=== PATIENT | female | born 1960 | race American Indian/Alaskan Native ===

== ENCOUNTER 2016-11-26 14:14 | Inpatient (IN) | payer OTHER ==
[2016-11-26] MEDS ORDERED: NITRO-BID 2% TP ONE ×2 (17:25→20:00)
[2016-11-26] MEDS ORDERED: SUBLIMAZE IV ONE (17:25)
[2016-11-26] MEDS ORDERED: ZOFRAN IV ONE (17:25)
--- NOTE | 2016-11-26 17:30 | Emergency Department Report ---
HPI - General Chief Complaint: Chest Pain Time Seen by Provider: 11/26/16 17:11 - HPI HPI: Room 18 The patient is a 56-year-old female presented with a chief complaint of right groin and chest pain. The patient states her symptoms began last night with pain in the right groin radiating to her back and left upper extremity.. Patient states when she stands up her heart rate goes into the 140s to 150s. Patient describes pain as pulsating and constant in nature. The patient also admits to exertional chest pain since last night described as a pressure in the left chest. This pressures associated with shortness of breath nausea/vomiting and sometimes diaphoresis. Patient states she's had a stress test "a long time ago"but has never had a cardiac catheterization. The patient flew from [place] to [place] took a bus from [place] to [place] today Location: [see above] Duration: [see above] Quality: Throbbing Severity: 7-8/10 Modifying factors: [see above] Context: [see above] Mode of transportation: Unknown ED Past Medical Hx - Past Medical History Hx CVA: Yes Hx Deep Vein Thrombosis: Yes (bilateral upper extremities) Hx Pulmonary Embolism: Yes (April 2016) Hx Arthritis: Yes (RHEUMATOID) Additional medical history: SLE. MYOSITIS. PERIPHERAL EOSINOPHILIA. GI BLEED. "CLOTTING DISORDER" - Surgical History Additional Surgical History: IVC FILTER RIGHT GROIN. ULCER CLIPPED AND CLAMPED. RIGHT AND LEFT KNEE SURGERIES. Esophageal surgery to remove growth - Family History Family history: no significant - Social History Smoking Status: Never Smoker - Medications Home Medications: Home Medications Medication Instructions Recorded Confirmed Last Taken Type AtorvaSTATin [Lipitor] 10 mg PO QPM 04/11/15 11/26/16 04/08/15 History 10 MG Pantoprazole [Protonix TAB] 40 mg PO BID 04/11/15 11/26/16 04/08/15 History 40 MG predniSONE [Deltasone] 10 mg PO QDAY 04/11/15 11/26/16 04/08/15 History 10 MG Enoxaparin [Lovenox] 90 mg SQ Q12HR #10 syringe 04/12/15 11/26/16 Unknown Rx Warfarin [Coumadin] 5 mg PO QDAY #10 tablet 04/12/15 11/26/16 Unknown Rx Ascorbic Acid [Vitamin C] 500 mg PO QDAY 11/26/16 11/26/16 Unknown History Cholecalciferol Vit D3 [Vitamin D3] 1,000 unit PO QDAY 11/26/16 11/26/16 Unknown History Metoprolol Xl [Metoprolol 50 mg PO BID 11/26/16 11/26/16 Unknown History SUCCINATE ER TAB] ED Review of Systems ROS: Stated complaint: RAPID HEART RATE/PAIN IN GROIN/HX OF DVT/ Other details as noted in HPI Comment: All other systems reviewed and negative Constitutional: diaphoresis Eyes: denies: eye pain, eye discharge, vision change ENT: denies: ear pain, throat pain Respiratory: shortness of breath Cardiovascular: chest pain, palpitations Endocrine: no symptoms reported Gastrointestinal: nausea, vomiting Genitourinary: denies: urgency, dysuria, discharge Musculoskeletal: back pain Skin: denies: rash, lesions Neurological: denies: headache, weakness, paresthesias Psychiatric: denies: anxiety, depression Hematological/Lymphatic: denies: easy bleeding, easy bruising Physical Exam - Physical Exam Vital Signs: Vital Signs 11/26/16 11/26/16 11/26/16 14:49 16:52 17:00 Temperature 98.2 F 98.1 F Pulse Rate 95 H 75 Respiratory 18 18 18 Rate Blood Pressure 117/62 Blood Pressure 110/46 [Right] O2 Sat by Pulse 100 99 99 Oximetry Physical Exam: GENERAL: The patient is well-developed well-nourished female lying on stretcher not appearing to be in acute distress. [] HEENT: Normocephalic. Atraumatic. Extraocular motions are intact. Patient has moist mucous membranes. NECK: Supple. Trachea midline CHEST/LUNGS: Clear to auscultation. There is no respiratory distress noted. HEART/CARDIOVASCULAR: Regular. There is no tachycardia. There is no gallop rub or murmur. ABDOMEN: Abdomen is soft, nontender. Patient has normal bowel sounds. There is no abdominal distention. SKIN: There is no rash. There is no diaphoresis. NEURO: The patient is awake, alert, and oriented. The patient is cooperative. The patient has normal speech MUSCULOSKELETAL: There is no evidence of acute injury. ED Course Vital Signs 11/26/16 11/26/16 11/26/16 14:49 16:52 17:00 Temperature 98.2 F 98.1 F Pulse Rate 95 H 75 Respiratory 18 18 18 Rate Blood Pressure 117/62 Blood Pressure 110/46 [Right] O2 Sat by Pulse 100 99 99 Oximetry ED Medical Decision Making - Lab Data Result diagrams: 11/26/16 18:36 11/26/16 18:36 Laboratory Tests 11/26/16 11/26/16 18:36 18:36 WBC 5.7 RBC 3.06 L Hgb 8.3 L Hct 27.3 L MCV 89 MCH 27 L MCHC 31 RDW 18.2 H Plt Count 196 Lymph % (Auto) 15.4 [place] % (Auto) 4.2 Eos % (Auto) 1.2 Baso % (Auto) 0.2 Lymph # 0.9 L [place]minn # 0.2 Eos # 0.1 Baso # 0.0 Seg Neutrophils % 79.0 H Seg Neutrophils # 4.5 Sodium 137 Potassium 4.6 Chloride 102.7 Carbon Dioxide 18 L Anion Gap 21 BUN 11 Creatinine 0.5 L Estimated GFR > 60 BUN/Creatinine Ratio 22.00 Glucose 145 H Calcium 8.9 Troponin T 0.035 H Triglycerides 96 Cholesterol 131 LDL Cholesterol Direct 57 HDL Cholesterol 55 Cholesterol/HDL Ratio 2.38 - EKG Data -: EKG Interpreted by Me EKG shows normal: sinus rhythm Rate: normal - EKG Data When compared to previous EKG there are: previous EKG unavailable Interpretation: other (no ischemic changes seen) - Radiology Data Radiology results: image reviewed (chest x-ray) interpreted by me: Chest x-ray-no focal infiltrates, no pneumothorax - Differential Diagnosis PE, ACS, DVT, pericarditis, GERD Critical care attestation.: If time is entered above; I have spent that time in minutes in the direct care of this critically ill patient, excluding procedure time. ED Disposition Clinical Impression: Chest pain, Right groin pain Disposition: OP ADMIT IP TO THIS HOSP Is pt being admited?: Yes Condition: Fair Instructions: Chest Pain (ED) Referrals: PRIMARY CARE, [Primary Care Provider] - 3-5 Days
--- NOTE | 2016-11-26 17:58 | Admit Criteria Form ---
Admission Criteria Documentation: CARDIOLOGY GRG Clinical Indications for Admission to Inpatient Care ([place]/check or initial the applicable condition/criteria) Hospital admission is needed for appropriate care of the patient because of ANY ONE of the following: [ ] I. Hemodynamic instability as indicated by ALL of the following (1)(2)(3) (4)(5)(6)(7)(8)(9)(10) [ ]a) Vital sign abnormality not readily corrected by appropriate treatment with 12-24 hours for ANY ONE: [ ]i) Hypotension that persists despite appropriate treatment (eg, volume repletion) [ ]ii) Tachycardiathat persists despite appropriate tx ( e.g., analgesia, fluids, sedation as indicated [ ]iii) Orthostatic vital sign changes that persists despite appropriate treatment (eg, volume repletion) [ ]b) Vital sign abnormailty that is severe indicated by ANY ONE of the following: [ ]i) Inadequate perfusion indicated by ANY ONE of the following: [ ] 1) Lactic acidosis (> 2 mmol/L) [ ] 2) New abnormal capillary refill (> 3 seconds) [ ] 3) Reduced urine output [ ] 4) New altered mental status [ ] 5) Myocardial Ischemia [ ] 6) Other metabolic acidosis (arterial pH <7.35 ) not otherwise explained. [ ]ii) Mean arterial pressure[A] less than 60 mm Hg [ ]iii) Mean arterial pressure[A] less than 70 mm Hg after 30 minutes of appropriate treatment (eg, fluid resuscitation) [ ]iv) Sustained heart rate greater than 120 beats per minute in adult or child 6 years or older[B] [ ]v) IV inotropic or vasopressor medication required to maintain adequate blood pressure or perfusion [ ] II. Severe heart failure as indicated by ANY ONE of the following(17)(18) [ ]a) Respiratory distress [ ]b) Hypotension [ ]c) Debilitating anasarca refractory to therapy (eg, tissue breakdown with infection)[C](19) [ ]d) Cardiac arrhythmias of immediate concern [ ]e) Myocardial ischemia [ ] III. Cardiac arrhythmias or findings of immediate concern indicated by ANY ONE of the following (21)(22): [ ] a) Heart rhythms that are inherently dangerous or unstable indicated by ANY ONE of the following (23)(24)(25): [ ] i) Resuscitated ventricular fibrillation or cardiac arrest [ ] ii) Ventricular escape rhythm [ ] iii) Sustained ventricular tachycardia (30 seconds or more of ventricular rhythm at greater than 100 beats per minute) [ ] iv) Nonsustained ventricular tachycardia and ANY ONE of the following: [ ] 1) Suspected cardiac ischemia as cause or consequence of ventricular tachycardia [ ] 2) Acute myocarditis [ ] b) Unstable cardiac conduction defects indicated by ANY ONE of the following(25)(26)(27) [ ] i) Type II second-degree atrioventricular block [ ]ii) Third-degree atrioventricular block [ ]iii) New-onset left bundle branch block with suspected myocardial ischemia [ ]c) Any heart rhythm and ANY ONE of the following (23)(24)(28)(29) (30) [ ] i) Continuous long-term ECG monitoring needed (e.g., initiation of drug requiring monitoring for more than 24 hours) [ ] ii) Patient has automatic implanted cardioverter defibrillator that is repeatedly firing, malfunctioning, or in need of immediate adjustment of settings beyond the scope of ambulatory or observation care [ ]d) Heart rhythms of concern due to ANY ONE of the following: [ ] i) Hypotension [ ] ii) Respiratory distress [ ] iii) Association with other significant symptoms (e.g., bradycardia with syncope or ongoing dizziness, supraventricular tachycardia with chest pain (28)(29)(31) [ ] IV. Monitoring for cardiac contusion beyond the scope of observation care needed [A](32)(33)(34) [ ] V. Surgical or device complication (e.g., valve replacement complication , ICD disfunction or pacemaker dysfunction) (49)(50)(51)(52)(53)(54) [ ] . Inpatient palliative care needed. [F](51)(52) Also use Inpatient Palliative Care Criteria [ ] VII. Nonbacterial thrombotic (marantic) endocarditis(43)(44)(55)(56)(57) [X] VIII. Cardiology condition, symptom, or finding for which emergency and observation care has failed or are not considered appropriate. [ ] IX. Acute valvular disease requiring inpatient as indicated by ANY ONE of the following (40)(41) [ ]a) Acute valvular regurgitation (42) [ ]b) Noninfectious valvulitis (43)(44) [ ]c) Obstructive valve thrombosis (45)(46) [ ]d) Paravalvular leak(47)(48) [ ]e) Other significant valvular disorder remaining after emergency or observation level of care (as appropriate) [ ]X. Pericardial disease requiring inpatient treatment as indicated by ANY ONE of the following (35)(36)(37)(38) [ ]a) Suspected tamponade [ ]b) Hemopericardium [ ]c) Other significant pericardial disorder remaining after emergency or observation level of care (as appropriate)(39) [ ] XI. Cardiac ischemia beyond scope of emergency and observation care. [ ] XII. Cyanotic heart disease requiring inpatient care as indicated by 1 or more of the following(58)(59)(60): [ ]a) Acute onset of hypoxemia [ ]b) Exacerbation [ ] XIII. Hypertension requiring inpatient treatment as indicated by ANYONE of the following(11)(12)(13)(14): [ ]a) Severe hypertension (SBP greater than 180 mm Hg or DBP greater than 110 mm Hg, or greater than the 95th percentile for age, gender, and height in pediatric patients) that cannot be controlled (eg, to SBP less than 160 mm Hg and DBP less than 100 mm Hg) by emergency department or observation care treatment(15) [ ]b) Acute end organ damage secondary to hypertension (SBP greater than 140 mm Hg or DBP greater than 90 mm Hg) as indicated by ANYONE of the following: [ ] i) Hypertensive encephalopathy (eg, Altered mental status)(16) [ ] ii) Cerebral infarction [ ] iii) Intracranial hemorrhage [ ] iv) Myocardial ischemia or infarction [ ] v) Heart failure (eg, pulmonary edema) [ ] vi) Aortic dissection [ ] vii) Increased creatinine (new) with reduction of more than 50% in estimated glomerular filtration rate from baseline [ ] viii) Papilledema [ ] ix) Retinal hemorrhage [ ] x) Microangiopathic hemolytic anemia [ ] xi) Seizure [ ] xii) Other significant finding secondary to hypertension [ ] XIV. Complications of transplanted heart indicated by ANY ONE of the following(61): [ ]a) Acute graft rejection requiring inpatient management (eg, intravenous imunosuppression)(62)(63) [ ]b) Acute graft heart failure indicated by ANY ONE of the following(64): [ ] i) Hemodynamic instability [ ] ii) Cardiac arrhythmias of immediate concern [ ] iii) Pulmonary edema that is very severe (eg, mechanical ventilation needed, imminent or likely, need for 100% oxygen to keep oxygen saturation above 90%) [ ] iv) Pulmonary edema that is persistent as indicated by ALL of the following: [ ] 1) New need for oxygen therapy to keep oxygen saturation above 90 % (or increased FiO2 need from baseline) [ ] 2) Has not improved sufficiently with emergency department or observation care IV diuretics or other heart failure treatments[E]. [ ] iv) Altered mental status that is severe or persistent [ ] iv) Increased creatinine (new on laboratory test) with reduction of more than 50% in estimated glomerular filtration rate from baseline [ ] iv) Progressively (ongoing) rising creatinine (known from past laboratory test) with reduction of more than 25% in estimated glomerular filtration rate from baseline [ ] iv) Acute renal failure [ ] iv) Acute peripheral ischemia (eg, examination shows pulseless, cool, mottled, or cyanotic extremity) [ ] iv) Pulmonary artery catheter monitoring needed [ ] iv) Other sign or symptom of heart failure requiring inpatient treatment (ie, too severe or not responsive to outpatient and observation care treatment) [ ]c) Infection requiring inpatient management (eg, Hemodynamic instability, need for intravenous antimicrobial treatment)(66)(67)(68)(69)(70) [ ]d) Cardiac allograft vasculopathy requiring inpatient management (eg evidence of cardiacischemia)(71) [ ]e) Other complication of transplanted heart (eg, stroke, severe pulmonary hypertension, severe valvular dysfunction) requiring inpatient management(72) The original [employer] content created by [employer] has been revised. The portions of the content which have been revised are identified through the use of italic text or in bold, and [facility] has neither reviewed nor approved the modified material. All other unmodified content is copyright [facility]. Please see references footnoted in the original [facility] [facility] edition 2017 Admission Criteria Met: Yes
[2016-11-26 19:08] LABS: Basophils % (Auto) 0.2 % (0.0-1.8); Eosinophils % (Auto) 1.2 % (0.0-4.3); Hematocrit 27.3 % (30.3-42.9); Hemoglobin 8.3 gm/dl (10.1-14.3); Mean Corpuscular HGB Conc 31 % (30-34); Mean Corpuscular Hemoglobin 27 pg (28-32); Mean Corpuscular Volume 89 fl (79-97); Platelet Count 196 K/mm3 (140-440); Red Blood Count 3.06 M/mm3 (3.65-5.03); Red Cell Distribution Width 18.2 % (13.2-15.2); White Blood Count 5.7 K/mm3 (4.5-11.0)
[2016-11-26 19:19] LABS: Anion Gap 21 mmol/L; Blood Urea Nitrogen 11 mg/dL (7-17); Calcium 8.9 mg/dL (8.4-10.2); Carbon Dioxide 18 mmol/L (22-30); Chloride 102.7 mmol/L (98-107); Glucose 145 mg/dL (65-100); Potassium 4.6 mmol/L (3.6-5.0); Sodium 137 mmol/L (137-145)
[2016-11-26 19:44] LABS: Cholesterol 131 mg/dL (50-199); HDL Cholesterol 55 mg/dL (40-59); LDL Cholesterol,Direct 57 mg/dL (50-130); Triglycerides 96 mg/dL (2-149)
[2016-11-26] MEDS ORDERED: DILAUDID IM PRN (21:21)
--- NOTE | 2016-11-26 22:49 | History and Physical Report ---
History of Present Illness Date of examination: 11/26/16 Date of admission: 11/26/16 19:13 Chief complaint: CC: L sided CP 1 day History of present illness: HPI The patient is a 56-year-old female presented with a chief complaint of right groin and chest pain. The patient states her symptoms began last night with pain in the right groin radiating to her back and left upper extremity.. Patient states when she stands up her heart rate goes into the 140s to 150s. Patient describes pain as pulsating and constant in nature. The patient also admits to exertional chest pain since last night described as a pressure in the left chest. This pressures associated with shortness of breath nausea/vomiting and sometimes diaphoresis. Patient states she's had a stress test "a long time ago"but has never had a cardiac catheterization. The patient flew from [place] to [place] took a bus from [place] to [place] today Location: [see above] Duration: [see above] Quality: Throbbing Severity: 7-10/29 Modifying factors: [see above] Context: [see above] Mode of transportation: Unknown - Past Medical History Hx CVA: Yes Hx Deep Vein Thrombosis: Yes (bilateral upper extremities) Hx Pulmonary Embolism: Yes (April 2016) Hx Arthritis: Yes (RHEUMATOID) Additional medical history: SLE. MYOSITIS. PERIPHERAL EOSINOPHILIA. GI BLEED. "CLOTTING DISORDER" Hypercoagulable state - Surgical History Additional Surgical History: IVC FILTER RIGHT GROIN. ULCER CLIPPED AND CLAMPED. RIGHT AND LEFT KNEE SURGERIES. Esophageal surgery to remove growth - Family History Family history: no significant - Social History Smoking Status: Never Smoker - Medications Home Medications: Home Medications Medication Instructions Recorded Confirmed Last Taken Type AtorvaSTATin [Lipitor] 10 mg PO QPM 04/11/15 11/26/16 04/08/15 History 10 MG Pantoprazole [Protonix TAB] 40 mg PO BID 04/11/15 11/26/16 04/08/15 History 40 MG predniSONE [Deltasone] 10 mg PO QDAY 04/11/15 11/26/16 04/08/15 History 10 MG Enoxaparin [Lovenox] 90 mg SQ Q12HR #10 syringe 04/12/15 11/26/16 Unknown Rx Warfarin [Coumadin] 5 mg PO QDAY #10 tablet 04/12/15 11/26/16 Unknown Rx Ascorbic Acid [Vitamin C] 500 mg PO QDAY 11/26/16 11/26/16 Unknown History Cholecalciferol Vit D3 [Vitamin D3] 1,000 unit PO QDAY 11/26/16 11/26/16 Unknown History Metoprolol Xl [Metoprolol 50 mg PO BID 11/26/16 11/26/16 Unknown History SUCCINATE ER TAB] Review of Systems Stated complaint: RAPID HEART RATE/PAIN IN GROIN/HX OF DVT/ Other details as noted in HPI Comment: All other systems reviewed and negative Constitutional: diaphoresis Eyes: denies: eye pain, eye discharge, vision change ENT: denies: ear pain, throat pain Respiratory: shortness of breath Cardiovascular: chest pain, palpitations Endocrine: no symptoms reported Gastrointestinal: nausea, vomiting Genitourinary: denies: urgency, dysuria, discharge Musculoskeletal: back pain Skin: denies: rash, lesions Neurological: denies: headache, weakness, paresthesias Psychiatric: denies: anxiety, depression Hematological/Lymphatic: denies: easy bleeding, easy bruising Medications and Allergies Allergies Allergy/AdvReac Type Severity Reaction Status Date / Time acetaminophen [From Tylenol] Allergy Hives Verified 04/10/15 09:40 ciprofloxacin [From Cipro] Allergy Hives Verified 04/10/15 09:40 ciprofloxacin HCl Allergy Hives Verified 04/10/15 09:40 [From Cipro] dicyclomine HCl [From Bentyl] Allergy Hives Verified 04/10/15 09:40 hydrocodone Allergy Hives Verified 04/10/15 09:40 Iodinated Contrast Media - Allergy Hives Verified 04/10/15 09:40 IV Dye meperidine HCl [From Demerol] Allergy Hives Verified 04/10/15 09:40 morphine Allergy Hives Verified 04/10/15 09:40 NSAIDS (Non-Steroidal Allergy Hives Verified 04/10/15 09:40 Anti-Inflamma oxycodone HCl Allergy Hives Verified 04/10/15 09:40 [From OxyContin] tramadol Allergy Hives Verified 04/10/15 09:40 Home Medications Medication Instructions Recorded Confirmed Last Taken Type AtorvaSTATin [Lipitor] 10 mg PO QPM 04/11/15 11/26/16 04/08/15 History 10 MG Pantoprazole [Protonix TAB] 40 mg PO BID 01/11/26/16 04/08/15 History 40 MG predniSONE [Deltasone] 10 mg PO QDAY 04/11/15 11/26/16 04/08/15 History 10 MG Enoxaparin [Lovenox] 90 mg SQ Q12HR #10 syringe 04/12/15 11/26/16 Unknown Rx Warfarin [Coumadin] 5 mg PO QDAY #10 tablet 04/12/15 11/26/16 Unknown Rx Ascorbic Acid [Vitamin C] 500 mg PO QDAY 11/26/16 11/26/16 Unknown History Cholecalciferol Vit D3 [Vitamin D3] 1,000 unit PO QDAY 11/26/16 11/26/16 Unknown History Metoprolol Xl [Metoprolol 50 mg PO BID 11/26/16 11/26/16 Unknown History SUCCINATE ER TAB] Active Meds: Active Medications Hydromorphone HCl (Dilaudid) 1 mg IM Q4H PRN PRN Reason: Pain, Moderate (4-6) Last Admin: 11/26/16 21:33 Dose: 1 mg Exam - Constitutional Vitals: Temp Pulse Resp BP Pulse Ox 98.0 F 80 20 113/60 98 11/26/16 22:16 11/26/16 22:16 11/26/16 22:16 11/26/16 22:16 11/26/16 22:16 General appearance: Present: no acute distress, well-nourished - EENT Eyes: Present: PERRL ENT: hearing intact, clear oral mucosa - Neck Neck: Present: supple, normal ROM - Respiratory Respiratory effort: normal Respiratory: bilateral: CTA - Cardiovascular Heart rate: 86 Rhythm: regular Heart Sounds: Present: S1 & S2. Absent: rub, click - Extremities Extremities: no ischemia, pulses intact, pulses symmetrical, No edema Peripheral Pulses: within normal limits - Abdominal General gastrointestinal: Present: soft, non-tender, non-distended, normal bowel sounds Female genitourinary: Present: normal - Rectal Rectal Exam: deferred - Integumentary Integumentary: Present: clear, warm, dry - Musculoskeletal Musculoskeletal: gait normal, strength equal bilaterally - Psychiatric Psychiatric: appropriate mood/affect, intact judgment & insight - Neurologic Neurologic: CNII-XII intact, moves all extremities - Allied Health Allied health notes reviewed: nursing, case management Results - Labs CBC & Chem 7: 11/26/16 18:36 11/26/16 18:36 Labs: Laboratory Last Values WBC 5.7 K/mm3 (4.5-11.0) 11/26/16 18:36 RBC 3.06 M/mm3 (3.65-5.03) L 11/26/16 18:36 Hgb 8.3 gm/dl (10.1-14.3) L 11/26/16 18:36 Hct 27.3 % (30.3-42.9) L 11/26/16 18:36 MCV 89 fl (79-97) 11/26/16 18:36 MCH 27 pg (28-32) L 11/26/16 18:36 MCHC 31 % (30-34) 11/26/16 18:36 RDW 18.2 % (13.2-15.2) H 11/26/16 18:36 Plt Count 196 K/mm3 (140-440) 11/26/16 18:36 Lymph % (Auto) 15.4 % (13.4-35.0) 11/26/16 18:36 [place] % (Auto) 4.2 % (0.0-7.3) 11/26/16 18:36 Eos % (Auto) 1.2 % (0.0-4.3) 11/26/16 18:36 Baso % (Auto) 0.2 % (0.0-1.8) 11/26/16 18:36 Lymph # 0.9 K/mm3 (1.2-5.4) L 11/26/16 18:36 [place] # 0.2 K/mm3 (0.0-0.8) 11/26/16 18:36 Eos # 0.1 K/mm3 (0.0-0.4) 11/26/16 18:36 Baso # 0.0 K/mm3 (0.0-0.1) 11/26/16 18:36 Seg Neutrophils % 79.0 % (40.0-70.0) H 11/26/16 18:36 Seg Neutrophils # 4.5 K/mm3 (1.8-7.7) 11/26/16 18:36 Sodium 137 mmol/L (137-145) 11/26/16 18:36 Potassium 4.6 mmol/L (3.6-5.0) 11/26/16 18:36 Chloride 102.7 mmol/L (98-107) 11/26/16 18:36 Carbon Dioxide 18 mmol/L (22-30) L 11/26/16 18:36 Anion Gap 21 mmol/L 11/26/16 18:36 BUN 11 mg/dL (7-17) 11/26/16 18:36 Creatinine 0.5 mg/dL (0.7-1.2) L 11/26/16 18:36 Estimated GFR > 60 ml/min 11/26/16 18:36 BUN/Creatinine Ratio 22.00 % 11/26/16 18:36 Glucose 145 mg/dL (65-100) H 11/26/16 18:36 Calcium 8.9 mg/dL (8.4-10.2) 11/26/16 18:36 Troponin T 0.035 ng/mL (0.00-0.029) H 11/26/16 18:36 Triglycerides 96 mg/dL (2-149) 11/26/16 18:36 Cholesterol 131 mg/dL (50-199) 11/26/16 18:36 LDL Cholesterol Direct 57 mg/dL (50-130) 11/26/16 18:36 HDL Cholesterol 55 mg/dL (40-59) 11/26/16 18:36 Cholesterol/HDL Ratio 2.38 % 11/26/16 18:36 - Imaging and Cardiology EKG: report reviewed (NSR 86/min) Chest x-ray: report reviewed (NAF) Imaging and Cardiology: Refused V/q scan-says it will miss PE Assessment and Plan Advance Directives: Yes (FC) VTE prophylaxis?: Chemical Plan of care discussed with patient/family: Yes - Patient Problems (1) Chest pain Current Visit: Yes Status: Acute Qualifiers: Chest pain type: precordial pain Ischemic chest pain type: I Qualified Code(s): R07.2 - Precordial pain Plan to address problem: Serial Cardiac Enzymes and Lexiscan (2) Dyspnea Current Visit: Yes Status: Acute Qualifiers: Dyspnea type: unspecified Qualified Code(s): R06.00 - Dyspnea, unspecified Plan to address problem: R/o PE .Patient refused V/q scan.CTA chest ordered. Lovenox 90 mg q 12 initiated.May D/c Lovenox if CTA negative. (3) Hypercoagulable state Current Visit: Yes Status: Chronic Plan to address problem: Patient has IVC filter and on Coumadin.Adjust coumadin to Therapeutic dose (4) Hypertension Current Visit: No Status: Chronic Qualifiers: Hypertension type: essential hypertension Qualified Code(s): I10 - Essential (primary) hypertension Plan to address problem: Cont Metoprolol (5) Rheumatoid arthritis Current Visit: No Status: Chronic Qualifiers: Rheumatoid arthritis location: R Rheumatoid factor presence: unspecified presence Laterality: unspecified laterality Plan to address problem: Cont Prednisone (6) SLE (systemic lupus erythematosus) Current Visit: No Status: Chronic Qualifiers: Systemic lupus erythematosus type: unspecified Systemic lupus erythematosus organ involvement: S Plan to address problem: Cont Prednisone (7) HLD (hyperlipidemia) Current Visit: Yes Status: Acute Qualifiers: Hyperlipidemia type: mixed hyperlipidemia Qualified Code(s): E78.2 - Mixed hyperlipidemia Plan to address problem: Cont statins (8) DVT prophylaxis Current Visit: Yes Status: Acute Plan to address problem: On Lovenox for ppossible PE
[2016-11-26] MEDS ORDERED: ZOFRAN IV PRN (22:57)
[2016-11-26] MEDS ORDERED: AMBIEN PO PRN (22:57)
[2016-11-26] MEDS ORDERED: DULCOLAX PR PRN (22:57)
[2016-11-26] MEDS ORDERED: MILK OF MAGNESIA PO PRN (22:57)
[2016-11-26] MEDS ORDERED: TYLENOL PO PRN (22:57)
[2016-11-26] MEDS ORDERED: PERCOCET 5/325 PO PRN (22:57)
[2016-11-26] MEDS ORDERED: NACL 0.45% 1000 ML 1,000 ML IV SCH (23:00)
[2016-11-26] MEDS ORDERED: LOVENOX SUB-Q SCH (23:00)
[2016-11-26] MEDS: LOVENOX SUB-Q SCH (23:48)
[2016-11-27] MEDS: DILAUDID IV PRN ×6 (02:06→21:10)
--- NOTE | 2016-11-27 07:46 | XRay Report ---
CHEST ONE VIEW INDICATION: Chest pain. COMPARISON: 04/10/2015. FINDINGS: Portable, single, frontal chest radiograph demonstrates normal cardiomediastinal silhouette. Clear lungs. Mild thoracic levocurvature. CONCLUSION: No acute disease in the chest. Thank you for the opportunity to participate in this patient's care.
[2016-11-27] MEDS: VITAMIN D3 PO SCH (09:46)
[2016-11-27] MEDS: VITAMIN C PO SCH (09:46)
[2016-11-27] MEDS: DELTASONE PO SCH (09:46)
[2016-11-27] MEDS: PROTONIX PO SCH ×2 (09:46→21:12)
[2016-11-27] MEDS: TOPROL XL PO SCH ×2 (09:47→21:12)
--- NOTE | 2016-11-27 10:17 | Progress Note ---
Assessment and Plan Assessment and plan: Chest pain. Continue to follow serial troponins. Initial troponin is slightly elevated at 0.035. Continue to monitor serial troponins. Stress thallium and echocardiogram today. Consider cardiology consultation. Patient refused VQ scan in the emergency room but is now amenable. Patient reports contrast allergy and therefore we'll hold on CT of chest. Hypercoagulable state. Patient states that the etiology is unknown at this time. She reports that she is currently undergoing workup with her doctors in [place]. INR was subtherapeutic on admission. Continue Lovenox 80 mg every 12 hours and Coumadin. Hypertension. Continue metoprolol. Rheumatoid arthritis. Continue prednisone. SLE. Prednisone. Hyperlipidemia. Continue statins. DVT prophylaxis. On Lovenox. History Interval history: Patient currently denies any chest pain or shortness of breath. Hospitalist Physical - Constitutional Vitals: Temp Pulse Resp BP Pulse Ox 98.0 F 80 20 113/60 98 11/26/16 22:16 11/27/16 02:41 11/26/16 22:16 11/26/16 22:16 11/26/16 22:16 General appearance: Present: no acute distress, well-nourished - EENT Eyes: Present: PERRL, EOM intact ENT: hearing intact, clear oral mucosa, dentition normal - Neck Neck: Present: supple, normal ROM - Respiratory Respiratory effort: normal Respiratory: bilateral: CTA - Cardiovascular Rhythm: regular Heart Sounds: Present: S1 & S2. Absent: gallop, rub - Extremities Extremities: no ischemia, No edema, Full ROM - Abdominal General gastrointestinal: soft, non-tender, non-distended, normal bowel sounds - Integumentary Integumentary: Present: clear, warm, dry - Neurologic Neurologic: CNII-XII intact, moves all extremities Results - Labs CBC & Chem 7: 11/26/16 18:36 11/26/16 18:36 Labs: Laboratory Last Values WBC 5.7 K/mm3 (4.5-11.0) 11/26/16 18:36 RBC 3.06 M/mm3 (3.65-5.03) L 11/26/16 18:36 Hgb 8.3 gm/dl (10.1-14.3) L 11/26/16 18:36 Hct 27.3 % (30.3-42.9) L 11/26/16 18:36 MCV 89 fl (79-97) 11/26/16 18:36 MCH 27 pg (28-32) L 11/26/16 18:36 MCHC 31 % (30-34) 11/26/16 18:36 RDW 18.2 % (13.2-15.2) H 11/26/16 18:36 Plt Count 196 K/mm3 (140-440) 11/26/16 18:36 Lymph % (Auto) 15.4 % (13.4-35.0) 11/26/16 18:36 [place] % (Auto) 4.2 % (0.0-7.3) 11/26/16 18:36 Eos % (Auto) 1.2 % (0.0-4.3) 11/26/16 18:36 Baso % (Auto) 0.2 % (0.0-1.8) 11/26/16 18:36 Lymph # 0.9 K/mm3 (1.2-5.4) L 11/26/16 18:36 [place] # 0.2 K/mm3 (0.0-0.8) 11/26/16 18:36 Eos # 0.1 K/mm3 (0.0-0.4) 11/26/16 18:36 Baso # 0.0 K/mm3 (0.0-0.1) 11/26/16 18:36 Seg Neutrophils % 79.0 % (40.0-70.0) H 11/26/16 18:36 Seg Neutrophils # 4.5 K/mm3 (1.8-7.7) 11/26/16 18:36 Sodium 137 mmol/L (137-145) 11/26/16 18:36 Potassium 4.6 mmol/L (3.6-5.0) 11/26/16 18:36 Chloride 102.7 mmol/L (98-107) 11/26/16 18:36 Carbon Dioxide 18 mmol/L (22-30) L 11/26/16 18:36 Anion Gap 21 mmol/L 11/26/16 18:36 BUN 11 mg/dL (7-17) 11/26/16 18:36 Creatinine 0.5 mg/dL (0.7-1.2) L 11/26/16 18:36 Estimated GFR > 60 ml/min 11/26/16 18:36 BUN/Creatinine Ratio 22.00 % 11/26/16 18:36 Glucose 145 mg/dL (65-100) H 11/26/16 18:36 Calcium 8.9 mg/dL (8.4-10.2) 11/26/16 18:36 Troponin T 0.035 ng/mL (0.00-0.029) H 11/26/16 18:36 Triglycerides 96 mg/dL (2-149) 11/26/16 18:36 Cholesterol 131 mg/dL (50-199) 11/26/16 18:36 LDL Cholesterol Direct 57 mg/dL (50-130) 11/26/16 18:36 HDL Cholesterol 55 mg/dL (40-59) 11/26/16 18:36 Cholesterol/HDL Ratio 2.38 % 11/26/16 18:36
[2016-11-27] MEDS: LOVENOX SUB-Q SCH ×3 (11:25→23:11)
[2016-11-27 14:49] LABS: INR 1.16 (0.87-1.13)
[2016-11-27] MEDS ORDERED: COUMADIN PO SCH (17:00)
[2016-11-27] MEDS: COUMADIN PO SCH (17:36)
[2016-11-27 23:43] LABS: Creatine Kinase MB 4.1 ng/mL (0.0-4.0)
[2016-11-27 23:44] LABS: Alanine Aminotransferase 13 units/L (7-56); Albumin 3.3 g/dL (3.9-5); Albumin/Globulin Ratio 1.4 %; Alkaline Phosphatase 68 units/L (35-129); Anion Gap 19 mmol/L; Blood Urea Nitrogen 10 mg/dL (7-17); Calcium 8.5 mg/dL (8.4-10.2); Carbon Dioxide 21 mmol/L (22-30); Chloride 104.5 mmol/L (98-107); Glucose 124 mg/dL (65-100); Potassium 4.8 mmol/L (3.6-5.0); Sodium 140 mmol/L (137-145); Total Protein 5.7 g/dL (6.3-8.2)
[2016-11-28] MEDS: DILAUDID IV PRN ×6 (01:00→22:22)
[2016-11-28] MEDS ORDERED: LEXISCAN IV ONE (08:10)
[2016-11-28] MEDS: PROTONIX PO SCH ×2 (10:05→22:22)
[2016-11-28] MEDS: DELTASONE PO SCH (10:05)
[2016-11-28] MEDS: TOPROL XL PO SCH ×2 (10:05→22:22)
[2016-11-28] MEDS: VITAMIN D3 PO SCH (10:05)
[2016-11-28] MEDS: VITAMIN C PO SCH (10:05)
[2016-11-28] MEDS: LOVENOX SUB-Q SCH ×2 (10:08→23:59)
--- NOTE | 2016-11-28 13:12 | Progress Note ---
Assessment and Plan - Patient Problems (1) Chest pain Current Visit: Yes Status: Acute Qualifiers: Chest pain type: precordial pain Ischemic chest pain type: I Qualified Code(s): R07.2 - Precordial pain Plan to address problem: Chest pain patient still has some degree of chest pressure today. Could be secondary to lupus and rheumatoid. Patient has had a history of pulmonary embolisms in the past. Patient did not want to do stress test because of tachycardia. 1 a cardiology consult prior to this. We'll obtain cardiology consult today. (2) Dyspnea Current Visit: Yes Status: Acute Qualifiers: Dyspnea type: unspecified Qualified Code(s): R06.00 - Dyspnea, unspecified Plan to address problem: Most likely chronic secondary to recurrent PE in the past DVT patient on chronic Coumadin therapy and was subtherapeutic. He refused VQ scan. (3) Hypercoagulable state Current Visit: Yes Status: Chronic Plan to address problem: Likely secondary to lupus however not confirmed. Same plan will be to treat with Coumadin. (4) Subtherapeutic international normalized ratio (INR) Current Visit: No Status: Acute Plan to address problem: Being followed by pharmacy. (5) History of pulmonary embolism Current Visit: No Status: Chronic Plan to address problem: Patient has history of pulmonary embolism has IV C filter in place. We will optimize patient management will Coumadin. (6) Hypertension Current Visit: No Status: Chronic Qualifiers: Hypertension type: essential hypertension Qualified Code(s): I10 - Essential (primary) hypertension Plan to address problem: At present very well controlled with current antihypertensives. (7) Rheumatoid arthritis Current Visit: No Status: Chronic Qualifiers: Rheumatoid arthritis location: R Rheumatoid factor presence: unspecified presence Laterality: unspecified laterality Plan to address problem: Pain control is advanced muscle skeletal changes of rheumatoid arthritis. (8) SLE (systemic lupus erythematosus) Current Visit: No Status: Chronic Qualifiers: Systemic lupus erythematosus type: unspecified Systemic lupus erythematosus organ involvement: S History Interval history: Pt had epsode of chest discomfort yesterday.Pt did not complete stress test because she said he became tachycardic upon standing and did not know if it was safe to have a stress test. Therefore she wanted cardiology consult which we will provide today. Hospitalist Physical - Constitutional Vitals: Temp Pulse Resp BP Pulse Ox 98.6 F 100 H 20 110/58 98 09/09/17 08:58 11/28/16 10:00 11/28/16 10:00 11/28/16 08:58 11/28/16 10:00 General appearance: Present: no acute distress, well-nourished - EENT Eyes: Present: PERRL, EOM intact ENT: hearing intact, clear oral mucosa, dentition normal - Neck Neck: Present: supple, normal ROM - Respiratory Respiratory effort: normal Respiratory: bilateral: CTA - Cardiovascular Rhythm: regular - Extremities Extremities: no ischemia, pulses intact, pulses symmetrical, No edema Peripheral Pulses: within normal limits - Abdominal General gastrointestinal: soft, non-tender, non-distended - Integumentary Integumentary: Present: clear, warm - Psychiatric Psychiatric: appropriate mood/affect, intact judgment & insight - Neurologic Neurologic: gait normal (musculoskeletal no maladies consistent with rheumatoid and lupus.) Results - Labs CBC & Chem 7: 11/26/16 18:36 11/27/16 22:50 Labs: Laboratory Last Values WBC 5.7 K/mm3 (4.5-11.0) 11/26/16 18:36 RBC 3.06 M/mm3 (3.65-5.03) L 11/26/16 18:36 Hgb 8.3 gm/dl (10.1-14.3) L 11/26/16 18:36 Hct 27.3 % (30.3-42.9) L 11/26/16 18:36 MCV 89 fl (79-97) 11/26/16 18:36 MCH 27 pg (28-32) L 11/26/16 18:36 MCHC 31 % (30-34) 11/26/16 18:36 RDW 18.2 % (13.2-15.2) H 11/26/16 18:36 Plt Count 196 K/mm3 (140-440) 11/26/16 18:36 Lymph % (Auto) 15.4 % (13.4-35.0) 11/26/16 18:36 [place] % (Auto) 4.2 % (0.0-7.3) 11/26/16 18:36 Eos % (Auto) 1.2 % (0.0-4.3) 11/26/16 18:36 Baso % (Auto) 0.2 % (0.0-1.8) 11/26/16 18:36 Lymph # 0.9 K/mm3 (1.2-5.4) L 11/26/16 18:36 [place] # 0.2 K/mm3 (0.0-0.8) 11/26/16 18:36 Eos # 0.1 K/mm3 (0.0-0.4) 11/26/16 18:36 Baso # 0.0 K/mm3 (0.0-0.1) 11/26/16 18:36 Seg Neutrophils % 79.0 % (40.0-70.0) H 11/26/16 18:36 Seg Neutrophils # 4.5 K/mm3 (1.8-7.7) 11/26/16 18:36 PT 14.7 Sec. (12.2-14.9) 11/27/16 14:06 INR 1.16 (0.87-1.13) H 11/27/16 14:06 Sodium 140 mmol/L (137-145) 11/27/16 22:50 Potassium 4.8 mmol/L (3.6-5.0) 11/27/16 22:50 Chloride 104.5 mmol/L (98-107) 11/27/16 22:50 Carbon Dioxide 21 mmol/L (22-30) L 11/27/16 22:50 Anion Gap 19 mmol/L 11/27/16 22:50 BUN 10 mg/dL (7-17) 11/27/16 22:50 Creatinine 0.5 mg/dL (0.7-1.2) L 11/27/16 22:50 Estimated GFR > 60 ml/min 11/27/16 22:50 BUN/Creatinine Ratio 20.00 % 11/27/16 22:50 Glucose 124 mg/dL (65-100) H 11/27/16 22:50 POC Glucose 182 (70-105) H 11/28/16 11:14 Hemoglobin A1c 6.7 % (4-6) H 11/27/16 12:00 Calcium 8.5 mg/dL (8.4-10.2) 11/27/16 22:50 Total Bilirubin 0.20 mg/dL (0.1-1.2) 11/27/16 22:50 AST 20 units/L (5-40) 11/27/16 22:50 ALT 13 units/L (7-56) 11/27/16 22:50 Alkaline Phosphatase 68 units/L (35-129) 11/27/16 22:50 Total Creatine Kinase 63 units/L (30-135) 11/27/16 22:50 CK-MB (CK-2) 4.1 ng/mL (0.0-4.0) H 11/27/16 22:50 CK-MB (CK-2) Rel Index 6.5 (0-4) H 11/27/16 22:50 Troponin T 0.036 ng/mL (0.00-0.029) H 11/27/16 22:50 Total Protein 5.7 g/dL (6.3-8.2) L 11/27/16 22:50 Albumin 3.3 g/dL (3.9-5) L 11/27/16 22:50 Albumin/Globulin Ratio 1.4 % 11/27/16 22:50 Triglycerides 96 mg/dL (2-149) 11/26/16 18:36 Cholesterol 131 mg/dL (50-199) 11/26/16 18:36 LDL Cholesterol Direct 57 mg/dL (50-130) 11/26/16 18:36 HDL Cholesterol 55 mg/dL (40-59) 11/26/16 18:36 Cholesterol/HDL Ratio 2.38 % 11/26/16 18:36
[2016-11-28 16:45] LABS: Basophils % (Auto) 0.1 % (0.0-1.8); Eosinophils % (Auto) 1.6 % (0.0-4.3); Hematocrit 30.7 % (30.3-42.9); Hemoglobin 9.8 gm/dl (10.1-14.3); Mean Corpuscular HGB Conc 32 % (30-34); Mean Corpuscular Hemoglobin 27 pg (28-32); Mean Corpuscular Volume 83 fl (79-97); Platelet Count 251 K/mm3 (140-440); Red Blood Count 3.71 M/mm3 (3.65-5.03); Red Cell Distribution Width 17.8 % (13.2-15.2); White Blood Count 7.3 K/mm3 (4.5-11.0)
[2016-11-28 16:56] LABS: INR 1.09 (0.87-1.13)
[2016-11-28 17:06] LABS: Anion Gap 18 mmol/L; Blood Urea Nitrogen 10 mg/dL (7-17); Calcium 8.9 mg/dL (8.4-10.2); Carbon Dioxide 24 mmol/L (22-30); Chloride 103.8 mmol/L (98-107); Glucose 160 mg/dL (65-100); Potassium 4.7 mmol/L (3.6-5.0); Sodium 141 mmol/L (137-145)
[2016-11-28] MEDS: COUMADIN PO SCH (18:17)
[2016-11-29] MEDS: DILAUDID IV PRN ×5 (03:38→20:11)
[2016-11-29] MEDS ORDERED: LEXISCAN IV ONE ×2 (08:17→08:40)
--- NOTE | 2016-11-29 11:03 | Consultation ---
History of Present Illness Consult date: 11/29/16 Consult reason: chest pain History of present illness: This is a 56 year old -[place] female who lives in [facility]. Returning from a trip to [place] presented with chest pain and rapid heart beats. Pain is left precordial sharp according to patient. Patient was felt to have possibly had a pulmonary embolism given her prior history but patient refused to have a VQ scan CTA of the chest has been ordered Past History Past Medical History: COPD, DVT, hypertension, hyperlipidemia, pulmonary embolism, stroke (UIVC filter, gastric surgery. Knee surgery) Social history: . denies: smoking, alcohol abuse Family history: CAD, hypertension Medications and Allergies Allergies Allergy/AdvReac Type Severity Reaction Status Date / Time acetaminophen [From Tylenol] Allergy Hives Verified 04/10/15 09:40 ciprofloxacin [From Cipro] Allergy Hives Verified 04/10/15 09:40 ciprofloxacin HCl Allergy Hives Verified 04/10/15 09:40 [From Cipro] dicyclomine HCl [From Bentyl] Allergy Hives Verified 04/10/15 09:40 hydrocodone Allergy Hives Verified 04/10/15 09:40 Iodinated Contrast Media - Allergy Hives Verified 04/10/15 09:40 IV Dye meperidine HCl [From Demerol] Allergy Hives Verified 04/10/15 09:40 morphine Allergy Hives Verified 04/10/15 09:40 NSAIDS (Non-Steroidal Allergy Hives Verified 04/10/15 09:40 Anti-Inflamma oxycodone HCl Allergy Hives Verified 04/10/15 09:40 [From OxyContin] tramadol Allergy Hives Verified 04/10/15 09:40 Home Medications Medication Instructions Recorded Confirmed Last Taken Type AtorvaSTATin [Lipitor] 10 mg PO QPM 04/11/15 11/26/16 04/08/15 History 10 MG Pantoprazole [Protonix TAB] 40 mg PO BID 04/11/15 11/26/16 04/08/15 History 40 MG predniSONE [Deltasone] 10 mg PO QDAY 04/11/15 11/26/16 04/08/15 History 10 MG Enoxaparin [Lovenox] 90 mg SQ Q12HR #10 syringe 04/12/15 11/26/16 Unknown Rx Warfarin [Coumadin] 5 mg PO QDAY #10 tablet 04/12/15 11/26/16 Unknown Rx Ascorbic Acid [Vitamin C] 500 mg PO QDAY 11/26/16 11/26/16 Unknown History Cholecalciferol Vit D3 [Vitamin D3] 1,000 unit PO QDAY 11/26/16 11/26/16 Unknown History Metoprolol Xl [Metoprolol 50 mg PO BID 11/26/16 11/26/16 Unknown History SUCCINATE ER TAB] Active Meds: Active Medications Ascorbic Acid (Vitamin C) 500 mg PO QDAY [facility] Last Admin: 11/28/16 10:05 Dose: 500 mg Atorvastatin Calcium (Lipitor) 10 mg PO QPM [facility] Last Admin: 11/28/16 18:17 Dose: 10 mg Bisacodyl (Dulcolax) 10 mg [facility] QDAY PRN PRN Reason: Constipation unrelieved by [facility] Cholecalciferol (Vitamin D3) 1,000 unit PO QDAY [facility] Last Admin: 11/28/16 10:05 Dose: 1,000 unit Enoxaparin Sodium (Lovenox) 80 mg SUB-Q Q12H [facility] Last Admin: 11/28/16 23:59 Dose: 80 mg Hydromorphone HCl (Dilaudid) 1 mg IV Q3H PRN PRN Reason: Pain , Severe (7-10) Last Admin: 11/29/16 08:01 Dose: 1 mg Sodium Chloride (Nacl 0.45% 1000 Ml) 1,000 mls @ 75 mls/hr IV DIRECT [facility] Last Admin: 11/26/16 23:54 Dose: 75 mls/hr Magnesium Hydroxide (Milk Of Magnesia) 30 ml PO Q4H PRN PRN Reason: Constipation Metoprolol Succinate (Toprol Xl) 50 mg PO BID [facility] Last Admin: 11/28/16 22:22 Dose: 50 mg Ondansetron HCl (Zofran) 4 mg IV Q8H PRN PRN Reason: N/V unrelieved by Reglan Last Admin: 11/27/16 06:11 Dose: 4 mg Pantoprazole Sodium (Protonix) 40 mg PO BID [facility] Last Admin: 11/28/16 22:22 Dose: 40 mg Prednisone (Deltasone) 10 mg PO QDAY [facility] Last Admin: 11/28/16 10:05 Dose: 10 mg Warfarin Sodium (Coumadin Pharmacy To Dose) 1 each PO PKCONSULT [facility] PRN Reason: Protocol Warfarin Sodium (Coumadin) 7.5 mg PO DAILY@1700 [facility] Last Admin: 11/28/16 18:17 Dose: 7.5 mg Zolpidem Tartrate (Ambien) 5 mg PO QHS PRN PRN Reason: Insomnia Review of Systems Constitutional: fatigue, weakness, no weight loss, no weight gain, no fever, no chills, no anorexia Ears, nose, mouth and throat: no ear pain, no bleeding gums, no swelling in throat, no neck fullness/pressure Cardiovascular: chest pain, palpitations, no leg edema Respiratory: no cough, no hemoptysis, no wheezing Gastrointestinal: no abdominal pain, no nausea, no vomiting, no diarrhea, no melena, no hematochezia Genitourinary Female: pelvic pain, no dyspareunia, no flank pain Musculoskeletal: no neck stiffness, no neck pain, no redness of joints, no hot joints, no morning stiffness Integumentary: no rash, no wounds Neurological: no head injury, no weakness, no parathesias, no vertigo, no headaches Psychiatric: anxiety, no memory loss Endocrine: no cold intolerance, no heat intolerance, no polyphagia, no excessive thirst, no polydipsia, no polyuria, no nocturia Hematologic/Lymphatic: no easy bruising, no easy bleeding, no lymphedema Allergic/Immunologic: no urticaria, no wheezing Physical Examination Vital Signs Temp Pulse Resp BP Pulse Ox 98.2 F 95 H 18 117/62 100 11/26/16 14:49 11/26/16 14:49 11/26/16 14:49 11/26/16 14:49 11/26/16 14:49 General appearance: no acute distress, well-nourished HEENT: Positive: PERRL, Mucus Membranes Moist Neck: Positive: neck supple, trachea midline Cardiac: Positive: Regular Rate, S1/S2. Negative: S3, S4 Lungs: Positive: clear to auscultation, No Wheeze, Rales, Rhonchi, Other (port right chest) Neuro: Positive: Grossly Intact Abdomen: Positive: Soft, Active Bowel Sounds. Negative: Tender, Distended Musculoskeletal: No Pain, Normal Range of Motion Extremities: Present: normal Results 11/28/16 16:36 11/28/16 16:36 Coagulation 11/28/16 Range/Units 16:36 PT 14.0 (12.2-14.9) Sec. INR 1.09 (0.87-1.13) CBC 11/28/16 Range/Units 16:36 WBC 7.3 (4.5-11.0) K/mm3 RBC 3.71 (3.65-5.03) M/mm3 Hgb 9.8 L (10.1-14.3) gm/dl Hct 30.7 (30.3-42.9) % Plt Count 251 (140-440) K/mm3 Lymph # 0.7 L (1.2-5.4) K/mm3 [place] # 0.3 (0.0-0.8) K/mm3 Eos # 0.1 (0.0-0.4) K/mm3 Baso # 0.0 (0.0-0.1) K/mm3 Comprehensive Metabolic Panel 11/28/16 Range/Units 16:36 Sodium 141 (137-145) mmol/L Potassium 4.7 (3.6-5.0) mmol/L Chloride 103.8 (98-107) mmol/L Carbon Dioxide 24 (22-30) mmol/L BUN 10 (7-17) mg/dL Creatinine 0.4 L (0.7-1.2) mg/dL Glucose 160 H (65-100) mg/dL Calcium 8.9 (8.4-10.2) mg/dL EKG interpretations - Telemetry EKG Rhythm: Sinus Rhythm Assessment and Plan 1. Chest pain rule out underlying ischemic coronary artery disease. 2. History of bilateral deep venous thrombosis of the legs. Status post IVC filter insertion 3. Collagen vascular disease with history of systemic lupus erythematosus, myositis and rheumatoid arthritis 4. Hypercoagulable state and etiology unknown previous workup in the past at [facility] was negative. 5. Eosinophilia 6. History of stroke 7. History of recurrent pulmonary embolism on indefinite anticoagulation Plan. Patient is currently stable CTA of the chest is been on Lexiscan thallium scan will be done to rule out underlying ischemic coronary artery disease. Resume anticoagulation follow PT and INR. Echocardiogram pending
--- NOTE | 2016-11-29 11:30 | Event Note ---
Date: 11/29/16 Lexiscan thallium scan was suboptimal but probably normal myocardial perfusion scan images with diaphragmatic attenuation present. Echocardiogram shows sclerotic aortic phallus with trace AI concentric LVH with normal global and regional function of the ejection fraction 60-65% right ventricular size and function is normal with PA systolic pressures of approximately 30-35 mmHg
[2016-11-29] MEDS: VITAMIN D3 PO SCH (12:25)
[2016-11-29] MEDS: TOPROL XL PO SCH ×2 (12:25→22:07)
[2016-11-29] MEDS: PROTONIX PO SCH ×2 (12:25→22:07)
[2016-11-29] MEDS: LOVENOX SUB-Q SCH ×2 (12:26→22:08)
[2016-11-29] MEDS: VITAMIN C PO SCH (12:26)
[2016-11-29] MEDS: DELTASONE PO SCH (12:26)
--- NOTE | 2016-11-29 12:55 | Progress Note ---
Assessment and Plan - Patient Problems (1) Chest pain Current Visit: Yes Status: Acute Qualifiers: Chest pain type: precordial pain Ischemic chest pain type: I Qualified Code(s): R07.2 - Precordial pain Plan to address problem: Chest pain unlikely cardiac in nature. Current workup negative. Could be chest wall pain as well as small clotting. We'll treat with Coumadin. Coumadin INR level was subtherapeutic increase to 10 mg. (2) Dyspnea Current Visit: Yes Status: Acute Qualifiers: Dyspnea type: unspecified Qualified Code(s): R06.00 - Dyspnea, unspecified Plan to address problem: Most likely chronic secondary to recurrent PE in the past DVT patient on chronic Coumadin therapy and was subtherapeutic. He refused VQ scan. (3) Hypercoagulable state Current Visit: Yes Status: Chronic Plan to address problem: Likely secondary to lupus however not confirmed. Same plan will be to treat with Coumadin. INR decreased to 1.10. We'll increase Coumadin to 10 mg. Discharge when patient therapeutic. (4) Subtherapeutic international normalized ratio (INR) Current Visit: No Status: Acute Plan to address problem: Increase Coumadin to 10 mg daily. Titrate accordingly. (5) History of pulmonary embolism Current Visit: No Status: Chronic Plan to address problem: Patient has history of pulmonary embolism has IV C filter in place. We will optimize patient management will Coumadin. (6) Hypertension Current Visit: No Status: Chronic Qualifiers: Hypertension type: essential hypertension Qualified Code(s): I10 - Essential (primary) hypertension Plan to address problem: At present very well controlled with current antihypertensives. (7) Rheumatoid arthritis Current Visit: No Status: Chronic Qualifiers: Rheumatoid arthritis location: R Rheumatoid factor presence: unspecified presence Laterality: unspecified laterality Plan to address problem: Pain control is advanced muscle skeletal changes of rheumatoid arthritis. (8) SLE (systemic lupus erythematosus) Current Visit: No Status: Chronic Qualifiers: Systemic lupus erythematosus type: unspecified Systemic lupus erythematosus organ involvement: S Plan to address problem: As likely etiology of hypercoagulable state. Patient has physical deformities because of autoimmune disease. Walker. Discharge when therapeutic. History Interval history: Patient clinically looks better today. No shortness of breath no tachycardia. Patient had ejection fraction on echocardiogram of 65% and Lexiscan showed normal perfusion. Hospitalist Physical - Constitutional Vitals: Temp Pulse Resp BP Pulse Ox 98.2 F 74 22 146/89 100 11/29/16 07:00 11/29/16 12:25 11/29/16 12:26 11/29/16 12:25 11/28/16 22:00 General appearance: Present: no acute distress, well-nourished - EENT Eyes: Present: PERRL, EOM intact ENT: hearing intact, clear oral mucosa, dentition normal - Neck Neck: Present: supple, normal ROM - Respiratory Respiratory effort: normal - Cardiovascular Rhythm: regular - Extremities Extremities: no ischemia, pulses intact, pulses symmetrical, No edema, normal temperature, normal color Extremity abnormal: edema - Abdominal General gastrointestinal: soft, non-tender, non-distended - Integumentary Integumentary: Present: clear, warm, dry - Psychiatric Psychiatric: appropriate mood/affect, intact judgment & insight, cooperative - Neurologic Neurologic: CNII-XII intact, no focal deficits Results - Labs CBC & Chem 7: 11/28/16 16:36 11/28/16 16:36 Labs: Laboratory Last Values WBC 7.3 K/mm3 (4.5-11.0) 11/28/16 16:36 RBC 3.71 M/mm3 (3.65-5.03) 11/28/16 16:36 Hgb 9.8 gm/dl (10.1-14.3) L 11/28/16 16:36 Hct 30.7 % (30.3-42.9) 11/28/16 16:36 MCV 83 fl (79-97) 11/28/16 16:36 MCH 27 pg (28-32) L 11/28/16 16:36 MCHC 32 % (30-34) 11/28/16 16:36 RDW 17.8 % (13.2-15.2) H 11/28/16 16:36 Plt Count 251 K/mm3 (140-440) 11/28/16 16:36 Lymph % (Auto) 10.0 % (13.4-35.0) L 11/28/16 16:36 [place] % (Auto) 4.2 % (0.0-7.3) 11/28/16 16:36 Eos % (Auto) 1.6 % (0.0-4.3) 11/28/16 16:36 Baso % (Auto) 0.1 % (0.0-1.8) 11/28/16 16:36 Lymph # 0.7 K/mm3 (1.2-5.4) L 11/28/16 16:36 [place] # 0.3 K/mm3 (0.0-0.8) 11/28/16 16:36 Eos # 0.1 K/mm3 (0.0-0.4) 11/28/16 16:36 Baso # 0.0 K/mm3 (0.0-0.1) 11/28/16 16:36 Seg Neutrophils % 84.1 % (40.0-70.0) H 11/28/16 16:36 Seg Neutrophils # 6.2 K/mm3 (1.8-7.7) 11/28/16 16:36 PT 14.0 Sec. (12.2-14.9) 11/28/16 16:36 INR 1.09 (0.87-1.13) 11/28/16 16:36 Sodium 141 mmol/L (137-145) 11/28/16 16:36 Potassium 4.7 mmol/L (3.6-5.0) 11/28/16 16:36 Chloride 103.8 mmol/L (98-107) 11/28/16 16:36 Carbon Dioxide 24 mmol/L (22-30) 11/28/16 16:36 Anion Gap 18 mmol/L 11/28/16 16:36 BUN 10 mg/dL (7-17) 11/28/16 16:36 Creatinine 0.4 mg/dL (0.7-1.2) L 11/28/16 16:36 Estimated GFR > 60 ml/min 11/28/16 16:36 BUN/Creatinine Ratio 25.00 % 11/28/16 16:36 Glucose 160 mg/dL (65-100) H 11/28/16 16:36 POC Glucose 112 (70-105) H 11/28/16 22:18 Hemoglobin A1c 6.7 % (4-6) H 11/27/16 12:00 Calcium 8.9 mg/dL (8.4-10.2) 11/28/16 16:36 Total Bilirubin 0.20 mg/dL (0.1-1.2) 11/27/16 22:50 AST 20 units/L (5-40) 11/27/16 22:50 ALT 13 units/L (7-56) 11/27/16 22:50 Alkaline Phosphatase 68 units/L (35-129) 11/27/16 22:50 Total Creatine Kinase 63 units/L (30-135) 11/27/16 22:50 CK-MB (CK-2) 4.1 ng/mL (0.0-4.0) H 11/27/16 22:50 CK-MB (CK-2) Rel Index 6.5 (0-4) H 11/27/16 22:50 Troponin T 0.036 ng/mL (0.00-0.029) H 11/27/16 22:50 Total Protein 5.7 g/dL (6.3-8.2) L 11/27/16 22:50 Albumin 3.3 g/dL (3.9-5) L 11/27/16 22:50 Albumin/Globulin Ratio 1.4 % 11/27/16 22:50 Triglycerides 96 mg/dL (2-149) 11/26/16 18:36 Cholesterol 131 mg/dL (50-199) 11/26/16 18:36 LDL Cholesterol Direct 57 mg/dL (50-130) 11/26/16 18:36 HDL Cholesterol 55 mg/dL (40-59) 11/26/16 18:36 Cholesterol/HDL Ratio 2.38 % 11/26/16 18:36
[2016-11-29 15:46] LABS: INR 1.18 (0.87-1.13)
[2016-11-29] MEDS: COUMADIN PO SCH (16:39)
[2016-11-30] MEDS: DILAUDID IV PRN ×4 (00:22→12:40)
[2016-11-30] MEDS: VITAMIN C PO SCH (09:14)
[2016-11-30] MEDS: VITAMIN D3 PO SCH (09:14)
[2016-11-30] MEDS: PROTONIX PO SCH (09:14)
[2016-11-30] MEDS: TOPROL XL PO SCH (09:14)
[2016-11-30] MEDS: DELTASONE PO SCH (09:15)
[2016-11-30 10:52] LABS: INR 1.54 (0.87-1.13)
[2016-11-30] MEDS: LOVENOX SUB-Q SCH (12:40)
--- NOTE | 2016-11-30 14:58 | Progress Note ---
Assessment and Plan - Patient Problems (1) Chest pain Current Visit: Yes Status: Acute Qualifiers: Chest pain type: precordial pain Ischemic chest pain type: I Qualified Code(s): R07.2 - Precordial pain Plan to address problem: Chest pain unlikely cardiac in nature. Current workup negative. Could be chest wall pain. We'll treat with Coumadin. Coumadin INR level was subtherapeutic increase to 10 mg. chest pain has resolved. (2) Dyspnea Current Visit: Yes Status: Acute Qualifiers: Dyspnea type: unspecified Qualified Code(s): R06.00 - Dyspnea, unspecified Plan to address problem: Dyspnea most likely secondary to chronic pulmonary embolism. We'll continue to treat patient with Coumadin at this time is not therapeutic. We'll await patient to become therapeutic being discharged. (3) Hypercoagulable state Current Visit: Yes Status: Chronic Plan to address problem: Likely secondary to lupus however not confirmed. Same plan will be to treat with Coumadin. INR decreased to 1.10. We'll increase Coumadin to 10 mg. Discharge when patient therapeutic. Awaiting INR to become therapeutic prior to discharge is 1.5 for today. (4) Subtherapeutic international normalized ratio (INR) Current Visit: No Status: Acute Plan to address problem: Increase Coumadin to 10 mg daily. Titrate accordingly. (5) History of pulmonary embolism Current Visit: No Status: Chronic Plan to address problem: Patient has history of pulmonary embolism has IV C filter in place. We will optimize patient management will Coumadin. (6) Hypertension Current Visit: No Status: Chronic Qualifiers: Hypertension type: essential hypertension Qualified Code(s): I10 - Essential (primary) hypertension Plan to address problem: At present very well controlled with current antihypertensives. (7) Rheumatoid arthritis Current Visit: No Status: Chronic Qualifiers: Rheumatoid arthritis location: R Rheumatoid factor presence: unspecified presence Laterality: unspecified laterality Plan to address problem: Pain control is advanced muscle skeletal changes of rheumatoid arthritis. (8) SLE (systemic lupus erythematosus) Current Visit: No Status: Chronic Qualifiers: Systemic lupus erythematosus type: unspecified Systemic lupus erythematosus organ involvement: S Plan to address problem: As likely etiology of hypercoagulable state. Patient has physical deformities because of autoimmune disease. Walker. Discharge when therapeutic. History Interval history: Patient will like her diet change that she didn't get green leafy vegetables. Otherwise no new concerns today. All questions and concerns answered. Patient INR is 1.54. May be therapeutically next 1-2 days. Hospitalist Physical - Constitutional Vitals: Temp Pulse Resp BP Pulse Ox 97.8 F 65 20 142/67 96 11/30/16 04:45 11/30/16 04:45 11/30/16 12:30 11/30/16 12:30 11/30/16 04:45 General appearance: Present: no acute distress, well-nourished - EENT Eyes: Present: PERRL, EOM intact ENT: hearing intact, clear oral mucosa, dentition normal, no oropharyngeal erythema, no poor dentition, no thrush - Respiratory Respiratory effort: normal Respiratory: bilateral: CTA - Cardiovascular Rhythm: regular - Extremities Extremities: pulses intact, pulses symmetrical, No edema, normal temperature, normal color Extremity abnormal: other (atrophy bilateral lower extremities bilateral lower extremity weakness consistent with lupus and rheumatoid arthritis musculoskeletal disorder.) Peripheral Pulses: within normal limits - Abdominal General gastrointestinal: soft, non-tender, non-distended - Psychiatric Psychiatric: appropriate mood/affect, cooperative - Neurologic Neurologic: CNII-XII intact Results - Labs CBC & Chem 7: 11/28/16 16:36 11/28/16 16:36 Labs: Laboratory Last Values WBC 7.3 K/mm3 (4.5-11.0) 11/28/16 16:36 RBC 3.71 M/mm3 (3.65-5.03) 11/28/16 16:36 Hgb 9.8 gm/dl (10.1-14.3) L 11/28/16 16:36 Hct 30.7 % (30.3-42.9) 11/28/16 16:36 MCV 83 fl (79-97) 11/28/16 16:36 MCH 27 pg (28-32) L 11/28/16 16:36 MCHC 32 % (30-34) 11/28/16 16:36 RDW 17.8 % (13.2-15.2) H 11/28/16 16:36 Plt Count 251 K/mm3 (140-440) 11/28/16 16:36 Lymph % (Auto) 10.0 % (13.4-35.0) L 11/28/16 16:36 [place] % (Auto) 4.2 % (0.0-7.3) 11/28/16 16:36 Eos % (Auto) 1.6 % (0.0-4.3) 11/28/16 16:36 Baso % (Auto) 0.1 % (0.0-1.8) 11/28/16 16:36 Lymph # 0.7 K/mm3 (1.2-5.4) L 11/28/16 16:36 [place] # 0.3 K/mm3 (0.0-0.8) 11/28/16 16:36 Eos # 0.1 K/mm3 (0.0-0.4) 11/28/16 16:36 Baso # 0.0 K/mm3 (0.0-0.1) 11/28/16 16:36 Seg Neutrophils % 84.1 % (40.0-70.0) H 11/28/16 16:36 Seg Neutrophils # 6.2 K/mm3 (1.8-7.7) 11/28/16 16:36 PT 18.5 Sec. (12.2-14.9) H 11/30/16 10:04 INR 1.54 (0.87-1.13) H 11/30/16 10:04 Sodium 141 mmol/L (137-145) 11/28/16 16:36 Potassium 4.7 mmol/L (3.6-5.0) 11/28/16 16:36 Chloride 103.8 mmol/L (98-107) 11/28/16 16:36 Carbon Dioxide 24 mmol/L (22-30) 11/28/16 16:36 Anion Gap 18 mmol/L 11/28/16 16:36 BUN 10 mg/dL (7-17) 11/28/16 16:36 Creatinine 0.4 mg/dL (0.7-1.2) L 11/28/16 16:36 Estimated GFR > 60 ml/min 11/28/16 16:36 BUN/Creatinine Ratio 25.00 % 11/28/16 16:36 Glucose 160 mg/dL (65-100) H 11/28/16 16:36 POC Glucose 189 (70-105) H 11/29/16 22:13 Hemoglobin A1c 6.7 % (4-6) H 11/27/16 12:00 Calcium 8.9 mg/dL (8.4-10.2) 11/28/16 16:36 Total Bilirubin 0.20 mg/dL (0.1-1.2) 11/27/16 22:50 AST 20 units/L (5-40) 11/27/16 22:50 ALT 13 units/L (7-56) 11/27/16 22:50 Alkaline Phosphatase 68 units/L (35-129) 11/27/16 22:50 Total Creatine Kinase 63 units/L (30-135) 11/27/16 22:50 CK-MB (CK-2) 4.1 ng/mL (0.0-4.0) H 11/27/16 22:50 CK-MB (CK-2) Rel Index 6.5 (0-4) H 11/27/16 22:50 Troponin T 0.036 ng/mL (0.00-0.029) H 11/27/16 22:50 Total Protein 5.7 g/dL (6.3-8.2) L 11/27/16 22:50 Albumin 3.3 g/dL (3.9-5) L 11/27/16 22:50 Albumin/Globulin Ratio 1.4 % 11/27/16 22:50 Triglycerides 96 mg/dL (2-149) 11/26/16 18:36 Cholesterol 131 mg/dL (50-199) 11/26/16 18:36 LDL Cholesterol Direct 57 mg/dL (50-130) 11/26/16 18:36 HDL Cholesterol 55 mg/dL (40-59) 11/26/16 18:36 Cholesterol/HDL Ratio 2.38 % 11/26/16 18:36
[2016-11-30] MEDS: COUMADIN PO SCH (17:00)
--- NOTE | 2016-11-30 17:20 | Progress Note ---
Assessment and Plan - Patient Problems (1) History of pulmonary embolism Current Visit: No Status: Chronic Plan to address problem: The patient presented with atypical chest pain, workup with Lexiscan thallium was negative, echocardiogram revealed normal left ventricular systolic function , ejection fraction 60%. Patient has a history of recent DVT and pulmonary embolism, indwelling IVC filter, and Coumadin therapy. On presentation, her INR was subtherapeutic, due to her admitted noncompliance. She is currently on subcutaneous Lovenox while Coumadin is being readjusted to achieve therapeutic INR. We will defer to the medical service to determine if Lovenox, be continued as an outpatient until she achieves therapeutic Coumadin levels. Subjective Date of service: 11/30/16 Interval history: Patient is comfortable in no acute respiratory distress. No new cardiac complaints. The patient presented with atypical chest pain, workup with Lexiscan thallium was negative, echocardiogram revealed normal left ventricular systolic function , ejection fraction 60%. Patient has a history of recent DVT and pulmonary embolism, indwelling IVC filter, and Coumadin therapy. On presentation, her INR was subtherapeutic, due to her admitted noncompliance. Objective Vital Signs Temp Pulse Resp BP BP Pulse Ox 11/30/16 12:30 20 142/67 11/30/16 04:45 97.8 F 65 18 129/68 96 11/30/16 01:10 97.3 F L 57 L 18 129/63 57 L 11/29/16 22:07 63 120/60 11/29/16 22:00 66 11/29/16 20:51 98.6 F 59 L 18 126/60 98 - Physical Examination General: No Apparent Distress HEENT: Positive: PERRL, Mucus Membranes Moist Neck: Positive: neck supple, trachea midline Cardiac: Positive: Reg Rate and Rhythm Lungs: Positive: Decreased Breath Sounds Neuro: Positive: Grossly Intact Abdomen: Positive: Soft, Active Bowel Sounds. Negative: Tender, Distended Skin: Positive: Clear Musculoskeletal: No Pain, Normal Range of Motion Extremities: Absent: edema - Labs and Meds Coagulation 11/30/16 Range/Units 10:04 PT 18.5 H (12.2-14.9) Sec. INR 1.54 H (0.87-1.13) - Imaging and Cardiology EKG: report reviewed (NSR 86/min)
[2016-12-01] MEDS: DILAUDID IV PRN ×5 (03:15→21:54)
--- NOTE | 2016-12-01 03:50 | Treadmill Report ---
THALLIUM STRESS TEST LEFT VENTRICLE: Left ventricular chamber size is within normal. Perfusion study is suboptimal with poor rest and stress images. Images are not interpretable. CONCLUSION: Suboptimal perfusion study, images uninterpretable. Clinical correlation is recommended. JOB# [id number] CA/NTS
[2016-12-01] MEDS: LOVENOX SUB-Q SCH ×4 (09:00→22:46)
[2016-12-01] MEDS: PROTONIX PO SCH ×3 (09:00→22:01)
[2016-12-01] MEDS: TOPROL XL PO SCH ×3 (09:01→22:01)
[2016-12-01] MEDS: DELTASONE PO SCH (09:02)
[2016-12-01] MEDS: VITAMIN D3 PO SCH (09:02)
[2016-12-01] MEDS: VITAMIN C PO SCH (09:02)
--- NOTE | 2016-12-01 09:59 | Progress Note ---
Assessment and Plan Assessment and plan: Chest pain. Patient with Lexiscan thallium that was negative and echocardiogram revealed normal left ventricular systolic function, ejection fraction 60%. Hypercoagulable state. Patient states that the etiology is unknown at this time. She reports that she is currently undergoing workup with her doctors in [place]. INR remains subtherapeutic. Continue Lovenox 80 mg every 12 hours and Coumadin. We will discuss with case management possibility of discharge with Lovenox until INR therapeutic with Coumadin Hypertension. Continue metoprolol. Rheumatoid arthritis. Continue prednisone. SLE. Prednisone. Hyperlipidemia. Continue statins. DVT prophylaxis. On Lovenox. History Interval history: Patient currently denies any chest pain or shortness of breath. Hospitalist Physical - Constitutional Vitals: Temp Pulse Resp BP Pulse Ox 97.8 F 76 18 120/66 96 11/30/16 04:45 12/01/16 09:01 12/01/16 07:59 12/01/16 09:01 11/30/16 04:45 General appearance: Present: no acute distress, well-nourished - EENT Eyes: Present: PERRL, EOM intact ENT: hearing intact, clear oral mucosa, dentition normal - Neck Neck: Present: supple, normal ROM - Respiratory Respiratory effort: normal Respiratory: bilateral: CTA - Cardiovascular Rhythm: regular Heart Sounds: Present: S1 & S2. Absent: gallop, rub - Extremities Extremities: no ischemia, No edema, Full ROM - Abdominal General gastrointestinal: soft, non-tender, non-distended, normal bowel sounds - Integumentary Integumentary: Present: clear, warm, dry - Neurologic Neurologic: CNII-XII intact, moves all extremities Results - Labs CBC & Chem 7: 11/28/16 16:36 11/28/16 16:36 Labs: Laboratory Last Values WBC 7.3 K/mm3 (4.5-11.0) 11/28/16 16:36 RBC 3.71 M/mm3 (3.65-5.03) 11/28/16 16:36 Hgb 9.8 gm/dl (10.1-14.3) L 11/28/16 16:36 Hct 30.7 % (30.3-42.9) 11/28/16 16:36 MCV 83 fl (79-97) 11/28/16 16:36 MCH 27 pg (28-32) L 11/28/16 16:36 MCHC 32 % (30-34) 11/28/16 16:36 RDW 17.8 % (13.2-15.2) H 11/28/16 16:36 Plt Count 251 K/mm3 (140-440) 11/28/16 16:36 Lymph % (Auto) 10.0 % (13.4-35.0) L 11/28/16 16:36 [place] % (Auto) 4.2 % (0.0-7.3) 11/28/16 16:36 Eos % (Auto) 1.6 % (0.0-4.3) 11/28/16 16:36 Baso % (Auto) 0.1 % (0.0-1.8) 11/28/16 16:36 Lymph # 0.7 K/mm3 (1.2-5.4) L 11/28/16 16:36 [place] # 0.3 K/mm3 (0.0-0.8) 11/28/16 16:36 Eos # 0.1 K/mm3 (0.0-0.4) 11/28/16 16:36 Baso # 0.0 K/mm3 (0.0-0.1) 11/28/16 16:36 Seg Neutrophils % 84.1 % (40.0-70.0) H 11/28/16 16:36 Seg Neutrophils # 6.2 K/mm3 (1.8-7.7) 11/28/16 16:36 PT 18.5 Sec. (12.2-14.9) H 11/30/16 10:04 INR 1.54 (0.87-1.13) H 11/30/16 10:04 Sodium 141 mmol/L (137-145) 11/28/16 16:36 Potassium 4.7 mmol/L (3.6-5.0) 11/28/16 16:36 Chloride 103.8 mmol/L (98-107) 11/28/16 16:36 Carbon Dioxide 24 mmol/L (22-30) 11/28/16 16:36 Anion Gap 18 mmol/L 11/28/16 16:36 BUN 10 mg/dL (7-17) 11/28/16 16:36 Creatinine 0.4 mg/dL (0.7-1.2) L 11/28/16 16:36 Estimated GFR > 60 ml/min 11/28/16 16:36 BUN/Creatinine Ratio 25.00 % 11/28/16 16:36 Glucose 160 mg/dL (65-100) H 11/28/16 16:36 POC Glucose 140 (70-105) H 11/30/16 16:55 Hemoglobin A1c 6.7 % (4-6) H 11/27/16 12:00 Calcium 8.9 mg/dL (8.4-10.2) 11/28/16 16:36 Total Bilirubin 0.20 mg/dL (0.1-1.2) 11/27/16 22:50 AST 20 units/L (5-40) 11/27/16 22:50 ALT 13 units/L (7-56) 11/27/16 22:50 Alkaline Phosphatase 68 units/L (35-129) 11/27/16 22:50 Total Creatine Kinase 63 units/L (30-135) 11/27/16 22:50 CK-MB (CK-2) 4.1 ng/mL (0.0-4.0) H 11/27/16 22:50 CK-MB (CK-2) Rel Index 6.5 (0-4) H 11/27/16 22:50 Troponin T 0.036 ng/mL (0.00-0.029) H 11/27/16 22:50 Total Protein 5.7 g/dL (6.3-8.2) L 11/27/16 22:50 Albumin 3.3 g/dL (3.9-5) L 11/27/16 22:50 Albumin/Globulin Ratio 1.4 % 11/27/16 22:50 Triglycerides 96 mg/dL (2-149) 11/26/16 18:36 Cholesterol 131 mg/dL (50-199) 11/26/16 18:36 LDL Cholesterol Direct 57 mg/dL (50-130) 11/26/16 18:36 HDL Cholesterol 55 mg/dL (40-59) 11/26/16 18:36 Cholesterol/HDL Ratio 2.38 % 11/26/16 18:36
--- NOTE | 2016-12-01 14:19 | Progress Note ---
Assessment and Plan - Patient Problems (1) History of pulmonary embolism Current Visit: No Status: Chronic Plan to address problem: Patient is comfortable in no new complaints, she is being considered for discharge on Lovenox bridge therapy until she achieves Coumadin therapeucity. Subjective Date of service: 12/01/16 Interval history: Patient is comfortable in no acute respiratory distress. No new cardiac complaints. The patient presented with atypical chest pain, workup with Lexiscan thallium was negative, echocardiogram revealed normal left ventricular systolic function , ejection fraction 60%. Patient has a history of recent DVT and pulmonary embolism, indwelling IVC filter, and Coumadin therapy. On presentation, her INR was subtherapeutic, due to her admitted noncompliance. Objective Vital Signs Pulse Resp BP Pulse Ox 12/01/16 12:13 77 129/66 97 12/01/16 09:01 76 120/66 12/01/16 07:59 18 120/66 - Physical Examination General: No Apparent Distress HEENT: Positive: PERRL, Mucus Membranes Moist Neck: Positive: neck supple, trachea midline Cardiac: Positive: Reg Rate and Rhythm Lungs: Positive: Decreased Breath Sounds Neuro: Positive: Grossly Intact Abdomen: Positive: Soft, Active Bowel Sounds. Negative: Tender, Distended Skin: Positive: Clear Musculoskeletal: No Pain, Normal Range of Motion Extremities: Absent: edema - Imaging and Cardiology EKG: report reviewed (NSR 86/min)
[2016-12-01 16:49] LABS: INR 1.33 (0.87-1.13)
[2016-12-01] MEDS: COUMADIN PO SCH (17:11)
[2016-12-02] MEDS: DILAUDID IV PRN ×5 (02:00→18:25)
[2016-12-02] MEDS: TOPROL XL PO SCH ×2 (09:53→21:21)
[2016-12-02] MEDS: VITAMIN D3 PO SCH (09:53)
[2016-12-02] MEDS: VITAMIN C PO SCH (09:53)
[2016-12-02] MEDS: PROTONIX PO SCH ×2 (09:53→21:21)
[2016-12-02] MEDS: LOVENOX SUB-Q SCH ×2 (09:54→21:21)
[2016-12-02] MEDS: DELTASONE PO SCH (09:56)
--- NOTE | 2016-12-02 10:00 | Progress Note ---
Assessment and Plan Assessment and plan: Chest pain. Patient with Lexiscan thallium that was negative and echocardiogram revealed normal left ventricular systolic function, ejection fraction 60%. Hypercoagulable state. Patient states that the etiology is unknown at this time. She reports that she is currently undergoing workup with her doctors in [place]. INR remains subtherapeutic. Continue Lovenox 80 mg every 12 hours and Coumadin. We will discuss with case management possibility of discharge with Lovenox until INR therapeutic with Coumadin Hypertension. Continue metoprolol. Rheumatoid arthritis. Continue prednisone. SLE. Prednisone. Hyperlipidemia. Continue statins. DVT prophylaxis. On Lovenox. History Interval history: Patient currently denies any chest pain or shortness of breath. Hospitalist Physical - Constitutional Vitals: Temp Pulse Resp BP Pulse Ox 97.6 F 83 20 126/66 99 12/02/16 08:11 12/02/16 09:53 12/02/16 09:53 12/02/16 08:11 12/02/16 08:11 General appearance: Present: no acute distress, well-nourished - EENT Eyes: Present: PERRL, EOM intact ENT: hearing intact, clear oral mucosa, dentition normal - Neck Neck: Present: supple, normal ROM - Respiratory Respiratory effort: normal Respiratory: bilateral: CTA - Cardiovascular Rhythm: regular Heart Sounds: Present: S1 & S2. Absent: gallop, rub - Extremities Extremities: no ischemia, No edema, Full ROM - Abdominal General gastrointestinal: soft, non-tender, non-distended, normal bowel sounds - Integumentary Integumentary: Present: clear, warm, dry - Neurologic Neurologic: CNII-XII intact, moves all extremities Results - Labs CBC & Chem 7: 11/28/16 16:36 11/28/16 16:36 Labs: Laboratory Last Values WBC 7.3 K/mm3 (4.5-11.0) 11/28/16 16:36 RBC 3.71 M/mm3 (3.65-5.03) 11/28/16 16:36 Hgb 9.8 gm/dl (10.1-14.3) L 11/28/16 16:36 Hct 30.7 % (30.3-42.9) 11/28/16 16:36 MCV 83 fl (79-97) 11/28/16 16:36 MCH 27 pg (28-32) L 11/28/16 16:36 MCHC 32 % (30-34) 11/28/16 16:36 RDW 17.8 % (13.2-15.2) H 11/28/16 16:36 Plt Count 251 K/mm3 (140-440) 11/28/16 16:36 Lymph % (Auto) 10.0 % (13.4-35.0) L 11/28/16 16:36 [place] % (Auto) 4.2 % (0.0-7.3) 11/28/16 16:36 Eos % (Auto) 1.6 % (0.0-4.3) 11/28/16 16:36 Baso % (Auto) 0.1 % (0.0-1.8) 11/28/16 16:36 Lymph # 0.7 K/mm3 (1.2-5.4) L 11/28/16 16:36 [place] # 0.3 K/mm3 (0.0-0.8) 11/28/16 16:36 Eos # 0.1 K/mm3 (0.0-0.4) 11/28/16 16:36 Baso # 0.0 K/mm3 (0.0-0.1) 11/28/16 16:36 Seg Neutrophils % 84.1 % (40.0-70.0) H 11/28/16 16:36 Seg Neutrophils # 6.2 K/mm3 (1.8-7.7) 11/28/16 16:36 PT 16.4 Sec. (12.2-14.9) H 12/01/16 15:40 INR 1.33 (0.87-1.13) H 12/01/16 15:40 Sodium 141 mmol/L (137-145) 11/28/16 16:36 Potassium 4.7 mmol/L (3.6-5.0) 11/28/16 16:36 Chloride 103.8 mmol/L (98-107) 11/28/16 16:36 Carbon Dioxide 24 mmol/L (22-30) 11/28/16 16:36 Anion Gap 18 mmol/L 11/28/16 16:36 BUN 10 mg/dL (7-17) 11/28/16 16:36 Creatinine 0.4 mg/dL (0.7-1.2) L 11/28/16 16:36 Estimated GFR > 60 ml/min 11/28/16 16:36 BUN/Creatinine Ratio 25.00 % 11/28/16 16:36 Glucose 160 mg/dL (65-100) H 11/28/16 16:36 POC Glucose 136 (70-105) H 12/02/16 08:17 Hemoglobin A1c 6.7 % (4-6) H 11/27/16 12:00 Calcium 8.9 mg/dL (8.4-10.2) 11/28/16 16:36 Total Bilirubin 0.20 mg/dL (0.1-1.2) 11/27/16 22:50 AST 20 units/L (5-40) 11/27/16 22:50 ALT 13 units/L (7-56) 11/27/16 22:50 Alkaline Phosphatase 68 units/L (35-129) 11/27/16 22:50 Total Creatine Kinase 63 units/L (30-135) 11/27/16 22:50 CK-MB (CK-2) 4.1 ng/mL (0.0-4.0) H 11/27/16 22:50 CK-MB (CK-2) Rel Index 6.5 (0-4) H 11/27/16 22:50 Troponin T 0.036 ng/mL (0.00-0.029) H 11/27/16 22:50 Total Protein 5.7 g/dL (6.3-8.2) L 11/27/16 22:50 Albumin 3.3 g/dL (3.9-5) L 11/27/16 22:50 Albumin/Globulin Ratio 1.4 % 11/27/16 22:50 Triglycerides 96 mg/dL (2-149) 11/26/16 18:36 Cholesterol 131 mg/dL (50-199) 11/26/16 18:36 LDL Cholesterol Direct 57 mg/dL (50-130) 11/26/16 18:36 HDL Cholesterol 55 mg/dL (40-59) 11/26/16 18:36 Cholesterol/HDL Ratio 2.38 % 11/26/16 18:36
--- NOTE | 2016-12-02 12:01 | Progress Note ---
Assessment and Plan Atypical chest pain negative thallium stress test this admission echocardiogram revealed normal left ventricular systolic function, ejection fraction 60%. History of pulmonary embolism/DVT on coumadin therapy INR was subtherapeutic on presentation due to her admitted noncompliance. Presence of indwelling IVC filter Conservative cardiac management. Subjective Date of service: 12/02/16 Interval history: Patient reports she is feeling better. Objective Vital Signs Temp Pulse Resp Resp BP BP Pulse Ox 12/02/16 09:53 83 20 12/02/16 08:11 97.6 F 64 18 126/66 99 12/02/16 08:08 62 98 12/02/16 06:35 98.2 F 63 20 122/65 98 12/02/16 05:56 18 12/02/16 02:00 20 12/01/16 22:01 64 149/72 12/01/16 22:00 61 20 12/01/16 21:54 20 12/01/16 21:53 64 149/72 12/01/16 20:36 97.8 F 57 L 18 149/72 99 12/01/16 14:00 87 12/01/16 12:13 77 129/66 97 - Physical Examination General: No Apparent Distress HEENT: Positive: PERRL Neck: Positive: trachea midline Cardiac: Positive: Reg Rate and Rhythm Neuro: Positive: Grossly Intact Abdomen: Negative: Distended Extremities: Absent: edema - Labs and Meds Coagulation 12/01/16 Range/Units 15:40 PT 16.4 H (12.2-14.9) Sec. INR 1.33 H (0.87-1.13) - Imaging and Cardiology EKG: report reviewed (NSR 86/min)
[2016-12-02 15:01] LABS: INR 1.65 (0.87-1.13)
[2016-12-02] MEDS: COUMADIN PO SCH (16:54)
[2016-12-03] MEDS: DILAUDID IV PRN ×5 (02:16→22:00)
--- NOTE | 2016-12-03 10:05 | Progress Note ---
Assessment and Plan Assessment and plan: The patient is a 56-year-old female presented with a chief complaint of right groin and chest pain. The patient states her symptoms began last night with pain in the right groin radiating to her back and left upper extremity. Patient states when she stands up her heart rate goes into the 140s to 150s. Found to have subtherapeutic INR, has hx of PE Diagnoses Hypercoagulable state with history of PE SLE Rheumatoid arthritis Chest pain Subtherapeutic INR Hypertension History of PE/DVT with subtherapeutic INR She has a contrast allergy, therefore she refused CTA or VQ scan, she even refused venous Dopplers despite the fact that there are no contrast given with this study. She was offered pretreatments. The patient still refuses. Being that she has subtherapeutic INR, patient is on Lovenox bridge until INR is above 2. She has Lovenox at home and she can take this at home upon discharge -As she is refusing all screening will obtain a d-dimer Chest pain. Patient with Lexiscan thallium that was negative and echocardiogram revealed normal left ventricular systolic function, ejection fraction 60%. Pain is most likely due to costochondritis. Patient also refused any workup for PE or DVT including venous Dopplers Hypercoagulable state. She states that she has a rare form of hypercoagulable state and she is prone to clots. She is supposed to be on lifelong warfarin and she has Lovenox at home. Hypertension. Continue metoprolol. Rheumatoid arthritis. Continue prednisone. SLE. Prednisone. Hyperlipidemia. Continue statins. DVT prophylaxis. On Lovenox. Malingering/opioid dependence/drug seeking behavior This patient continues to refuse all workup, she is refusing any treatment besides Dilaudid. It appears that she is malingering in an attempt to stay on IV Dilaudid. Patient was counseled about weaning off opioids. She was also made aware that it is of high risk to her in the long-term. History Interval history: She states that she has inguinal pain, 4 out of 10, dull. She denies chest pain denies shortness of breath. I personally observed the patient has saturations with good upon walking with a walker. The patient's was seen, intentionally hyperventilating in an effort to induce tachycardia. Her saturation remained normal. When she stopped hyperventilating, heart rate returned to normal values Hospitalist Physical - Physical exam Narrative exam: General.: Appears well, no distress, nontoxic HEENT: Moist mucous membranes, extraocular muscles intact, no lymphadenopathy Neck: supple Cardiac: S1-S2 heard Lungs: clear to auscultation bilaterally Abdomen: soft , nontender, nondistended, bowel sounds positive Extremities: no edema clubbing or cyanosis Skin: no rash or lesions Neurologic: no gross focal deficits Psych: appropriate behavior, appropriate mood, corporative, judgment intact - Constitutional Vitals: Temp Pulse Resp BP Pulse Ox 98.1 F 70 24 115/49 100 12/03/16 04:59 12/03/16 04:59 12/03/16 09:11 12/03/16 04:59 12/03/16 09:11 General appearance: Present: no acute distress, well-nourished Results - Labs CBC & Chem 7: 12/04/16 16:22 11/28/16 16:36 Labs: Laboratory Last Values WBC 7.3 K/mm3 (4.5-11.0) 11/28/16 16:36 RBC 3.71 M/mm3 (3.65-5.03) 11/28/16 16:36 Hgb 9.8 gm/dl (10.1-14.3) L 11/28/16 16:36 Hct 30.7 % (30.3-42.9) 11/28/16 16:36 MCV 83 fl (79-97) 11/28/16 16:36 MCH 27 pg (28-32) L 11/28/16 16:36 MCHC 32 % (30-34) 11/28/16 16:36 RDW 17.8 % (13.2-15.2) H 11/28/16 16:36 Plt Count 251 K/mm3 (140-440) 11/28/16 16:36 Lymph % (Auto) 10.0 % (13.4-35.0) L 11/28/16 16:36 Lee % (Auto) 4.2 % (0.0-7.3) 11/28/16 16:36 Eos % (Auto) 1.6 % (0.0-4.3) 11/28/16 16:36 Baso % (Auto) 0.1 % (0.0-1.8) 11/28/16 16:36 Lymph # 0.7 K/mm3 (1.2-5.4) L 11/28/16 16:36 Lee # 0.3 K/mm3 (0.0-0.8) 11/28/16 16:36 Eos # 0.1 K/mm3 (0.0-0.4) 11/28/16 16:36 Baso # 0.0 K/mm3 (0.0-0.1) 11/28/16 16:36 Seg Neutrophils % 84.1 % (40.0-70.0) H 11/28/16 16:36 Seg Neutrophils # 6.2 K/mm3 (1.8-7.7) 11/28/16 16:36 PT 19.5 Sec. (12.2-14.9) H 12/02/16 14:31 INR 1.65 (0.87-1.13) H 12/02/16 14:31 Sodium 141 mmol/L (137-145) 11/28/16 16:36 Potassium 4.7 mmol/L (3.6-5.0) 11/28/16 16:36 Chloride 103.8 mmol/L (98-107) 11/28/16 16:36 Carbon Dioxide 24 mmol/L (22-30) 11/28/16 16:36 Anion Gap 18 mmol/L 11/28/16 16:36 BUN 10 mg/dL (7-17) 11/28/16 16:36 Creatinine 0.4 mg/dL (0.7-1.2) L 11/28/16 16:36 Estimated GFR > 60 ml/min 11/28/16 16:36 BUN/Creatinine Ratio 25.00 % 11/28/16 16:36 Glucose 160 mg/dL (65-100) H 11/28/16 16:36 POC Glucose 119 (70-105) H 12/03/16 08:19 Hemoglobin A1c 6.7 % (4-6) H 11/27/16 12:00 Calcium 8.9 mg/dL (8.4-10.2) 11/28/16 16:36 Total Bilirubin 0.20 mg/dL (0.1-1.2) 11/27/16 22:50 AST 20 units/L (5-40) 11/27/16 22:50 ALT 13 units/L (7-56) 11/27/16 22:50 Alkaline Phosphatase 68 units/L (35-129) 11/27/16 22:50 Total Creatine Kinase 63 units/L (30-135) 11/27/16 22:50 CK-MB (CK-2) 4.1 ng/mL (0.0-4.0) H 11/27/16 22:50 CK-MB (CK-2) Rel Index 6.5 (0-4) H 11/27/16 22:50 Troponin T 0.036 ng/mL (0.00-0.029) H 11/27/16 22:50 Total Protein 5.7 g/dL (6.3-8.2) L 11/27/16 22:50 Albumin 3.3 g/dL (3.9-5) L 11/27/16 22:50 Albumin/Globulin Ratio 1.4 % 11/27/16 22:50 Triglycerides 96 mg/dL (2-149) 11/26/16 18:36 Cholesterol 131 mg/dL (50-199) 11/26/16 18:36 LDL Cholesterol Direct 57 mg/dL (50-130) 11/26/16 18:36 HDL Cholesterol 55 mg/dL (40-59) 11/26/16 18:36 Cholesterol/HDL Ratio 2.38 % 11/26/16 18:36
[2016-12-03] MEDS: PROTONIX PO SCH ×2 (10:28→22:03)
[2016-12-03] MEDS: VITAMIN C PO SCH (10:28)
[2016-12-03] MEDS: LOVENOX SUB-Q SCH ×2 (10:28→22:05)
[2016-12-03] MEDS: TOPROL XL PO SCH ×2 (10:28→22:03)
[2016-12-03] MEDS: DELTASONE PO SCH (10:28)
[2016-12-03] MEDS: VITAMIN D3 PO SCH (10:28)
[2016-12-03 16:26] LABS: INR 1.29 (0.87-1.13)
[2016-12-03] MEDS: COUMADIN PO SCH (17:57)
[2016-12-04] MEDS: DILAUDID IV PRN ×3 (02:45→10:13)
[2016-12-04] MEDS: VITAMIN D3 PO SCH (10:12)
[2016-12-04] MEDS: VITAMIN C PO SCH (10:12)
[2016-12-04] MEDS: LOVENOX SUB-Q SCH ×2 (10:12→22:00)
[2016-12-04] MEDS: DELTASONE PO SCH ×3 (10:12→20:00)
[2016-12-04] MEDS: PROTONIX PO SCH ×2 (10:12→21:37)
[2016-12-04] MEDS: TOPROL XL PO SCH (10:16)
[2016-12-04] MEDS ORDERED: NORCO 10/325 PO PRN ×2 (10:26→10:39)
--- NOTE | 2016-12-04 10:26 | Discharge Summary ---
Providers - Providers Date of Admission: 11/26/16 19:13 Attending physician: CANDICE MARY MD Primary care physician: [employer]INE[employer] Hospitalization Condition: Fair Hospital course: The patient is a 56-year-old female presented with a chief complaint of right groin and chest pain. The patient states her symptoms began last night with pain in the right groin radiating to her back and left upper extremity. Patient states when she stands up her heart rate goes into the 140s to 150s. Found to have subtherapeutic INR, has hx of PE Diagnoses Hypercoagulable state with history of PE SLE Rheumatoid arthritis Chest pain Subtherapeutic INR Hypertension She has a contrast allergy, therefore she refused CTA or VQ scan. She was offered pretreatments. The patient still refuses. Being that she has subtherapeutic INR, patient is on Lovenox bridge until INR is above 2. Chest pain. Patient with Lexiscan thallium that was negative and echocardiogram revealed normal left ventricular systolic function, ejection fraction 60%. Hypercoagulable state. Patient states that the etiology is unknown at this time. She reports that she is currently undergoing workup with her doctors in [place]. INR remains subtherapeutic. Continue Lovenox 80 mg every 12 hours and Coumadin. We will discuss with case management possibility of discharge with Lovenox until INR therapeutic with Coumadin Hypertension. Continue metoprolol. Rheumatoid arthritis. Continue prednisone. SLE. Prednisone. Hyperlipidemia. Continue statins. DVT prophylaxis. On Lovenox. Disposition: TO HOME OR SELFCARE Time spent for discharge: 33 minutes Core Measure Documentation - Palliative Care Palliative Care/ Comfort Measures: Not Applicable - Core Measures Any of the following diagnoses?: none Exam - Constitutional Vitals: Temp Pulse Resp BP Pulse Ox 98.1 F 81 21 131/66 97 12/04/16 00:00 12/04/16 00:00 12/04/16 06:58 12/04/16 00:00 12/03/16 22:00 General appearance: Present: no acute distress, well-nourished - EENT Eyes: Present: PERRL ENT: hearing intact, clear oral mucosa - Neck Neck: Present: supple, normal ROM - Respiratory Respiratory effort: normal Respiratory: bilateral: CTA - Cardiovascular Heart Sounds: Present: S1 & S2. Absent: rub, click - Extremities Extremities: pulses symmetrical, No edema Peripheral Pulses: within normal limits - Abdominal General gastrointestinal: Present: soft, non-tender, non-distended, normal bowel sounds Female genitourinary: Present: normal - Integumentary Integumentary: Present: clear, warm, dry - Musculoskeletal Musculoskeletal: gait normal, strength equal bilaterally - Psychiatric Psychiatric: appropriate mood/affect, intact judgment & insight - Neurologic Neurologic: CNII-XII intact, moves all extremities Plan Follow up with: PRIMARY CARE,MD [Primary Care Provider] - 3-5 Days Forms: Warfarin Discharge Instruction Prescriptions: Ascorbic Acid [Vitamin C] 500 mg PO QDAY #30 tablet AtorvaSTATin [Lipitor] 10 mg PO QPM #30 tablet Cholecalciferol Vit D3 [Vitamin D3] 1,000 unit PO QDAY #30 tablet Enoxaparin [Lovenox] 80 mg SUB-Q Q12HR #14 syringe HYDROcodone/APAP 10-325 [[place] 10/325] 1 each PO Q6HR PRN #14 tablet PRN Reason: Pain Metoprolol Xl [Metoprolol SUCCINATE ER TAB] 100 mg PO QDAY #30 tablet Pantoprazole [Protonix TAB] 40 mg PO BID #60 tablet Pantoprazole [Protonix TAB] 40 mg PO BID #60 tablet predniSONE [Deltasone] 10 mg PO QDAY #30 tablet Warfarin [Coumadin] 15 mg PO QDAY #14 tablet
[2016-12-04] MEDS ORDERED: HEPARIN 10,000 UNITS/10 ML IV ONE (13:42)
--- NOTE | 2016-12-04 13:46 | Progress Note ---
Assessment and Plan Assessment and plan: The patient is a 56-year-old female presented with a chief complaint of right groin and chest pain. The patient states her symptoms began last night with pain in the right groin radiating to her back and left upper extremity. Patient states when she stands up her heart rate goes into the 140s to 150s. Found to have subtherapeutic INR, has hx of PE Diagnoses Hypercoagulable state with history of PE SLE Rheumatoid arthritis Chest pain Subtherapeutic INR Hypertension History of PE/DVT with subtherapeutic INR She has a contrast allergy, therefore she refused CTA or VQ scan, she even refused venous Dopplers despite the fact that there are no contrast given with this study. She was offered pretreatments. The patient still refuses. Being that she has subtherapeutic INR, patient is on Lovenox bridge until INR is above 2. She has Lovenox at home and she can take this at home upon discharge -As she is refusing all screening will obtain a d-dimer Chest pain. Patient with Lexiscan thallium that was negative and echocardiogram revealed normal left ventricular systolic function, ejection fraction 60%. Pain is most likely due to costochondritis. Patient also refused any workup for PE or DVT including venous Dopplers Hypercoagulable state. She states that she has a rare form of hypercoagulable state and she is prone to clots. She is supposed to be on lifelong warfarin and she has Lovenox at home. Hypertension. Continue metoprolol. Rheumatoid arthritis. Continue prednisone. SLE. Prednisone. Hyperlipidemia. Continue statins. DVT prophylaxis. On Lovenox. Malingering/opioid dependence/drug seeking behavior This patient continues to refuse all workup, she is refusing any treatment besides Dilaudid. It appears that she is malingering in an attempt to stay on IV Dilaudid. Patient was counseled about weaning off opioids. She was also made aware that it is of high risk to her in the long-term. History Interval history: She states that she has inguinal pain, 4 out of 10, dull. She denies chest pain denies shortness of breath. I personally observed the patient has saturations with good upon walking with a walker. The patient's was seen, intentionally hyperventilating in an effort to induce tachycardia. Her saturation remained normal. When she stopped hyperventilating, heart rate returned to normal values Hospitalist Physical - Physical exam Narrative exam: General.: Appears well, no distress, nontoxic HEENT: Moist mucous membranes, extraocular muscles intact, no lymphadenopathy Neck: supple Cardiac: S1-S2 heard Lungs: clear to auscultation bilaterally Abdomen: soft , nontender, nondistended, bowel sounds positive Extremities: no edema clubbing or cyanosis Skin: no rash or lesions Neurologic: no gross focal deficits Psych: appropriate behavior, appropriate mood, corporative, judgment intact - Constitutional Vitals: Temp Pulse Resp BP Pulse Ox 98.1 F 71 18 133/67 100 12/04/16 00:00 12/04/16 10:16 12/04/16 10:00 12/04/16 10:16 12/04/16 10:00 General appearance: Present: no acute distress, well-nourished Results - Labs CBC & Chem 7: 12/04/16 16:22 11/28/16 16:36 Labs: Laboratory Last Values WBC 7.3 K/mm3 (4.5-11.0) 11/28/16 16:36 RBC 3.71 M/mm3 (3.65-5.03) 11/28/16 16:36 Hgb 9.8 gm/dl (10.1-14.3) L 11/28/16 16:36 Hct 30.7 % (30.3-42.9) 11/28/16 16:36 MCV 83 fl (79-97) 11/28/16 16:36 MCH 27 pg (28-32) L 11/28/16 16:36 MCHC 32 % (30-34) 11/28/16 16:36 RDW 17.8 % (13.2-15.2) H 11/28/16 16:36 Plt Count 251 K/mm3 (140-440) 11/28/16 16:36 Lymph % (Auto) 10.0 % (13.4-35.0) L 11/28/16 16:36 [place] % (Auto) 4.2 % (0.0-7.3) 11/28/16 16:36 Eos % (Auto) 1.6 % (0.0-4.3) 11/28/16 16:36 Baso % (Auto) 0.1 % (0.0-1.8) 11/28/16 16:36 Lymph # 0.7 K/mm3 (1.2-5.4) L 11/28/16 16:36 [place] # 0.3 K/mm3 (0.0-0.8) 11/28/16 16:36 Eos # 0.1 K/mm3 (0.0-0.4) 11/28/16 16:36 Baso # 0.0 K/mm3 (0.0-0.1) 11/28/16 16:36 Seg Neutrophils % 84.1 % (40.0-70.0) H 11/28/16 16:36 Seg Neutrophils # 6.2 K/mm3 (1.8-7.7) 11/28/16 16:36 PT 16.8 Sec. (12.2-14.9) H 12/03/16 16:07 INR 1.29 (0.87-1.13) H 12/03/16 16:07 Sodium 141 mmol/L (137-145) 11/28/16 16:36 Potassium 4.7 mmol/L (3.6-5.0) 11/28/16 16:36 Chloride 103.8 mmol/L (98-107) 11/28/16 16:36 Carbon Dioxide 24 mmol/L (22-30) 11/28/16 16:36 Anion Gap 18 mmol/L 11/28/16 16:36 BUN 10 mg/dL (7-17) 11/28/16 16:36 Creatinine 0.4 mg/dL (0.7-1.2) L 11/28/16 16:36 Estimated GFR > 60 ml/min 11/28/16 16:36 BUN/Creatinine Ratio 25.00 % 11/28/16 16:36 Glucose 160 mg/dL (65-100) H 11/28/16 16:36 POC Glucose 120 (70-105) H 12/03/16 20:55 Hemoglobin A1c 6.7 % (4-6) H 11/27/16 12:00 Calcium 8.9 mg/dL (8.4-10.2) 11/28/16 16:36 Total Bilirubin 0.20 mg/dL (0.1-1.2) 11/27/16 22:50 AST 20 units/L (5-40) 11/27/16 22:50 ALT 13 units/L (7-56) 11/27/16 22:50 Alkaline Phosphatase 68 units/L (35-129) 11/27/16 22:50 Total Creatine Kinase 63 units/L (30-135) 11/27/16 22:50 CK-MB (CK-2) 4.1 ng/mL (0.0-4.0) H 11/27/16 22:50 CK-MB (CK-2) Rel Index 6.5 (0-4) H 11/27/16 22:50 Troponin T 0.036 ng/mL (0.00-0.029) H 11/27/16 22:50 Total Protein 5.7 g/dL (6.3-8.2) L 11/27/16 22:50 Albumin 3.3 g/dL (3.9-5) L 11/27/16 22:50 Albumin/Globulin Ratio 1.4 % 11/27/16 22:50 Triglycerides 96 mg/dL (2-149) 11/26/16 18:36 Cholesterol 131 mg/dL (50-199) 11/26/16 18:36 LDL Cholesterol Direct 57 mg/dL (50-130) 11/26/16 18:36 HDL Cholesterol 55 mg/dL (40-59) 11/26/16 18:36 Cholesterol/HDL Ratio 2.38 % 11/26/16 18:36
[2016-12-04] MEDS ORDERED: HEPARIN/ 0.45% NACL-25,000 UNIT/500 ML 25,000 UNIT/500 ML BAG IV SCH (14:00)
[2016-12-04] MEDS: DILAUDID PO PRN ×2 (14:27→21:37)
[2016-12-04] MEDS ORDERED: COUMADIN PO SCH (17:00)
[2016-12-04 17:57] LABS: Hematocrit 32.1 % (30.3-42.9)
[2016-12-04 18:09] LABS: INR 1.68 (0.87-1.13)
[2016-12-04 18:22] LABS: Partial Thromboplastin Time < 20.0 Sec. (24.2-36.6)
[2016-12-04] MEDS: COUMADIN PO SCH (18:30)
[2016-12-04] MEDS: LOPRESSOR PO SCH (21:40)
[2016-12-05] MEDS: DELTASONE PO SCH ×2 (08:11→11:22)
--- NOTE | 2016-12-05 08:34 | Discharge Summary ---
Providers - Providers Date of Admission: 11/26/16 19:13 Attending physician: CANDICE MARY MD 12/04/16 13:43 Midline [Consult to PICC Line RN] [CONS] Urgent Reason For Exam: need access Type Line:: Midline Primary care physician: DELIVERY STOCK CLERK Hospitalization Condition: Fair Hospital course: The patient is a 56-year-old female presented with a chief complaint of right groin and chest pain. The patient states her symptoms began last night with pain in the right groin radiating to her back and left upper extremity. Patient states when she stands up her heart rate goes into the 140s to 150s. Found to have subtherapeutic INR, has hx of PE. She claimed that she had a contrast allergy therefore refused CTA or VQ scan. She first agreed to pretreatments with steroids to aid with getting a CTA, but then after getting 2 doses of prednisone she refused the third dose and also refused to get the CTA. She also refused VQ scan. She also refused venous Dopplers despite the fact that there is no contrast with that study. This patient's had normal oxygen saturation and normal heart rate. But she will observed getting up unintentionally hyperventilating in order to induce tachycardia. As this patient did not want any treatments she also refused heparin drip. It appeared that she was malingering in order to obtain IV Dilaudid is causing only medication she was asking for. As she refused CT angiogram, VQ scan and venous Dopplers, a d-dimer was done and was negative. Therefore the patient is being discharged on warfarin and Lovenox which she is to continue. She is also being given a limited prescription of pain medications. She was advised that she has to wean off them as they are harmful to her in the long-term. Diagnoses Hypercoagulable state with history of PE SLE Rheumatoid arthritis Chest pain Subtherapeutic INR Hypertension Malingering/opioid dependence/pain seeking behavior Hyperlipidemia Chest pain due to costochondritis Disposition: TO HOME OR SELFCARE Time spent for discharge: 33 minutes Core Measure Documentation - Palliative Care Palliative Care/ Comfort Measures: Not Applicable - Core Measures Any of the following diagnoses?: none Exam - Constitutional Vitals: Temp Pulse Resp BP Pulse Ox 99.2 F 70 18 115/72 99 12/04/16 16:30 12/04/16 21:40 12/04/16 22:37 12/04/16 21:40 12/04/16 16:30 General appearance: Present: no acute distress, well-nourished - EENT Eyes: Present: PERRL ENT: hearing intact, clear oral mucosa - Neck Neck: Present: supple, normal ROM - Respiratory Respiratory effort: normal Respiratory: bilateral: CTA - Cardiovascular Heart Sounds: Present: S1 & S2. Absent: rub, click - Extremities Extremities: pulses symmetrical, No edema Peripheral Pulses: within normal limits - Abdominal General gastrointestinal: Present: soft, non-tender, non-distended, normal bowel sounds Female genitourinary: Present: normal - Integumentary Integumentary: Present: clear, warm, dry - Musculoskeletal Musculoskeletal: gait normal, strength equal bilaterally - Psychiatric Psychiatric: appropriate mood/affect, intact judgment & insight - Neurologic Neurologic: CNII-XII intact, moves all extremities Plan Follow up with: PRIMARY CARE,MD [Primary Care Provider] - 3-5 Days Forms: Warfarin Discharge Instruction Prescriptions: Ascorbic Acid [Vitamin C] 500 mg PO QDAY #30 tablet AtorvaSTATin [Lipitor] 10 mg PO QPM #30 tablet Cholecalciferol Vit D3 [Vitamin D3] 1,000 unit PO QDAY #30 tablet Enoxaparin [Lovenox] 80 mg SUB-Q Q12HR #14 syringe HYDROmorphone [Dilaudid] 1 mg PO Q4HR #7 tablet Metoprolol [Lopressor TAB] 100 mg PO BID #60 tablet Pantoprazole [Protonix TAB] 40 mg PO BID #60 tablet predniSONE [Deltasone] 10 mg PO QDAY #30 tablet Warfarin [Coumadin] 15 mg PO QDAY #14 tablet
[2016-12-05] MEDS: LOPRESSOR PO SCH (09:00)
[2016-12-05 09:38] VITALS: BP 114/48
[2016-12-05] MEDS: VITAMIN D3 PO SCH (11:22)
[2016-12-05] MEDS: LOVENOX SUB-Q SCH (11:22)
[2016-12-05] MEDS: PROTONIX PO SCH (11:22)
[2016-12-05] MEDS: VITAMIN C PO SCH (11:25)
[2016-12-05] MEDS ORDERED: BENADRYL IV ONE (13:41)
== END 2016-12-05 17:45 | disposition home or self-care (01) | DRG 206 ==
LOC: ED 14:14 → 4A 19:13 → 3A 12-04 19:28
PROVIDERS: ADMIT Internal Medicine; ATTEND Internal Medicine
DX: M94.0 Chondrocostal junction syndrome [Tietze] (principal); D68.59 Other primary thrombophilia; Z88.8 Allergy status to other drugs, medicaments and biological substances; Z86.73 Personal history of transient ischemic attack (TIA), and cerebral infarction without residual deficits; Z86.711 Personal history of pulmonary embolism; M06.9 Rheumatoid arthritis, unspecified; M32.9 Systemic lupus erythematosus, unspecified; E78.5 Hyperlipidemia, unspecified; M35.9 Systemic involvement of connective tissue, unspecified; Z82.49 Family history of ischemic heart disease and other diseases of the circulatory system; D72.1 Eosinophilia
CPT/HCPCS: 36415; 71010; 78452; 80048; 80053; 80061; 82550; 82553; 82962; 83036; 84484; 85014; 85018; 85025; 85049; 85379; 85610; 85730; 93005; 93010; 93017; 93306; A9270-GY; A9502; J1170; J1644; J1650; J2405; J2785; J3010; J7512

== ENCOUNTER 2017-01-25 12:03 | Inpatient (IN) | payer BC, OTHER ==
--- NOTE | 2017-01-25 13:15 | Emergency Department Report ---
Chief Complaint: Abdominal Pain Stated Complaint: POST SURGICAL PROBLEMS - HPI History of Present Illness: 56 year old female presents to ED with N/V and abdominal pain x1 day. patient is stable, neurologically intact and in no acute distress. - ROS Review of Systems: see HPI - Exam Vital Signs: Vital Signs 01/25/17 12:20 Temperature 98.4 F Pulse Rate 103 H Respiratory 18 Rate Blood Pressure 107/73 O2 Sat by Pulse 97 Oximetry Physical Exam: General: no acute distress MSE screening note: Focused history and physical exam performed. Due to findings the following was ordered: Labs urine xr abdomen ED Medical Decision Making - Radiology Data Radiology results: pending - Medical Decision Making patient is stable ,neurologically intact and in no acute distress. ED Disposition for MSE Condition: Stable Instructions: Abdominal Pain (ED)
--- NOTE | 2017-01-26 06:36 | Emergency Department Report ---
ED General Adult HPI - General Chief complaint: Abdominal Pain Stated complaint: POST SURGICAL PROBLEMS Time Seen by Provider: 01/26/17 06:20 Source: patient Mode of arrival: Wheelchair Limitations: Physical Limitation - History of Present Illness Initial comments: Patient with epigastric discomfort. She states she threw up blood. She states it was "more than streaks". She has a history of prior upper GI bleeding attributable to a gastric ulcer. She's had endoscopy and coagulation and/or clipping in [place]. She does not report any melanotic stools. The abdominal discomfort has now resolved. She was concerned because she is on an anticoagulant mainly. He does not complain of dizziness and has not passed out. She is not short of breath. -: Gradual (happened once hours ago) Location: abdomen Severity scale (0 -10): 0 Quality: aching Consistency: intermittent, now resolved Improves with: none Worsens with: none Associated Symptoms: denies other symptoms Treatments Prior to Arrival: none - Related Data Previous Rx's Medication Instructions Recorded Last Taken Type Ascorbic Acid [Vitamin C] 500 mg PO QDAY #30 tablet 12/04/16 01/24/17 Rx AtorvaSTATin [Lipitor] 10 mg PO QPM #30 tablet 12/04/16 01/24/17 Rx Cholecalciferol Vit D3 [Vitamin D3] 1,000 unit PO QDAY #30 tablet 12/04/1601/24 Rx Enoxaparin [Lovenox] 80 mg SUB-Q Q12HR #14 syringe 12/04/16 01/24/17 Rx Pantoprazole [Protonix TAB] 40 mg PO BID #60 tablet 12/04/16 01/24/17 Rx Warfarin [Coumadin] 15 mg PO QDAY #14 tablet 12/04/16 01/24/17 Rx predniSONE [Deltasone] 10 mg PO QDAY #30 tablet 12/04/16 01/24/17 Rx HYDROmorphone [Dilaudid] 1 mg PO Q4HR #7 tablet 12/05/16 01/24/17 Rx Metoprolol [Lopressor TAB] 100 mg PO BID #60 tablet 12/05/16 01/24/17 Rx Allergies Allergy/AdvReac Type Severity Reaction Status Date / Time acetaminophen [From Tylenol] Allergy Hives Verified 04/10/15 09:40 ciprofloxacin [From Cipro] Allergy Hives Verified 04/10/15 09:40 ciprofloxacin HCl Allergy Hives Verified 04/10/15 09:40 [From Cipro] dicyclomine HCl [From Bentyl] Allergy Hives Verified 04/10/15 09:40 hydrocodone Allergy Hives Verified 04/10/15 09:40 Iodinated Contrast- Oral and Allergy Hives Verified 04/10/15 09:40 IV Dye [Iodinated Contrast Media - IV Dye] meperidine HCl [From Demerol] Allergy Hives Verified 04/10/15 09:40 morphine Allergy Hives Verified 04/10/15 09:40 NSAIDS (Non-Steroidal Allergy Hives Verified 04/10/15 09:40 Anti-Inflamma oxycodone HCl Allergy Hives Verified 04/10/15 09:40 [From OxyContin] tramadol Allergy Hives Verified 04/10/15 09:40 ED Review of Systems ROS: Stated complaint: POST SURGICAL PROBLEMS Other details as noted in HPI Constitutional: denies: chills, fever Eyes: denies: eye pain, eye discharge, vision change ENT: denies: ear pain, throat pain Respiratory: denies: cough, shortness of breath, wheezing Cardiovascular: denies: chest pain, palpitations Endocrine: no symptoms reported Gastrointestinal: abdominal pain, hematemesis. denies: nausea, diarrhea Genitourinary: denies: urgency, dysuria, discharge Musculoskeletal: denies: back pain, joint swelling, arthralgia Skin: denies: rash, lesions Neurological: denies: headache, weakness, paresthesias Psychiatric: denies: anxiety, depression Hematological/Lymphatic: denies: easy bleeding, easy bruising ED Past Medical Hx - Past Medical History Hx CVA: Yes Hx Deep Vein Thrombosis: Yes (bilateral upper extremities) Hx Pulmonary Embolism: Yes (April 2016) Hx Arthritis: Yes (RHEUMATOID) Additional medical history: SLE. MYOSITIS. PERIPHERAL EOSINOPHILIA. GI BLEED. "CLOTTING DISORDER" - Surgical History Additional Surgical History: IVC FILTER RIGHT GROIN. ULCER CLIPPED AND CLAMPED. RIGHT AND LEFT KNEE SURGERIES. Esophageal surgery to remove growth - Social History Smoking Status: Unknown if ever smoked Substance Use Type: None - Medications Home Medications: Home Medications Medication Instructions Recorded Confirmed Last Taken Type Ascorbic Acid [Vitamin C] 500 mg PO QDAY #30 tablet 12/04/16 01/26/17 01/24/17 Rx AtorvaSTATin [Lipitor] 10 mg PO QPM #30 tablet 12/04/16 01/26/17 01/24/17 Rx Cholecalciferol Vit D3 [Vitamin D3] 1,000 unit PO QDAY #30 tablet 12/04/1601/2601/24/17 Rx Enoxaparin [Lovenox] 80 mg SUB-Q Q12HR #14 syringe 12/04/16 01/26/17 01/24/17 Rx Pantoprazole [Protonix TAB] 40 mg PO BID #60 tablet 12/04/16 01/26/17 01/24/17 Rx Warfarin [Coumadin] 15 mg PO QDAY #14 tablet 12/04/16 01/26/17 01/24/17 Rx predniSONE [Deltasone] 10 mg PO QDAY #30 tablet 12/04/16 01/26/17 01/24/17 Rx HYDROmorphone [Dilaudid] 1 mg PO Q4HR #7 tablet 12/05/16 01/26/17 01/24/17 Rx Metoprolol [Lopressor TAB] 100 mg PO BID #60 tablet 12/05/16 01/26/17 01/24/17 Rx ED Physical Exam - General Limitations: No Limitations General appearance: alert, in no apparent distress - Head Head exam: Present: atraumatic, normocephalic - Eye Eye exam: Present: normal appearance, PERRL, EOMI - ENT ENT exam: Present: mucous membranes moist - Neck Neck exam: Present: normal inspection - Respiratory Respiratory exam: Present: normal lung sounds bilaterally. Absent: respiratory distress - Cardiovascular Cardiovascular Exam: Present: regular rate, normal rhythm. Absent: systolic murmur, diastolic murmur, rubs, gallop - GI/Abdominal GI/Abdominal exam: Present: soft, normal bowel sounds. Absent: distended, tenderness, guarding, rebound, rigid - Extremities Exam Extremities exam: Present: normal inspection - Back Exam Back exam: Present: normal inspection - Neurological Exam Neurological exam: Present: alert, oriented X3, CN II-XII intact. Absent: motor sensory deficit - Psychiatric Psychiatric exam: Present: normal affect, normal mood - Skin Skin exam: Present: warm, dry, intact, normal color. Absent: rash ED Course Vital Signs 01/25/17 01/26/17 01/26/17 12:20 00:50 03:11 Temperature 98.4 F 98.1 F Pulse Rate 103 H 99 H Respiratory 18 20 18 Rate Blood Pressure 107/73 Blood Pressure 120/61 [Left] O2 Sat by Pulse 97 98 98 Oximetry 01/26/17 01/26/17 01/26/17 04:40 08:08 09:00 Temperature Pulse Rate 109 H 94 H 106 H Respiratory 20 20 15 Rate Blood Pressure Blood Pressure 130/70 110/66 124/58 [Left] O2 Sat by Pulse 99 99 99 Oximetry 01/26/17 10:16 Temperature Pulse Rate 91 H Respiratory 15 Rate Blood Pressure Blood Pressure 119/55 [Left] O2 Sat by Pulse 100 Oximetry - Reevaluation(s) Reevaluation #1: Patient remained clinically stable. She was given Pepcid and IV fluid. She will be admitted for further care and evaluation. I did not think there is any indication yet to reverse her anticoagulation. She has had a recent DVT and history of pulmonary embolism. She has IV C filter as well. She will be admitted by Dr. Canela to the hospital service. 01/26/17 10:25 ED Medical Decision Making - Lab Data Result diagrams: 01/26/17 09:03 01/26/17 09:03 Laboratory Results - last 24 hr 01/26/17 01/26/17 07:09 07:09 Total Creatine Kinase 46 CK-MB (CK-2) 5.2 H CK-MB (CK-2) Rel Index 11.3 H Troponin T 0.062 H NT-Pro-B Natriuret Pep 580.4 - Radiology Data interpreted by me: Chest x-ray showed no acute process Critical care attestation.: If time is entered above; I have spent that time in minutes in the direct care of this critically ill patient, excluding procedure time. ED Disposition Clinical Impression: Upper GI bleeding, On continuous oral anticoagulation Disposition: - TO HOME OR SELFCARE Is pt being admited?: Yes Does the pt Need Aspirin: No Condition: Stable Instructions: Abdominal Pain (ED) Referrals: PRIMARY CARE, [Primary Care Provider] - 3-5 Days Time of Disposition: 10:28
[2017-01-26] MEDS ORDERED: NACL 0.9% 1000 ML 1,000 ML IV ONE (07:02)
[2017-01-26] MEDS ORDERED: PROTONIX IV ONE (07:02)
[2017-01-26] MEDS ORDERED: DILAUDID IV ONE (07:03)
[2017-01-26] MEDS ORDERED: BENADRYL IV ONE (07:03)
[2017-01-26 07:39] LABS: Creatine Kinase MB 5.2 ng/mL (0.0-4.0)
--- NOTE | 2017-01-26 08:50 | XRay Report ---
A single view chest: Compared to 11/26/16. History: Hypertension. Findings: Borderline cardiomegaly. Trachea is midline. No consolidation, pneumothorax or pleural effusion. Impression: No acute cardiopulmonary findings.
[2017-01-26 09:10] LABS: Basophils % (Auto) 0.3 % (0.0-1.8); Eosinophils % (Auto) 2.3 % (0.0-4.3); Hematocrit 38.5 % (30.3-42.9); Hemoglobin 12.3 gm/dl (10.1-14.3); Mean Corpuscular HGB Conc 32 % (30-34); Mean Corpuscular Hemoglobin 27 pg (28-32); Mean Corpuscular Volume 84 fl (79-97); Platelet Count 252 K/mm3 (140-440); Red Blood Count 4.59 M/mm3 (3.65-5.03); White Blood Count 10.9 K/mm3 (4.5-11.0)
[2017-01-26 09:12] LABS: Red Cell Distribution Width 21.3 % (13.2-15.2)
[2017-01-26 09:28] LABS: INR 2.41 (0.87-1.13)
[2017-01-26 09:55] LABS: Alanine Aminotransferase 11 units/L (7-56); Albumin 3.9 g/dL (3.9-5); Albumin/Globulin Ratio 1.3 %; Alkaline Phosphatase 74 units/L (35-129); Anion Gap 22 mmol/L; BUN/Creatinine Ratio 34; Blood Urea Nitrogen 17 mg/dL (7-17); Calcium 9.5 mg/dL (8.4-10.2); Carbon Dioxide 22 mmol/L (22-30); Chloride 98.4 mmol/L (98-107); Glucose 106 mg/dL (65-100); Potassium 4.8 mmol/L (3.6-5.0); Sodium 138 mmol/L (137-145); Total Protein 6.8 g/dL (6.3-8.2)
[2017-01-26 11:26] LABS: Bacteria,Urine 1+ /HPF (Negative); Bilirubin,Urine NEG (Negative); Blood,Urine NEG (Negative); Ketones,Urine 20 mg/dL (Negative); Leukocyte Esterase,Urine SM (Negative); Mucus,Urine 2+ /HPF; Nitrite,Urine NEG (Negative); Protein,Urine <15 mg/dL mg/dL (Negative); Urobilinogen,Urine < 2.0 mg/dL (<2.0)
--- NOTE | 2017-01-26 11:30 | Gastroenterology Consultation ---
<MICHAEL WIN - Last Filed: 01/26/17 11:34> History of Present Illness - Reason for Consult Consult date: 01/26/17 [facility] Requesting physician: IVANA AHUJA - History of Present Illness Patient is a 56 y/o female with PMH of SLE, RA, chronic prednisone, PE s/p filter, hx of DVT in RUE s/p PICC in 2016 (on chronic anticoagulation with coumadin), HTN, and multiple previous episodes of GI bleeding with dx of PUD in 2012, an esophageal resection at [facility] in 2015 for an esophageal diverticulum , and was most recently evaluated at [facility] 05/08 for anemia/hematemesis with EGD (05/11/16) showing anastamosis near the distal third of esophagus, retained food in the stomach, and normal duodenal bulb/2nd portion duodenum and colonoscopy (05/12/16) revealed internal hemorrhoids and poor prep but otherwise normal who presented to ER yesterday with c/o hematemesis. HGB on admission stable at 12.3. She reports nausea with epigastric discomfort x 2 days and 3-4 episodes of vomiting up bright red blood yesterday. No active signs of bleeding today. No melena or hematochezia. No NSAID use. No hx of liver disease. Last dose of Coumadin was on Wednesday with INR now 2.41. Denies fever, wt loss, CP, SOB, dizziness, dysphagia, odynophagia, diarrhea, or constipation. Past History Past Medical History: arthritis (RA), DVT (RUE after PICC in 2016- on chronic coumadin), hypertension, other (SLE, chronic prednisone, PUD, myositis, peripheral eosinophilia) Past Surgical History: Other (knee, IVC filter, esophageal resection for diverticulum) Social history: lives with family. denies: smoking, alcohol abuse Family history: other (Factor V leiden) Medications and Allergies Allergies Allergy/AdvReac Type Severity Reaction Status Date / Time acetaminophen [From Tylenol] Allergy Hives Verified 04/10/15 09:40 ciprofloxacin [From Cipro] Allergy Hives Verified 04/10/15 09:40 ciprofloxacin HCl Allergy Hives Verified 04/10/15 09:40 [From Cipro] dicyclomine HCl [From Bentyl] Allergy Hives Verified 04/10/15 09:40 hydrocodone Allergy Hives Verified 04/10/15 09:40 Iodinated Contrast- Oral and Allergy Hives Verified 04/10/15 09:40 IV Dye [Iodinated Contrast Media - IV Dye] meperidine HCl [From Demerol] Allergy Hives Verified 04/10/15 09:40 morphine Allergy Hives Verified 04/10/15 09:40 NSAIDS (Non-Steroidal Allergy Hives Verified 04/10/15 09:40 Anti-Inflamma oxycodone HCl Allergy Hives Verified 04/10/15 09:40 [From OxyContin] tramadol Allergy Hives Verified 04/10/15 09:40 Home Medications Medication Instructions Recorded Confirmed Last Taken Type Ascorbic Acid [Vitamin C] 500 mg PO QDAY #30 tablet 12/04/16 01/26/17 01/24/17 Rx AtorvaSTATin [Lipitor] 10 mg PO QPM #30 tablet 12/04/16 01/26/17 01/24/17 Rx Cholecalciferol Vit D3 [Vitamin D3] 1,000 unit PO QDAY #30 tablet 12/04/1601/2601/24/17 Rx Enoxaparin [Lovenox] 80 mg SUB-Q Q12HR #14 syringe 12/04/16 01/26/17 01/24/17 Rx Pantoprazole [Protonix TAB] 40 mg PO BID #60 tablet 12/04/16 01/26/17 01/24/17 Rx Warfarin [Coumadin] 15 mg PO QDAY #14 tablet 12/04/16 01/26/17 01/24/17 Rx predniSONE [Deltasone] 10 mg PO QDAY #30 tablet 12/04/16 01/26/17 01/24/17 Rx HYDROmorphone [Dilaudid] 1 mg PO Q4HR #7 tablet 12/05/16 01/26/17 01/24/17 Rx Metoprolol [Lopressor TAB] 100 mg PO BID #60 tablet 12/05/16 01/26/17 01/24/17 Rx Active Meds: Active Medications Sodium Chloride (Nacl 0.9% 1000 Ml) 1,000 mls @ 125 mls/hr IV ONCE ONE Stop: 01/26/17 15:01 Last Admin: 01/26/17 08:45 Dose: 125 mls/hr Review of Systems - Review of Systems All systems: negative Gastrointestinal: abdominal pain (epigastric), nausea, hematemesis Exam - Constitutional Vital Signs: Temp Pulse Resp BP Pulse Ox 98.1 F 91 H 15 119/55 100 01/26/17 00:50 01/26/17 10:16 01/26/17 10:16 01/26/17 10:16 01/26/17 10:16 General appearance: no acute distress, well-nourished - EENT Eyes: PERRL, EOM intact ENT: hearing intact - Respiratory Respiratory: bilateral: CTA - Cardiovascular Rhythm: regular Heart Sounds: Present: S1 & S2 Extremities: No edema - Gastrointestinal General gastrointestinal: Present: soft, tender (mildly TTP in epigastric area) , non-distended, normal bowel sounds - Integumentary Integumentary: Present: warm, dry - Neurologic Neurological: alert and oriented x3 - Labs CBC & Chem 7: 01/26/17 09:03 01/26/17 09:03 Lab Results: Laboratory Results - last 24 hr 01/26/17 01/26/17 01/26/17 07:09 07:09 09:03 WBC 10.9 RBC 4.59 Hgb 12.3 Hct 38.5 MCV 84 MCH 27 L MCHC 32 RDW 21.3 H Plt Count 252 Lymph % (Auto) 16.5 [place] % (Auto) 6.7 Eos % (Auto) 2.3 Baso % (Auto) 0.3 Lymph # 1.8 [place] # 0.7 Eos # 0.2 Baso # 0.0 Seg Neutrophils % 74.2 H Seg Neutrophils # 8.1 H PT INR Sodium Potassium Chloride Carbon Dioxide Anion Gap BUN Creatinine Estimated GFR BUN/Creatinine Ratio Glucose Calcium Total Bilirubin AST ALT Alkaline Phosphatase Total Creatine Kinase 46 CK-MB (CK-2) 5.2 H CK-MB (CK-2) Rel Index 11.3 H Troponin T 0.062 H NT-Pro-B Natriuret Pep 580.4 Total Protein Albumin Albumin/Globulin Ratio Triglycerides 117 Cholesterol 151 LDL Cholesterol Direct 55 HDL Cholesterol 73 H Cholesterol/HDL Ratio 2.06 01/26/17 01/26/17 09:03 09:03 WBC RBC Hgb Hct MCV MCH MCHC RDW Plt Count Lymph % (Auto) [place] % (Auto) Eos % (Auto) Baso % (Auto) Lymph # [place] # Eos # Baso # Seg Neutrophils % Seg Neutrophils # PT 27.4 H INR 2.41 H Sodium 138 Potassium 4.8 Chloride 98.4 Carbon Dioxide 22 Anion Gap 22 BUN 17 Creatinine 0.5 L Estimated GFR > 60 BUN/Creatinine Ratio 34 Glucose 106 H Calcium 9.5 Total Bilirubin 0.30 AST 14 ALT 11 Alkaline Phosphatase 74 Total Creatine Kinase CK-MB (CK-2) CK-MB (CK-2) Rel Index Troponin T NT-Pro-B Natriuret Pep Total Protein 6.8 Albumin 3.9 Albumin/Globulin Ratio 1.3 Triglycerides Cholesterol LDL Cholesterol Direct HDL Cholesterol Cholesterol/HDL Ratio Assessment and Plan 1.GI bleed 2.hematemesis -HGB 12.3-stable -continue to monitor H/H and transfuse as needed -no active signs of bleeding this am -currently hemodynamically stable -INR 2.41- hold coumadin/blood thinning medications -pt with hx of bleeding peptic ulcer in 2012 and esophageal diverticulum requiring resection at [facility] in 2015 -last evaluation for hematemesis/anemia was 05/08 at [facility]- EGD showed anastamosis near the distal third of esophagus, retained food in stomach, and normal duodenal bulb/2nd portion of the duodenum; colonoscopy showed internal hemorrhoids and poor prep but otherwise normal-recommend repeat in 1 year -will start on PPI -clear liquid diet then NPO after MN -will schedule for EGD once INR < 1.5 -continue supportive care -will follow <FERNANDA DONALDSON - Last Filed: 01/27/17 14:15> Medications and Allergies Active Meds: Active Medications Acetaminophen (Tylenol) 650 mg PO Q4H PRN PRN Reason: Pain MILD(1-3)/Fever >100.5/RIVERA Albuterol (Proventil) 2.5 mg IH Q4HRT PRN PRN Reason: Shortness Of Breath Ascorbic Acid (Vitamin C) 500 mg PO QDAY [facility] Last Admin: 01/27/17 12:47 Dose: 500 mg Atorvastatin Calcium (Lipitor) 10 mg PO QPM [facility] Last Admin: 01/26/17 19:46 Dose: Not Given Bisacodyl (Dulcolax) 10 mg [place] QDAY PRN PRN Reason: Constipation unrelieved by MOM Cholecalciferol (Vitamin D3) 1,000 unit PO QDAY [facility] Last Admin: 01/27/17 12:47 Dose: 1,000 unit Hydromorphone HCl (Dilaudid) 1 mg PO Q4HR [facility] Last Admin: 01/27/17 11:51 Dose: Not Given Hydromorphone HCl (Dilaudid) 1 mg IV Q6H PRN PRN Reason: Pain , Severe (7-10) Last Admin: 01/27/17 14:06 Dose: 1 mg Sodium Chloride (Nacl 0.45% 1000 Ml) 1,000 mls @ 75 mls/hr IV DIRECT [facility] Last Admin: 01/27/17 08:12 Dose: 75 mls/hr Phytonadione 5 mg/ Sodium (Chloride) 50.5 mls @ 100 mls/hr IV ONCE ONE Stop: 01/27/17 14:10 Magnesium Hydroxide (Milk Of Magnesia) 30 ml PO Q4H PRN PRN Reason: Constipation Metoprolol Tartrate (Lopressor) 100 mg PO BID [facility] Last Admin: 01/27/17 12:28 Dose: Not Given Ondansetron HCl (Zofran) 4 mg IV Q8H PRN PRN Reason: N/V unrelieved by Regyobani Pantoprazole Sodium (Protonix) 40 mg IV DAILY [facility] Prednisone (Deltasone) 10 mg PO QDAY [facility] Last Admin: 01/27/17 12:47 Dose: 10 mg Exam - Constitutional Vital Signs: Temp Pulse Resp BP Pulse Ox 97.5 F L 61 16 105/57 99 01/27/17 08:10 01/27/17 08:10 01/27/17 08:10 01/27/17 08:10 01/27/17 08:10 - Labs CBC & Chem 7: 01/27/17 08:05 01/26/17 09:03 Lab Results: Laboratory Results - last 24 hr 01/27/17 01/27/17 08:05 08:05 WBC 5.9 RBC 3.92 Hgb 10.5 Hct 34.2 MCV 87 MCH 27 L MCHC 31 RDW 21.5 H Plt Count 177 PT 27.1 H INR 2.38 H Assessment and Plan - Patient Problems (1) Upper GI bleeding Current Visit: Yes Status: Acute Plan to address problem: The patient was seen and examined. The GI care plan was discussed. EGD will be planned once INR around 1.5 or less. May need reversal. Fernanda Donaldson MD
--- NOTE | 2017-01-26 12:11 | History and Physical Report ---
History of Present Illness Chief complaint: My stomach is upset and i was throwing up blood History of present illness: 56 YO Female with RA, SLE, DVT/PE, PUD, Myositis HTN, Peripheral Eosinophilia presents to ED for evaluation. Pt states that she has experienced abdominal discomfort for the past week with worsening symptoms over the past 2-3 days. Pt symptoms have been associated with multiple episodes of nausea as well as 3 episodes of throwing up blood over the past 2 days. Pt denies fever, chills, CP , Palpitations, Syncope, skin rash, melena, dark stool, constipation, diarrhea, medication noncompliance, dysphagia, unintentional weight loss, night sweats, odynophagia or recent ill contacts. Pt is S/P esophageal resection for esophageal diverticulum . Pt is s/p EGD and outside hospital on 05/08. Pt hgb on admission is 12. Pt seen and evaluated in ED and GI consulted in ED. Past History Past Medical History: arthritis (RA), DVT (RUE after PICC in 2016- on chronic coumadin), hypertension, other (SLE, chronic prednisone, PUD, myositis, peripheral eosinophilia) Social history: lives with family. denies: smoking, alcohol abuse Family history: other (Factor V leiden) Medications and Allergies Allergies Allergy/AdvReac Type Severity Reaction Status Date / Time acetaminophen [From Tylenol] Allergy Hives Verified 04/10/15 09:40 ciprofloxacin [From Cipro] Allergy Hives Verified 04/10/15 09:40 ciprofloxacin HCl Allergy Hives Verified 04/10/15 09:40 [From Cipro] dicyclomine HCl [From Bentyl] Allergy Hives Verified 04/10/15 09:40 hydrocodone Allergy Hives Verified 04/10/15 09:40 Iodinated Contrast- Oral and Allergy Hives Verified 04/10/15 09:40 IV Dye [Iodinated Contrast Media - IV Dye] meperidine HCl [From Demerol] Allergy Hives Verified 04/10/15 09:40 morphine Allergy Hives Verified 04/10/15 09:40 NSAIDS (Non-Steroidal Allergy Hives Verified 04/10/15 09:40 Anti-Inflamma oxycodone HCl Allergy Hives Verified 04/10/15 09:40 [From OxyContin] tramadol Allergy Hives Verified 04/10/15 09:40 Home Medications Medication Instructions Recorded Confirmed Last Taken Type Ascorbic Acid [Vitamin C] 500 mg PO QDAY #30 tablet 12/04/16 01/26/17 01/24/17 Rx AtorvaSTATin [Lipitor] 10 mg PO QPM #30 tablet 12/04/16 01/26/17 01/24/17 Rx Cholecalciferol Vit D3 [Vitamin D3] 1,000 unit PO QDAY #30 tablet 12/04/1601/2601/24/17 Rx Enoxaparin [Lovenox] 80 mg SUB-Q Q12HR #14 syringe 12/04/16 01/26/17 01/24/17 Rx Pantoprazole [Protonix TAB] 40 mg PO BID #60 tablet 12/04/16 01/26/17 01/24/17 Rx Warfarin [Coumadin] 15 mg PO QDAY #14 tablet 12/04/16 01/26/17 01/24/17 Rx predniSONE [Deltasone] 10 mg PO QDAY #30 tablet 12/04/16 01/26/17 01/24/17 Rx HYDROmorphone [Dilaudid] 1 mg PO Q4HR #7 tablet 12/05/16 01/26/17 01/24/17 Rx Metoprolol [Lopressor TAB] 100 mg PO BID #60 tablet 12/05/16 01/26/17 01/24/17 Rx Active Meds: Active Medications Sodium Chloride (Nacl 0.9% 1000 Ml) 1,000 mls @ 125 mls/hr IV ONCE ONE Stop: 01/26/17 15:01 Last Admin: 01/26/17 08:45 Dose: 125 mls/hr Pantoprazole Sodium (Protonix) 40 mg IV DAILY APPLE Review of Systems Constitutional: no weight loss, no weight gain, no fever, no chills Ears, nose, mouth and throat: no ear pain, no ear discharge, no tinnitis, no decreased hearing, no nose pain, no nasal congestion, no nasal discharge Breasts: no change in shape, no swelling, no mass Cardiovascular: no chest pain, no orthopnea, no palpitations, no rapid/ irregular heart beat, no edema, no syncope, no lightheadedness, no shortness of breath Respiratory: no cough, no cough with sputum, no excessive sputum, no hemoptysis , no shortness of breath, no dyspnea on exertion Gastrointestinal: nausea, vomiting, hematemesis, no abdominal pain, no constipation, no change in bowel habits, no coffee ground emesis, no BRBPR, no melena, no hematochezia, no loss of appetite Genitourinary Female: no pelvic pain, no flank pain, no menorrhagia, no dysuria Rectal: no pain, no incontinence, no bleeding Musculoskeletal: no neck stiffness, no neck pain, no shooting arm pain, no arm numbness/tingling, no low back pain, no shooting leg pain Integumentary: no rash, no pruritis, no redness, no sores, no wounds, no jaundice, no boils, no blisters Neurological: no head injury, no transient paralysis, no paralysis, no weakness , no parathesias, no numbness, no tingling, no seizures Psychiatric: no anxiety, no memory loss, no change in sleep habits, no sleep disturbances, no insomnia, no hypersomnia Endocrine: no cold intolerance, no heat intolerance, no polyphagia, no excessive thirst, no polydipsia, no polyuria, no nocturia Hematologic/Lymphatic: no easy bruising, no easy bleeding Allergic/Immunologic: no urticaria, no allergic rhinitis, no wheezing Exam - Constitutional Vitals: Temp Pulse Resp BP Pulse Ox 98.1 F 91 H 15 119/55 100 01/26/17 00:50 01/26/17 10:16 01/26/17 10:16 01/26/17 10:16 01/26/17 10:16 General appearance: Present: mild distress - EENT Eyes: Present: PERRL ENT: hearing intact, clear oral mucosa - Neck Neck: Present: supple, normal ROM - Respiratory Respiratory effort: normal Respiratory: bilateral: CTA - Cardiovascular Heart Sounds: Present: S1 & S2. Absent: rub, click - Extremities Extremities: pulses symmetrical, No edema Peripheral Pulses: within normal limits - Abdominal General gastrointestinal: Present: soft, non-tender, non-distended, normal bowel sounds Female genitourinary: Present: normal - Integumentary Integumentary: Present: clear, warm, dry - Musculoskeletal Musculoskeletal: gait normal, strength equal bilaterally - Psychiatric Psychiatric: appropriate mood/affect, intact judgment & insight - Neurologic Neurologic: CNII-XII intact, moves all extremities Results - Labs CBC & Chem 7: 01/26/17 09:03 01/26/17 09:03 Labs: Abnormal lab results 01/26/17 01/26/17 01/26/17 Range/Units 07:09 07:09 09:03 MCH 27 L (28-32) pg RDW 21.3 H (13.2-15.2) % Seg Neutrophils % 74.2 H (40.0-70.0) % Seg Neutrophils # 8.1 H (1.8-7.7) K/mm3 PT (12.2-14.9) Sec. INR (0.87-1.13) Creatinine (0.7-1.2) mg/dL Glucose (65-100) mg/dL CK-MB (CK-2) 5.2 H (0.0-4.0) ng/mL CK-MB (CK-2) Rel Index 11.3 H (0-4) Troponin T 0.062 H (0.00-0.029) ng/mL HDL Cholesterol 73 H (40-59) mg/dL 01/26/17 01/26/17 Range/Units 09:03 09:03 MCH (28-32) pg RDW (13.2-15.2) % Seg Neutrophils % (40.0-70.0) % Seg Neutrophils # (1.8-7.7) K/mm3 PT 27.4 H (12.2-14.9) Sec. INR 2.41 H (0.87-1.13) Creatinine 0.5 L (0.7-1.2) mg/dL Glucose 106 H (65-100) mg/dL CK-MB (CK-2) (0.0-4.0) ng/mL CK-MB (CK-2) Rel Index (0-4) Troponin T (0.00-0.029) ng/mL HDL Cholesterol (40-59) mg/dL Assessment and Plan - Patient Problems (1) Upper GI bleeding Current Visit: Yes Status: Acute Plan to address problem: GI consulted in ED, Bowel rest, NPO after midnight, EGD in AM as per GI service , hold anticoagulation as per GI recommendations, No transfusion at this time. (2) History of pulmonary embolism Current Visit: No Status: Chronic Plan to address problem: Hold anticoagulation at this time secondary to active upper GI bleed, resume anticoagulation after GI workup. (3) PUD (peptic ulcer disease) Current Visit: No Status: Chronic Plan to address problem: PPI therapy, supportive care, bowel rest, advance diet as tolerated. (4) Rheumatoid arthritis Current Visit: No Status: Chronic Qualifiers: Rheumatoid arthritis location: R Rheumatoid factor presence: unspecified presence Laterality: unspecified laterality Plan to address problem: continue steroid therapy, continue current care, pain control. (5) DVT prophylaxis Current Visit: No Status: Acute
[2017-01-26] MEDS ORDERED: PROVENTIL IH PRN (12:12)
[2017-01-26] MEDS ORDERED: MILK OF MAGNESIA PO PRN (12:12)
[2017-01-26] MEDS ORDERED: DULCOLAX PR PRN (12:12)
[2017-01-26] MEDS ORDERED: TYLENOL PO PRN (12:12)
[2017-01-26] MEDS ORDERED: ZOFRAN IV PRN (12:12)
[2017-01-26] MEDS: DILAUDID PO SCH ×3 (14:44→22:00)
[2017-01-26] MEDS: DILAUDID IV PRN (19:05)
[2017-01-26] MEDS: NACL 0.45% 1000 ML 1,000 ML IV SCH (19:10)
[2017-01-26] MEDS ORDERED: PROTONIX PO SCH (22:00)
[2017-01-26] MEDS: LOPRESSOR PO SCH (23:38)
[2017-01-27] MEDS: DILAUDID IV PRN ×4 (01:41→20:43)
[2017-01-27] MEDS: DILAUDID PO SCH ×6 (02:00→21:40)
[2017-01-27] MEDS: NACL 0.45% 1000 ML 1,000 ML IV SCH ×2 (08:12→21:20)
[2017-01-27 08:22] LABS: Hematocrit 34.2 % (30.3-42.9); Hemoglobin 10.5 gm/dl (10.1-14.3); Mean Corpuscular HGB Conc 31 % (30-34); Mean Corpuscular Hemoglobin 27 pg (28-32); Mean Corpuscular Volume 87 fl (79-97); Platelet Count 177 K/mm3 (140-440); Red Blood Count 3.92 M/mm3 (3.65-5.03); Red Cell Distribution Width 21.5 % (13.2-15.2); White Blood Count 5.9 K/mm3 (4.5-11.0)
[2017-01-27 08:28] LABS: INR 2.38 (0.87-1.13)
--- NOTE | 2017-01-27 09:23 | XRay Report ---
LEFT KNEE, 2 VIEWS History: Knee pain. Findings: Severe tricompartmental osteoarthritic changes are identified. There is near-complete loss of the joint space particularly in the lateral compartment. Large joint effusion extends to the suprapatellar bursa. No fracture or bone lesion is appreciated. Impression: Advanced osteoarthritic changes. Large joint effusion.
[2017-01-27] MEDS: DELTASONE PO SCH ×2 (09:36→12:47)
[2017-01-27] MEDS ORDERED: PROTONIX IV SCH (10:00)
[2017-01-27] MEDS: LOPRESSOR PO SCH ×2 (12:28→21:20)
--- NOTE | 2017-01-27 12:46 | Progress Note ---
Assessment and Plan Assessment and plan: 56 YO Female with RA, SLE, DVT/PE, PUD, Myositis HTN, Peripheral Eosinophilia presents to ED for evaluation. Pt states that she has experienced abdominal discomfort for the past week with worsening symptoms over the past 2-3 days. Pt symptoms have been associated with multiple episodes of nausea as well as 3 episodes of throwing up blood over the past 2 days. Pt denies fever, chills, CP , Palpitations, Syncope, skin rash, melena, dark stool, constipation, diarrhea, medication noncompliance, dysphagia, unintentional weight loss, night sweats, odynophagia or recent ill contacts. Pt is S/P esophageal resection for esophageal diverticulum . Pt is s/p EGD and outside hospital on 05/08 which was inconclusive due to poor prep at [facility] EGD showed anastamosis near the distal third of esophagus, retained food in stomach, and normal duodenal bulb/2nd portion of the duodenum; colonoscopy showed internal hemorrhoids and poor prep but otherwise normal-recommend repeat in 1 year. Pt hgb on admission is 12. Pt seen and evaluated in ED and GI consulted in ED. 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 Reports mild pain in left knee,. recent surgery, stitches still in place. Hospitalist Physical - Physical exam Narrative exam: VITAL SIGNS: Reviewed. GENERAL: The patient appeared well nourished and normally developed. Vital signs as documented. HEAD: No signs of head trauma. EYES: Pupils are equal. Extraocular motions intact. EARS: Hearing grossly intact. MOUTH: Oropharynx is normal. NECK: No adenopathy, no JVD. CHEST: Chest with clear breath sounds bilaterally. No wheezes, rales, or rhonchi. CARDIAC: Regular rate and rhythm. S1 and S2, without murmurs, gallops, or rubs. VASCULAR: No Edema. Peripheral pulses normal and equal in all extremities. ABDOMEN: Soft, without detectable tenderness. No sign of distention. No rebound or guarding, and no masses palpated. Bowel Sounds normal. MUSCULOSKELETAL: Limited ROM left knee, stitches initially call in place, mild edema, tender, no erythema.. Extremities without clubbing, cyanosis or edema. NEUROLOGIC EXAM: Alert and oriented x 3. No focal sensory or strength deficits. Speech normal. Follows commands. PSYCHIATRIC: Mood normal. SKIN: No rash or lesions. - Constitutional Vitals: Temp Pulse Resp BP Pulse Ox 97.5 F L 61 16 105/57 99 01/27/17 08:10 01/27/17 08:10 01/27/17 08:10 01/27/17 08:10 01/27/17 08:10 General appearance: Present: mild distress Results - Labs CBC & Chem 7: 01/27/17 08:05 01/26/17 09:03 Labs: Laboratory Last Values WBC 5.9 K/mm3 (4.5-11.0) 01/27/17 08:05 RBC 3.92 M/mm3 (3.65-5.03) 01/27/17 08:05 Hgb 10.5 gm/dl (10.1-14.3) 01/27/17 08:05 Hct 34.2 % (30.3-42.9) 01/27/17 08:05 MCV 87 fl (79-97) 01/27/17 08:05 MCH 27 pg (28-32) L 01/27/17 08:05 MCHC 31 % (30-34) 01/27/17 08:05 RDW 21.5 % (13.2-15.2) H 01/27/17 08:05 Plt Count 177 K/mm3 (140-440) 01/27/17 08:05 Lymph % (Auto) 16.5 % (13.4-35.0) 01/26/17 09:03 Hardy % (Auto) 6.7 % (0.0-7.3) 01/26/17 09:03 Eos % (Auto) 2.3 % (0.0-4.3) 01/26/17 09:03 Baso % (Auto) 0.3 % (0.0-1.8) 01/26/17 09:03 Lymph # 1.8 K/mm3 (1.2-5.4) 01/26/17 09:03 Hardy # 0.7 K/mm3 (0.0-0.8) 01/26/17 09:03 Eos # 0.2 K/mm3 (0.0-0.4) 01/26/17 09:03 Baso # 0.0 K/mm3 (0.0-0.1) 01/26/17 09:03 Seg Neutrophils % 74.2 % (40.0-70.0) H 01/26/17 09:03 Seg Neutrophils # 8.1 K/mm3 (1.8-7.7) H 01/26/17 09:03 PT 27.1 Sec. (12.2-14.9) H 01/27/17 08:05 INR 2.38 (0.87-1.13) H 01/27/17 08:05 Sodium 138 mmol/L (137-145) 01/26/17 09:03 Potassium 4.8 mmol/L (3.6-5.0) 01/26/17 09:03 Chloride 98.4 mmol/L (98-107) 01/26/17 09:03 Carbon Dioxide 22 mmol/L (22-30) 01/26/17 09:03 Anion Gap 22 mmol/L 01/26/17 09:03 BUN 17 mg/dL (7-17) 01/26/17 09:03 Creatinine 0.5 mg/dL (0.7-1.2) L 01/26/17 09:03 Estimated GFR > 60 ml/min 01/26/17 09:03 BUN/Creatinine Ratio 34 % 01/26/17 09:03 Glucose 106 mg/dL (65-100) H 01/26/17 09:03 Calcium 9.5 mg/dL (8.4-10.2) 01/26/17 09:03 Total Bilirubin 0.30 mg/dL (0.1-1.2) 01/26/17 09:03 AST 14 units/L (5-40) 01/26/17 09:03 ALT 11 units/L (7-56) 01/26/17 09:03 Alkaline Phosphatase 74 units/L (35-129) 01/26/17 09:03 Total Creatine Kinase 46 units/L (30-135) 01/26/17 07:09 CK-MB (CK-2) 5.2 ng/mL (0.0-4.0) H 01/26/17 07:09 CK-MB (CK-2) Rel Index 11.3 (0-4) H 01/26/17 07:09 Troponin T 0.062 ng/mL (0.00-0.029) H 01/26/17 07:09 NT-Pro-B Natriuret Pep 580.4 pg/mL (0-900) 01/26/17 07:09 Total Protein 6.8 g/dL (6.3-8.2) 01/26/17 09:03 Albumin 3.9 g/dL (3.9-5) 01/26/17 09:03 Albumin/Globulin Ratio 1.3 % 01/26/17 09:03 Triglycerides 117 mg/dL (2-149) 01/26/17 07:09 Cholesterol 151 mg/dL (50-199) 01/26/17 07:09 LDL Cholesterol Direct 55 mg/dL (50-130) 01/26/17 07:09 HDL Cholesterol 73 mg/dL (40-59) H 01/26/17 07:09 Cholesterol/HDL Ratio 2.06 % 01/26/17 07:09 Lipase 18 units/L (13-60) 01/25/17 09:03 Urine Color Yellow (Yellow) 01/26/17 10:58 Urine Turbidity Clear (Clear) 01/26/17 10:58 Urine pH 5.0 (5.0-7.0) 01/26/17 10:58 Ur Specific [place] 1.028 (1.003-1.030) 01/26/17 10:58 Urine Protein <15 mg/dl mg/dL (Negative) 01/26/17 10:58 Urine Glucose (UA) Neg mg/dL (Negative) 01/26/17 10:58 Urine Ketones 20 mg/dL (Negative) 01/26/17 10:58 Urine Blood Neg (Negative) 01/26/17 10:58 Urine Nitrite Neg (Negative) 01/26/17 10:58 Urine Bilirubin Neg (Negative) 01/26/17 10:58 Urine Urobilinogen < 2.0 mg/dL (<2.0) 01/26/17 10:58 Ur Leukocyte Esterase Sm (Negative) 01/26/17 10:58 Urine WBC (Auto) 5.0 /HPF (0.0-6.0) 01/26/17 10:58 Urine RBC (Auto) 4.0 /HPF (0.0-6.0) 01/26/17 10:58 U Epithel Cells (Auto) 1.0 /HPF (0-13.0) 01/26/17 10:58 Urine Bacteria (Auto) 1+ /HPF (Negative) 01/26/17 10:58 Urine Mucus 2+ /HPF 01/26/17 10:58 - Imaging and Cardiology Chest x-ray: image reviewed (no acute pathology)
[2017-01-27] MEDS: VITAMIN D3 PO SCH (12:47)
[2017-01-27] MEDS: VITAMIN C PO SCH (12:47)
--- NOTE | 2017-01-27 13:44 | Gastroenterology Progress Note ---
<MICHAEL WIN - Last Filed: 01/27/17 13:44> Assessment and Plan 1.GI bleed 2.hematemesis -HGB 10.5-trending down -continue to monitor H/H and transfuse as needed -no active signs of bleeding overnight or this am - hemodynamically stable -continue to hold blood thinning medications -INR 2.38- will give vit K 5mg IV today for a goal of < 1.5 -pt with hx of bleeding peptic ulcer in 2013 and esophageal diverticulum requiring resection at [facility] [facility] in 2016 -last evaluation for hematemesis/anemia was 05/08 at [facility]- EGD showed anastamosis near the distal third of esophagus, retained food in stomach, and normal duodenal bulb/2nd portion of the duodenum; colonoscopy showed internal hemorrhoids and poor prep but otherwise normal-recommend repeat in 1 year -continue PPI -clear liquid diet today then NPO after MN -will schedule for EGD in am -continue supportive care -will follow Subjective Date of service: 01/27/17 Principal diagnosis: GI bleed, hematemesis Interval history: Patient resting in bed. No acute distress. No signs of active bleeding overnight or this am. Objective - Constitutional Vitals: Temp Pulse Resp BP Pulse Ox 97.5 F L 61 16 105/57 99 01/27/17 08:10 01/27/17 08:10 01/27/17 08:10 01/27/17 08:10 01/27/17 08:10 General appearance: no acute distress, well-nourished - EENT Eyes: PERRL, EOM intact ENT: hearing intact - Respiratory Respiratory: bilateral: CTA - Cardiovascular Rhythm: regular Heart Sounds: Present: S1 & S2 - Gastrointestinal General gastrointestinal: Present: soft, tender (mildly TTP epigastric area), non-distended, normal bowel sounds - Integumentary Integumentary: Present: warm, dry - Neurologic Neurological: alert and oriented x3 - Labs CBC & Chem 7: 01/27/17 08:05 01/26/17 09:03 Labs: Laboratory Results - last 24 hr 01/27/17 01/27/17 08:05 08:05 WBC 5.9 RBC 3.92 Hgb 10.5 Hct 34.2 MCV 87 MCH 27 L MCHC 31 RDW 21.5 H Plt Count 177 PT 27.1 H INR 2.38 H <DONALDSON,FERNANDA - Last Filed: 01/27/17 14:16> Assessment and Plan - Patient Problems (1) Upper GI bleeding Current Visit: Yes Status: Acute Plan to address problem: Stable, but INR still elevated. Will give vit K per d/w Dr. Travis and plan EGD in AM once INR decreased further. Fernanda Donaldson MD Objective - Constitutional Vitals: Temp Pulse Resp BP Pulse Ox 97.5 F L 61 16 105/57 99 01/27/17 08:10 01/27/17 08:10 01/27/17 08:10 01/27/17 08:10 01/27/17 08:10 - Labs CBC & Chem 7: 01/27/17 08:05 01/26/17 09:03 Labs: Laboratory Results - last 24 hr 01/27/17 01/27/17 08:05 08:05 WBC 5.9 RBC 3.92 Hgb 10.5 Hct 34.2 MCV 87 MCH 27 L MCHC 31 RDW 21.5 H Plt Count 177 PT 27.1 H INR 2.38 H
[2017-01-27] MEDS ORDERED: VITAMIN K (ADULT ONLY) 5 MG in NACL 0.9% 50 ML IV ONE (15:30)
[2017-01-28] MEDS: DILAUDID PO SCH ×2 (02:00→05:11)
[2017-01-28] MEDS: DILAUDID IV PRN ×4 (03:39→23:26)
[2017-01-28 09:45] LABS: Hematocrit 38.5 % (30.3-42.9); Mean Corpuscular HGB Conc 31 % (30-34); Mean Corpuscular Hemoglobin 27 pg (28-32); Mean Corpuscular Volume 85 fl (79-97); Platelet Count 215 K/mm3 (140-440); Red Blood Count 4.52 M/mm3 (3.65-5.03); White Blood Count 6.5 K/mm3 (4.5-11.0)
[2017-01-28 09:47] LABS: Red Cell Distribution Width 21.5 % (13.2-15.2)
[2017-01-28] MEDS: LOPRESSOR PO SCH (10:00)
[2017-01-28] MEDS: DELTASONE PO SCH (10:00)
[2017-01-28] MEDS: VITAMIN D3 PO SCH (10:00)
[2017-01-28] MEDS: VITAMIN C PO SCH (10:00)
[2017-01-28] MEDS: NACL 0.45% 1000 ML 1,000 ML IV SCH (10:08)
[2017-01-28 10:09] LABS: INR 1.07 (0.87-1.13)
[2017-01-28] MEDS ORDERED: DIPRIVAN 10 MG/ML IV ONE ×2 (11:57→11:58)
--- NOTE | 2017-01-28 12:40 | Anesthesia Consultation ---
Anesthesia Consult and Med Hx Date of service: 01/28/17 - Airway Anesthetic Teeth Evaluation: Good ROM Head & Neck: Adequate Mental/Hyoid Distance: Adequate Mallampati Class: Class I Intubation Access Assessment: Good - Pulmonary Exam CTA: Yes - Cardiac Exam Cardiac Exam: RRR - Pre-Operative Health Status ASA Pre-Surgery Classification: ASA3 Proposed Anesthetic Plan: MAC - Cardiovascular System Hx Hypertension: Yes - Central Nervous System CVA: Yes Hx Psychiatric Problems: No - Gastrointestinal Hx Ulcer: Yes (h/o peptic ulcer) Hx Gastroesophageal Reflux Disease: Yes (resection of esophageal diverticulum 2016) - Hematic Hx Anemia: Yes - Other Systems Hx Cancer: No - Additional Comments Anesthesia Medical History Comments: Lupus, RA, h/o PE, IVC filter
--- NOTE | 2017-01-28 12:40 | Operative Report ---
Operative Report Operative Report: Date of procedure: 01/28/2017 Procedure: Esophagogastroduodenoscopy Preprocedure diagnosis: Hematemesis, history of esophageal surgery. Post procedure diagnosis: Dilated esophagus with exudate suggesting a lack of motility. Stasis gastritis. Suspected paraesophageal hernia versus surgical deformity in the gastric cardia Endoscopist: Dr. Mena Anesthesia: Monitored anesthesia care per anesthesia department Medications: Propofol per anesthesia Estimated blood loss: 0 After careful discussion of the nature and purpose of the procedure as well as details the technique risks benefits and alternatives consent was obtained. The patient was placed in the left lateral decubitus position and medicated per anesthesia. The tip of the [id number] [id number] video scope was passed per orum under direct vision into the esophagus and advanced into the stomach and descending duodenum. The descending duodenum the duodenal bulb and pylorus were symmetrical and normal. The scope was withdrawn into the stomach and the stomach then gently insufflated with air. There was a moderately large amount of retained thickened liquid food substances present in the stomach and some residual thickened food residue in the esophagus. The antrum was normal. The stomach was further insufflated and the scope was then retroflexed and partially withdrawn. The cardia revealed deformity and a suction that appeared segmented above the body suggestive of a paraesophageal hernia versus surgical deformity. The fundus and body of the stomach were otherwise within normal limits and easily distensible.The scope was then withdrawn in the forward position. The esophagogastric junction was at [40 cm]. A small hiatus hernia was present. The esophageal body was dilated throughout with no apparent visible motility. Exudates and residual liquid food material was present. There was no surgical suture line visible in the esophageal body. The proximal esophagus was normal otherwise The procedure was was well tolerated and the patient was observed in recovery. Impressions: Dilated esophagus with retained food substances and exudates consistent with a lack of esophageal motility. The EG junction was widely patent small hiatus hernia. Possible paraesophageal hernia in the cardia versus surgical defect. Retained food substance in the stomach consistent with gastroparesis. No evidence of gastric outlet obstruction or stricture in the upper digestive tract. Plan: [The patient may be restarted on anticoagulation with reasonable safety. Continue PPI therapy. She will follow-up with Dr. Martinez physicians for consideration of esophageal manometry. Small frequent feedings for gastroparesis. Continue a liquid diet given retention of food substances while on a full liquid diet yesterday and likely poor tolerance at this point of a solid diet. Home when she has reasonable intake from the GI standpoint] Electronically signed: Dudley Mena MD
--- NOTE | 2017-01-28 12:41 | Anesthesia Day of Surgery ---
Anesthesia Day of Surgery - Day of Surgery Patient Examined: Yes Patient H&P Reviewed: Yes Patient is NPO: Yes
--- NOTE | 2017-01-28 12:52 | Post Anesthesia Evaluation ---
- Post Anesthesia Evaluation Patient Participated: Yes Airway Patent: Yes Stable Respiratory Function: Yes Temp > 96.8F: Yes Pain Manageable: Yes Adequeate Hydration: Yes Anesthesia Complications: No
[2017-01-28] MEDS ORDERED: NACL 0.9% 1000 ML 1,000 ML IV SCH (13:00)
--- NOTE | 2017-01-28 14:50 | Progress Note ---
Assessment and Plan Assessment and plan: 56 YO Female with RA, SLE, DVT/PE, PUD, Myositis HTN, Peripheral Eosinophilia presents to ED for evaluation. Pt states that she has experienced abdominal discomfort for the past week with worsening symptoms over the past 2-3 days. Pt symptoms have been associated with multiple episodes of nausea as well as 3 episodes of throwing up blood over the past 2 days. Pt denies fever, chills, CP , Palpitations, Syncope, skin rash, melena, dark stool, constipation, diarrhea, medication noncompliance, dysphagia, unintentional weight loss, night sweats, odynophagia or recent ill contacts. Pt is S/P esophageal resection for esophageal diverticulum . Pt is s/p EGD and outside hospital on 05/08 which was inconclusive due to poor prep at [place] EGD showed anastamosis near the distal third of esophagus, retained food in stomach, and normal duodenal bulb/2nd portion of the duodenum; colonoscopy showed internal hemorrhoids and poor prep but otherwise normal-recommend repeat in 1 year. Pt hgb on admission is 12. Pt seen and evaluated in ED and GI consulted in ED. GI bleed presumed upper in a patient with hx of PUD Hemetemesis Acute blood loss anemia 12-----.10.5-->12 Large left knee joint effusion Gastroparesis with dialated Esophagus S/P left knee arthoscopy and presumed previous knee replacement ?partial or full Coagulopathy with Recurrent PE and DVT Per patient extensive family hx Rheumatoid arthritis Lupus Plan: * Complex management requiring close monitoring and care * Start Heparin drip low intensity * Start wafarin AT 10 MG. PATIENT REPORTS HER HOME MAINTENANCE DOSE IS 5MG * Discontinue Opioids secondary to findings on EGD * Impressions: Dilated esophagus with retained food substances and exudates consistent with a lack of esophageal motility. The EG junction was widely patent small hiatus hernia. Possible paraesophageal hernia in the cardia versus surgical defect. Retained food substance in the stomach consistent with gastroparesis. No evidence of gastric outlet obstruction or stricture in the upper digestive tract. * Plan: [The patient may be restarted on anticoagulation with reasonable safety. Continue PPI therapy. She will follow-up with Dr. Martinez physicians for consideration of esophageal manometry. Small frequent feedings for gastroparesis. Continue a liquid diet given retention of food substances while on a full liquid diet yesterday and likely poor tolerance at this point of a solid diet. Home when she has reasonable intake from the GI standpoint] further recommendation to discontinue opiods * Check INR in am * Continue PPI * GI input noted, Discussed with Ms Joanna Alexander [employer]NAL[employer] * Change pain medications to ultram. * Orthoconsult for joint effusion eval * PT/OT * Pain control * Continue steroid therapy * DVT/GI prophy * Discharge when INR therapeutic. l History Interval history: Patient seen and examined today in no acute distress at this time. awaiting EGD. wants heparin drip if no acute finding to help prevent development of clot Hospitalist Physical - Physical exam Narrative exam: VITAL SIGNS: Reviewed. GENERAL: The patient appeared well nourished and normally developed. Vital signs as documented. HEAD: No signs of head trauma. EYES: Pupils are equal. Extraocular motions intact. EARS: Hearing grossly intact. MOUTH: Oropharynx is normal. NECK: No adenopathy, no JVD. CHEST: Chest with clear breath sounds bilaterally. No wheezes, rales, or rhonchi. CARDIAC: Regular rate and rhythm. S1 and S2, without murmurs, gallops, or rubs. VASCULAR: No Edema. Peripheral pulses normal and equal in all extremities. ABDOMEN: Soft, without detectable tenderness. No sign of distention. No rebound or guarding, and no masses palpated. Bowel Sounds normal. MUSCULOSKELETAL: Limited ROM left knee, stitches initially call in place, mild edema, tender, no erythema.. Extremities without clubbing, cyanosis or edema. NEUROLOGIC EXAM: Alert and oriented x 3. No focal sensory or strength deficits. Speech normal. Follows commands. PSYCHIATRIC: Mood normal. SKIN: No rash or lesions. - Constitutional Vitals: Temp Pulse Resp BP Pulse Ox 98.9 F 67 14 110/57 100 01/28/17 12:33 01/28/17 13:06 01/28/17 13:06 01/28/17 13:06 01/28/17 13:06 General appearance: Present: mild distress Results - Labs CBC & Chem 7: 01/28/17 09:41 01/26/17 09:03 Labs: Laboratory Last Values WBC 6.5 K/mm3 (4.5-11.0) 01/28/17 09:41 RBC 4.52 M/mm3 (3.65-5.03) 01/28/17 09:41 Hgb 12.0 gm/dl (10.1-14.3) 01/28/17 09:41 Hct 38.5 % (30.3-42.9) 01/28/17 09:41 MCV 85 fl (79-97) 01/28/17 09:41 MCH 27 pg (28-32) L 01/28/17 09:41 MCHC 31 % (30-34) 01/28/17 09:41 RDW 21.5 % (13.2-15.2) H 01/28/17 09:41 Plt Count 215 K/mm3 (140-440) 01/28/17 09:41 Lymph % (Auto) 16.5 % (13.4-35.0) 01/26/17 09:03 [place] % (Auto) 6.7 % (0.0-7.3) 01/26/17 09:03 Eos % (Auto) 2.3 % (0.0-4.3) 01/26/17 09:03 Baso % (Auto) 0.3 % (0.0-1.8) 01/26/17 09:03 Lymph # 1.8 K/mm3 (1.2-5.4) 01/26/17 09:03 [place] # 0.7 K/mm3 (0.0-0.8) 01/26/17 09:03 Eos # 0.2 K/mm3 (0.0-0.4) 01/26/17 09:03 Baso # 0.0 K/mm3 (0.0-0.1) 01/26/17 09:03 Seg Neutrophils % 74.2 % (40.0-70.0) H 01/26/17 09:03 Seg Neutrophils # 8.1 K/mm3 (1.8-7.7) H 01/26/17 09:03 PT 14.5 Sec. (12.2-14.9) 01/28/17 09:41 INR 1.07 (0.87-1.13) 01/28/17 09:41 Sodium 138 mmol/L (137-145) 01/26/17 09:03 Potassium 4.8 mmol/L (3.6-5.0) 01/26/17 09:03 Chloride 98.4 mmol/L (98-107) 01/26/17 09:03 Carbon Dioxide 22 mmol/L (22-30) 01/26/17 09:03 Anion Gap 22 mmol/L 01/26/17 09:03 BUN 17 mg/dL (7-17) 01/26/17 09:03 Creatinine 0.5 mg/dL (0.7-1.2) L 01/26/17 09:03 Estimated GFR > 60 ml/min 01/26/17 09:03 BUN/Creatinine Ratio 34 % 01/26/17 09:03 Glucose 106 mg/dL (65-100) H 01/26/17 09:03 Calcium 9.5 mg/dL (8.4-10.2) 01/26/17 09:03 Total Bilirubin 0.30 mg/dL (0.1-1.2) 01/26/17 09:03 AST 14 units/L (5-40) 01/26/17 09:03 ALT 11 units/L (7-56) 01/26/17 09:03 Alkaline Phosphatase 74 units/L (35-129) 01/26/17 09:03 Total Creatine Kinase 46 units/L (30-135) 01/26/17 07:09 CK-MB (CK-2) 5.2 ng/mL (0.0-4.0) H 01/26/17 07:09 CK-MB (CK-2) Rel Index 11.3 (0-4) H 01/26/17 07:09 Troponin T 0.062 ng/mL (0.00-0.029) H 01/26/17 07:09 NT-Pro-B Natriuret Pep 580.4 pg/mL (0-900) 01/26/17 07:09 Total Protein 6.8 g/dL (6.3-8.2) 01/26/17 09:03 Albumin 3.9 g/dL (3.9-5) 01/26/17 09:03 Albumin/Globulin Ratio 1.3 % 01/26/17 09:03 Triglycerides 117 mg/dL (2-149) 01/26/17 07:09 Cholesterol 151 mg/dL (50-199) 01/26/17 07:09 LDL Cholesterol Direct 55 mg/dL (50-130) 01/26/17 07:09 HDL Cholesterol 73 mg/dL (40-59) H 01/26/17 07:09 Cholesterol/HDL Ratio 2.06 % 01/26/17 07:09 Lipase 18 units/L (13-60) 01/25/17 09:03 Urine Color Yellow (Yellow) 01/26/17 10:58 Urine Turbidity Clear (Clear) 01/26/17 10:58 Urine pH 5.0 (5.0-7.0) 01/26/17 10:58 Ur Specific [place] 1.028 (1.003-1.030) 01/26/17 10:58 Urine Protein <15 mg/dl mg/dL (Negative) 01/26/17 10:58 Urine Glucose (UA) Neg mg/dL (Negative) 01/26/17 10:58 Urine Ketones 20 mg/dL (Negative) 01/26/17 10:58 Urine Blood Neg (Negative) 01/26/17 10:58 Urine Nitrite Neg (Negative) 01/26/17 10:58 Urine Bilirubin Neg (Negative) 01/26/17 10:58 Urine Urobilinogen < 2.0 mg/dL (<2.0) 01/26/17 10:58 Ur Leukocyte Esterase Sm (Negative) 01/26/17 10:58 Urine WBC (Auto) 5.0 /HPF (0.0-6.0) 01/26/17 10:58 Urine RBC (Auto) 4.0 /HPF (0.0-6.0) 01/26/17 10:58 U Epithel Cells (Auto) 1.0 /HPF (0-13.0) 01/26/17 10:58 Urine Bacteria (Auto) 1+ /HPF (Negative) 01/26/17 10:58 Urine Mucus 2+ /HPF 01/26/17 10:58
[2017-01-28] MEDS ORDERED: ULTRAM PO PRN (14:53)
[2017-01-28 15:49] LABS: Hematocrit 35.1 % (30.3-42.9)
[2017-01-28 16:02] LABS: INR 1.07 (0.87-1.13)
[2017-01-28 16:03] LABS: Partial Thromboplastin Time 25.5 Sec. (24.2-36.6)
[2017-01-28] MEDS: PROTONIX PO SCH (17:37)
[2017-01-28] MEDS: COUMADIN PO SCH (18:34)
[2017-01-29] MEDS: LOPRESSOR PO SCH ×3 (01:28→23:36)
[2017-01-29] MEDS: DILAUDID IV PRN ×4 (05:38→23:33)
--- NOTE | 2017-01-29 09:43 | Gastroenterology Progress Note ---
<MICHAEL WIN - Last Filed: 01/29/17 09:44> Assessment and Plan 1.GI bleed 2.hematemesis -HGB 11-stable -continue to monitor H/H and transfuse as needed -no active signs of bleeding overnight or this am -pt with hx of bleeding peptic ulcer in 2012 and esophageal diverticulum requiring resection at [facility] in 2016 -last evaluation for hematemesis/anemia was 05/08 at [facility]- EGD showed anastamosis near the distal third of esophagus, retained food in stomach, and normal duodenal bulb/2nd portion of the duodenum; colonoscopy showed internal hemorrhoids and poor prep but otherwise normal-recommend repeat in 1 year -s/p EGD yesterday that revealed dilated esophagus with exudate suggesting a lack of motility, stasis gastritis, and suspected paraesophageal hernia versus surgical deformity in the gastric cardia -may restart on anticoagulation -continue PPI -tolerating clear liquids- advance diet as tolerated -recommend small frequent feedings for gastroparesis -pt will f/u with physicians at [facility] for consideration of esophageal manometry -no further GI recommendations, pt is okay to be d/c from a GI standpoint when she has reasonable intake -will sign off Subjective Date of service: 01/29/17 Principal diagnosis: GI bleed, hematemesis Interval history: Patient sitting up in bed. No acute distress. Tolerating clear liquids. No signs of active bleeding overnight or this am. Objective - Constitutional Vitals: Temp Pulse Resp BP Pulse Ox 98.0 F 71 18 131/55 100 01/29/17 08:28 01/29/17 08:28 01/29/17 08:28 01/29/17 08:28 01/29/17 08:28 General appearance: no acute distress, well-nourished - EENT Eyes: PERRL, EOM intact ENT: hearing intact - Respiratory Respiratory: bilateral: CTA - Cardiovascular Rhythm: regular Heart Sounds: Present: S1 & S2 - Extremities Extremities: No edema - Gastrointestinal General gastrointestinal: Present: soft, non-tender, non-distended, normal bowel sounds - Neurologic Neurological: alert and oriented x3 - Labs CBC & Chem 7: 01/28/17 15:10 01/26/17 09:03 Labs: Laboratory Results - last 24 hr 01/28/17 01/28/17 01/28/17 09:41 09:41 15:10 WBC 6.5 RBC 4.52 Hgb 12.0 11.0 Hct 38.5 35.1 MCV 85 MCH 27 L MCHC 31 RDW 21.5 H Plt Count 215 189 PT 14.5 INR 1.07 APTT 01/28/17 15:10 WBC RBC Hgb Hct MCV MCH MCHC RDW Plt Count PT 14.4 INR 1.07 APTT 25.5 <FERNANDA DONALDSON - Last Filed: 01/29/17 10:31> Assessment and Plan The patient was personally seen and examined. Her EGD findings were discussed at length. Will s/o and f/u PRN. She will f/u with her physicians at [facility]. Fernanda Donaldson MD - Patient Problems (1) Upper GI bleeding Current Visit: Yes Status: Acute Objective - Constitutional Vitals: Temp Pulse Resp BP Pulse Ox 98.0 F 71 18 131/55 100 01/29/17 08:28 01/29/17 08:28 01/29/17 08:28 01/29/17 08:28 01/29/17 08:28 - Labs CBC & Chem 7: 01/28/17 15:10 01/26/17 09:03 Labs: Laboratory Results - last 24 hr 01/28/17 01/28/17 15:10 15:10 Hgb 11.0 Hct 35.1 Plt Count 189 PT 14.4 INR 1.07 APTT 25.5
--- NOTE | 2017-01-29 09:47 | Consultation ---
History of Present Illness - HPI Consult date: 01/28/17 Consult reason: joint pain (56 y/o female with c/o left knee pain and swelling, states had similar problems in past... asked to evaluate for possible joint aspiration..hx of septic arthritis left knee in past) Past History Past Medical History: arthritis (RA), DVT (RUE after PICC in 2016- on chronic coumadin), hypertension, other (SLE, chronic prednisone, PUD, myositis, peripheral eosinophilia) Past Surgical History: Other (knee, IVC filter, esophageal resection for diverticulum) Social history: lives with family. denies: smoking, alcohol abuse Family history: other (Factor V leiden) Medications and Allergies Allergies Allergy/AdvReac Type Severity Reaction Status Date / Time acetaminophen [From Tylenol] Allergy Hives Verified 04/10/15 09:40 ciprofloxacin [From Cipro] Allergy Hives Verified 04/10/15 09:40 ciprofloxacin HCl Allergy Hives Verified 04/10/15 09:40 [From Cipro] dicyclomine HCl [From Bentyl] Allergy Hives Verified 04/10/15 09:40 hydrocodone Allergy Hives Verified 04/10/15 09:40 Iodinated Contrast- Oral and Allergy Hives Verified 04/10/15 09:40 IV Dye [Iodinated Contrast Media - IV Dye] meperidine HCl [From Demerol] Allergy Hives Verified 04/10/15 09:40 morphine Allergy Hives Verified 04/10/15 09:40 NSAIDS (Non-Steroidal Allergy Hives Verified 04/10/15 09:40 Anti-Inflamma oxycodone HCl Allergy Hives Verified 04/10/15 09:40 [From OxyContin] tramadol Allergy Hives Verified 04/10/15 09:40 Home Medications Medication Instructions Recorded Confirmed Last Taken Type Ascorbic Acid [Vitamin C] 500 mg PO QDAY #30 tablet 12/04/16 01/26/17 01/24/17 Rx AtorvaSTATin [Lipitor] 10 mg PO QPM #30 tablet 12/04/16 01/26/17 01/24/17 Rx Cholecalciferol Vit D3 [Vitamin D3] 1,000 unit PO QDAY #30 tablet 12/04/1601/2601/24/17 Rx Enoxaparin [Lovenox] 80 mg SUB-Q Q12HR #14 syringe 12/04/16 01/26/17 01/24/17 Rx Pantoprazole [Protonix TAB] 40 mg PO BID #60 tablet 12/04/16 01/26/17 01/24/17 Rx Warfarin [Coumadin] 15 mg PO QDAY #14 tablet 12/04/16 01/26/17 01/24/17 Rx predniSONE [Deltasone] 10 mg PO QDAY #30 tablet 12/04/16 01/26/17 01/24/17 Rx HYDROmorphone [Dilaudid] 1 mg PO Q4HR #7 tablet 12/05/16 01/26/17 01/24/17 Rx Metoprolol [Lopressor TAB] 100 mg PO BID #60 tablet 12/05/16 01/26/17 01/24/17 Rx Active Meds: Active Medications Acetaminophen (Tylenol) 650 mg PO Q4H PRN PRN Reason: Pain MILD(1-3)/Fever >100.5/RIVERA Albuterol (Proventil) 2.5 mg IH Q4HRT PRN PRN Reason: Shortness Of Breath Ascorbic Acid (Vitamin C) 500 mg PO QDAY [facility] Last Admin: 01/28/17 10:00 Dose: Not Given Atorvastatin Calcium (Lipitor) 10 mg PO QPM [facility] Last Admin: 01/28/17 17:37 Dose: Not Given Bisacodyl (Dulcolax) 10 mg CO QDAY PRN PRN Reason: Constipation unrelieved by MOM Cholecalciferol (Vitamin D3) 1,000 unit PO QDAY [facility] Last Admin: 01/28/17 10:00 Dose: Not Given Hydromorphone HCl (Dilaudid) 1 mg IV Q6H PRN PRN Reason: Pain , Severe (7-10) Last Admin: 01/29/17 05:38 Dose: 1 mg Sodium Chloride (Nacl 0.45% 1000 Ml) 1,000 mls @ 75 mls/hr IV DIRECT APPLE Last Admin: 01/28/17 10:08 Dose: 75 mls/hr Sodium Chloride (Nacl 0.9% 1000 Ml) 1,000 mls @ 50 mls/hr IV DIRECT APPLE Last Admin: 01/28/17 23:39 Dose: 50 mls/hr Heparin Sodium/Sodium Chloride (Heparin/ 0.45% Nacl-25,000 Unit/500 Ml) 25,000 unit in 500 mls @ 24 mls/hr IV TITR APPLE; 1,200 UNITS/HR PRN Reason: Protocol Magnesium Hydroxide (Milk Of Magnesia) 30 ml PO Q4H PRN PRN Reason: Constipation Metoprolol Tartrate (Lopressor) 100 mg PO BID [facility] Last Admin: 01/29/17 01:28 Dose: Not Given Ondansetron HCl (Zofran) 4 mg IV Q8H PRN PRN Reason: N/V unrelieved by Reglan Pantoprazole (Protonix) 40 mg PO DAILY [facility] Last Admin: 01/28/17 17:37 Dose: Not Given Prednisone (Deltasone) 10 mg PO QDAY [facility] Last Admin: 01/28/17 10:00 Dose: Not Given Tramadol HCl (Ultram) 50 mg PO Q6H PRN PRN Reason: Pain, Moderate (4-6) Warfarin Sodium (Coumadin) 10 mg PO DAILY@1700 APPLE PRN Reason: Protocol Last Admin: 01/28/17 18:34 Dose: 10 mg Warfarin Sodium (Coumadin Pharmacy To Dose) 1 each PO PKCONSULT [facility] PRN Reason: Protocol Physical Examination - Physical exam Narrative exam: left knee - well healed midline incision as well as recent arthroscopic stab wounds, no erythema or drainage noted, limited active ROM, no warmth detected... plain xrays reviewed and show significant DJD changes left knee Assessment and Plan left knee pain agree with PT and rehab at this point
--- NOTE | 2017-01-29 10:02 | Progress Note ---
Assessment and Plan Assessment and plan: --Acute upper GI bleeding; history of peptic ulcer disease s/p EGD, EGD findings reviewed, IV Protonix, Avoid NSAIDs to monitor --Acute blood loss anemia; closely monitor H&H and transfuse as needed --Large left knee effusion; possible arthrocentesis, orthopedic evaluated the patient Supportive care, physical therapy and patient is stable --Gastroparesis; on clear liquids and advance as tolerated, promotility agents if needed --History of recurrent PE and DVT on chronic anticoagulation; continue Coumadin , closely monitor INR therapeutic goal between 2 and 3 Monitor for any evidence of bleeding --DVT prophylaxis patient is already on Coumadin therapy Closely monitor the patient enters the management as needed --History of rheumatoid arthritis; continue current management --History of lupus; stable Consults and recommendations noted and appreciated Plan of care discussed with the patient and her nurse History Interval history: Since seen and examined medical records reviewed And feels slightly better No new episodes of bleeding Hospitalist Physical - Constitutional Vitals: Temp Pulse Resp BP Pulse Ox 98.0 F 71 18 131/55 100 01/29/17 08:28 01/29/17 08:28 01/29/17 08:28 01/29/17 08:28 01/29/17 08:28 General appearance: Present: no acute distress, well-nourished - EENT Eyes: Present: PERRL, EOM intact - Neck Neck: Present: supple, normal ROM - Respiratory Respiratory effort: normal Respiratory: negative: rales, rhonchi, wheezing - Cardiovascular Rhythm: regular Heart Sounds: Present: S1 & S2 - Extremities Extremities: no ischemia, No edema, normal color - Abdominal General gastrointestinal: soft, non-tender, non-distended, normal bowel sounds - Integumentary Integumentary: Present: clear, warm - Psychiatric Psychiatric: appropriate mood/affect, cooperative - Neurologic Neurologic: CNII-XII intact, moves all extremities Results - Labs CBC & Chem 7: 02/01/17 04:00 01/26/17 09:03 Labs: Laboratory Last Values WBC 6.5 K/mm3 (4.5-11.0) 01/28/17 09:41 RBC 4.52 M/mm3 (3.65-5.03) 01/28/17 09:41 Hgb 11.0 gm/dl (10.1-14.3) 01/28/17 15:10 Hct 35.1 % (30.3-42.9) 01/28/17 15:10 MCV 85 fl (79-97) 01/28/17 09:41 MCH 27 pg (28-32) L 01/28/17 09:41 MCHC 31 % (30-34) 01/28/17 09:41 RDW 21.5 % (13.2-15.2) H 01/28/17 09:41 Plt Count 189 K/mm3 (140-440) 01/28/17 15:10 Lymph % (Auto) 16.5 % (13.4-35.0) 01/26/17 09:03 [place] % (Auto) 6.7 % (0.0-7.3) 01/26/17 09:03 Eos % (Auto) 2.3 % (0.0-4.3) 01/26/17 09:03 Baso % (Auto) 0.3 % (0.0-1.8) 01/26/17 09:03 Lymph # 1.8 K/mm3 (1.2-5.4) 01/26/17 09:03 [place] # 0.7 K/mm3 (0.0-0.8) 01/26/17 09:03 Eos # 0.2 K/mm3 (0.0-0.4) 01/26/17 09:03 Baso # 0.0 K/mm3 (0.0-0.1) 01/26/17 09:03 Seg Neutrophils % 74.2 % (40.0-70.0) H 01/26/17 09:03 Seg Neutrophils # 8.1 K/mm3 (1.8-7.7) H 01/26/17 09:03 PT 14.4 Sec. (12.2-14.9) 01/28/17 15:10 INR 1.07 (0.87-1.13) 01/28/17 15:10 APTT 25.5 Sec. (24.2-36.6) 01/28/17 15:10 Sodium 138 mmol/L (137-145) 01/26/17 09:03 Potassium 4.8 mmol/L (3.6-5.0) 01/26/17 09:03 Chloride 98.4 mmol/L (98-107) 01/26/17 09:03 Carbon Dioxide 22 mmol/L (22-30) 01/26/17 09:03 Anion Gap 22 mmol/L 01/26/17 09:03 BUN 17 mg/dL (7-17) 01/26/17 09:03 Creatinine 0.5 mg/dL (0.7-1.2) L 01/26/17 09:03 Estimated GFR > 60 ml/min 01/26/17 09:03 BUN/Creatinine Ratio 34 % 01/26/17 09:03 Glucose 106 mg/dL (65-100) H 01/26/17 09:03 Calcium 9.5 mg/dL (8.4-10.2) 01/26/17 09:03 Total Bilirubin 0.30 mg/dL (0.1-1.2) 01/26/17 09:03 AST 14 units/L (5-40) 01/26/17 09:03 ALT 11 units/L (7-56) 01/26/17 09:03 Alkaline Phosphatase 74 units/L (35-129) 01/26/17 09:03 Total Creatine Kinase 46 units/L (30-135) 01/26/17 07:09 CK-MB (CK-2) 5.2 ng/mL (0.0-4.0) H 01/26/17 07:09 CK-MB (CK-2) Rel Index 11.3 (0-4) H 01/26/17 07:09 Troponin T 0.062 ng/mL (0.00-0.029) H 01/26/17 07:09 NT-Pro-B Natriuret Pep 580.4 pg/mL (0-900) 01/26/17 07:09 Total Protein 6.8 g/dL (6.3-8.2) 01/26/17 09:03 Albumin 3.9 g/dL (3.9-5) 01/26/17 09:03 Albumin/Globulin Ratio 1.3 % 01/26/17 09:03 Triglycerides 117 mg/dL (2-149) 01/26/17 07:09 Cholesterol 151 mg/dL (50-199) 01/26/17 07:09 LDL Cholesterol Direct 55 mg/dL (50-130) 01/26/17 07:09 HDL Cholesterol 73 mg/dL (40-59) H 01/26/17 07:09 Cholesterol/HDL Ratio 2.06 % 01/26/17 07:09 Lipase 18 units/L (13-60) 01/25/17 09:03 Urine Color Yellow (Yellow) 01/26/17 10:58 Urine Turbidity Clear (Clear) 01/26/17 10:58 Urine pH 5.0 (5.0-7.0) 01/26/17 10:58 Ur Specific [place] 1.028 (1.003-1.030) 01/26/17 10:58 Urine Protein <15 mg/dl mg/dL (Negative) 01/26/17 10:58 Urine Glucose (UA) Neg mg/dL (Negative) 01/26/17 10:58 Urine Ketones 20 mg/dL (Negative) 01/26/17 10:58 Urine Blood Neg (Negative) 01/26/17 10:58 Urine Nitrite Neg (Negative) 01/26/17 10:58 Urine Bilirubin Neg (Negative) 01/26/17 10:58 Urine Urobilinogen < 2.0 mg/dL (<2.0) 01/26/17 10:58 Ur Leukocyte Esterase Sm (Negative) 01/26/17 10:58 Urine WBC (Auto) 5.0 /HPF (0.0-6.0) 01/26/17 10:58 Urine RBC (Auto) 4.0 /HPF (0.0-6.0) 01/26/17 10:58 U Epithel Cells (Auto) 1.0 /HPF (0-13.0) 01/26/17 10:58 Urine Bacteria (Auto) 1+ /HPF (Negative) 01/26/17 10:58 Urine Mucus 2+ /HPF 01/26/17 10:58
[2017-01-29] MEDS: PROTONIX PO SCH (10:10)
[2017-01-29] MEDS: DELTASONE PO SCH (10:10)
[2017-01-29] MEDS: VITAMIN C PO SCH (10:10)
[2017-01-29] MEDS: VITAMIN D3 PO SCH (10:10)
[2017-01-29] MEDS ORDERED: HEPARIN/NS 5000 UNIT/500ML(CATH LAB) 500 ML IR ONE (14:12)
[2017-01-29] MEDS ORDERED: HEPARIN 10,000 UNITS/10 ML ONE (14:12)
[2017-01-29] MEDS ORDERED: NACL 0.9% 250ML 250 ML ONE (14:19)
[2017-01-29] MEDS ORDERED: SUBLIMAZE ONE (14:50)
[2017-01-29] MEDS: XYLOCAINE 2% INFILTRATI ONE ×3 (14:51→15:26)
[2017-01-29] MEDS ORDERED: ZOFRAN ONE (15:32)
[2017-01-29] MEDS ORDERED: DILAUDID ONE (15:34)
--- NOTE | 2017-01-29 15:47 | Operative Report ---
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 DATE: 01/29/2017 PROCEDURE: Following an explanation of the risks, benefits and alternatives; written informed consent was obtained. The patient was brought to the angiographic suite and placed in supine position on the examination table. Initial ultrasound evaluation of the right neck demonstrated an occluded right internal jugular vein. The right external jugular vein appeared patent. The patient's right neck was prepped and draped in the usual sterile fashion. 1% lidocaine was used for anesthesia. Under ultrasound guidance, the right external jugular vein was cannulated with a 7 cm 21-gauge needle. A 0.018 guidewire would not advance centrally. It continued to deflect [place] secondary to distal occlusion. Initial ultrasound evaluation of the neck left neck demonstrated an occluded left internal jugular vein. The left external jugular vein appeared patent. Under ultrasound guidance, the left external jugular vein was cannulated with a 7 cm 21-gauge needle. A 0.018 guidewire was advanced centrally but stopped after only a few centimeters secondary to venous occlusion. Initial ultrasound evaluation of the right groin demonstrated a patent right common femoral vein. The patient's right groin was prepped and draped in the usual sterile fashion. 1% lidocaine was used for anesthesia. Under ultrasound guidance, a 7 cm 21-gauge needle was advanced into the right common femoral vein. A 0.018 guidewire was advanced centrally under fluoroscopy. The needle was removed and a 5.5 Czech peel-away sheath placed over the guidewire. An appropriate catheter exit site was chosen lateral on the 5. 1% lidocaine was used for anesthesia at the catheter exit site and along the tunnel tract. A Bard dual-lumen power PICC catheter was then tunneled antegrade from the catheter exit site to the venotomy site. Following standard guidewire measurements, the guidewire was removed and the catheter tubing cut to length. The catheter tubing was then placed through the peel-away sheath and positioned in the IVC just proximal right atrium. Both ports flushed and aspirated easily and with her locked with sterile saline. The catheter was securely fasten the skin surface using 2-0 Ethilon suture. Dermabond was also applied to the venotomy site and catheter exit site. Sterile dressings were then applied. The patient tolerated the procedure well. There were no immediate post procedure competitions. Conscious sedation was not utilized secondary to the patient's non-nothing by mouth status. 1 mg of Dilaudid was given for pain control. Continuous cardiopulmonary monitoring was utilized under the guidance of radiologic nursing. 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 2) Ultrasound and fluoroscopic guided placement of a tunneled Central venous catheter via the right common femoral vein.
[2017-01-29] MEDS: COUMADIN PO SCH (17:58)
[2017-01-29 18:52] LABS: INR 1.08 (0.87-1.13)
[2017-01-29] MEDS: HEPARIN/ 0.45% NACL-25,000 UNIT/500 ML 25,000 UNIT/500 ML BAG IV SCH (22:18)
[2017-01-30 04:58] LABS: Hematocrit 30.9 % (30.3-42.9); Hemoglobin 9.9 gm/dl (10.1-14.3)
[2017-01-30 05:05] LABS: INR 1.24 (0.87-1.13)
[2017-01-30] MEDS: DILAUDID IV PRN ×4 (05:43→23:57)
[2017-01-30] MEDS: VITAMIN D3 PO SCH (11:20)
[2017-01-30] MEDS: DELTASONE PO SCH (11:20)
[2017-01-30] MEDS: VITAMIN C PO SCH (11:20)
[2017-01-30] MEDS: LOPRESSOR PO SCH ×2 (11:21→21:23)
[2017-01-30] MEDS: PROTONIX PO SCH ×2 (11:21→13:53)
[2017-01-30] MEDS: COUMADIN PO SCH (18:08)
[2017-01-30] MEDS: HEPARIN/ 0.45% NACL-25,000 UNIT/500 ML 25,000 UNIT/500 ML BAG IV SCH (21:18)
--- NOTE | 2017-01-30 22:13 | Progress Note ---
Assessment and Plan Assessment and Plan Assessment and plan: 56 YO Female with RA, SLE, DVT/PE, PUD, Myositis HTN, Peripheral Eosinophilia presents to ED for evaluation. Pt states that she has experienced abdominal discomfort for the past week with worsening symptoms over the past 2-3 days. Pt symptoms have been associated with multiple episodes of nausea as well as 3 episodes of throwing up blood over the past 2 days. Pt denies fever, chills, CP , Palpitations, Syncope, skin rash, melena, dark stool, constipation, diarrhea, medication noncompliance, dysphagia, unintentional weight loss, night sweats, odynophagia or recent ill contacts. Pt is S/P esophageal resection for esophageal diverticulum . Pt is s/p EGD and outside hospital on 05/08 which was inconclusive due to poor prep at [place] EGD showed anastamosis near the distal third of esophagus, retained food in stomach, and normal duodenal bulb/2nd portion of the duodenum; colonoscopy showed internal hemorrhoids and poor prep but otherwise normal-recommend repeat in 1 year. Pt hgb on admission is 12. Pt seen and evaluated in ED and GI consulted in ED. Had ultrasound and fluoroscopic guided placement of a tunneled Central venous catheter via the right common femoral vein. GI bleed presumed upper in a patient with hx of PUD Hemetemesis Acute blood loss anemia 12-----.10.5-->12 Large left knee joint effusion Gastroparesis with dialated Esophagus S/P left knee arthoscopy and presumed previous knee replacement ?partial or full Coagulopathy with Recurrent PE and DVT Per patient extensive family hx Rheumatoid arthritis Lupus Plan: * Complex management requiring close monitoring and care * Start Heparin drip low intensity * Start wafarin AT 10 MG. PATIENT REPORTS HER HOME MAINTENANCE DOSE IS 5MG * Discontinue Opioids secondary to findings on EGD * Impressions: Dilated esophagus with retained food substances and exudates consistent with a lack of esophageal motility. The EG junction was widely patent small hiatus hernia. Possible paraesophageal hernia in the cardia versus surgical defect. Retained food substance in the stomach consistent with gastroparesis. No evidence of gastric outlet obstruction or stricture in the upper digestive tract. * Plan: [The patient may be restarted on anticoagulation with reasonable safety. Continue PPI therapy. She will follow-up with Dr. Martinez physicians for consideration of esophageal manometry. Small frequent feedings for gastroparesis. Continue a liquid diet given retention of food substances while on a full liquid diet yesterday and likely poor tolerance at this point of a solid diet. Home when she has reasonable intake from the GI standpoint] further recommendation to discontinue opiods * Check INR in am * Continue PPI * GI input noted, Discussed with Ms Joanna Alexander BIRTH CERTIFICATE CLERK * Change pain medications to ultram. * Orthoconsult for joint effusion eval * PT/OT * Pain control * Continue steroid therapy * DVT/GI prophy * Discharge when INR therapeutic. Subjective Date of service: 01/30/17 Principal diagnosis: GI bleed, hematemesis Interval history: Had Ultrasound and fluoroscopic guided placement of a tunneled Central venous catheter via the right common femoral vein. No further Gi bleed Objective - Constitutional Vitals: Vital Signs - 12hr 01/30/17 01/30/17 16:03 21:05 Temperature 98.0 F 98.6 F Pulse Rate 56 L Respiratory 18 16 Rate Blood Pressure 104/61 Blood Pressure 111/65 [Left] O2 Sat by Pulse 97 Oximetry General appearance: Present: no acute distress, well-nourished - EENT Eyes: PERRL, EOM intact ENT: hearing intact, clear oral mucosa Ears: bilateral: normal - Neck Neck: supple, normal ROM - Respiratory Respiratory effort: normal Respiratory: bilateral: CTA - Breasts Breasts: normal - Cardiovascular Rhythm: regular Heart Sounds: Present: S1 & S2. Absent: gallop, rub Extremities: pulses intact, No edema, normal color, Full ROM - Gastrointestinal General gastrointestinal: Present: soft, non-tender, non-distended, normal bowel sounds - Genitourinary Female genitourinary: normal - Integumentary Integumentary: clear, warm, dry - Musculoskeletal Musculoskeletal: 1, strength equal bilaterally - Neurologic Neurologic: moves all extremities - Psychiatric Psychiatric: memory intact, appropriate mood/affect, intact judgment & insight - Labs CBC & Chem 7: 01/30/17 04:00 01/26/17 09:03 Labs: Abnormal lab results 01/30/17 01/30/17 01/30/17 Range/Units 04:00 04:00 14:45 Hgb 9.9 L (10.1-14.3) gm/dl PT 16.2 H (12.2-14.9) Sec. INR 1.24 H (0.87-1.13) Heparin Anti-Xa Level 0.89 H (0.3-0.7) U.I./ml
[2017-01-31 05:17] LABS: INR 1.37 (0.87-1.13)
[2017-01-31] MEDS: DILAUDID IV PRN ×4 (05:40→23:49)
[2017-01-31] MEDS: LOPRESSOR PO SCH ×2 (09:53→22:28)
[2017-01-31] MEDS: VITAMIN C PO SCH (09:53)
[2017-01-31] MEDS: DELTASONE PO SCH (09:53)
[2017-01-31] MEDS: VITAMIN D3 PO SCH (09:53)
[2017-01-31] MEDS: PROTONIX PO SCH (09:58)
--- NOTE | 2017-01-31 15:21 | Progress Note ---
Assessment and Plan Assessment and Plan Assessment and plan: 56 YO Female with RA, SLE, DVT/PE, PUD, Myositis HTN, Peripheral Eosinophilia presents to ED for evaluation. Pt states that she has experienced abdominal discomfort for the past week with worsening symptoms over the past 2-3 days. Pt symptoms have been associated with multiple episodes of nausea as well as 3 episodes of throwing up blood over the past 2 days. Pt denies fever, chills, CP , Palpitations, Syncope, skin rash, melena, dark stool, constipation, diarrhea, medication noncompliance, dysphagia, unintentional weight loss, night sweats, odynophagia or recent ill contacts. Pt is S/P esophageal resection for esophageal diverticulum . Pt is s/p EGD and outside hospital on 05/08 which was inconclusive due to poor prep at [place] EGD showed anastamosis near the distal third of esophagus, retained food in stomach, and normal duodenal bulb/2nd portion of the duodenum; colonoscopy showed internal hemorrhoids and poor prep but otherwise normal-recommend repeat in 1 year. Pt hgb on admission is 12. Pt seen and evaluated in ED and GI consulted in ED. Had ultrasound and fluoroscopic guided placement of a tunneled Central venous catheter via the right common femoral vein. GI bleed presumed upper in a patient with hx of PUD Hemetemesis Acute blood loss anemia 12-----.10.5-->12- stable now Large left knee joint effusion Gastroparesis with dialated Esophagus S/P left knee arthoscopy and presumed previous knee replacement ?partial or full Coagulopathy with Recurrent PE and DVT Per patient extensive family hx Rheumatoid arthritis Lupus Plan: * Complex management requiring close monitoring and care * Start Heparin drip low intensity * Start wafarin AT 10 MG. PATIENT REPORTS HER HOME MAINTENANCE DOSE IS 5MG * Discontinue Opioids secondary to findings on EGD * Impressions: Dilated esophagus with retained food substances and exudates consistent with a lack of esophageal motility. The EG junction was widely patent small hiatus hernia. Possible paraesophageal hernia in the cardia versus surgical defect. Retained food substance in the stomach consistent with gastroparesis. No evidence of gastric outlet obstruction or stricture in the upper digestive tract. * Plan: [The patient may be restarted on anticoagulation with reasonable safety. Continue PPI therapy. She will follow-up with Dr. Martinez physicians for consideration of esophageal manometry. Small frequent feedings for gastroparesis. Continue a liquid diet given retention of food substances while on a full liquid diet yesterday and likely poor tolerance at this point of a solid diet. Home when she has reasonable intake from the GI standpoint] further recommendation to discontinue opiods * Check INR in am * Continue PPI * GI input noted, Discussed with Ms Joanna Alexander INSPECTOR [employer]ICS * Change pain medications to ultram. * Orthoconsult for joint effusion eval * PT/OT * Pain control * Continue steroid therapy * DVT/GI prophy * Discharge when INR therapeutic. * INR still subtherapeutic. Subjective Date of service: 01/31/17 Principal diagnosis: GI bleed, hematemesis Interval history: Had Ultrasound and fluoroscopic guided placement of a tunneled Central venous catheter via the right common femoral vein. No further Gi bleed Objective - Constitutional Vitals: Vital Signs - 12hr 01/31/17 01/31/17 01/31/17 05:40 06:10 06:57 Temperature Pulse Rate Respiratory 18 18 18 Rate Blood Pressure Blood Pressure [Left] O2 Sat by Pulse Oximetry 01/31/17 01/31/17 01/31/17 09:00 09:44 09:53 Temperature 98 F Pulse Rate 66 66 Respiratory 18 16 Rate Blood Pressure 141/71 Blood Pressure 141/71 [Left] O2 Sat by Pulse 83 L 100 Oximetry General appearance: Present: no acute distress, well-nourished - EENT Eyes: PERRL, EOM intact ENT: hearing intact, clear oral mucosa Ears: bilateral: normal - Neck Neck: supple, normal ROM - Respiratory Respiratory effort: normal Respiratory: bilateral: CTA - Breasts Breasts: normal - Cardiovascular Rhythm: regular Heart Sounds: Present: S1 & S2. Absent: gallop, rub Extremities: pulses intact, No edema, normal color, Full ROM - Gastrointestinal General gastrointestinal: Present: soft, non-tender, non-distended, normal bowel sounds - Genitourinary Female genitourinary: normal - Integumentary Integumentary: clear, warm, dry - Musculoskeletal Musculoskeletal: 1, strength equal bilaterally - Neurologic Neurologic: moves all extremities - Psychiatric Psychiatric: memory intact, appropriate mood/affect, intact judgment & insight - Labs CBC & Chem 7: 01/30/17 04:00 01/26/17 09:03 Labs: Abnormal lab results 01/30/17 01/31/17 01/31/17 Range/Units 22:00 04:55 12:00 PT 17.6 H (12.2-14.9) Sec. INR 1.37 H (0.87-1.13) Heparin Anti-Xa Level 0.77 H 0.29 L (0.3-0.7) U.I./ml
[2017-01-31] MEDS: COUMADIN PO SCH ×2 (17:41→18:18)
[2017-02-01] MEDS: DILAUDID IV PRN ×3 (05:42→18:00)
[2017-02-01 06:15] LABS: Hematocrit 31.4 % (30.3-42.9); Hemoglobin 9.9 gm/dl (10.1-14.3)
[2017-02-01] MEDS: HEPARIN/ 0.45% NACL-25,000 UNIT/500 ML 25,000 UNIT/500 ML BAG IV SCH (06:17)
[2017-02-01 07:42] LABS: INR 1.55 (0.87-1.13)
--- NOTE | 2017-02-01 09:51 | Vascular Lab Report ---
MISCELLANEOUS VESSEL IDENTIFICATION: COMMENTS ON THE SCAN: The left common femoral vein was identified and under real-time ultrasound guidance was cannulated. IMPRESSION: Successful ultrasound guided vein cannulation.
[2017-02-01] MEDS: DELTASONE PO SCH (09:52)
[2017-02-01] MEDS: LOPRESSOR PO SCH (09:52)
[2017-02-01] MEDS: VITAMIN C PO SCH (09:53)
[2017-02-01] MEDS: VITAMIN D3 PO SCH (09:53)
[2017-02-01] MEDS: PROTONIX PO SCH ×2 (09:54→12:12)
[2017-02-01] MEDS: COUMADIN PO SCH ×2 (16:45)
--- NOTE | 2017-02-01 20:04 | Progress Note ---
Assessment and Plan Assessment and Plan Assessment and plan: 56 YO Female with RA, SLE, DVT/PE, PUD, Myositis HTN, Peripheral Eosinophilia presents to ED for evaluation. Pt states that she has experienced abdominal discomfort for the past week with worsening symptoms over the past 2-3 days. Pt symptoms have been associated with multiple episodes of nausea as well as 3 episodes of throwing up blood over the past 2 days. Pt denies fever, chills, CP , Palpitations, Syncope, skin rash, melena, dark stool, constipation, diarrhea, medication noncompliance, dysphagia, unintentional weight loss, night sweats, odynophagia or recent ill contacts. Pt is S/P esophageal resection for esophageal diverticulum . Pt is s/p EGD and outside hospital on 05/08 which was inconclusive due to poor prep at [place] EGD showed anastamosis near the distal third of esophagus, retained food in stomach, and normal duodenal bulb/2nd portion of the duodenum; colonoscopy showed internal hemorrhoids and poor prep but otherwise normal-recommend repeat in 1 year. Pt hgb on admission is 12. Pt seen and evaluated in ED and GI consulted in ED. Had ultrasound and fluoroscopic guided placement of a tunneled Central venous catheter via the right common femoral vein. GI bleed presumed upper in a patient with hx of PUD Hemetemesis Acute blood loss anemia 12-----.10.5-->12- stable now Large left knee joint effusion Gastroparesis with dialated Esophagus S/P left knee arthoscopy and presumed previous knee replacement ?partial or full Coagulopathy with Recurrent PE and DVT Per patient extensive family hx Rheumatoid arthritis Lupus Plan: * Complex management requiring close monitoring and care * Start Heparin drip low intensity * Start wafarin AT 10 MG. PATIENT REPORTS HER HOME MAINTENANCE DOSE IS 5MG * Discontinue Opioids secondary to findings on EGD * Impressions: Dilated esophagus with retained food substances and exudates consistent with a lack of esophageal motility. The EG junction was widely patent small hiatus hernia. Possible paraesophageal hernia in the cardia versus surgical defect. Retained food substance in the stomach consistent with gastroparesis. No evidence of gastric outlet obstruction or stricture in the upper digestive tract. * Plan: [The patient may be restarted on anticoagulation with reasonable safety. Continue PPI therapy. She will follow-up with Dr. Martinez physicians for consideration of esophageal manometry. Small frequent feedings for gastroparesis. Continue a liquid diet given retention of food substances while on a full liquid diet yesterday and likely poor tolerance at this point of a solid diet. Home when she has reasonable intake from the GI standpoint] further recommendation to discontinue opiods * Check INR in am * Continue PPI * GI input noted, Discussed with Ms Joanna Alexander SENIOR SALES CONSULTANT * Change pain medications to ultram. * Orthoconsult for joint effusion eval * PT/OT * Pain control * Continue steroid therapy * DVT/GI prophy * Discharge when INR therapeutic. * INR still subtherapeutic. Subjective Date of service: 02/01/17 Principal diagnosis: GI bleed, hematemesis Interval history: Had Ultrasound and fluoroscopic guided placement of a tunneled Central venous catheter via the right common femoral vein. No further Gi bleed. Objective - Constitutional Vitals: Vital Signs - 12hr 02/01/17 02/01/17 08:28 17:02 Temperature 98.4 F 98.5 F Pulse Rate 62 66 Respiratory 20 20 Rate Blood Pressure 127/64 123/68 O2 Sat by Pulse 100 99 Oximetry General appearance: Present: no acute distress, well-nourished - EENT Eyes: PERRL, EOM intact ENT: hearing intact, clear oral mucosa Ears: bilateral: normal - Neck Neck: supple, normal ROM - Respiratory Respiratory effort: normal Respiratory: bilateral: CTA - Breasts Breasts: normal - Cardiovascular Rhythm: regular Heart Sounds: Present: S1 & S2. Absent: gallop, rub Extremities: pulses intact, No edema, normal color, Full ROM - Gastrointestinal General gastrointestinal: Present: soft, non-tender, non-distended, normal bowel sounds - Genitourinary Female genitourinary: normal - Integumentary Integumentary: clear, warm, dry - Musculoskeletal Musculoskeletal: 1, strength equal bilaterally - Neurologic Neurologic: moves all extremities - Psychiatric Psychiatric: memory intact, appropriate mood/affect, intact judgment & insight - Labs CBC & Chem 7: 02/01/17 04:00 01/26/17 09:03 Labs: Abnormal lab results 02/01/17 02/01/17 Range/Units 04:00 05:30 Hgb 9.9 L (10.1-14.3) gm/dl PT 19.3 H (12.2-14.9) Sec. INR 1.55 H (0.87-1.13)
[2017-02-02] MEDS: LOPRESSOR PO SCH ×2 (00:19→10:00)
[2017-02-02] MEDS: DILAUDID IV PRN ×4 (00:28→18:00)
[2017-02-02 07:20] LABS: INR 1.58 (0.87-1.13)
[2017-02-02] MEDS: DELTASONE PO SCH (10:00)
[2017-02-02] MEDS: VITAMIN C PO SCH (10:00)
[2017-02-02] MEDS: PROTONIX PO SCH (10:00)
[2017-02-02] MEDS: VITAMIN D3 PO SCH (10:00)
--- NOTE | 2017-02-02 12:39 | Progress Note ---
Assessment and Plan Assessment and plan: GI bleed. Etiology presumed to be upper and related to PUD. Hematemesis, resolved. Acute blood loss anemia. Etiology secondary to above. Continue to follow H&H. Large left knee joint effusion. Ortho following. Gastroparesis with dialated Esophagus. Continue PPI therapy. She will follow- up with Dr. Martinez physicians for consideration of esophageal manometry. Small frequent feedings for gastroparesis. S/P left knee arthoscopy and presumed previous knee replacement Coagulopathy with Recurrent PE and DVT Per patient extensive family hx. Await therapeutic INR before discharge Rheumatoid arthritis Lupus History Interval history: No new issues overnight. Hospitalist Physical - Constitutional Vitals: Temp Pulse Resp BP Pulse Ox 98.0 F 64 20 130/66 100 02/02/17 07:49 02/02/17 07:49 02/02/17 07:49 02/02/17 07:49 02/02/17 07:49 General appearance: Present: no acute distress, well-nourished - EENT Eyes: Present: PERRL, EOM intact ENT: hearing intact, clear oral mucosa, dentition normal - Neck Neck: Present: supple, normal ROM - Respiratory Respiratory effort: normal Respiratory: bilateral: CTA - Cardiovascular Rhythm: regular Heart Sounds: Present: S1 & S2. Absent: gallop, rub - Extremities Extremities: no ischemia, No edema, Full ROM - Abdominal General gastrointestinal: soft, non-tender, non-distended, normal bowel sounds - Integumentary Integumentary: Present: clear, warm, dry - Neurologic Neurologic: CNII-XII intact, moves all extremities Results - Labs CBC & Chem 7: 02/01/17 04:00 01/26/17 09:03 Labs: Laboratory Last Values WBC 6.5 K/mm3 (4.5-11.0) 01/28/17 09:41 RBC 4.52 M/mm3 (3.65-5.03) 01/28/17 09:41 Hgb 9.9 gm/dl (10.1-14.3) L 02/01/17 04:00 Hct 31.4 % (30.3-42.9) 02/01/17 04:00 MCV 85 fl (79-97) 01/28/17 09:41 MCH 27 pg (28-32) L 01/28/17 09:41 MCHC 31 % (30-34) 01/28/17 09:41 RDW 21.5 % (13.2-15.2) H 01/28/17 09:41 Plt Count 208 K/mm3 (140-440) 02/01/17 04:00 Lymph % (Auto) 16.5 % (13.4-35.0) 01/26/17 09:03 [place] % (Auto) 6.7 % (0.0-7.3) 01/26/17 09:03 Eos % (Auto) 2.3 % (0.0-4.3) 01/26/17 09:03 Baso % (Auto) 0.3 % (0.0-1.8) 01/26/17 09:03 Lymph # 1.8 K/mm3 (1.2-5.4) 01/26/17 09:03 [place] # 0.7 K/mm3 (0.0-0.8) 01/26/17 09:03 Eos # 0.2 K/mm3 (0.0-0.4) 01/26/17 09:03 Baso # 0.0 K/mm3 (0.0-0.1) 01/26/17 09:03 Seg Neutrophils % 74.2 % (40.0-70.0) H 01/26/17 09:03 Seg Neutrophils # 8.1 K/mm3 (1.8-7.7) H 01/26/17 09:03 PT 19.6 Sec. (12.2-14.9) H 02/02/17 05:30 INR 1.58 (0.87-1.13) H 02/02/17 05:30 APTT 25.5 Sec. (24.2-36.6) 01/28/17 15:10 Heparin Anti-Xa Level 0.28 U.I./ml (0.3-0.7) L 02/02/17 05:30 Sodium 138 mmol/L (137-145) 01/26/17 09:03 Potassium 4.8 mmol/L (3.6-5.0) 01/26/17 09:03 Chloride 98.4 mmol/L (98-107) 01/26/17 09:03 Carbon Dioxide 22 mmol/L (22-30) 01/26/17 09:03 Anion Gap 22 mmol/L 01/26/17 09:03 BUN 17 mg/dL (7-17) 01/26/17 09:03 Creatinine 0.5 mg/dL (0.7-1.2) L 01/26/17 09:03 Estimated GFR > 60 ml/min 01/26/17 09:03 BUN/Creatinine Ratio 34 % 01/26/17 09:03 Glucose 106 mg/dL (65-100) H 01/26/17 09:03 Calcium 9.5 mg/dL (8.4-10.2) 01/26/17 09:03 Total Bilirubin 0.30 mg/dL (0.1-1.2) 01/26/17 09:03 AST 14 units/L (5-40) 01/26/17 09:03 ALT 11 units/L (7-56) 01/26/17 09:03 Alkaline Phosphatase 74 units/L (35-129) 01/26/17 09:03 Total Creatine Kinase 46 units/L (30-135) 01/26/17 07:09 CK-MB (CK-2) 5.2 ng/mL (0.0-4.0) H 01/26/17 07:09 CK-MB (CK-2) Rel Index 11.3 (0-4) H 01/26/17 07:09 Troponin T 0.062 ng/mL (0.00-0.029) H 01/26/17 07:09 NT-Pro-B Natriuret Pep 580.4 pg/mL (0-900) 01/26/17 07:09 Total Protein 6.8 g/dL (6.3-8.2) 01/26/17 09:03 Albumin 3.9 g/dL (3.9-5) 01/26/17 09:03 Albumin/Globulin Ratio 1.3 % 01/26/17 09:03 Triglycerides 117 mg/dL (2-149) 01/26/17 07:09 Cholesterol 151 mg/dL (50-199) 01/26/17 07:09 LDL Cholesterol Direct 55 mg/dL (50-130) 01/26/17 07:09 HDL Cholesterol 73 mg/dL (40-59) H 01/26/17 07:09 Cholesterol/HDL Ratio 2.06 % 01/26/17 07:09 Lipase 18 units/L (13-60) 01/25/17 09:03 Urine Color Yellow (Yellow) 01/26/17 10:58 Urine Turbidity Clear (Clear) 01/26/17 10:58 Urine pH 5.0 (5.0-7.0) 01/26/17 10:58 Ur Specific [place] 1.028 (1.003-1.030) 01/26/17 10:58 Urine Protein <15 mg/dl mg/dL (Negative) 01/26/17 10:58 Urine Glucose (UA) Neg mg/dL (Negative) 01/26/17 10:58 Urine Ketones 20 mg/dL (Negative) 01/26/17 10:58 Urine Blood Neg (Negative) 01/26/17 10:58 Urine Nitrite Neg (Negative) 01/26/17 10:58 Urine Bilirubin Neg (Negative) 01/26/17 10:58 Urine Urobilinogen < 2.0 mg/dL (<2.0) 01/26/17 10:58 Ur Leukocyte Esterase Sm (Negative) 01/26/17 10:58 Urine WBC (Auto) 5.0 /HPF (0.0-6.0) 01/26/17 10:58 Urine RBC (Auto) 4.0 /HPF (0.0-6.0) 01/26/17 10:58 U Epithel Cells (Auto) 1.0 /HPF (0-13.0) 01/26/17 10:58 Urine Bacteria (Auto) 1+ /HPF (Negative) 01/26/17 10:58 Urine Mucus 2+ /HPF 01/26/17 10:58
[2017-02-02] MEDS: COUMADIN PO SCH (17:15)
[2017-02-02] MEDS: HEPARIN/ 0.45% NACL-25,000 UNIT/500 ML 25,000 UNIT/500 ML BAG IV SCH (18:07)
[2017-02-03] MEDS: LOPRESSOR PO SCH ×3 (00:31→22:33)
[2017-02-03] MEDS: DILAUDID IV PRN ×2 (05:35)
[2017-02-03 05:50] LABS: Hematocrit 30.6 % (30.3-42.9); Hemoglobin 9.9 gm/dl (10.1-14.3)
[2017-02-03 06:02] LABS: INR 1.76 (0.87-1.13)
[2017-02-03] MEDS: VITAMIN D3 PO SCH (09:10)
[2017-02-03] MEDS: VITAMIN C PO SCH (09:10)
[2017-02-03] MEDS: PROTONIX PO SCH (09:11)
[2017-02-03] MEDS: DELTASONE PO SCH (09:11)
--- NOTE | 2017-02-03 10:31 | Progress Note ---
Assessment and Plan Assessment and plan: GI bleed. Etiology presumed to be upper and related to PUD. Hematemesis, resolved. Acute blood loss anemia. Etiology secondary to above. Continue to follow H&H. Large left knee joint effusion. Ortho following. Gastroparesis with dialated Esophagus. Continue PPI therapy. She will follow- up with Dr. Martinez physicians for consideration of esophageal manometry. Small frequent feedings for gastroparesis. S/P left knee arthoscopy and presumed previous knee replacement Coagulopathy with Recurrent PE and DVT Per patient extensive family hx. Await therapeutic INR before discharge Rheumatoid arthritis Lupus History Interval history: No new issues overnight. Hospitalist Physical - Constitutional Vitals: Temp Pulse Resp BP Pulse Ox 97.2 F L 77 20 145/59 100 02/03/17 08:10 02/03/17 09:10 02/03/17 08:10 02/03/17 09:10 02/03/17 08:10 General appearance: Present: no acute distress, well-nourished - EENT Eyes: Present: PERRL, EOM intact ENT: hearing intact, clear oral mucosa, dentition normal - Neck Neck: Present: supple, normal ROM - Respiratory Respiratory effort: normal Respiratory: bilateral: CTA - Cardiovascular Rhythm: regular Heart Sounds: Present: S1 & S2. Absent: gallop, rub - Extremities Extremities: no ischemia, No edema, Full ROM - Abdominal General gastrointestinal: soft, non-tender, non-distended, normal bowel sounds - Integumentary Integumentary: Present: clear, warm, dry - Neurologic Neurologic: CNII-XII intact, moves all extremities Results - Labs CBC & Chem 7: 02/03/17 05:30 01/26/17 09:03 Labs: Laboratory Last Values WBC 6.5 K/mm3 (4.5-11.0) 01/28/17 09:41 RBC 4.52 M/mm3 (3.65-5.03) 01/28/17 09:41 Hgb 9.9 gm/dl (10.1-14.3) L 02/03/17 05:30 Hct 30.6 % (30.3-42.9) 02/03/17 05:30 MCV 85 fl (79-97) 01/28/17 09:41 MCH 27 pg (28-32) L 01/28/17 09:41 MCHC 31 % (30-34) 01/28/17 09:41 RDW 21.5 % (13.2-15.2) H 01/28/17 09:41 Plt Count 201 K/mm3 (140-440) 02/03/17 05:30 Lymph % (Auto) 16.5 % (13.4-35.0) 01/26/17 09:03 [place] % (Auto) 6.7 % (0.0-7.3) 01/26/17 09:03 Eos % (Auto) 2.3 % (0.0-4.3) 01/26/17 09:03 Baso % (Auto) 0.3 % (0.0-1.8) 01/26/17 09:03 Lymph # 1.8 K/mm3 (1.2-5.4) 01/26/17 09:03 [place] # 0.7 K/mm3 (0.0-0.8) 01/26/17 09:03 Eos # 0.2 K/mm3 (0.0-0.4) 01/26/17 09:03 Baso # 0.0 K/mm3 (0.0-0.1) 01/26/17 09:03 Seg Neutrophils % 74.2 % (40.0-70.0) H 01/26/17 09:03 Seg Neutrophils # 8.1 K/mm3 (1.8-7.7) H 01/26/17 09:03 PT 21.4 Sec. (12.2-14.9) H 02/03/17 05:30 INR 1.76 (0.87-1.13) H 02/03/17 05:30 APTT 25.5 Sec. (24.2-36.6) 01/28/17 15:10 Heparin Anti-Xa Level 0.23 U.I./ml (0.3-0.7) L 02/03/17 05:30 Sodium 138 mmol/L (137-145) 01/26/17 09:03 Potassium 4.8 mmol/L (3.6-5.0) 01/26/17 09:03 Chloride 98.4 mmol/L (98-107) 01/26/17 09:03 Carbon Dioxide 22 mmol/L (22-30) 01/26/17 09:03 Anion Gap 22 mmol/L 01/26/17 09:03 BUN 17 mg/dL (7-17) 01/26/17 09:03 Creatinine 0.5 mg/dL (0.7-1.2) L 01/26/17 09:03 Estimated GFR > 60 ml/min 01/26/17 09:03 BUN/Creatinine Ratio 34 % 01/26/17 09:03 Glucose 106 mg/dL (65-100) H 01/26/17 09:03 Calcium 9.5 mg/dL (8.4-10.2) 01/26/17 09:03 Total Bilirubin 0.30 mg/dL (0.1-1.2) 01/26/17 09:03 AST 14 units/L (5-40) 01/26/17 09:03 ALT 11 units/L (7-56) 01/26/17 09:03 Alkaline Phosphatase 74 units/L (35-129) 01/26/17 09:03 Total Creatine Kinase 46 units/L (30-135) 01/26/17 07:09 CK-MB (CK-2) 5.2 ng/mL (0.0-4.0) H 01/26/17 07:09 CK-MB (CK-2) Rel Index 11.3 (0-4) H 01/26/17 07:09 Troponin T 0.062 ng/mL (0.00-0.029) H 01/26/17 07:09 NT-Pro-B Natriuret Pep 580.4 pg/mL (0-900) 01/26/17 07:09 Total Protein 6.8 g/dL (6.3-8.2) 01/26/17 09:03 Albumin 3.9 g/dL (3.9-5) 01/26/17 09:03 Albumin/Globulin Ratio 1.3 % 01/26/17 09:03 Triglycerides 117 mg/dL (2-149) 01/26/17 07:09 Cholesterol 151 mg/dL (50-199) 01/26/17 07:09 LDL Cholesterol Direct 55 mg/dL (50-130) 01/26/17 07:09 HDL Cholesterol 73 mg/dL (40-59) H 01/26/17 07:09 Cholesterol/HDL Ratio 2.06 % 01/26/17 07:09 Lipase 18 units/L (13-60) 01/25/17 09:03 Urine Color Yellow (Yellow) 01/26/17 10:58 Urine Turbidity Clear (Clear) 01/26/17 10:58 Urine pH 5.0 (5.0-7.0) 01/26/17 10:58 Ur Specific [place] 1.028 (1.003-1.030) 01/26/17 10:58 Urine Protein <15 mg/dl mg/dL (Negative) 01/26/17 10:58 Urine Glucose (UA) Neg mg/dL (Negative) 01/26/17 10:58 Urine Ketones 20 mg/dL (Negative) 01/26/17 10:58 Urine Blood Neg (Negative) 01/26/17 10:58 Urine Nitrite Neg (Negative) 01/26/17 10:58 Urine Bilirubin Neg (Negative) 01/26/17 10:58 Urine Urobilinogen < 2.0 mg/dL (<2.0) 01/26/17 10:58 Ur Leukocyte Esterase Sm (Negative) 01/26/17 10:58 Urine WBC (Auto) 5.0 /HPF (0.0-6.0) 01/26/17 10:58 Urine RBC (Auto) 4.0 /HPF (0.0-6.0) 01/26/17 10:58 U Epithel Cells (Auto) 1.0 /HPF (0-13.0) 01/26/17 10:58 Urine Bacteria (Auto) 1+ /HPF (Negative) 01/26/17 10:58 Urine Mucus 2+ /HPF 01/26/17 10:58
[2017-02-03] MEDS ORDERED: DILAUDID IV ONE (15:30)
[2017-02-03] MEDS: COUMADIN PO SCH (17:17)
[2017-02-03] MEDS: DILAUDID PO PRN (22:35)
[2017-02-04] MEDS ORDERED: DILAUDID IV ONE (01:40)
[2017-02-04] MEDS ORDERED: DILAUDID ONE (02:38)
[2017-02-04 07:39] LABS: INR 2.33 (0.87-1.13)
--- NOTE | 2017-02-04 08:16 | Discharge Summary ---
Providers - Providers Date of Admission: 01/26/17 12:12 Date of discharge: 02/04/17 Attending physician: DHEERAJ GARCIA 01/26/17 10:36 Consult to Physician [CONS] Urgent Consulting Provider: FERNANDA DONALDSON Reason For Exam: UGIB Notified:: yes 01/27/17 17:38 Consult to Physician [CONS] Routine Consulting Provider: FERNIE POMPA Reason For Exam: left joint effusion Place consult to:: Dr. Pompa Notified:: yes Phone number called:: paged in house Was contact made?: Yes If yes, spoke with:: Dr. Pompa Time called:: 10:15 01/27/17 17:44 Physical Therapy Evaluation and Treat [CONS] Routine Comment: Reason For Exam: DEBILITY 01/29/17 12:22 Consult to Physician [CONS] Urgent Consulting Provider: ERIC CROSS Reason For Exam: IV access/ central line Notified:: . Primary care physician: FOLD SKIVER Hospitalization Reason for admission: gi bleed Condition: Stable Hospital course: 56 YO Female with RA, SLE, DVT/PE, PUD, Myositis HTN, Peripheral Eosinophilia was admitted for GI bleed/hematemesis. EGD was performed which revealed dilated esophagus with exudate suggesting a lack of motility. Stasis gastritis. Suspected paraesophageal hernia versus surgical deformity in the gastric cardia. GI recommends pt to f/u with physicians at [facility] for consideration of esophageal manometry. GI also stated that patient may restart on anticoagulation. Other complications during the hospital stay included left Rashid knee effusion which was evaluated by orthopedics. Orthopedics recommended conservative management and no arthrocentesis. Coumadin was resumed and INR therapeutic for discharge. Dedicated discharge time 32 minutes. Disposition: - TO HOME OR SELFCARE Time spent for discharge: 32 - Discharge Diagnoses (1) Upper GI bleeding Status: Acute (2) HLD (hyperlipidemia) Status: Acute Qualifiers: Hyperlipidemia type: mixed hyperlipidemia Qualified Code(s): E78.2 - Mixed hyperlipidemia (3) Leg pain Status: Acute Qualifiers: Laterality: left Qualified Code(s): M79.605 - Pain in left leg (4) Subtherapeutic international normalized ratio (INR) Status: Acute (5) History of pulmonary embolism Status: Chronic (6) Hypercoagulable state Status: Chronic (7) Hypertension Status: Chronic Qualifiers: Hypertension type: essential hypertension Qualified Code(s): I10 - Essential (primary) hypertension (8) PUD (peptic ulcer disease) Status: Chronic (9) Peripheral eosinophilia Status: Chronic (10) Rheumatoid arthritis Status: Chronic Qualifiers: Rheumatoid factor presence: unspecified presence Laterality: unspecified laterality (11) SLE (systemic lupus erythematosus) Status: Chronic Qualifiers: Systemic lupus erythematosus type: unspecified Core Measure Documentation - Palliative Care Palliative Care/ Comfort Measures: Not Applicable - Core Measures Any of the following diagnoses?: none Exam - Constitutional Vitals: Temp Pulse Resp BP Pulse Ox 98.8 F 67 20 106/60 100 02/03/17 16:40 02/03/17 22:33 02/03/17 22:00 02/03/17 22:33 02/03/17 16:40 General appearance: Present: no acute distress, well-nourished - EENT Eyes: Present: PERRL ENT: hearing intact, clear oral mucosa - Neck Neck: Present: supple, normal ROM - Respiratory Respiratory effort: normal Respiratory: bilateral: CTA - Cardiovascular Heart Sounds: Present: S1 & S2. Absent: rub, click - Extremities Extremities: pulses symmetrical, No edema Peripheral Pulses: within normal limits - Abdominal General gastrointestinal: Present: soft, non-tender, non-distended, normal bowel sounds Female genitourinary: Present: normal - Integumentary Integumentary: Present: clear, warm, dry - Musculoskeletal Musculoskeletal: gait normal, strength equal bilaterally - Psychiatric Psychiatric: appropriate mood/affect, intact judgment & insight - Neurologic Neurologic: CNII-XII intact, moves all extremities Plan Activity: no restrictions Weight Bearing Status: Full Weight Bearing Diet: other (coumadin diet) Follow up with: PRIMARY CAREMD [Primary Care Provider] - 3-5 Days Forms: Warfarin Discharge Instruction Prescriptions: Ascorbic Acid [Vitamin C] 500 mg PO QDAY #30 tablet AtorvaSTATin [Lipitor] 10 mg PO QPM #30 tablet Cholecalciferol Vit D3 [Vitamin D3] 1,000 unit PO QDAY #30 tablet HYDROmorphone [Dilaudid] 1 mg PO Q4HR #7 tablet Metoprolol [Lopressor TAB] 100 mg PO BID #60 tablet Pantoprazole [Protonix TAB] 40 mg PO DAILY #30 tablet predniSONE [Deltasone] 10 mg PO QDAY #30 tablet Warfarin [Coumadin] 15 mg PO DAILY@1700 #30 tablet
[2017-02-04 08:34] VITALS: BP 113/54
[2017-02-04] MEDS: VITAMIN C PO SCH (09:34)
[2017-02-04] MEDS: DELTASONE PO SCH (09:34)
[2017-02-04] MEDS: VITAMIN D3 PO SCH (09:34)
[2017-02-04] MEDS: PROTONIX PO SCH (09:34)
[2017-02-04] MEDS: DILAUDID PO PRN (09:35)
[2017-02-04] MEDS: LOPRESSOR PO SCH (09:42)
[2017-02-04] MEDS ORDERED: TRIPLE ANTIBIOTIC TP STA (11:56)
== END 2017-02-04 13:55 | disposition home or self-care (01) | DRG 378 ==
LOC: ED 12:03 → 3A 01-26 12:12
PROVIDERS: ADMIT Internal Medicine; ATTEND Hospitalist
PROC: 0DJ08ZZ Inspection of Upper Intestinal Tract, Via Natural or Artificial Opening Endoscopic (ICD-10-PCS; principal; 2017-01-28)
PROC: 02H633Z Insertion of Infusion Device into Right Atrium, Percutaneous Approach (ICD-10-PCS; 2017-01-29)
PROC: B244ZZZ Ultrasonography of Right Heart (ICD-10-PCS; 2017-01-29)
DX: K29.61 Other gastritis with bleeding (principal); D62 Acute posthemorrhagic anemia; D68.9 Coagulation defect, unspecified; I82.C13 Acute embolism and thrombosis of internal jugular vein, bilateral; K92.0 Hematemesis; M06.9 Rheumatoid arthritis, unspecified; M32.9 Systemic lupus erythematosus, unspecified; I10 Essential (primary) hypertension; M25.562 Pain in left knee; K31.84 Gastroparesis; K22.8 Other specified diseases of esophagus; K44.9 Diaphragmatic hernia without obstruction or gangrene; Z79.899 Other long term (current) drug therapy; Z86.711 Personal history of pulmonary embolism; Z79.01 Long term (current) use of anticoagulants; Z88.1 Allergy status to other antibiotic agents; Z88.8 Allergy status to other drugs, medicaments and biological substances; Z86.73 Personal history of transient ischemic attack (TIA), and cerebral infarction without residual deficits; Z87.11 Personal history of peptic ulcer disease; Z86.718 Personal history of other venous thrombosis and embolism
CPT/HCPCS: 36415; 36558; 71010; 76937; 77001; 80053; 80061; 81001; 82550; 82553; 83690; 83880; 84484; 85014; 85018; 85025; 85027; 85049; 85520; 85610; 85730; 93005; 93010; 96361; 96374; 96375; A6250; A9270-GY; C1751; C9113; J1170; J1200; J1644; J2405; J2704; J3010; J3430; J7030; J7050; J7512

== ENCOUNTER 2017-12-19 18:02 | Inpatient (IN) | payer SELFPAY ==
[2017-12-19] MEDS ORDERED: DILAUDID IV ONE ×2 (19:20→22:48)
[2017-12-19] MEDS ORDERED: ZOFRAN IV ONE (19:20)
--- NOTE | 2017-12-19 19:25 | Emergency Department Report ---
HPI - General Chief Complaint: Extremity Problem,Nontraumatic Time Seen by Provider: 12/19/17 19:09 - HPI HPI: Room 19 The patient is a 57-year-old female presenting with a chief complaint of bilateral lower extremity pain. The patient states she began having pain in both legs last night. The patient states [place]. The patient states after an 8 hour troponin the bus stopped in [place]. Patient states family member who is a nurse was unable to fill a pulse in the left lower extremity at approximately 10:00. The patient states the pain worsened at this time probably her to come to the emergency department. The patient states she has an unspecified clotting disorder and is on Coumadin but knows that she is subtherapeutic. Patient states she's had arterial clots as well as DVTs in the past Location: [See above] Duration: [See above] Quality: Pain Severity: 10/29 Modifying factors: [see above] Context: [see above] Mode of transportation: [not driving] ED Past Medical Hx - Past Medical History Hx Hypertension: Yes Hx CVA: Yes Hx Deep Vein Thrombosis: Yes (bilateral upper extremities) Hx Pulmonary Embolism: Yes (April 2016) Hx Arthritis: Yes (left knee) Additional medical history: SLE. MYOSITIS. PERIPHERAL EOSINOPHILIA. GI BLEED. "CLOTTING DISORDER" - Surgical History Additional Surgical History: IVC FILTER RIGHT GROIN. ULCER CLIPPED AND CLAMPED. RIGHT AND LEFT KNEE SURGERIES. Esophageal surgery to remove growth - Family History Family history: no significant - Social History Smoking Status: Never Smoker Substance Use Type: None - Medications Home Medications: Home Medications Medication Instructions Recorded Confirmed Last Taken Type Pantoprazole [Protonix TAB] 40 mg PO BID #60 tablet 12/04/16 01/26/17 01/24/17 Rx Warfarin [Coumadin] 15 mg PO QDAY #14 tablet 12/04/16 01/26/17 01/24/17 Rx Ascorbic Acid [Vitamin C] 500 mg PO QDAY #30 tablet 02/04/17 Unknown Rx AtorvaSTATin [Lipitor] 10 mg PO QPM #30 tablet 02/04/17 Unknown Rx Cholecalciferol Vit D3 [Vitamin D3] 1,000 unit PO QDAY #30 tablet 02/04/17 Unknown Rx HYDROmorphone [Dilaudid] 1 mg PO Q4HR #7 tablet 02/04/17 Unknown Rx Metoprolol [Lopressor TAB] 100 mg PO BID #60 tablet 02/04/17 Unknown Rx Pantoprazole [Protonix TAB] 40 mg PO DAILY #30 tablet 02/04/17 Unknown Rx Warfarin [Coumadin] 15 mg PO DAILY@1700 #30 tablet 02/04/17 Unknown Rx predniSONE [Deltasone] 10 mg PO QDAY #30 tablet 02/04/17 Unknown Rx ED Review of Systems ROS: Stated complaint: BLOOD CLOTS/LEG SWOLLEN Other details as noted in HPI Constitutional: no symptoms reported Eyes: denies: eye pain ENT: denies: throat pain Respiratory: no symptoms reported Cardiovascular: denies: chest pain Endocrine: no symptoms reported Gastrointestinal: denies: abdominal pain Genitourinary: denies: dysuria Musculoskeletal: myalgia Neurological: denies: headache Physical Exam - Physical Exam Vital Signs: Vital Signs 12/19/17 18:23 Temperature 98.6 F Pulse Rate 124 H Respiratory 18 Rate Blood Pressure 143/80 O2 Sat by Pulse 100 Oximetry Physical Exam: GENERAL: The patient is well-developed well-nourished female sitting in wheelchair not appear to be in acute distress. [] HEENT: Normocephalic. Atraumatic. Extraocular motions are intact. Patient has moist mucous membranes. NECK: Trachea midline CHEST/LUNGS: Clear to auscultation. There is no respiratory distress noted. HEART/CARDIOVASCULAR: Regular. There is tachycardia. There is no gallop rub or murmur. 2+ right DP. Dopplerable left DP ABDOMEN: Abdomen is soft, nontender. Patient has normal bowel sounds. There is no abdominal distention. SKIN: There is no rash. There is bilateral lower extremity pitting edema 2+ on the left, 1+ on the right. There is no diaphoresis. NEURO: The patient is awake, alert, and oriented. The patient is cooperative. The patient has no focal neurologic deficits. The patient has normal speech MUSCULOSKELETAL: There is no evidence of acute injury. ED Course Vital Signs 12/19/17 18:23 Temperature 98.6 F Pulse Rate 124 H Respiratory 18 Rate Blood Pressure 143/80 O2 Sat by Pulse 100 Oximetry - Reevaluation(s) Reevaluation #1: 12/19/17 22:49 The patient states she is still in significant pain given her pain a score of 7/ 10. Patient was updated on workup. Will admit the patient to the hospital for formal evaluation of peripheral vasculature ED Medical Decision Making - Lab Data Result diagrams: 12/19/17 21:32 12/19/17 21:32 Laboratory Tests 12/19/17 12/19/17 12/19/17 21:32 21:32 21:32 WBC 7.3 RBC 4.62 Hgb 11.1 Hct 36.7 MCV 79 MCH 24 L MCHC 30 RDW 22.0 H Plt Count 185 PT 18.2 H INR 1.42 H APTT 21.1 L D-Dimer 248.05 H Sodium 139 Potassium 5.3 H Chloride 104.6 Carbon Dioxide 20 L Anion Gap 20 BUN 13 Creatinine 0.6 L Estimated GFR > 60 BUN/Creatinine Ratio 22 Glucose 143 H Calcium 8.7 - EKG Data -: EKG Interpreted by Me EKG shows normal: sinus rhythm Rate: tachycardia (107 bpm) - EKG Data When compared to previous EKG there are: previous EKG unavailable Interpretation: other (no ischemic changes seen) - Differential Diagnosis DVT, peripheral arterial disease, arterial occlusion Critical care attestation.: If time is entered above; I have spent that time in minutes in the direct care of this critically ill patient, excluding procedure time. ED Disposition Clinical Impression: Left leg pain, Tachycardia Disposition: OP ADMIT IP TO THIS HOSP Is pt being admited?: Yes Does the pt Need Aspirin: No Condition: Stable Time of Disposition: 22:51 (hospitalist paged (Dr. Radha Hall))
[2017-12-19 21:58] LABS: INR 1.42 (0.87-1.13); Partial Thromboplastin Time 21.1 Sec. (24.2-36.6)
[2017-12-19 22:04] LABS: Mean Corpuscular HGB Conc 30 % (30-34); Mean Corpuscular Volume 79 fl (79-97); Platelet Count 185 K/mm3 (140-440); Red Blood Count 4.62 M/mm3 (3.65-5.03)
[2017-12-19 22:05] LABS: Hematocrit 36.7 % (30.3-42.9); Hemoglobin 11.1 gm/dl (10.1-14.3); Mean Corpuscular Hemoglobin 24 pg (28-32)
[2017-12-19 22:20] LABS: BUN/Creatinine Ratio 22; Blood Urea Nitrogen 13 mg/dL (7-17); Calcium 8.7 mg/dL (8.4-10.2); Hemolysis Index 43
[2017-12-19] MEDS ORDERED: SODIUM CHLORIDE FLUSH SYRINGE 10 ML IV PRN (23:43)
[2017-12-19] MEDS ORDERED: ZOFRAN IV PRN (23:43)
--- NOTE | 2017-12-19 23:46 | History and Physical Report ---
History of Present Illness Date of examination: 12/19/17 History of present illness: 57-year-old woman with a history of lupus, DVT, PE, myositis, rheumatoid arthritis, peripheral eosinophilia was traveling from [place] on the bus when she developed swelling and pain in the left leg. She was at her cousin's house today who is in nares and she had difficulty palpating the pulse Review of systems Constitutional: no weight loss, chills, fever Ears, eyes, nose, mouth and throat: no nasal congestion, no nasal discharge, no sinus pressure, no vision change, no red eye. Neck: No neck pain or rigidity. Cardiovascular: no chest pain, palpitations Respiratory: no cough, shortness of breath Gastrointestinal: no abdominal pain hematochezia Genitourinary : no frequency , no hematuria Musculoskeletal: no joint swelling or muscle ache Integumentary: no rash, no pruritis Neurological: no parathesias, no numbness, no focal weakness Endocrine: no cold or heat intolerance, no polyuria or polydipsia Hematologic/Lymphatic: no easy bruising, no easy bleeding, no gland swelling Allergic/Immunologic: no urticaria, no angioedema. PAST MEDICAL HISTORY:upus, DVT, PE, myositis, rheumatoid arthritis, peripheral eosinophilia PAST SURGICAL HISTORY:I VC filter, bilateral knee, surgery for gastric ulcer SOCIAL HISTORY: No alcohol, no drugs, tobacco FAMILY HISTORY: Factor V Leiden deficiency Medications and Allergies Allergies Allergy/AdvReac Type Severity Reaction Status Date / Time acetaminophen [From Tylenol] Allergy Hives Verified 04/10/15 09:40 ciprofloxacin [From Cipro] Allergy Hives Verified 04/10/15 09:40 ciprofloxacin HCl Allergy Hives Verified 04/10/15 09:40 [From Cipro] dicyclomine HCl [From Bentyl] Allergy Hives Verified 04/10/15 09:40 hydrocodone Allergy Hives Verified 04/10/15 09:40 Iodinated Contrast- Oral and Allergy Hives Verified 04/10/15 09:40 IV Dye [Iodinated Contrast Media - IV Dye] meperidine HCl [From Demerol] Allergy Hives Verified 04/10/15 09:40 morphine Allergy Hives Verified 04/10/15 09:40 NSAIDS (Non-Steroidal Allergy Hives Verified 04/10/15 09:40 Anti-Inflamma oxycodone HCl Allergy Hives Verified 04/10/15 09:40 [From OxyContin] tramadol Allergy Hives Verified 04/10/15 09:40 Home Medications Medication Instructions Recorded Confirmed Last Taken Type Ascorbic Acid [Vitamin C] 500 mg PO QDAY #30 tablet 12/23/17 Unknown Rx AtorvaSTATin [Lipitor] 10 mg PO QPM #30 tablet 12/23/17 Unknown Rx Cholecalciferol Vit D3 [Vitamin D3] 1,000 unit PO QDAY #30 tablet 12/23/17 Unknown Rx Enoxaparin [Lovenox] 70 mg SUB-Q Q12HR #14 syringe 12/23/17 Unknown Rx Ferrous Gluconate [Fergon 325 MG 325 mg PO QDAY #30 tablet 12/23/17 Unknown Rx tab] Metoprolol [Lopressor TAB] 50 mg PO BID #60 tablet 12/23/17 Unknown Rx Pantoprazole [Protonix TAB] 40 mg PO BID #60 tablet 12/23/17 Unknown Rx Warfarin [Coumadin] 5 mg PO QDAY #30 tablet 12/23/17 Unknown Rx predniSONE [Deltasone] 10 mg PO QDAY #30 tablet 12/23/17 Unknown Rx Sulfamethoxazole/Trimethoprim 1 each PO BID #7 tablet 12/24/17 Unknown Rx [Bactrim DS TAB] Active Meds: Active Medications Hydromorphone HCl (Dilaudid) 1 mg IV Q3H PRN PRN Reason: Pain, Moderate (4-6) Heparin Sodium/Sodium Chloride (Heparin/ 0.45% Nacl-25,000 Unit/500 Ml) 25,000 unit in 500 mls @ 21 mls/hr IV TITR APPLE; Protocol Ondansetron HCl (Zofran) 4 mg IV Q4H PRN PRN Reason: Nausea And Vomiting Sodium Chloride (Sodium Chloride Flush Syringe 10 Ml) 10 ml IV BID APPLE Sodium Chloride (Sodium Chloride Flush Syringe 10 Ml) 10 ml IV PRN PRN PRN Reason: LINE FLUSH Exam - Physical Exam Narrative exam: Gen. appearance: Patient lying in bed, no apparent distress HEENT: Normocephalic, atraumatic, pupils equally round and reactive to light, extraocular movement intact, and no sclericterus,. No JVD or thyromegaly or nodule,neck supple, no carotid bruit ,mucous membranes moist, no exudate or erythema Heart: S1, S2, regular rate and rhythm Lungs: Clear bilaterally, breathing comfortable Abdomen: Positive bowel sounds, non-tender, nondistended, no organomegaly Extremity: Left lower extremity swollen, tender, positive erythema no edema cyanosis, clubbing Skin: no rash, dry, warm Neuro: Oriented 3, cranial nerves II-12 intact, speech is fluent, motor and sensory intact - Constitutional Vitals: Temp Pulse Resp BP Pulse Ox 98.6 F 124 H 18 143/80 100 12/19/17 18:23 12/19/17 18:23 12/19/17 18:23 12/19/17 18:23 12/19/17 18:23 Results - Labs CBC & Chem 7: 12/23/17 05:56 12/23/17 05:56 Labs: Abnormal lab results 12/19/17 12/19/17 12/19/17 Range/Units 21:32 21:32 21:32 MCH 24 L (28-32) pg RDW 22.0 H (13.2-15.2) % PT 18.2 H (12.2-14.9) Sec. INR 1.42 H (0.87-1.13) APTT 21.1 L (24.2-36.6) Sec. D-Dimer 248.05 H (0-234) ng/mlDDU Potassium 5.3 H (3.6-5.0) mmol/L Carbon Dioxide 20 L (22-30) mmol/L Creatinine 0.6 L (0.7-1.2) mg/dL Glucose 143 H (65-100) mg/dL Assessment and Plan Assessment Lower extremity pain and swelling, rule out DVT versus other Subtherapeutic INR History of DVT, PE Lupus Rheumatoid arthritis Myositis Peripheral eosinophilia Plan Continue heparin drip Check Doppler of the lower extremity, consult vascular Dilaudid for pain DVT prophylaxis
[2017-12-20] MEDS ORDERED: HEPARIN/ 0.45% NACL-25,000 UNIT/500 ML 25,000 UNIT/500 ML BAG ONE (01:16)
[2017-12-20] MEDS: HEPARIN/ 0.45% NACL-25,000 UNIT/500 ML 25,000 UNIT/500 ML BAG IV SCH (01:23)
[2017-12-20] MEDS: DILAUDID IV PRN ×6 (03:55→21:15)
--- NOTE | 2017-12-20 09:18 | Progress Note ---
Assessment and Plan 57-year-old woman with a history of lupus, DVT, PE, myositis, rheumatoid arthritis, peripheral eosinophilia was traveling from [place] on the bus when she developed swelling and pain in the left leg. She was at her cousin's house today who is in nurse and she had difficulty palpating the pulse. was then cyndy to the Ed. Patient has been on the wheelchair because of his severe DJD of both knees. Patient has a history of arterial occlusion in the past status post angioplasty. Presently has no shortness of breath. Lower extremity pain and swelling, rule out DVT versus arterial occlusion History of DVT, PE Lupus Rheumatoid arthritis Myositis Peripheral eosinophilia Hyperkalemia - 5.3 Plan Continue heparin drip Check Doppler of the lower extremity venous and arterial, consult vascular Dilaudid for pain Kayxalate and recheck DVT prophylaxis Discussed with Dr Carr Subjective Date of service: 12/20/17 Principal diagnosis: pain and swelling of the left leg. decreased mobility and loss of pulse Interval history: still having pain and swelling of the legs with inability to move then Objective - Exam Narrative Exam: Constitutional: Well-nourished well-developed. In no distress Head: Normocephalic atraumatic Eyes: Pupils are equal round and reactive to light Nose: No enlarged turbinates, no septal deviation. Mouth: Moist mucous membranes. Neck: Supple no thyromegaly. No bruit. No JVD Heart: Regular rate and rhythm, S1-S2 abnormal. No rubs murmurs or gallop Lungs: Clear to auscultation bilaterally no rales or rhonchi Abdomen: Soft, nontender. Bowel sound are present. Extremities: Tenderness and swelling of both legs with the left more than the right. Dorsalis pedis pulses not palpable. Slight change in color of the left toes - Looking more engorged. Neuro: Alert oriented Oriented x3. No focal sensory or motor deficit. Skin: No rashes no hyperemic spots Psychiatry: Euthymic. Calm. - Constitutional Vitals: Vital Signs - 12hr 12/20/17 12/20/17 12/20/17 01:31 01:59 02:00 Temperature 98.3 F Pulse Rate 65 102 H Pulse Rate [ Apical] Respiratory 14 22 Rate Blood Pressure 131/61 Blood Pressure [Left] O2 Sat by Pulse 96 Oximetry 12/20/17 12/20/1712/20/18 02:51 03:30 03:55 Temperature Pulse Rate 64 Pulse Rate [ 110 H Apical] Respiratory 17 20 18 Rate Blood Pressure Blood Pressure 129/64 [Left] O2 Sat by Pulse 95 97 Oximetry 12/20/17 04:25 Temperature Pulse Rate Pulse Rate [ Apical] Respiratory 20 Rate Blood Pressure Blood Pressure [Left] O2 Sat by Pulse Oximetry - Labs CBC & Chem 7: 12/19/17 21:32 12/19/17 21:32 Labs: Abnormal lab results 12/19/17 12/19/17 12/19/17 Range/Units 21:32 21:32 21:32 MCH 24 L (28-32) pg RDW 22.0 H (13.2-15.2) % PT 18.2 H (12.2-14.9) Sec. INR 1.42 H (0.87-1.13) APTT 21.1 L (24.2-36.6) Sec. D-Dimer 248.05 H (0-234) ng/mlDDU Potassium 5.3 H (3.6-5.0) mmol/L Carbon Dioxide 20 L (22-30) mmol/L Creatinine 0.6 L (0.7-1.2) mg/dL Glucose 143 H (65-100) mg/dL
[2017-12-20] MEDS ORDERED: LOPRESSOR PO SCH (10:00)
--- NOTE | 2017-12-20 12:21 | Event Note ---
Date: 12/20/17 I was called about patient, a consultation was placed to Dr. Lafleur of a [facility]. Dr. Lafleur has initiated a heparin drip and ordered vascular studies.
[2017-12-20 13:07] LABS: Hematocrit TNR % (30.3-42.9); Hemoglobin TNR gm/dl (10.1-14.3); Mean Corpuscular HGB Conc TNR % (30-34); Mean Corpuscular Hemoglobin TNR pg (28-32); Mean Corpuscular Volume TNR fl (79-97); Mean Platelet Volume TNR fl (6-12); Platelet Count TNR K/mm3 (140-440); Red Blood Count TNR M/mm3 (3.65-5.03); Red Cell Distribution Width TNR % (13.2-15.2)
[2017-12-20 13:08] LABS: Basophils # (Auto) TNR K/mm3 (0.0-0.1); Basophils % (Auto) TNR % (0.0-1.8); Eosinophils # (Auto) TNR K/mm3 (0.0-0.4); Eosinophils % (Auto) TNR % (0.0-4.3); Lymphocytes # (Auto) TNR K/mm3 (1.2-5.4); Lymphocytes % (Auto) TNR % (13.4-35.0); Monocytes # (Auto) TNR K/mm3 (0.0-0.8); Monocytes % (Auto) TNR % (0.0-7.3)
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
[2017-12-20] MEDS: SODIUM CHLORIDE FLUSH SYRINGE 10 ML IV SCH ×2 (14:22→22:00)
[2017-12-20] MEDS: LOPRESSOR PO SCH ×2 (15:57→21:11)
[2017-12-20] MEDS: VITAMIN D3 PO SCH (15:57)
[2017-12-20] MEDS: DELTASONE PO SCH (15:57)
[2017-12-20] MEDS: PROTONIX PO SCH ×2 (15:57→21:11)
[2017-12-20] MEDS: VITAMIN C PO SCH (15:57)
[2017-12-20] MEDS: FERGON PO SCH (15:58)
[2017-12-20 20:29] LABS: Basophils # (Auto) 0.1 K/mm3 (0.0-0.1); Basophils % (Auto) 1.1 % (0.0-1.8); Eosinophils # (Auto) 0.3 K/mm3 (0.0-0.4); Eosinophils % (Auto) 3.2 % (0.0-4.3); Hematocrit 29.1 % (30.3-42.9); Hemoglobin 9.1 gm/dl (10.1-14.3); Lymphocytes # (Auto) 0.4 K/mm3 (1.2-5.4); Lymphocytes % (Auto) 4.6 % (13.4-35.0); Mean Corpuscular HGB Conc 31 % (30-34); Mean Corpuscular Volume 78 fl (79-97); Monocytes # (Auto) 0.1 K/mm3 (0.0-0.8); Monocytes % (Auto) 1.4 % (0.0-7.3); Platelet Count 286 K/mm3 (140-440); Red Blood Count 3.73 M/mm3 (3.65-5.03)
[2017-12-20 20:32] LABS: Mean Corpuscular Hemoglobin 24 pg (28-32)
[2017-12-20 20:33] LABS: Red Cell Distribution Width 22.2 % (13.2-15.2)
[2017-12-20 20:43] LABS: BUN/Creatinine Ratio 18; Blood Urea Nitrogen 9 mg/dL (7-17); Calcium 8.8 mg/dL (8.4-10.2); Hemolysis Index 5
[2017-12-21] MEDS: DILAUDID IV PRN ×6 (04:18→22:01)
[2017-12-21] MEDS: HEPARIN/ 0.45% NACL-25,000 UNIT/500 ML 25,000 UNIT/500 ML BAG IV SCH (06:16)
[2017-12-21 07:07] LABS: Basophils % (Auto) 0.1 % (0.0-1.8); Eosinophils # (Auto) 0.3 K/mm3 (0.0-0.4); Eosinophils % (Auto) 4.3 % (0.0-4.3); Lymphocytes # (Auto) 1.8 K/mm3 (1.2-5.4); Lymphocytes % (Auto) 22.5 % (13.4-35.0); Mean Corpuscular HGB Conc 30 % (30-34); Mean Corpuscular Volume 79 fl (79-97); Monocytes # (Auto) 0.4 K/mm3 (0.0-0.8); Monocytes % (Auto) 5.3 % (0.0-7.3); Platelet Count 276 K/mm3 (140-440); Red Blood Count 3.95 M/mm3 (3.65-5.03)
[2017-12-21 07:15] LABS: INR 1.17 (0.87-1.13)
[2017-12-21 07:16] LABS: Partial Thromboplastin Time 52.8 Sec. (24.2-36.6)
[2017-12-21 07:17] LABS: Heparin anti-factor XA 0.6 U.I./ml (0.3-0.7)
[2017-12-21 07:21] LABS: Hematocrit 31.3 % (30.3-42.9); Hemoglobin 9.4 gm/dl (10.1-14.3); Mean Corpuscular Hemoglobin 24 pg (28-32); Red Cell Distribution Width 21.8 % (13.2-15.2)
[2017-12-21 07:27] LABS: Alanine Aminotransferase 16 units/L (7-56); Albumin 3.8 g/dL (3.9-5); BUN/Creatinine Ratio 18; Blood Urea Nitrogen 9 mg/dL (7-17); Calcium 8.7 mg/dL (8.4-10.2); Hemolysis Index 20
[2017-12-21] MEDS: DELTASONE PO SCH (10:35)
[2017-12-21] MEDS: FERGON PO SCH (10:35)
[2017-12-21] MEDS: LOPRESSOR PO SCH ×2 (10:36→21:59)
[2017-12-21] MEDS: SODIUM CHLORIDE FLUSH SYRINGE 10 ML IV SCH ×2 (10:37→22:06)
[2017-12-21] MEDS: PROTONIX PO SCH ×2 (10:37→22:01)
[2017-12-21] MEDS: VITAMIN C PO SCH (10:37)
[2017-12-21] MEDS: VITAMIN D3 PO SCH (10:37)
--- NOTE | 2017-12-21 17:09 | Progress Note ---
Assessment and Plan Assessment and Plan - Patient Problems (1) Cellulitis and abscess of foot Current Visit: Yes Status: Acute Plan to address problem: Left foot cellulitis On IV Unasyn (2) Subtherapeutic international normalized ratio (INR) Current Visit: No Status: Acute Plan to address problem: On IV Heparin Till Goal INR is reached (3) Hypercoagulable state Current Visit: No Status: Chronic Plan to address problem: Patient needs to have Goal INR to discharge (4) SLE (systemic lupus erythematosus) Current Visit: No Status: Chronic Qualifiers: Systemic lupus erythematosus type: unspecified Plan to address problem: Not on Plaquenil (5) Foot pain, left Current Visit: Yes Status: Acute Plan to address problem: Etio unclear other than cellulitis.Arterial duplex scan negative Will get Foot xray to r/o any fracture (6) HTN (hypertension) Current Visit: Yes Status: Chronic Qualifiers: Hypertension type: essential hypertension Qualified Code(s): I10 - Essential (primary) hypertension Plan to address problem: Cont Metoprolol (7) HLD (hyperlipidemia) Current Visit: Yes Status: Chronic Qualifiers: Hyperlipidemia type: mixed hyperlipidemia Qualified Code(s): E78.2 - Mixed hyperlipidemia Plan to address problem: Cont statins (8) DVT prophylaxis Current Visit: No Status: Acute Plan to address problem: On Heparin drip Subjective Date of service: 12/21/17 Principal diagnosis: pain and swelling of the left leg. decreased mobility and loss of pulse Interval history: c/o pain L foot and being cold Objective - Constitutional Vitals: Vital Signs - 12hr 12/21/17 12/21/17 12/21/17 05:26 07:31 13:29 Temperature 98.0 F 98.1 F Pulse Rate 70 81 64 Respiratory 20 16 20 Rate Blood Pressure 118/52 113/57 121/57 O2 Sat by Pulse 100 99 100 Oximetry General appearance: Present: no acute distress, well-nourished - EENT Eyes: PERRL, EOM intact ENT: hearing intact, clear oral mucosa Ears: bilateral: normal - Neck Neck: supple, normal ROM - Respiratory Respiratory effort: normal Respiratory: bilateral: CTA - Breasts Breasts: normal - Cardiovascular Rhythm: regular Heart Sounds: Present: S1 & S2. Absent: gallop, rub Extremities: pulses intact, No edema, normal color, Full ROM, abnormal (L foot cold) - Gastrointestinal General gastrointestinal: Present: soft, non-tender, non-distended, normal bowel sounds - Genitourinary Female genitourinary: normal - Integumentary Integumentary: clear, warm, dry - Musculoskeletal Musculoskeletal: 1, strength equal bilaterally - Neurologic Neurologic: moves all extremities - Psychiatric Psychiatric: memory intact, appropriate mood/affect, intact judgment & insight - Labs CBC & Chem 7: 12/23/17 05:56 12/23/17 05:56 Labs: Abnormal lab results 12/20/17 12/20/17 12/20/17 Range/Units 18:07 20:17 20:17 Hgb (10.1-14.3) gm/dl Hct (30.3-42.9) % MCV (79-97) fl MCH (28-32) pg RDW (13.2-15.2) % Lymph % (Auto) (13.4-35.0) % Lymph # (1.2-5.4) K/mm3 Seg Neutrophils % (40.0-70.0) % Seg Neutrophils # (1.8-7.7) K/mm3 PT (12.2-14.9) Sec. INR (0.87-1.13) APTT (24.2-36.6) Sec. Heparin Anti-Xa Level 0.19 L (0.3-0.7) U.I./ml Sodium 135 L (137-145) mmol/L Carbon Dioxide (22-30) mmol/L Creatinine 0.5 L (0.7-1.2) mg/dL Glucose 198 H (65-100) mg/dL POC Glucose 138 H (70-105) Total Protein (6.3-8.2) g/dL Albumin (3.9-5) g/dL 12/20/17 12/20/17 12/21/17 Range/Units 20:17 22:11 05:34 Hgb 9.1 L 9.4 L (10.1-14.3) gm/dl Hct 29.1 L D (30.3-42.9) % MCV 78 L (79-97) fl MCH 24 L 24 L (28-32) pg RDW 22.2 H 21.8 H (13.2-15.2) % Lymph % (Auto) 4.6 L (13.4-35.0) % Lymph # 0.4 L (1.2-5.4) K/mm3 Seg Neutrophils % 89.7 H (40.0-70.0) % Seg Neutrophils # 8.2 H (1.8-7.7) K/mm3 PT (12.2-14.9) Sec. INR (0.87-1.13) APTT (24.2-36.6) Sec. Heparin Anti-Xa Level (0.3-0.7) U.I./ml Sodium (137-145) mmol/L Carbon Dioxide (22-30) mmol/L Creatinine (0.7-1.2) mg/dL Glucose (65-100) mg/dL POC Glucose 184 H (70-105) Total Protein (6.3-8.2) g/dL Albumin (3.9-5) g/dL 12/21/17 12/21/17 12/21/17 Range/Units 05:34 05:34 07:30 Hgb (10.1-14.3) gm/dl Hct (30.3-42.9) % MCV (79-97) fl MCH (28-32) pg RDW (13.2-15.2) % Lymph % (Auto) (13.4-35.0) % Lymph # (1.2-5.4) K/mm3 Seg Neutrophils % (40.0-70.0) % Seg Neutrophils # (1.8-7.7) K/mm3 PT 15.5 H (12.2-14.9) Sec. INR 1.17 H (0.87-1.13) APTT 52.8 H (24.2-36.6) Sec. Heparin Anti-Xa Level (0.3-0.7) U.I./ml Sodium (137-145) mmol/L Carbon Dioxide 21 L (22-30) mmol/L Creatinine 0.5 L (0.7-1.2) mg/dL Glucose 124 H (65-100) mg/dL POC Glucose 153 H (70-105) Total Protein 6.2 L (6.3-8.2) g/dL Albumin 3.8 L (3.9-5) g/dL 12/21/17 Range/Units 11:44 Hgb (10.1-14.3) gm/dl Hct (30.3-42.9) % MCV (79-97) fl MCH (28-32) pg RDW (13.2-15.2) % Lymph % (Auto) (13.4-35.0) % Lymph # (1.2-5.4) K/mm3 Seg Neutrophils % (40.0-70.0) % Seg Neutrophils # (1.8-7.7) K/mm3 PT (12.2-14.9) Sec. INR (0.87-1.13) APTT (24.2-36.6) Sec. Heparin Anti-Xa Level (0.3-0.7) U.I./ml Sodium (137-145) mmol/L Carbon Dioxide (22-30) mmol/L Creatinine (0.7-1.2) mg/dL Glucose (65-100) mg/dL POC Glucose 164 H (70-105) Total Protein (6.3-8.2) g/dL Albumin (3.9-5) g/dL
[2017-12-22] MEDS: DILAUDID IV PRN ×8 (01:40→23:52)
[2017-12-22] MEDS: HEPARIN/ 0.45% NACL-25,000 UNIT/500 ML 25,000 UNIT/500 ML BAG IV SCH (05:00)
[2017-12-22 06:05] LABS: Basophils % (Auto) 0.3 % (0.0-1.8); Eosinophils # (Auto) 0.4 K/mm3 (0.0-0.4); Eosinophils % (Auto) 5.5 % (0.0-4.3); Hematocrit 26.5 % (30.3-42.9); Hemoglobin 8.2 gm/dl (10.1-14.3); Lymphocytes # (Auto) 2.2 K/mm3 (1.2-5.4); Lymphocytes % (Auto) 27.7 % (13.4-35.0); Mean Corpuscular HGB Conc 31 % (30-34); Mean Corpuscular Volume 78 fl (79-97); Monocytes # (Auto) 0.4 K/mm3 (0.0-0.8); Monocytes % (Auto) 5.4 % (0.0-7.3); Platelet Count 264 K/mm3 (140-440); Red Blood Count 3.39 M/mm3 (3.65-5.03)
[2017-12-22 06:30] LABS: Mean Corpuscular Hemoglobin 24 pg (28-32); Red Cell Distribution Width 21.6 % (13.2-15.2)
[2017-12-22 08:51] LABS: Alanine Aminotransferase 13 units/L (7-56); Albumin 3.1 g/dL (3.9-5); BUN/Creatinine Ratio 18; Blood Urea Nitrogen 9 mg/dL (7-17); Calcium 8.3 mg/dL (8.4-10.2); Hemolysis Index 6
[2017-12-22] MEDS: VITAMIN C PO SCH (10:48)
[2017-12-22] MEDS: VITAMIN D3 PO SCH (10:48)
[2017-12-22] MEDS: FERGON PO SCH (10:49)
[2017-12-22] MEDS: LOPRESSOR PO SCH ×2 (10:49→22:38)
[2017-12-22] MEDS: PROTONIX PO SCH ×2 (10:49→22:41)
[2017-12-22] MEDS: DELTASONE PO SCH (10:49)
[2017-12-22] MEDS: SODIUM CHLORIDE FLUSH SYRINGE 10 ML IV SCH ×2 (10:49→23:51)
--- NOTE | 2017-12-22 14:10 | Vascular Lab Report ---
LOWER EXTREMITY ARTERIAL DUPLEX: REASON FOR EXAM: Peripheral arterial disease. COMMENTS ON THE RIGHT: Triphasic waveforms are seen proximally. Triphasic waveforms are seen distally. No significant velocity gradients are identified. No significant plaque is identified. Findings are consistent with normal perfusion. Findings are consistent with the ability to heal distal wounds. COMMENTS ON THE LEFT: Triphasic waveforms are seen proximally. Triphasic waveforms are seen distally. No significant velocity gradients are identified. No significant plaque is identified. Findings are consistent with normal perfusion. Findings are consistent with the ability to heal distal wounds. IMPRESSION: RIGHT: Essentially normal arterial flow. LEFT:Essentially normal arterial flow.
--- NOTE | 2017-12-22 14:11 | Vascular Lab Report ---
LOWER EXTREMITY VENOUS DUPLEX: REASON FOR EXAM: Pain and swelling of the lower extremities. COMMENTS ON THE RIGHT: All veins visualized are freely compressible without evidence of internal echogenicity. Flow is spontaneous and phasic throughout. COMMENTS ON THE LEFT: Chronic thrombus is seen in the peroneal vein. The remaining veins visualized are freely compressible without evidence of internal echogenicity. Spontaneous and phasic flow is present proximally. 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 No evidence of acute deep venous thrombosis in either lower extremity.
--- NOTE | 2017-12-22 17:15 | Progress Note ---
Assessment and Plan - Patient Problems (1) Cellulitis and abscess of foot Current Visit: Yes Status: Acute Plan to address problem: Left foot cellulitis On IV Unasyn (2) Subtherapeutic international normalized ratio (INR) Current Visit: No Status: Acute Plan to address problem: On IV Heparin Till Goal INR is reached (3) Hypercoagulable state Current Visit: No Status: Chronic Plan to address problem: Patient needs to have Goal INR to discharge (4) SLE (systemic lupus erythematosus) Current Visit: No Status: Chronic Qualifiers: Systemic lupus erythematosus type: unspecified Plan to address problem: Not on Plaquenil (5) Foot pain, left Current Visit: Yes Status: Acute Plan to address problem: Etio unclear other than cellulitis.Arterial duplex scan negative Will get Foot xray to r/o any fracture (6) HTN (hypertension) Current Visit: Yes Status: Chronic Qualifiers: Hypertension type: essential hypertension Qualified Code(s): I10 - Essential (primary) hypertension Plan to address problem: Cont Metoprolol (7) HLD (hyperlipidemia) Current Visit: Yes Status: Chronic Qualifiers: Hyperlipidemia type: mixed hyperlipidemia Qualified Code(s): E78.2 - Mixed hyperlipidemia Plan to address problem: Cont statins (8) DVT prophylaxis Current Visit: No Status: Acute Plan to address problem: On Heparin drip Subjective Date of service: 12/22/17 Principal diagnosis: Cellulitis L foot Interval history: c/o pain L foot and being cold Objective - Constitutional Vitals: Vital Signs - 12hr 12/22/17 12/22/17 06:35 10:49 Temperature 98.4 F Pulse Rate 80 111 H Respiratory 18 Rate Blood Pressure 114/51 134/72 O2 Sat by Pulse 90 Oximetry General appearance: Present: no acute distress, well-nourished - EENT Eyes: PERRL, EOM intact ENT: hearing intact, clear oral mucosa Ears: bilateral: normal - Neck Neck: supple, normal ROM - Respiratory Respiratory effort: normal Respiratory: bilateral: CTA - Breasts Breasts: normal - Cardiovascular Heart rate: 78 Rhythm: regular Heart Sounds: Present: S1 & S2. Absent: gallop, rub Extremities: pulses intact, No edema, normal color, Full ROM, abnormal (l foot slighly cold) Extremity abnormal: tenderness (l foot) - Gastrointestinal General gastrointestinal: Present: soft, non-tender, non-distended, normal bowel sounds - Genitourinary Female genitourinary: normal - Integumentary Integumentary: clear, warm, dry - Musculoskeletal Musculoskeletal: 1, strength equal bilaterally - Neurologic Neurologic: moves all extremities - Psychiatric Psychiatric: memory intact, appropriate mood/affect, intact judgment & insight - Labs CBC & Chem 7: 12/23/17 05:56 12/22/17 05:30 Labs: Abnormal lab results 12/21/17 12/22/17 12/22/17 Range/Units 21:23 05:30 05:30 RBC 3.39 L (3.65-5.03) M/mm3 Hgb 8.2 L (10.1-14.3) gm/dl Hct 26.5 L (30.3-42.9) % MCV 78 L (79-97) fl MCH 24 L (28-32) pg RDW 21.6 H (13.2-15.2) % Eos % (Auto) 5.5 H (0.0-4.3) % Heparin Anti-Xa Level (0.3-0.7) U.I./ml Sodium 121 L D (137-145) mmol/L Chloride 89.5 L (98-107) mmol/L Creatinine 0.5 L (0.7-1.2) mg/dL Glucose 160 H (65-100) mg/dL POC Glucose 155 H (70-105) Calcium 8.3 L (8.4-10.2) mg/dL Total Protein 5.3 L (6.3-8.2) g/dL Albumin 3.1 L (3.9-5) g/dL 12/22/17 12/22/17 Range/Units 05:30 07:23 RBC (3.65-5.03) M/mm3 Hgb (10.1-14.3) gm/dl Hct (30.3-42.9) % MCV (79-97) fl MCH (28-32) pg RDW (13.2-15.2) % Eos % (Auto) (0.0-4.3) % Heparin Anti-Xa Level 0.77 H (0.3-0.7) U.I./ml Sodium (137-145) mmol/L Chloride (98-107) mmol/L Creatinine (0.7-1.2) mg/dL Glucose (65-100) mg/dL POC Glucose 153 H (70-105) Calcium (8.4-10.2) mg/dL Total Protein (6.3-8.2) g/dL Albumin (3.9-5) g/dL Arterial Duplex scan COMMENTS ON THE LEFT: Triphasic waveforms are seen proximally. Triphasic waveforms are seen distally. No significant velocity gradients are identified. No significant plaque is identified. Findings are consistent with normal perfusion. Findings are consistent with the ability to heal distal wounds. IMPRESSION: RIGHT: Essentially normal arterial flow. LEFT: Essentially normal arterial flow.
[2017-12-22 18:32] LABS: % Iron Saturation 7.61 %
[2017-12-22] MEDS: UNASYN/NS 3 GM/100 ML 3 GM/100 ML BAG IV SCH (20:05)
[2017-12-23] MEDS: UNASYN/NS 3 GM/100 ML 3 GM/100 ML BAG IV SCH ×4 (01:52→19:00)
[2017-12-23] MEDS: DILAUDID IV PRN ×4 (03:03→12:45)
[2017-12-23] MEDS: HEPARIN/ 0.45% NACL-25,000 UNIT/500 ML 25,000 UNIT/500 ML BAG IV SCH (04:58)
[2017-12-23 06:20] LABS: Basophils # (Auto) 0.2 K/mm3 (0.0-0.1); Basophils % (Auto) 1.9 % (0.0-1.8); Eosinophils # (Auto) 0.4 K/mm3 (0.0-0.4); Eosinophils % (Auto) 4.8 % (0.0-4.3); Hematocrit 27.7 % (30.3-42.9); Hemoglobin 8.5 gm/dl (10.1-14.3); Lymphocytes # (Auto) 1.9 K/mm3 (1.2-5.4); Mean Corpuscular HGB Conc 31 % (30-34); Mean Corpuscular Volume 80 fl (79-97); Monocytes # (Auto) 0.5 K/mm3 (0.0-0.8); Monocytes % (Auto) 6.9 % (0.0-7.3); Platelet Count 255 K/mm3 (140-440); Red Blood Count 3.47 M/mm3 (3.65-5.03)
[2017-12-23 06:29] LABS: Mean Corpuscular Hemoglobin 25 pg (28-32); Red Cell Distribution Width 22.1 % (13.2-15.2)
[2017-12-23 06:41] LABS: Alanine Aminotransferase 13 units/L (7-56); Albumin 3.3 g/dL (3.9-5); BUN/Creatinine Ratio 30; Blood Urea Nitrogen 9 mg/dL (7-17); Calcium 8.6 mg/dL (8.4-10.2); Hemolysis Index 13
[2017-12-23] MEDS: FERGON PO SCH (09:28)
[2017-12-23] MEDS: LOPRESSOR PO SCH ×2 (09:28→22:37)
[2017-12-23] MEDS: DELTASONE PO SCH (09:29)
[2017-12-23] MEDS: PROTONIX PO SCH ×2 (09:29→22:38)
[2017-12-23] MEDS: VITAMIN D3 PO SCH (09:29)
[2017-12-23] MEDS: SODIUM CHLORIDE FLUSH SYRINGE 10 ML IV SCH ×2 (09:30→22:38)
[2017-12-23] MEDS: VITAMIN C PO SCH (09:32)
--- NOTE | 2017-12-23 13:52 | XRay Report ---
LEFT FOOT, 2 views: History: Pain. Slightly nonstandard images. The bony architecture is intact. Bony alignment is normal. No soft tissue abnormalities are seen. The joint spaces appear preserved. IMPRESSION: No abnormality identified.
[2017-12-23] MEDS: LOVENOX SUB-Q SCH ×2 (14:51→22:38)
[2017-12-23] MEDS ORDERED: PERCOCET 5/325 PO PRN (16:33)
--- NOTE | 2017-12-23 16:33 | Progress Note ---
Assessment and Plan (1) Cellulitis of left foot Current Visit: Yes Status: Acute Plan to address problem: Left foot cellulitis, no sign of abscess On IV Unasyn (2) Subtherapeutic international normalized ratio (INR) Current Visit: No Status: Acute Plan to address problem: d/c heparin start therapeutic dose of lovenox with coumadin (3) Hypercoagulable state Current Visit: No Status: Chronic Plan to address problem: plan to d/c home with coumadin and bridging lovenox (4) SLE (systemic lupus erythematosus) Current Visit: No Status: Chronic Qualifiers: Systemic lupus erythematosus type: unspecified Plan to address problem: Not on Plaquenil (5) Foot pain, left Current Visit: Yes Status: Acute Plan to address problem: Etio unclear other than cellulitis. Arterial duplex scan negative Foot xray showed no fracture (6) HTN (hypertension) Current Visit: Yes Status: Chronic Qualifiers: Hypertension type: essential hypertension Qualified Code(s): I10 - Essential (primary) hypertension Plan to address problem: Cont Metoprolol (7) HLD (hyperlipidemia) Current Visit: Yes Status: Chronic Qualifiers: Hyperlipidemia type: mixed hyperlipidemia Qualified Code(s): E78.2 - Mixed hyperlipidemia Plan to address problem: Cont statins (8) DVT prophylaxis Current Visit: No Status: Acute Plan to address problem: On Heparin drip Hospitalist physical: General appearance: Present: no acute distress, well-nourished - EENT Eyes: PERRL, EOM intact ENT: hearing intact, clear oral mucosa Ears: bilateral: normal - Neck Neck: supple, normal ROM - Respiratory Respiratory effort: normal Respiratory: bilateral: CTA - Breasts Breasts: normal - Cardiovascular Heart rate: 78 Rhythm: regular Heart Sounds: Present: S1 & S2. Absent: gallop, rub Extremities: pulses intact, No edema, normal color, Full ROM, - Gastrointestinal General gastrointestinal: Present: soft, non-tender, non-distended, normal bowel sounds - Genitourinary Female genitourinary: normal - Integumentary Integumentary: clear, warm, dry - Musculoskeletal Musculoskeletal: 1, strength equal bilaterally - Neurologic Neurologic: moves all extremities - Psychiatric Psychiatric: memory intact, appropriate mood/affect, intact judgment & insight Subjective Date of service: 12/23/17 Principal diagnosis: pain and swelling of the left leg. decreased mobility and loss of pulse Interval history: Pt seen and examined no acute event o/n states she will go to [place] following discharge Objective - Constitutional Vitals: Vital Signs - 12hr 12/23/17 12/23/17 05:05 11:34 Temperature 98.0 F 98.7 F Pulse Rate 68 78 Respiratory 18 20 Rate Blood Pressure 138/62 116/58 O2 Sat by Pulse 98 98 Oximetry - Labs CBC & Chem 7: 12/23/17 05:56 12/23/17 05:56 Labs: Abnormal lab results 12/22/17 12/22/17 12/22/17 Range/Units 05:30 11:46 16:59 RBC (3.65-5.03) M/mm3 Hgb (10.1-14.3) gm/dl Hct (30.3-42.9) % MCH (28-32) pg RDW (13.2-15.2) % Eos % (Auto) (0.0-4.3) % Baso % (Auto) (0.0-1.8) % Baso # (0.0-0.1) K/mm3 Creatinine (0.7-1.2) mg/dL Glucose (65-100) mg/dL POC Glucose 180 H 204 H (70-105) Iron 21 L (37-170) ug/dL Lactate Dehydrogenase 237 H (91-180) units/L Total Protein (6.3-8.2) g/dL Albumin (3.9-5) g/dL 12/23/17 12/23/17 12/23/17 Range/Units 05:02 05:56 05:56 RBC 3.47 L (3.65-5.03) M/mm3 Hgb 8.5 L (10.1-14.3) gm/dl Hct 27.7 L (30.3-42.9) % MCH 25 L (28-32) pg RDW 22.1 H (13.2-15.2) % Eos % (Auto) 4.8 H (0.0-4.3) % Baso % (Auto) 1.9 H (0.0-1.8) % Baso # 0.2 H (0.0-0.1) K/mm3 Creatinine 0.3 L (0.7-1.2) mg/dL Glucose 133 H (65-100) mg/dL POC Glucose 161 H (70-105) Iron (37-170) ug/dL Lactate Dehydrogenase (91-180) units/L Total Protein 5.4 L (6.3-8.2) g/dL Albumin 3.3 L (3.9-5) g/dL 12/23/17 12/23/17 Range/Units 07:38 11:37 RBC (3.65-5.03) M/mm3 Hgb (10.1-14.3) gm/dl Hct (30.3-42.9) % MCH (28-32) pg RDW (13.2-15.2) % Eos % (Auto) (0.0-4.3) % Baso % (Auto) (0.0-1.8) % Baso # (0.0-0.1) K/mm3 Creatinine (0.7-1.2) mg/dL Glucose (65-100) mg/dL POC Glucose 118 H 115 H (70-105) Iron (37-170) ug/dL Lactate Dehydrogenase (91-180) units/L Total Protein (6.3-8.2) g/dL Albumin (3.9-5) g/dL
[2017-12-23] MEDS ORDERED: COUMADIN PO SCH (17:00)
[2017-12-23] MEDS: DILAUDID PO PRN (19:00)
[2017-12-24] MEDS: UNASYN/NS 3 GM/100 ML 3 GM/100 ML BAG IV SCH ×3 (01:40→12:00)
[2017-12-24 06:01] LABS: INR 1.1 (0.87-1.13)
[2017-12-24 06:02] LABS: Heparin anti-factor XA 0.83 U.I./ml (0.3-0.7); INR 1.12 (0.87-1.13)
[2017-12-24] MEDS: DILAUDID PO PRN (06:45)
[2017-12-24] MEDS: DELTASONE PO SCH (10:13)
[2017-12-24] MEDS: LOPRESSOR PO SCH (10:13)
[2017-12-24] MEDS: VITAMIN C PO SCH (10:13)
[2017-12-24] MEDS: PROTONIX PO SCH (10:13)
[2017-12-24] MEDS: VITAMIN D3 PO SCH (10:14)
[2017-12-24] MEDS: FERGON PO SCH (10:15)
[2017-12-24] MEDS: LOVENOX SUB-Q SCH (10:15)
[2017-12-24] MEDS: SODIUM CHLORIDE FLUSH SYRINGE 10 ML IV SCH (10:16)
[2017-12-24 12:43] VITALS: BP 131/51
--- NOTE | 2017-12-24 13:07 | Discharge Summary ---
Providers - Providers Date of Admission: 12/19/17 23:43 Date of discharge: 12/24/17 Attending physician: OFE VILCHIS 12/19/17 23:43 Consult to Physician [CONS] Urgent Comment: Dr. Patiño spoke with Dr. 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 Hospitalization Condition: Stable Hospital course: Discharge diagnosis and management: (1) Cellulitis of left foot Current Visit: Yes Status: Acute Plan to address problem: Left foot cellulitis, no sign of abscess Placed On IV Unasyn transitioned to oral Bactrim on discharge (2) Subtherapeutic international normalized ratio (INR) Current Visit: No Status: Acute Plan to address problem: initially was on heparin drip then transitioned to therapeutic dose of lovenox with coumadin will f/u with PCP at [facility] on next week Wednesday (3) Hypercoagulable state Current Visit: No Status: Chronic Plan to address problem: plan to d/c home with coumadin and bridging lovenox (4) SLE (systemic lupus erythematosus) Current Visit: No Status: Chronic Qualifiers: Systemic lupus erythematosus type: unspecified Plan to address problem: Not on Plaquenil (5) Foot pain, left Current Visit: Yes Status: Acute Plan to address problem: Etio unclear other than cellulitis. Arterial duplex scan negative Foot xray showed no fracture (6) HTN (hypertension) Current Visit: Yes Status: Chronic Qualifiers: Hypertension type: essential hypertension Qualified Code(s): I10 - Essential (primary) hypertension Plan to address problem: Cont Metoprolol (7) HLD (hyperlipidemia) Current Visit: Yes Status: Chronic Qualifiers: Hyperlipidemia type: mixed hyperlipidemia Qualified Code(s): E78.2 - Mixed hyperlipidemia Plan to address problem: Cont statins (8) DVT prophylaxis Current Visit: No Status: Acute Plan to address problem: On Heparin drip Hospitalist physical: General appearance: Present: no acute distress, well-nourished - EENT Eyes: PERRL, EOM intact ENT: hearing intact, clear oral mucosa Ears: bilateral: normal - Neck Neck: supple, normal ROM - Respiratory Respiratory effort: normal Respiratory: bilateral: CTA - Breasts Breasts: normal - Cardiovascular Heart rate: 78 Rhythm: regular Heart Sounds: Present: S1 & S2. Absent: gallop, rub Extremities: pulses intact, No edema, normal color, Full ROM, - Gastrointestinal General gastrointestinal: Present: soft, non-tender, non-distended, normal bowel sounds - Genitourinary Female genitourinary: normal - Integumentary Integumentary: clear, warm, dry - Musculoskeletal Musculoskeletal: 1, strength equal bilaterally - Neurologic Neurologic: moves all extremities - Psychiatric Psychiatric: memory intact, appropriate mood/affect, intact judgment & insight Disposition: DC-01 TO HOME OR SELFCARE Time spent for discharge: 34 minutes Core Measure Documentation - Palliative Care Palliative Care/ Comfort Measures: Not Applicable - Core Measures Any of the following diagnoses?: none Exam - Constitutional Vitals: Temp Pulse Resp BP Pulse Ox 98.0 F 77 20 131/51 100 12/24/17 12:18 12/24/17 12:18 12/24/17 12:18 12/24/17 12:18 12/24/17 12:18 Plan Activity: fall precautions Weight Bearing Status: Non-Weight Bearing Diet: low fat Durable Medical Equipment Needed Upon Discharge: Wheelchair Follow up with: PRIMARY CARE, [Primary Care Provider] - 3-5 Days Forms: Warfarin Discharge Instruction Prescriptions: Ascorbic Acid [Vitamin C] 500 mg PO QDAY #30 tablet AtorvaSTATin [Lipitor] 10 mg PO QPM #30 tablet Cholecalciferol Vit D3 [Vitamin D3] 1,000 unit PO QDAY #30 tablet Enoxaparin [Lovenox] 70 mg SUB-Q Q12HR #14 syringe Ferrous Gluconate [Fergon 325 MG tab] 325 mg PO QDAY #30 tablet Metoprolol [Lopressor TAB] 50 mg PO BID #60 tablet Pantoprazole [Protonix TAB] 40 mg PO BID #60 tablet predniSONE [Deltasone] 10 mg PO QDAY #30 tablet Sulfamethoxazole/Trimethoprim [Bactrim DS TAB] 1 each PO BID #7 tablet Warfarin [Coumadin] 5 mg PO QDAY #30 tablet
[2017-12-24] MEDS ORDERED: COUMADIN PO SCH ×2 (17:00)
== END 2017-12-24 15:00 | disposition home or self-care (01) | DRG 603 ==
LOC: ED 18:02 → 4A 23:43 → 3A 12-21 11:11
PROVIDERS: ADMIT Internal Medicine; ATTEND Internal Medicine
DX: L03.116 Cellulitis of left lower limb (principal); D68.59 Other primary thrombophilia; I82.592 Chronic embolism and thrombosis of other specified deep vein of left lower extremity; M32.9 Systemic lupus erythematosus, unspecified; M06.9 Rheumatoid arthritis, unspecified; I10 Essential (primary) hypertension; D72.1 Eosinophilia; K21.9 Gastro-esophageal reflux disease without esophagitis; E87.5 Hyperkalemia; E78.2 Mixed hyperlipidemia; Z79.01 Long term (current) use of anticoagulants; Z86.711 Personal history of pulmonary embolism; Z88.6 Allergy status to analgesic agent; Z88.1 Allergy status to other antibiotic agents; Z88.5 Allergy status to narcotic agent; Z88.8 Allergy status to other drugs, medicaments and biological substances; Z91.041 Radiographic dye allergy status; Z79.899 Other long term (current) drug therapy
CPT/HCPCS: 36415; 80048; 80053; 82962; 83550; 83615; 85025; 85027; 85379; 85520; 85610; 85730; 93005; 93010; 93925; 93970; 96374; 96375; A9270-GY; J0295; J1170; J1644; J1650; J2405; J7512

== ENCOUNTER 2018-06-27 13:30 | Emergency (ER) | payer OTHER ==
[2018-06-27] MEDS ORDERED: XYLOCAINE TOPICAL 5% TP ONE (17:09)
--- NOTE | 2018-06-27 17:11 | Emergency Department Report ---
ED General Adult HPI - General Chief complaint: Nausea/Vomiting/Diarrhea Stated complaint: COUGHING UP BLOOD Time Seen by Provider: 06/27/18 16:31 Source: patient, EMS (ems notes not available at time of chart dictation), RN notes reviewed, old records reviewed Mode of arrival: Stretcher Limitations: Physical Limitation - History of Present Illness Initial comments: This is a 58-year-old female. Apparently, the patient is from [place], and past medical history includes the following: : Lupus, hypercoagulable state, reported pulmonary embolus, DVT, IVC filter, on Coumadin, functional quadriplegia, wheelchair bound, arterial thrombosis, rh eumatoid arthritis, soft tissue diverticulum, status post resection, peripheral eosinophilia, myositis, dyslipidemia, abnormal LFT. Patient was admitted to this hospital in February,, had a very complicated hospital course. As per prior documentation, inpatient team had concerns that the patient was "very manipulative with changes stories." In addition, patient was not forthcoming about collateral information or family members, and is reportedly homeless. She is apparently homeless, and doesn't walk, and has a wheelchair. [place] During her recent hospitalization, all of her objective testing was unremarkable. Patient's next of kin was also contacted, number apparently went to voicemail, to someone with a different listed last name. Today, the patient presents to the ER with a complaint of questionable vomiting blood, coughing blood, right dorsal chronic hand pain, and left anterior knee pain. The patient reported that she started coughing blood or vomiting blood prior to arrival. However, as per verbal report from EMS to nursing staff, patient had no hemoptysis or hematemesis in the ambulance. Patient has been observed in the emergency room, in the waiting room, and in the ER itself, for many hours, and has had no documented episodes of vomiting blood, or coughing up blood. The patient made no complaint of headache, neck pain, chest pain, abdominal pain. She may plate of shortness of breath. She denied defecating blood. She denied hematuria. She complains of questionable infection of the dorsal aspect of her right hand, and left knee. However, she states that her pain is sharp and achy, and constant. Emergency room, the patient is sleeping comfortably, on her stretcher, and intermittently asking nursing staff to eat. -: This morning Location: right (right handhand), lower extremity (left knee) Severity scale (0 -10): 8 Quality: aching (hand pain, knee pain is constant) Consistency: constant Improves with: rest (hand pain and knee pain decreases with rest) Worsens with: movement (hand pain and knee pain increases with movement) - Related Data Home Medications Medication Instructions Recorded Confirmed Last Taken Metoprolol Xl [Metoprolol 50 mg PO BID 02/26/18 02/26/18 02/24/18 SUCCINATE ER TAB] Previous Rx's Medication Instructions Recorded Last Taken Type Ascorbic Acid [Vitamin C] 500 mg PO QDAY #30 tablet 12/23/17 02/25/18 Rx AtorvaSTATin [Lipitor] 10 mg PO QPM #30 tablet 12/23/17 02/24/18 Rx Ferrous Gluconate [Fergon 325 MG 325 mg PO QDAY #30 tablet 12/23/17 02/25/18 Rx tab] Pantoprazole [Protonix TAB] 40 mg PO BID #60 tablet 12/23/17 02/25/18 Rx predniSONE [Deltasone] 10 mg PO QDAY #30 tablet 12/23/17 02/25/18 08:00 Rx Oxycodone HCl/Acetaminophen 1 each PO Q6HR PRN #14 tablet 03/07/18 Unknown Rx [Percocet 7.5/325 mg] Warfarin [Coumadin] 10 mg PO QDAY #30 tablet 03/07/18 Unknown Rx Enoxaparin Sodium [Lovenox] 70 mg SQ BID #20 syringe 06/27/18 Unknown Rx Allergies Allergy/AdvReac Type Severity Reaction Status Date / Time acetaminophen [From Tylenol] Allergy Hives Verified 06/27/18 16:14 ciprofloxacin [From Cipro] Allergy Hives Verified 06/27/18 16:14 ciprofloxacin HCl Allergy Hives Verified 06/27/18 16:14 [From Cipro] dicyclomine HCl [From Bentyl] Allergy Hives Verified 06/27/18 16:14 hydrocodone Allergy Hives Verified 06/27/18 16:14 Iodinated Contrast- Oral and Allergy Hives Verified 06/27/18 16:14 IV Dye [Iodinated Contrast Media - IV Dye] meperidine HCl [From Demerol] Allergy Hives Verified 06/27/18 16:14 morphine Allergy Hives Verified 06/27/18 16:14 NSAIDS (Non-Steroidal Allergy Hives Verified 06/27/18 16:14 Anti-Inflamma oxycodone HCl Allergy Hives Verified 06/27/18 16:14 [From OxyContin] tramadol Allergy Hives Verified 06/27/18 16:14 ED Review of Systems ROS: Stated complaint: COUGHING UP BLOOD Other details as noted in HPI Constitutional: malaise. denies: fever Eyes: denies: vision change ENT: denies: epistaxis Respiratory: denies: cough Cardiovascular: denies: chest pain Gastrointestinal: hematemesis. denies: melena, hematochezia Musculoskeletal: back pain, joint swelling, arthralgia, myalgia Skin: denies: rash, lesions Neurological: weakness (chronic weakness) ED Past Medical Hx - Past Medical History Previous Medical History?: Yes Hx Hypertension: Yes Hx CVA: Yes Hx Congestive Heart Failure: No Hx Diabetes: No Hx Deep Vein Thrombosis: Yes (Bilateral) Hx Pulmonary Embolism: Yes Hx Arthritis: Yes (RA) Hx Asthma: No Hx COPD: No Hx HIV: No Additional medical history: SLE. MYOSITIS. PERIPHERAL EOSINOPHILIA. GI BLEED. "CLOTTING DISORDER" - Surgical History Past Surgical History?: Yes Additional Surgical History: IVC FILTER RIGHT GROIN. ULCER CLIPPED AND CLAMPED. RIGHT AND LEFT KNEE SURGERIES. Esophageal surgery to remove growth - Social History Smoking Status: Never Smoker Substance Use Type: None - Medications Home Medications: Home Medications Medication Instructions Recorded Confirmed Last Taken Type Ascorbic Acid [Vitamin C] 500 mg PO QDAY #30 tablet 12/23/17 02/26/18 02/25/18 Rx AtorvaSTATin [Lipitor] 10 mg PO QPM #30 tablet 12/23/17 02/26/18 02/24/18 Rx Ferrous Gluconate [Fergon 325 MG 325 mg PO QDAY #30 tablet 12/23/17 02/26/18 02/25/18 Rx tab] Pantoprazole [Protonix TAB] 40 mg PO BID #60 tablet 12/23/17 02/26/18 02/25/18 Rx predniSONE [Deltasone] 10 mg PO QDAY #30 tablet 12/23/17 02/26/18 02/25/18 08:00 Rx Metoprolol Xl [Metoprolol 50 mg PO BID 02/26/18 02/26/18 02/24/18 History SUCCINATE ER TAB] Oxycodone HCl/Acetaminophen 1 each PO Q6HR PRN #14 tablet 03/07/18 Unknown Rx [Percocet 7.5/325 mg] Warfarin [Coumadin] 10 mg PO QDAY #30 tablet 03/07/18 Unknown Rx Enoxaparin Sodium [Lovenox] 70 mg SQ BID #20 syringe 06/27/18 Unknown Rx ED Physical Exam - General Limitations: Physical Limitation General appearance: alert, in no apparent distress - Head Head exam: Present: atraumatic, normocephalic - Eye Eye exam: Present: normal appearance, EOMI. Absent: nystagmus - ENT ENT exam: Present: normal exam, normal orophraynx, mucous membranes moist, normal external ear exam - Neck Neck exam: Present: normal inspection, full ROM. Absent: tenderness, m eningismus - Respiratory Respiratory exam: Present: normal lung sounds bilaterally. Absent: respiratory distress - Cardiovascular Cardiovascular Exam: Present: regular rate, normal rhythm, normal heart sounds. Absent: bradycardia, tachycardia, irregular rhythm, systolic murmur, diastolic murmur, rubs, gallop - GI/Abdominal GI/Abdominal exam: Present: soft. Absent: distended, tenderness, guarding, rebound, rigid, pulsatile mass - Rectal Rectal exam: Present: normal inspection, normal rectal tone, other (chaperoned by nurse Soren Evans). Absent: heme (-) stool, heme (+) stool, black stool, bloody stool, fecal impaction, hemorrhoids, mass, tenderness - Extremities Exam Extremities exam: Present: normal inspection (hyperpigmentation and venous stasis changes noted in the lower extremities.), tenderness (there is left anterior knee tenderness. There is no redness, pus or streaking. There is dorsal right hand tenderness. There is no redness, pus or streaking. Compartment soft. 2+ pulses in the upper, lower extremities.), other (2+ pulses noted in the bilateral upper, lower extremities. Compartments soft. No long bony tenderness. The pelvis is stable.). Absent: full ROM (range of motion limited secondary to chronic pain) - Back Exam Back exam: Present: normal inspection, full ROM. Absent: tenderness - Neurological Exam Neurological exam: Present: alert, oriented X3, motor sensory deficit (patient moving upper, lower extremities, however and endorses chronic weakness. There is no facial droop. The tongue is midline. Speaking in full sentences. Hearing is intact bilaterally. Shoulder shrug is intact bilaterally.), other (patient moving 4 extremities. Sensation intact to light touch in 4 extremities.) - Psychiatric Psychiatric exam: Present: flat affect - Skin Skin exam: Present: warm, other (there is no redness, pus, streaking or crepitus appreciated on the upper, lower extremity examination. There appears to be hyperpigmentation on the left anterior knee. This appears to be chronic.) ED Course Vital Signs 06/27/18 06/27/18 06/27/18 16:09 16:30 21:06 Temperature 98.3 F Pulse Rate 84 86 Respiratory 16 16 16 Rate Blood Pressure 127/71 Blood Pressure 126/74 [Left] O2 Sat by Pulse 100 100 97 Oximetry - Reevaluation(s) Reevaluation #1: 06/27/18 20:33 Differential diagnosis, including but not limited to: Pneumonia, upper GI bleed, lower GI bleed, bronchitis, bronchiectasis, chronic arthritis, malingering Assessment and plan: 58-year-old female with a reported complaint of hemoptysis, hematemesis. Patient has been observed in the emergency room for many hours without either of the aforementioned. She is afebrile, with reassuring vital signs, and her physical exam does not appear to demonstrate any chronic or acute findings. No rectal bleeding noted, guaiac negative on examination. Appears to have chronic arthritis on the right hand, and left knee, with no evidence of redness, pus or streaking, her physical exam is not consistent with acute infectious codie ology. Patient has no complaints of homicidality, suicidality or hallucinations, however, there may be a secondary gain component. Unfortunately, she has numerous allergies. Therefore, her pain will be medicated with topical lidocaine. INR so far appears to be subtherapeutic. Highly doubt active bleed at this time. Noncontrast CT scan of the abdomen and pelvis is negative for acute disease. We will reassess after her CT scan of the chest has resulted. Of note, patient is asking to eat, and appears to be quite comfortable. A case management consult has been requested. Hemoglobin, hematocrit appear to be at baseline. 06/27/18 20:35 Reevaluation #2: 06/27/18 21:40 CT scan of the chest negative for acute disease. Chronic findings noted. No active vomiting noted. No active hemoptysis. No active hematemesis. Vital signs have remained stable. On multiple re-evaluations, patient resting comfortably, in stretcher, and appears to be in no acute distress. Her CT scans have demonstrated chronic findings, without any significant emergent findings Reevaluation #3: 06/28/18 02:01 Patient was noted to be eating food in the emergency room, without any difficulty, nausea or vomiting. ED Medical Decision Making - Lab Data Result diagrams: 06/27/18 18:27 06/27/18 18:27 Vital Signs 06/27/18 06/27/18 16:09 16:30 Temperature 98.3 F Pulse Rate 84 Respiratory 16 16 Rate Blood Pressure 127/71 O2 Sat by Pulse 100 100 Oximetry Lab Results 06/27/18 06/27/18 06/27/18 Range/Units 18:27 18:27 18:27 WBC 7.1 (4.5-11.0) K/mm3 RBC 3.57 L (3.65-5.03) M/mm3 Hgb 10.7 (10.1-14.3) gm/dl Hct 33.9 (30.3-42.9) % MCV 95 (79-97) fl MCH 30 (28-32) pg MCHC 32 (30-34) % RDW 22.2 H (13.2-15.2) % Plt Count 117 L (140-440) K/mm3 PT 19.2 H (12.2-14.9) Sec. INR 1.51 H (0.87-1.13) APTT 23.9 L (24.2-36.6) Sec. Sodium 135 L (137-145) mmol/L Potassium 3.9 (3.6-5.0) mmol/L Chloride 104.6 (98-107) mmol/L Carbon Dioxide 19 L (22-30) mmol/L Anion Gap 15 mmol/L BUN 13 (7-17) mg/dL Creatinine 0.2 L (0.7-1.2) mg/dL Estimated GFR > 60 ml/min BUN/Creatinine Ratio 65 % Glucose 158 H (65-100) mg/dL Calcium 8.3 L (8.4-10.2) mg/dL Total Bilirubin 0.30 (0.1-1.2) mg/dL AST 23 (5-40) units/L ALT 35 (7-56) units/L Alkaline Phosphatase 73 (35-129) units/L Total Protein 5.4 L (6.3-8.2) g/dL Albumin 2.9 L (3.9-5) g/dL Albumin/Globulin Ratio 1.2 % - Radiology Data Radiology results: report reviewed, image reviewed X-ray of the hand demonstrates chronic arthritic changes. No acute disease noted. No fracture is noted. CT scan of the abdomen and pelvis is negative for acute disease. Chronic findings are noted. IVC filter is noted to be in place. X-ray left knee, interpreted by myself shows no acute disease, DJD is suggested. Print Report Referring Physician: ELVIRA DAMON Patient Name: JERICA STERN Date of : 1960 Sex: Female Report Date: 2018-06-27 Report Status: [place] [address] Cat Scan Report Signed Patient: JERICA STERN MR#: [id number] : 1960 Acct:[id number] Age/Sex: 58 / F ADM Date: 06/27/18 Loc: ED Attending Dr: Ordering Physician: ELVIRA DAMON MD Date of Service: 06/27/18 Procedure(s): CT chest wo con Accession Number(s): [id number] cc: ELVIRA DAMON MD PROCEDURE: CT CHEST WO CON HISTORY: hx of vomiting blood, on coumadin FINDINGS: Unenhanced CT of the chest was performed and data was reformatted into sagittal and coronal planes. There is cardiomegaly. There is a small pericardial effusion measuring 0.6 cm in thickness. The esophagus is distended and filled with debris, similar to prior exam. No obstructing lesion is seen. This could represent achalasia or esophageal dysmotility. Consider swallowing study as clinically indicated. There is a right upper lobe nodule, 46, 0.3 cm, unchanged from prior examination of February 26, 2018 There is left lower lobe linear atelectasis. There is widening of the space between the left posterior lateral seventh and eighth ribs which could be developmental or post procedural. There is a left lobe thyroid nodule, 1.0 cm. There is no pleural effusion. In the upper abdomen there is a left renal angiomyolipoma, 1.2 x 0.6 cm, image 117. There is a left upper pole cyst, 4.0 cm. IMPRESSION: The esophagus is distended and is filled with debris. This could represent achalasia or esophageal dysmotility. It appears similar to the prior CT of February 26, 2018. Right upper lobe nodule unchanged. This document is electronically signed by Wayne Middleton MD., June 27 2018 08:32:48 PM ET Transcribed By: SAI Dictated By: WAYNE MIDDLETON MD Electronically Authenticated By: WAYNE MIDDLETON MD Signed Date/Time: 06/27/182033 DD/ 15 TD/TT: 06/27/181915 Critical care attestation.: If time is entered above; I have spent that time in minutes in the direct care of this critically ill patient, excluding procedure time. ED Disposition Clinical Impression: Subtherapeutic international normalized ratio (INR), Left leg pain Disposition: DC-01 TO HOME OR SELFCARE Is pt being admited?: No Does the pt Need Aspirin: No Condition: Stable Additional Instructions: Take the Lovenox medication as directed. Follow up with a instrument room technician or primary care doctor within the next 3-5 days. Return to the emergency room right away with new, worsening or different s ymptoms, or symptoms not present on the initial ER evaluation. Follow-up with a wordpress developer within the next 6 weeks for chronic esophageal dysmotility, esophageal disease. Follow-up with a energy systems engineer or primary care doctor for left knee pain, right hand pain, likely secondary to chronic rheumatoid arthritis, within the next 6 weeks. Prescriptions: Enoxaparin Sodium [Lovenox] 70 mg SQ BID #20 syringe Referrals: [facility] [Provider Group] - 3-5 Days [facility] [Provider Group] - 3-5 Days TRUPTI MURO DO [Staff Physician] - 3-5 Days TEX COVINGTON MD [Staff Physician] - 3-5 Days PRIMARY [facility] BEL[facility] [Primary Care Provider] - 3-5 Days [facility] [Provider Group] - 3-5 Days
[2018-06-27 19:03] LABS: INR 1.51 (0.87-1.13)
[2018-06-27 19:11] LABS: Alanine Aminotransferase 35 units/L (7-56); Albumin 2.9 g/dL (3.9-5); BUN/Creatinine Ratio 65; Blood Urea Nitrogen 13 mg/dL (7-17); Calcium 8.3 mg/dL (8.4-10.2); Hemolysis Index 29
[2018-06-27 19:31] LABS: Hematocrit 33.9 % (30.3-42.9); Hemoglobin 10.7 gm/dl (10.1-14.3); Mean Corpuscular HGB Conc 32 % (30-34); Mean Corpuscular Volume 95 fl (79-97); Platelet Count 117 K/mm3 (140-440); Red Blood Count 3.57 M/mm3 (3.65-5.03)
[2018-06-27 19:33] LABS: Red Cell Distribution Width 22.2 % (13.2-15.2)
--- NOTE | 2018-06-27 19:48 | XRay Report ---
PROCEDURE: XR HAND 2V RT TECHNIQUE: Frontal, lateral, oblique views right hand HISTORY: right hand pain COMPARISONS: None FINDINGS: There is marked degenerative change of the joints of the carpus and of the metacarpophalangeal joints . There is soft tissue swelling at the level of the distal forearm and wrist. There is soft tissue swelling at the level of the metacarpophalangeal joints. IMPRESSION: 1. Marked degenerative change of the joints of the carpus and at the carpometacarpal joints of the morales nds. The pattern is suggestive of rheumatoid arthritis. Comparison with previous imaging studies would be helpful. This document is electronically signed by Darya Hoang MD., June 27 2018 07:46:34 PM ET
--- NOTE | 2018-06-27 19:48 | XRay Report ---
PROCEDURE: XR CHEST 1V AP TECHNIQUE: AP portable view of the chest HISTORY: Hemoptysis COMPARISONS: 02/25/2018 FINDINGS: There is a stable retrocardiac opacity consistent with a hiatal hernia. Otherwise, the cardiomediasti nal silhouette appears normal. The lungs are clear. The bones and soft tissues are unremarkable. IMPRESSION: No evidence of acute cardiopulmonary disease. This document is electronically signed by Vanessa Cho MD., June 27 2018 07:45:43 PM ET
--- NOTE | 2018-06-27 20:21 | Cat Scan Report ---
PROCEDURE: CT ABDOMEN PELVIS WO CON TECHNIQUE: Helical CT was performed of the abdomen and pelvis without contrast. Images are reconstruc jason in the sagittal and coronal planes. HISTORY: hx of vomiting blood, on coumadin COMPARISONS: 02/25/2018 FINDINGS: There is mild left basilar subsegmental atelectasis. There is a medium-sized hiatal hernia. Otherwise , the stomach appears grossly within normal limits. The liver, gallbladder, pancreas, spleen, adrenal glands appear normal. The right kidney appears grossly normal. There is a 3.9 cm cyst arising from the left kidney. There i s a 6 mm fatty lesion in the left kidney consistent with angiomyolipoma. Both are stable. The uterus is enlarged and globular secondary to multiple uterine fibroids with the largest measuring 7.5 cm. There are no abnormally dilated loops of bowel or acute inflammatory changes. A normal-appearing appe ndix is identified. The abdominal aorta has a normal diameter. There is an infrarenal IVC filter in place. The bones are diffusely demineralized. There is been previous resection of several left-sided ribs. IMPRESSION: 1. No acute findings in abdomen/pelvis 2. Stable left renal cyst and left renal angiomyolipoma 3. Multiple large uterine fibroids This document is electronically signed by Vanessa Cho MD., June 27 2018 08:19:18 PM ET
[2018-06-27 20:29] LABS: Partial Thromboplastin Time 23.9 Sec. (24.2-36.6)
--- NOTE | 2018-06-27 20:34 | Cat Scan Report ---
PROCEDURE: CT CHEST WO CON HISTORY: hx of vomiting blood, on coumadin FINDINGS: Unenhanced CT of the chest was performed and data was reformatted into sagittal and coronal planes. There is cardiomegaly. There is a small pericardial effusion measuring 0.6 cm in thickness. The esophagus is distended and filled with debris, similar to prior exam. No obstructing lesion is se en. This could represent achalasia or esophageal dysmotility. Consider swallowing study as clinically indicated. There is a right upper lobe nodule, 46, 0.3 cm, unchanged from prior examination of February 26, 2018 There is left lower lobe linear atelectasis. There is widening of the space between the left posterio r lateral seventh and eighth ribs which could be developmental or post procedural. There is a left lobe thyroid nodule, 1.0 cm. There is no pleural effusion. In the upper abdomen there is a left renal angiomyolipoma, 1.2 x 0.6 cm, image 117. There is a left u pper pole cyst, 4.0 cm. IMPRESSION: The esophagus is distended and is filled with debris. This could represent achalasia or e sophageal dysmotility. It appears similar to the prior CT of February 26, 2018. Right upper lobe nodule unchanged. This document is electronically signed by Wayne Middleton MD., June 27 2018 08:32:48 PM ET
--- NOTE | 2018-06-27 20:42 | XRay Report ---
PROCEDURE: XR KNEE 1-2V LT TECHNIQUE: Frontal and lateral views left knee HISTORY: left knee pain COMPARISONS: None FINDINGS: There is marked degenerative change of the tibiofemoral and patellofemoral joints with joint space lo ss. There is no evidence of fracture or subluxation. The soft tissues are unremarkable. IMPRESSION: 1. Marked degenerative change of the tibiofemoral and patellofemoral joints. If further imaging is required, MRI may be helpful. This document is electronically signed by Darya Hoang MD., June 27 2018 08:40:49 PM ET
[2018-06-27 21:07] VITALS: BP 126/74
[2018-06-27] MEDS ORDERED: LOVENOX SUB-Q STA (21:42)
== END 2018-06-27 22:21 | disposition home or self-care (01) ==
LOC: ED 13:30
DX: R04.2 Hemoptysis (principal); K92.0 Hematemesis; R79.1 Abnormal coagulation profile; G89.29 Other chronic pain; M79.641 Pain in right hand; M25.562 Pain in left knee; I10 Essential (primary) hypertension; Z86.718 Personal history of other venous thrombosis and embolism; Z86.711 Personal history of pulmonary embolism; Z98.890 Other specified postprocedural states; Z88.6 Allergy status to analgesic agent; Z88.1 Allergy status to other antibiotic agents; Z88.8 Allergy status to other drugs, medicaments and biological substances
CPT/HCPCS: 36415; 71045; 71250; 73120; 73560; 74176; 80053; 82271; 85027; 85610; 85730; 96372; 99285; J1650

== ENCOUNTER 2018-09-28 19:42 | Inpatient (IN) | payer OTHER ==
--- NOTE | 2018-09-28 20:41 | Emergency Department Report ---
ED Abdominal Pain HPI - General Chief Complaint: Abdominal Pain Stated Complaint: STOMACH PAIN/EMESIS Time Seen by Provider: 09/28/18 20:24 Source: patient, EMS Mode of arrival: Stretcher Limitations: No Limitations - History of Present Illness Initial Comments: Patient is a 58-year-old female that presents emergency room with complaints of abdominal pain 2 days. Patient states the pain is worsening. Patient states her pain is in her generalized abdominal region but is worse in her epigastric region. Patient states that she started vomiting blood today which concerned her to come to the hospital to be checked out. Patient states that she is only for a clotting disorder. Patient denies fever chills. Patient states she has not had a bowel movement for 5 days. Patient denies blood per rectum. Patient denies melena. MD Complaint: abdominal pain -: Sudden Location: diffuse Radiation: none Migration to: no migration Severity: severe Severity scale (0 -10): 10 Quality: stabbing Consistency: constant Improves With: rest Worsens With: vomiting, movement Associated Symptoms: nausea, vomiting, constipation, hematemesis. denies: denies other symptoms, diarrhea, fever, chills, dysuria, hematochezia, melena, hematuria, anorexia, syncope - Related Data Home Medications Medication Instructions Recorded Confirmed Last Taken Metoprolol Xl [Metoprolol 50 mg PO BID 02/26/18 02/26/18 02/24/18 SUCCINATE ER TAB] Previous Rx's Medication Instructions Recorded Last Taken Type Ascorbic Acid [Vitamin C] 500 mg PO QDAY #30 tablet 12/23/17 02/25/18 Rx AtorvaSTATin [Lipitor] 10 mg PO QPM #30 tablet 12/23/17 02/24/18 Rx Ferrous Gluconate [Fergon 325 MG 325 mg PO QDAY #30 tablet 12/23/17 02/25/18 Rx tab] Pantoprazole [Protonix TAB] 40 mg PO BID #60 tablet 12/23/17 02/25/18 Rx predniSONE [Deltasone] 10 mg PO QDAY #30 tablet 12/23/17 02/25/18 08:00 Rx Oxycodone HCl/Acetaminophen 1 each PO Q6HR PRN #14 tablet 03/07/18 Unknown Rx [Percocet 7.5/325 mg] Warfarin [Coumadin] 10 mg PO QDAY #30 tablet 03/07/18 Unknown Rx Enoxaparin Sodium [Lovenox] 70 mg SQ BID #20 syringe 06/27/18 Unknown Rx Allergies Allergy/AdvReac Type Severity Reaction Status Date / Time acetaminophen [From Tylenol] Allergy Hives Verified 06/27/18 16:14 ciprofloxacin [From Cipro] Allergy Hives Verified 06/27/18 16:14 ciprofloxacin HCl Allergy Hives Verified 06/27/18 16:14 [From Cipro] dicyclomine HCl [From Bentyl] Allergy Hives Verified 06/27/18 16:14 hydrocodone Allergy Hives Verified 06/27/18 16:14 Iodinated Contrast- Oral and Allergy Hives Verified 06/27/18 16:14 IV Dye [Iodinated Contrast Media - IV Dye] meperidine HCl [From Demerol] Allergy Hives Verified 06/27/18 16:14 morphine Allergy Hives Verified 06/27/18 16:14 NSAIDS (Non-Steroidal Allergy Hives Verified 06/27/18 16:14 Anti-Inflamma oxycodone HCl Allergy Hives Verified 06/27/18 16:14 [From OxyContin] tramadol Allergy Hives Verified 06/27/18 16:14 ED Review of Systems ROS: Stated complaint: STOMACH PAIN/EMESIS Other details as noted in HPI Constitutional: denies: chills, fever Eyes: denies: eye pain, eye discharge, vision change ENT: denies: ear pain, throat pain Respiratory: denies: cough, shortness of breath, wheezing Cardiovascular: denies: chest pain, palpitations Endocrine: no symptoms reported Gastrointestinal: abdominal pain, nausea, vomiting, constipation, hematemesis. denies: diarrhea, melena, hematochezia Genitourinary: denies: urgency, dysuria, discharge Musculoskeletal: denies: back pain, joint swelling, arthralgia Skin: denies: rash, lesions Neurological: denies: headache, weakness, paresthesias Psychiatric: denies: anxiety, depression Hematological/Lymphatic: denies: easy bleeding, easy bruising ED Past Medical Hx - Past Medical History Previous Medical History?: Yes Hx Hypertension: Yes Hx CVA: Yes Hx Congestive Heart Failure: No Hx Diabetes: No Hx Deep Vein Thrombosis: Yes (Bilateral) Hx Pulmonary Embolism: Yes Hx Arthritis: Yes (RA) Hx Asthma: No Hx COPD: No Hx HIV: No Additional medical history: SLE. MYOSITIS. PERIPHERAL EOSINOPHILIA. GI BLEED. "CLOTTING DISORDER" - Surgical History Past Surgical History?: Yes Additional Surgical History: IVC FILTER RIGHT GROIN. ULCER CLIPPED AND CLAMPED. RIGHT AND LEFT KNEE SURGERIES. Esophageal surgery to remove growth - Family History Family history: no significant - Social History Smoking Status: Never Smoker Substance Use Type: None - Medications Home Medications: Home Medications Medication Instructions Recorded Confirmed Last Taken Type Ascorbic Acid [Vitamin C] 500 mg PO QDAY #30 tablet 12/23/17 02/26/18 02/25/18 Rx AtorvaSTATin [Lipitor] 10 mg PO QPM #30 tablet 12/23/17 02/26/18 02/24/18 Rx Ferrous Gluconate [Fergon 325 MG 325 mg PO QDAY #30 tablet 12/23/17 02/26/18 02/25/18 Rx tab] Pantoprazole [Protonix TAB] 40 mg PO BID #60 tablet 12/23/17 02/26/18 02/25/18 Rx predniSONE [Deltasone] 10 mg PO QDAY #30 tablet 12/23/17 02/26/18 02/25/18 08:00 Rx Metoprolol Xl [Metoprolol 50 mg PO BID 02/26/18 02/26/18 02/24/18 History SUCCINATE ER TAB] Oxycodone HCl/Acetaminophen 1 each PO Q6HR PRN #14 tablet 03/07/18 Unknown Rx [Percocet 7.5/325 mg] Warfarin [Coumadin] 10 mg PO QDAY #30 tablet 03/07/18 Unknown Rx Enoxaparin Sodium [Lovenox] 70 mg SQ BID #20 syringe 06/27/18 Unknown Rx ED Physical Exam - General Limitations: No Limitations General appearance: alert, in no apparent distress - Head Head exam: Present: atraumatic, normocephalic - Eye Eye exam: Present: normal appearance - ENT ENT exam: Present: mucous membranes moist - Neck Neck exam: Present: normal inspection - Respiratory Respiratory exam: Present: normal lung sounds bilaterally. Absent: respiratory distress - Cardiovascular Cardiovascular Exam: Present: regular rate, normal rhythm. Absent: systolic murmur, diastolic murmur, rubs, gallop - GI/Abdominal GI/Abdominal exam: Present: soft, tenderness (generalized abdominal tenderness to palpation), normal bowel sounds - Extremities Exam Extremities exam: Present: normal inspection - Back Exam Back exam: Present: normal inspection - Neurological Exam Neurological exam: Present: alert, oriented X3 - Psychiatric Psychiatric exam: Present: normal affect, normal mood - Skin Skin exam: Present: warm, dry, intact, normal color. Absent: rash ED Course Vital Signs 09/28/18 09/28/18 09/28/18 19:57 23:02 23:05 Pulse Rate 95 H 94 H Respiratory 17 18 18 Rate Blood Pressure 103/69 109/73 [Left] O2 Sat by Pulse 100 99 98 Oximetry - Reevaluation(s) Reevaluation #1: Nurse unable to achieve peripheral line. Right EJ placed. Patient's INR elevated. Patient was given vitamin K subcutaneous. 09/28/18 21:16 Reevaluation #2: Discussed all results with patient. Patient will be admitted to the hospitalist service. Patient agrees to plan of care. 09/29/18 00:20 - Consultations Consultation #1: GI paged 09/29/18 00:21 Discussed case with JESUS Wheeler. Dr. Kenny wants patient to be admitted and given IV Protonix and nothing by mouth after midnight/,. 09/29/18 00:34 Consultation #2: Hospitalist consulted for admission. Hospitalist to admit patient. Hospitalist to assume care patient. 09/29/18 00:25 - EJ/Peripheral Line Neck R Time Out Performed: Yes Indications: nurses unable to establis Skin Cleansed in Sterile Fashion: Yes Size: 20 Dressing Placed: Tegaderm, tape Patient Tolerated Procedure: well, no complications ED Medical Decision Making - Lab Data Result diagrams: 09/28/18 20:30 09/28/18 20:30 - Radiology Data Radiology results: report reviewed CT ABDOMEN AND PELVIS WITHOUT IV CONTRAST INDICATION: abd pain.. COMPARISON: None available. TECHNIQUE: All CT scans at this facility use dose modulation, automated exposure control, iterative reconstruction or weight based dosing, when appropriate, to reduce radiation dos e to as low as reasonably achievable. FINDINGS: Lung Bases: Clear. Skeletal System: No acute abnormality. Methylmethacrylate is noted within chronic L3 and L4 compression deformities. Advanced changes are noted at the hips. ABDOMEN: Liver: Normal. Gallbladder: Normal. Bile Ducts: Normal. Pancreas: Normal. Spleen: Normal. Adrenals: Normal. Right Kidney: Normal. 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 There is a partially exophytic cyst at the upper pole. Stomach and Bowel: Probable hiatal hernia is noted. This appearance could be due at least in part to patulous distal esophagus. Lymph Nodes: No significant adenopathy. Aorta: No significant abnormality. Additional Findings: IVC filter is noted. PELVIS: Colon: Normal aside from mild constipation.. Urinary Bladder and Distal Ureters: Normal. Appendix: Not visualized. Lymph Nodes: No significant adenopathy. Additional Findings: Enlarged leiomyomatous uterus is noted. Advanced atrophy of pelvic paraspinous musculature. IMPRESSION: 1. Within the limitations of non-contrast technique, no acute process in the abdomen or pelvis. 2. Incidental findings, as above. - Medical Decision Making Patient is a 58-year-old female that presents emergency room with complaints of abdominal pain and vomiting blood. Patient found to have a supratherapeutic INR. Patient is taking warfarin for clotting disorder. Patient given subcutaneous vitamin K. Patient had a right EJ placed. Patient's CT negative. Rest of labs unremarkable. GI consult. Consult place. Patient given IV Protonix. Patient nothing by mouth after midnight. Patient admitted to the hospitalist service. - Differential Diagnosis abdominal pain. Hematemesis. Constipation Critical Care Time: Yes Critical care attestation.: If time is entered above; I have spent that time in minutes in the direct care of this critically ill patient, excluding procedure time. Critical Care Time: 45 minutes ED Disposition Clinical Impression: Upper GI bleeding, On continuous oral anticoagulation, Subtherapeutic international normalized ratio (INR), Hyperkalemia Hematemesis Qualifiers: Nausea presence: with nausea Qualified Code(s): K92.0 - Hematemesis Abdominal pain Qualifiers: Abdominal location: generalized Qualified Code(s): R10.84 - Generalized abdominal pain Disposition: OP ADMIT IP TO THIS HOSP Is pt being admited?: Yes Does the pt Need Aspirin: No Condition: Critical Referrals: NATHANAEL BRITO MD [Primary Care Provider] - 3-5 Days Time of Disposition: 00:20
[2018-09-28 20:48] LABS: Basophils % (Auto) 0.2 % (0.0-1.8); Eosinophils % (Auto) 0.1 % (0.0-4.3); Hematocrit 45.2 % (30.3-42.9); Hemoglobin 14.1 gm/dl (10.1-14.3); Lymphocytes # (Auto) 0.7 K/mm3 (1.2-5.4); Mean Corpuscular HGB Conc 31 % (30-34); Mean Corpuscular Volume 93 fl (79-97); Monocytes # (Auto) 0.4 K/mm3 (0.0-0.8); Monocytes % (Auto) 4.2 % (0.0-7.3); Platelet Count 155 K/mm3 (140-440); Red Blood Count 4.88 M/mm3 (3.65-5.03)
[2018-09-28] MEDS ORDERED: VITAMIN K (ADULT ONLY) SUB-Q ONE (21:01)
[2018-09-28 21:02] LABS: Partial Thromboplastin Time 90.6 Sec. (24.2-36.6)
[2018-09-28 21:03] LABS: INR 10.9 (0.87-1.13)
[2018-09-28 21:33] LABS: Alanine Aminotransferase 18 units/L (7-56); Albumin 3.8 g/dL (3.9-5); BUN/Creatinine Ratio 35; Blood Urea Nitrogen 21 mg/dL (7-17); Hemolysis Index 54
--- NOTE | 2018-09-29 00:10 | Cat Scan Report ---
CT ABDOMEN AND PELVIS WITHOUT IV CONTRAST INDICATION: abd pain.. COMPARISON: None available. TECHNIQUE: All CT scans at this facility use dose modulation, automated exposure control, iterative reconstructi on or weight based dosing, when appropriate, to reduce radiation dose to as low as reasonably achieva ble. FINDINGS: Lung Bases: Clear. Skeletal System: No acute abnormality. Methylmethacrylate is noted within chronic L3 and L4 compress ion deformities. Advanced changes are noted at the hips. ABDOMEN: Liver: Normal. Gallbladder: Normal. Bile Ducts: Normal. Pancreas: Normal. Spleen: Normal. Adrenals: Normal. Right Kidney: Normal. 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 There is a parti ally exophytic cyst at the upper pole. Stomach and Bowel: Probable hiatal hernia is noted. This appearance could be due at least in part to patulous distal esophagus. Lymph Nodes: No significant adenopathy. Aorta: No significant abnormality. Additional Findings: IVC filter is noted. PELVIS: Colon: Normal aside from mild constipation.. Urinary Bladder and Distal Ureters: Normal. Appendix: Not visualized. Lymph Nodes: No significant adenopathy. Additional Findings: Enlarged leiomyomatous uterus is noted. Advanced atrophy of pelvic paraspinous m usculature. IMPRESSION: 1. Within the limitations of non-contrast technique, no acute process in the abdomen or pelvis. 2. Incidental findings, as above. Signer Name: Antonio Chanel MD Signed: 09/29/2018 12:05 AM Workstation Name: [id number]
[2018-09-29] MEDS ORDERED: ZOFRAN IV PRN (01:05)
[2018-09-29] MEDS ORDERED: D50W (25GM) Syringe IV ONE ×2 (01:16→03:23)
[2018-09-29] MEDS ORDERED: HumuLIN R IV ONE (01:16)
[2018-09-29] MEDS: PROTONIX 80 MG in NACL 0.9% 100 ML IV SCH ×2 (01:29→09:38)
[2018-09-29] MEDS ORDERED: DILAUDID ONE (02:00)
[2018-09-29 02:35] LABS: BUN/Creatinine Ratio 42; Blood Urea Nitrogen 21 mg/dL (7-17); Calcium 8.1 mg/dL (8.4-10.2); Hemolysis Index 4
[2018-09-29] MEDS: DILAUDID IV PRN ×6 (02:42→23:19)
[2018-09-29] MEDS: NACL 0.9% 1000 ML 1,000 ML IV SCH ×3 (02:42→17:22)
[2018-09-29] MEDS ORDERED: HumuLIN R ONE (03:23)
[2018-09-29] MEDS ORDERED: ZOFRAN ONE (03:23)
[2018-09-29] MEDS ORDERED: NACL 0.9% 1000 ML 1,000 ML ONE (03:24)
--- NOTE | 2018-09-29 05:42 | History and Physical Report ---
CHIEF COMPLAINT: Abdominal pain. Other complaint includes hematemesis. HISTORY OF PRESENTING ILLNESS: The patient is a 58-year-old female who states she has been having abdominal pain going on for 2 days. The patient stated that the pain is generalized, but worse in the epigastric area and the patient also complained about hematemesis that concerned her and made her come to the hospital. There is no history of hematochezia or blood in the stool. There is also no history of dark stool. The patient also complained about constipation and has not had a bowel movement in 5 days. There is no history of fever or chills and no history of shortness of breath. The patient subsequently presented to the Emergency Room, where she was evaluated and found to have a very elevated INR of 10 with elevated PT of 84.6. Also, the patient had other abnormal labs. PAST MEDICAL HISTORY: Pertinent for hypertension, cerebrovascular accident, bilateral deep vein thrombosis, pulmonary embolism, arthritis. The patient also had myositis and peripheral eosinophilia as well as past history of clotting disorder and GI bleed, and there is also past history of systemic lupus erythematosus. PAST SURGICAL HISTORY: Pertinent for IVC filter in the right groin area, peptic ulcer which was clipped and clamped, right and left knee surgeries, esophageal surgery that was done to remove some growth. FAMILY HISTORY: Reviewed and noncontributory. SOCIAL HISTORY: The patient does not smoke, does not drink alcohol, and does not use illicit drug. MEDICATIONS: The patient is on the following medications: Ascorbic acid 500 mg by mouth daily, Lipitor 10 mg by mouth every evening, ferrous gluconate 325 mg by mouth daily, Protonix 40 mg by mouth twice daily, prednisone 10 mg by mouth daily, metoprolol succinate 50 mg by mouth twice daily, Percocet 7.5/325 one by mouth every 6 hours as needed for pain, Coumadin 10 mg by mouth daily, Lovenox 70 mg subcutaneous twice daily. ALLERGIES: THE PATIENT IS ALLERGIC TO ACETAMINOPHEN, CIPROFLOXACIN AND SOME MORE MEDICATIONS. REVIEW OF SYSTEMS: CONSTITUTIONAL: There is no fever, no chills, no diaphoresis. HEENT: There is no headache or sore throat. CARDIOVASCULAR SYSTEM: There is no chest pain or orthopnea. RESPIRATORY SYSTEM: There is no shortness of breath or cough. GASTROINTESTINAL SYSTEM: There is abdominal pain, hematemesis, constipation but no diarrhea, no hematochezia or melena. NEUROLOGICAL SYSTEM: There is no numbness, no dizziness, no altered mental status. MUSCULOSKELETAL SYSTEM: There is no joint pain or swelling. DERMATOLOGICAL SYSTEM: There is no skin rash or itching. GENITOURINARY SYSTEM: There is no dysuria, hematuria or flank pain. Rest of system review is normal. PHYSICAL EXAMINATION: GENERAL: At the time of exam, the patient was found to be alert, oriented x 3, and not in acute distress. VITAL SIGNS: Show normal temperature with a pulse of 95, respirations 17, blood pressure 103/69, O2 sat of 100% on room air. HEENT: Showed pupils to be equal, round, reactive to light and accommodation. Extraocular muscles are intact. NECK: Supple with no JVD or carotid bruit. CARDIOVASCULAR SYSTEM: Showed normal first and second heart sounds with no gallops or murmurs. RESPIRATORY SYSTEM: Showed good air entry on both sides of the lungs with no abnormal breath sounds. GASTROINTESTINAL SYSTEM: Showed abdomen to be full, soft with generalized tenderness with no rebound tenderness, no rigidity and no guarding. Bowel sounds are normal. MUSCULOSKELETAL SYSTEM: Showed no joint swelling or tenderness. DERMATOLOGICAL SYSTEM: Showed no skin rash. GENITOURINARY SYSTEM: Showing no costovertebral angle tenderness. PERTINENT LABORATORY AND IMAGING STUDIES: The patient had a CT of the abdomen and pelvis without IV contrast done that shows evidence of uterine fibroids but no acute process was found in the abdominal area. Lab result: The patient has CBC done with normal white count, normal hemoglobin, and slightly elevated hematocrit of 45.2 with CBC differential showing elevated segmented neutrophil count of 87.5%. The patient's coagulation studies show high PT level of 84.6 with high INR level of 10.9 and high PTT level of 90.6. The patient's chemistry initially showed low sodium level of 132 with high potassium level of 5.4 and high BUN of 21 with low creatinine of 0.6 and normal GFR of greater than 60. Rest of chemistry was unremarkable. Repeat potassium level after treatment came back to normal level of 3.8. DIAGNOSES: 1. Gastrointestinal bleed. 2. Hyperkalemia. 3. Coagulopathy. PLAN OF CARE: 1. The patient will be admitted to telemetry. 2. The patient will have hemoglobin and hematocrit checked every 6 hours x 3 more levels. 3. The patient will remain n.p.o. and will have a GI consult with [facility] with Dr. Keo Rodriguez listed. 4. The patient will continue IV Protonix drip started in the Emergency Room. 5. The patient will have PT and INR checked every morning x 3 days. 6. The patient will be on IV normal saline running at 125 mL an hour. 7. The patient will be on IV Dilaudid 0.5 mg every 4 hours as needed for pain and IV Zofran 4 mg every 8 hours for nausea and vomiting. JOB# [id number] OCN/NTS
--- NOTE | 2018-09-29 11:23 | Gastroenterology Consultation ---
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 Abd CT upon admission w/o acute disease, however INR was found to be supratherapeutic (10). Patient is previously known to our service from prior hospitalizations. She was seen by our group 01/2017 for hematemesis and underwent an EGD that showed dilated esophagus with retained food substance and exudates c/w lack of esophageal motility, small hiatus hernia, possible paraesophageal hernia in the cardia vs surgical defect, and retained food in the stomach c/w gastroparesis but no evidence of ulcer, GOO, or stricture with recommendations given to f/u with physicians at [facility] to which patient has yet to do. She was seen last by our service 02/2018 for chest pain/abd pain with CT of chest showing s/p surgical changes (abd U/S, abd CT, and labs at that time unremarkable) with symptoms improving with conservative management. This morning patient was resting in bed w/o acute distress. Reports feeling better with abd pain and N/V now improved with no episodes of vomiting this am. States she vomiting up "dark" emesis yesterday x 2 episodes but has no further signs of bleeding. No melena or hematochezia. Denies fever, CP, SOB, dysphagia, odynophagia, or diarrhea. C/o constipation with last BM several days ago and is requesting senna. No NSAID use or hx of liver disease. Past History Past Medical History: other (as per HPI) Past Surgical History: Other (IVC FILTER RIGHT GROIN. ULCER CLIPPED AND CLAMPED. RIGHT AND LEFT KNEE SURGERIES. Esophageal resection) Social history: denies: smoking, alcohol abuse Family history: other (Factor V leiden?) Medications and Allergies Allergies Allergy/AdvReac Type Severity Reaction Status Date / Time acetaminophen [From Tylenol] Allergy Hives Verified 06/27/18 16:14 ciprofloxacin [From Cipro] Allergy Hives Verified 06/27/18 16:14 ciprofloxacin HCl Allergy Hives Verified 06/27/18 16:14 [From Cipro] dicyclomine HCl [From Bentyl] Allergy Hives Verified 06/27/18 16:14 hydrocodone Allergy Hives Verified 06/27/18 16:14 Iodinated Contrast- Oral and Allergy Hives Verified 06/27/18 16:14 IV Dye [Iodinated Contrast Media - IV Dye] meperidine HCl [From Demerol] Allergy Hives Verified 06/27/18 16:14 morphine Allergy Hives Verified 06/27/18 16:14 NSAIDS (Non-Steroidal Allergy Hives Verified 06/27/18 16:14 Anti-Inflamma oxycodone HCl Allergy Hives Verified 06/27/18 16:14 [From OxyContin] tramadol Allergy Hives Verified 06/27/18 16:14 Home Medications Medication Instructions Recorded Confirmed Last Taken Type Ascorbic Acid [Vitamin C] 500 mg PO QDAY #30 tablet 12/23/17 09/29/18 02/25/18 Rx AtorvaSTATin [Lipitor] 10 mg PO QPM #30 tablet 12/23/17 09/29/18 02/24/18 Rx Ferrous Gluconate [Fergon 325 MG 325 mg PO QDAY #30 tablet 12/23/17 09/29/18 02/25/18 Rx tab] Pantoprazole [Protonix TAB] 40 mg PO BID #60 tablet 12/23/17 09/29/18 02/25/18 Rx predniSONE [Deltasone] 10 mg PO QDAY #30 tablet 12/23/17 09/29/18 02/25/18 08:00 Rx Metoprolol Xl [Metoprolol 50 mg PO BID 02/26/18 09/29/18 02/24/18 History SUCCINATE ER TAB] Calcium Carbonate [Calcium 600MG 600 mg PO DAILY 09/29/18 09/29/18 Unknown H istory TAB] Cholecalciferol Vit D3 [Vitamin D3 1,000 unit PO QDAY 09/29/18 09/29/18 Unknown History 1,000 UNIT TAB] Warfarin [Coumadin] 5 mg PO QDAY 09/29/18 09/29/18 Unknown History Active Meds: Active Medications Hydromorphone HCl (Dilaudid) 0.5 mg IV Q4H PRN PRN Reason: Pain , Severe (7-10) Last Admin: 09/29/18 11:08 Dose: 0.5 mg Documented by: Pantoprazole Sodium 80 mg/ (Sodium Chloride) 100 mls @ 10 mls/hr IV DIRECT APPLE Last Admin: 09/29/18 09:38 Dose: 8 mg/hr, 10 mls/hr Documented by: Sodium Chloride (Nacl 0.9% 1000 Ml) 1,000 mls @ 125 mls/hr IV DIRECT APPLE Last Admin: 09/29/18 09:14 Dose: 125 mls/hr Documented by: Ondansetron HCl (Zofran) 4 mg IV Q8H PRN PRN Reason: Nausea And Vomiting Last Admin: 09/29/18 02:42 Dose: 4 mg Documented by: medications reviewed/updated as required Review of Systems - Review of Systems All systems: negative Gastrointestinal: abdominal pain (epigastric), nausea, vomiting, hematemesis, no melena, no hematochezia Exam - Constitutional Vital Signs: Temp Pulse Resp BP Pulse Ox 98.6 F 74 17 130/75 97 09/29/18 05:00 09/29/18 08:30 09/29/18 08:30 09/29/18 08:30 09/29/18 08:30 General appearance: no acute distress - EENT Eyes: PERRL, EOM intact ENT: hearing intact - Respiratory Respiratory effort: normal - Cardiovascular Rhythm: regular - Gastrointestinal General gastrointestinal: Present: soft, non-tender, non-distended, normal bowel sounds - Neurologic Neurological: alert and oriented x3 - Labs CBC & Chem 7: 09/28/18 20:30 09/29/18 01:44 Lab Results: Laboratory Results - last 24 hr 09/28/18 09/28/18 09/28/18 20:30 20:30 20:30 WBC 8.8 RBC 4.88 Hgb 14.1 Hct 45.2 H MCV 93 MCH 29 MCHC 31 RDW 19.0 H Plt Count 155 Lymph % (Auto) 8.0 L Harper % (Auto) 4.2 Eos % (Auto) 0.1 Baso % (Auto) 0.2 Lymph # 0.7 L Harper # 0.4 Eos # 0.0 Baso # 0.0 Seg Neutrophils % 87.5 H Seg Neutrophils # 7.7 PT 84.6 H INR 10.90 H* APTT 90.6 H* Sodium 132 L Potassium 5.4 H Chloride 98.3 Carbon Dioxide 14 L Anion Gap 25 BUN 21 H Creatinine 0.6 L Estimated GFR > 60 BUN/Creatinine Ratio 35 Glucose 143 H Calcium 9.0 Total Bilirubin 0.40 AST 32 ALT 18 Alkaline Phosphatase 103 Total Protein 7.3 Albumin 3.8 L Albumin/Globulin Ratio 1.1 09/29/18 01:44 WBC RBC Hgb Hct MCV MCH MCHC RDW Plt Count Lymph % (Auto) Harper % (Auto) Eos % (Auto) Baso % (Auto) Lymph # Harper # Eos # Baso # Seg Neutrophils % Seg Neutrophils # PT INR APTT Sodium 137 Potassium 3.8 D Chloride 101.4 Carbon Dioxide 20 L Anion Gap 19 BUN 21 H Creatinine 0.5 L Estimated GFR > 60 BUN/Creatinine Ratio 42 Glucose 82 Calcium 8.1 L Total Bilirubin AST ALT Alkaline Phosphatase Total Protein Albumin Albumin/Globulin Ratio Assessment and Plan 1.GI bleed/hematemesis? 2.H/o PUD in 2012 3.epigastric pain 4.H/o gastroparesis 5.H/o esophageal resection 2/2 diverticulum -stool occult negative -abd CT w/o acute disease (abd U/S and abd CT 02/2018 also negative) -WBC and LFTs WNL -plt WNL; INR supratherapeutic at 10.90 (coumadin on hold) -H/H 14.1/45.2 -continue to monitor H/H and transfuse as needed -patient reports vomiting up "dark" emesis yesterday x 2 episodes- no melena or hematochezia (rectal exam per ER provider w/o evidence of bleeding) -no active signs of bleeding overnight or this am -currently HD stable -last EGD 01/28/2017 showed dilated esophagus with retained food substance and exudates c/w lack of esophageal motility, small hiatus hernia, possible paraesophageal hernia in the cardia vs surgical defect, and retained food in the stomach c/w gastroparesis but no evidence of ulcer, GOO, or stricture -colonoscopy at [facility] (05/12/16) revealed internal hemorrhoids and poor prep but otherwise normal -clinically, patient reports feeling better this am with epigastric pain and N/V now improved. -no plan for repeat EGD at this time (will consider based on clinical course for recurrent bleeding once INR is corrected) -okay to start on clears- advance as tolerated (recommend small frequent meals for gastroparesis) -avoid narcotics for this may exacerbate symptoms -optimize glycemic control -continue PPI and supportive care -will follow <IGNACIA BERGMAN - Last Filed: 09/29/18 19:34> Medications and Allergies Active Meds: Active Medications Hydromorphone HCl (Dilaudid) 0.5 mg IV Q4H PRN PRN Reason: Pain , Severe (7-10) Last Admin: 09/29/18 18:56 Dose: 0.5 mg Documented by: Sodium Chloride (Nacl 0.9% 1000 Ml) 1,000 mls @ 125 mls/hr IV DIRECT APPLE Last Admin: 09/29/18 17:22 Dose: 125 mls/hr Documented by: Ondansetron HCl (Zofran) 4 mg IV Q8H PRN PRN Reason: Nausea And Vomiting Last Admin: 09/29/18 02:42 Dose: 4 mg Documented by: Pantoprazole Sodium (Protonix) 40 mg IV BID APPLE Exam - Constitutional Vital Signs: Temp Pulse Resp BP Pulse Ox 97.5 F L 80 16 120/87 100 09/29/18 12:24 09/29/18 12:24 09/29/18 12:24 09/29/18 12:24 09/29/18 12:24 - Labs CBC & Chem 7: 09/28/18 20:30 09/29/18 01:44 Lab Results: Laboratory Results - last 24 hr 09/28/18 09/28/18 09/28/18 20:30 20:30 20:30 WBC 8.8 RBC 4.88 Hgb 14.1 Hct 45.2 H MCV 93 MCH 29 MCHC 31 RDW 19.0 H Plt Count 155 Lymph % (Auto) 8.0 L Harper % (Auto) 4.2 Eos % (Auto) 0.1 Baso % (Auto) 0.2 Lymph # 0.7 L Harper # 0.4 Eos # 0.0 Baso # 0.0 Seg Neutrophils % 87.5 H Seg Neutrophils # 7.7 PT 84.6 H INR 10.90 H* APTT 90.6 H* Sodium 132 L Potassium 5.4 H Chloride 98.3 Carbon Dioxide 14 L Anion Gap 25 BUN 21 H Creatinine 0.6 L Estimated GFR > 60 BUN/Creatinine Ratio 35 Glucose 143 H Calcium 9.0 Total Bilirubin 0.40 AST 32 ALT 18 Alkaline Phosphatase 103 Total Protein 7.3 Albumin 3.8 L Albumin/Globulin Ratio 1.1 Urine Color Urine Turbidity Urine pH Ur Specific [place] Urine Protein Urine Glucose (UA) Urine Ketones Urine Blood Urine Nitrite Urine Bilirubin Urine Urobilinogen Ur Leukocyte Esterase Urine WBC (Auto) Urine RBC (Auto) U Epithel Cells (Auto) Hyaline Casts Urine Mucus 09/29/18 09/29/18 01:44 12:35 WBC RBC Hgb Hct MCV MCH MCHC RDW Plt Count Lymph % (Auto) Harper % (Auto) Eos % (Auto) Baso % (Auto) Lymph # Harper # Eos # Baso # Seg Neutrophils % Seg Neutrophils # PT INR APTT Sodium 137 Potassium 3.8 D Chloride 101.4 Carbon Dioxide 20 L Anion Gap 19 BUN 21 H Creatinine 0.5 L Estimated GFR > 60 BUN/Creatinine Ratio 42 Glucose 82 Calcium 8.1 L Total Bilirubin AST ALT Alkaline Phosphatase Total Protein Albumin Albumin/Globulin Ratio Urine Color Yellow Urine Turbidity Slightly-cloudy Urine pH 5.0 Ur Specific [place] 1.025 Urine Protein <15 mg/dl Urine Glucose (UA) 150 Urine Ketones 20 Urine Blood Neg Urine Nitrite Neg Urine Bilirubin Neg Urine Urobilinogen < 2.0 Ur Leukocyte Esterase Neg Urine WBC (Auto) 6.0 Urine RBC (Auto) 4.0 U Epithel Cells (Auto) 3.0 Hyaline Casts 71 Urine Mucus 3+ Assessment and Plan Pt seen and examined. Agree with note above. Normal H/H; no further n/v since admission. reverse supratherapeutic inr per primary; no plans for egd at this time unless signs of overt bleeding. okay to start po trial from gi stand point. will sign off, please call as needed or with questions.
[2018-09-29 13:08] LABS: Bilirubin,Urine NEG (Negative); Blood,Urine NEG (Negative); Color,Urine Yellow (Yellow); Hyaline Casts,Urine 71 /LPF; Mucus,Urine 3+ /HPF; Protein,Urine <15 mg/dL mg/dL (Negative); Urobilinogen,Urine < 2.0 mg/dL (<2.0)
--- NOTE | 2018-09-29 15:28 | Event Note ---
Date: 09/29/18 Patient seen and examined Patient admitted with upper GI bleed and supratherapeutic INR Continue to monitor INR and H&H Continue IV fluid
[2018-09-29] MEDS ORDERED: SENOKOT S PO PRN (21:21)
[2018-09-29] MEDS ORDERED: ALUM-MAG HYDROX-SIMETH 200-200-20MG/5ML PO PRN (21:21)
[2018-09-29] MEDS: PROTONIX IV SCH (23:19)
[2018-09-30 00:05] LABS: Hematocrit 32.8 % (30.3-42.9); Hemoglobin 10.4 gm/dl (10.1-14.3)
[2018-09-30 00:06] LABS: INR 1.51 (0.87-1.13)
[2018-09-30] MEDS: NACL 0.9% 1000 ML 1,000 ML IV SCH ×2 (01:05→08:16)
[2018-09-30] MEDS: DILAUDID IV PRN ×5 (03:38→21:28)
--- NOTE | 2018-09-30 08:11 | Gastroenterology Progress Note ---
Assessment and Plan 1. Nausea/vomiting, coffee ground emesis - no episodes since admission. H/h dropped but given lack of over bleeding will hold off on endoscopy. 2. Nausea/vomiting - resolved and tolerating clears. can advance as tolerated will sign off, please call as needed. Subjective Date of service: 09/30/18 Principal diagnosis: n/v, CGE Interval history: pt seen and examined; no gi bleeding since admission. tolerating clears Objective - Constitutional Vitals: Temp Pulse Resp BP Pulse Ox 98.3 F 86 20 109/59 93 09/30/18 04:22 09/30/18 00:41 09/30/18 04:22 09/30/18 04:22 09/30/18 04:00 General appearance: no acute distress - Respiratory Respiratory effort: normal Respiratory: bilateral: CTA - Cardiovascular Rhythm: regular Heart Sounds: Present: S1 & S2 - Gastrointestinal General gastrointestinal: Present: soft, non-tender, non-distended - Labs CBC & Chem 7: 09/29/18 23:36 09/29/18 01:44 Labs: Laboratory Results - last 24 hr 09/29/18 09/29/18 09/29/18 12:35 23:36 23:36 Hgb 10.4 D Hct 32.8 D PT 17.8 H INR 1.51 H Urine Color Yellow Urine Turbidity Slightly-cloudy Urine pH 5.0 Ur Specific [place] 1.025 Urine Protein <15 mg/dl Urine Glucose (UA) 150 Urine Ketones 20 Urine Blood Neg Urine Nitrite Neg Urine Bilirubin Neg Urine Urobilinogen < 2.0 Ur Leukocyte Esterase Neg Urine WBC (Auto) 6.0 Urine RBC (Auto) 4.0 U Epithel Cells (Auto) 3.0 Hyaline Casts 71 Urine Mucus 3+
[2018-09-30] MEDS: PROTONIX IV SCH ×2 (10:59→23:21)
--- NOTE | 2018-09-30 13:10 | Discharge Summary ---
Providers - Providers Date of Admission: 09/29/18 00:57 Date of discharge: 09/30/18 Attending physician: OFE VILCHIS 09/29/18 06:00 Consult to Physician [CONS] Routine Comment: Dr. Markham spoke with Dr. Branham @ 0027 Consulting Provider: LAILA MARIE Physician Instructions: Reason For Exam: HEMATEMESIS [facility] Condition[facility] Hospital course: Discharge diagnosis: 1.GI bleed/hematemesis? 2.H/o PUD in 2012 3.Epigastric pain 4.H/o gastroparesis 5.H/o esophageal resection / diverticulum -stool occult negative -abd CT w/o acute disease (abd U/S and abd CT 02/2018 also negative) -WBC and LFTs WNL -plt WNL; INR supratherapeutic at 10.90 (coumadin on hold) -H/H 14.1/45.2 -continue to monitor H/H and transfuse as needed -patient reports vomiting up "dark" emesis yesterday x 2 episodes- no melena or hematochezia (rectal exam per ER provider w/o evidence of bleeding) -no active signs of bleeding overnight or this am -currently HD stable -last EGD 01/28/2017 showed dilated esophagus with retained food substance and exudates c/w lack of esophageal motility, small hiatus hernia, possible paraesophageal hernia in the cardia vs surgical defect, and retained food in the stomach c/w gastroparesis but no evidence of ulcer, GOO, or stricture -colonoscopy at [facility] (05/12/16) revealed internal hemorrhoids and poor prep but otherwise normal -clinically, patient reports feeling better this am with epigastric pain and N/V now improved. -no plan for repeat EGD at this time (will consider based on clinical course for recurrent bleeding once INR is corrected) -okay to start on clears- advance as tolerated (recommend small frequent meals for gastroparesis) -avoid narcotics for this may exacerbate symptoms -optimize glycemic control -continue PPI and supportive care Disposition: DC-01 TO HOME OR SELFCARE Time spent for discharge: 34 minutes Core Measure Documentation - Palliative Care Palliative Care/ Comfort Measures: Not Applicable - Core Measures Any of the following diagnoses?: none Exam - Constitutional Vitals: Temp Pulse Resp BP Pulse Ox 97.8 F 93 H 18 120/73 65 L 09/30/18 07:20 09/30/18 12:22 09/30/18 12:22 09/30/18 12:22 09/30/18 12:22 General appearance: Present: no acute distress, well-nourished - EENT Eyes: Present: PERRL ENT: hearing intact, clear oral mucosa - Neck Neck: Present: supple, normal ROM - Respiratory Respiratory effort: normal Respiratory: bilateral: CTA - Cardiovascular Heart Sounds: Present: S1 & S2. Absent: rub, click - Extremities Extremities: pulses symmetrical, No edema Peripheral Pulses: within normal limits - Abdominal General gastrointestinal: Present: soft, non-tender, non-distended, normal bowel sounds - Integumentary Integumentary: Present: clear, warm, dry - Musculoskeletal Musculoskeletal: gait normal, strength equal bilaterally - Psychiatric Psychiatric: appropriate mood/affect, intact judgment & insight - Neurologic Neurologic: CNII-XII intact, moves all extremities Plan Activity: advance as tolerated Weight Bearing Status: Non-Weight Bearing Diet: low fat Follow up with: NATHANAEL BRITO MD [Primary Care Provider] - 3-5 Days
[2018-09-30 14:39] LABS: Hematocrit 33.2 % (30.3-42.9); Hemoglobin 10.5 gm/dl (10.1-14.3); Mean Corpuscular HGB Conc 32 % (30-34); Mean Corpuscular Volume 90 fl (79-97); Platelet Count 195 K/mm3 (140-440)
[2018-09-30 14:56] LABS: BUN/Creatinine Ratio 20; Blood Urea Nitrogen 4 mg/dL (7-17); Calcium 8.2 mg/dL (8.4-10.2); Hemolysis Index 27
--- NOTE | 2018-09-30 15:21 | Progress Note ---
Assessment and Plan GI bleed/hematemesis? - Likely due to supratherapeutic INR - Status post vitamin K IV 1 time dose - Symptom now resolved - No plan for EGD by GI - tolerating diet H/o PUD in 2012, cont PPI Epigastric pain, resolved, CT abdomen/pelvis negative H/o gastroparesis, tolerating food H/o esophageal resection 2/2 diverticulum Acute b/l leg/ankle swelling, will order venous doppler and uric acid level h/o SLE, cont prednisone History of DVT, PE s/p IVC filter, supratherapeutic INR on admission, now subtherapeutic - resume coumadin h/o Functional quadriplegia: Patient is wheelchair bound DVT Px, resume coumadin Hospitalist physical; Gen: WDWN, NAD, Awake, Alert, Orientated x 3 HEENT: NCAT, EOMI, PERRL, OP Clear Neck: supple, no adenopathy, no thyromegaly, no JVD CVS/Heart: RRR, normal S1S2, pulses present bilaterally Chest/Lungs: CTA B, Symmetrical chest expansion, good air entry bilaterally GI/Abdomen: soft, guarding RLL, good bowel sounds, nondistended Extermity/Skin: no c/c/e, no obvious rash MSK: does not move LE, b/l ankle tenderness on minimal palpation Neuro: does not move LE Psych: calm Subjective Date of service: 09/30/18 Principal diagnosis: n/v, CGE Interval history: Patient seen and examined. Medical records and medication list reviewed. No acute event overnight noted by the RN. Patient denies any chest pain or difficulty breathing. Patient is tolerating diet. Complaints of bilateral ankle swelling and pain Discussed plan of care at bedside with patient. She states that she is from [place] and she has no way to go back there till someone comes and pick her up Objective - Constitutional Vitals: Vital Signs - 12hr 09/30/18 09/30/18 09/30/18 03:38 04:00 04:22 Temperature 98.3 F Pulse Rate Respiratory 18 20 Rate Blood Pressure 109/59 O2 Sat by Pulse 93 Oximetry 09/30/18 09/30/18 09/30/18 07:20 10:00 12:22 Temperature 97.8 F Pulse Rate 109 H 93 H Respiratory 18 18 18 Rate Blood Pressure 105/62 120/73 O2 Sat by Pulse 65 L Oximetry - Labs CBC & Chem 7: 09/30/18 13:15 09/30/18 13:15 Labs: Abnormal lab results 09/29/18 09/30/18 09/30/18 Range/Units 23:36 13:15 13:15 RDW 18.0 H (13.2-15.2) % PT 17.8 H (12.2-14.9) Sec. INR 1.51 H (0.87-1.13) Carbon Dioxide 19 L (22-30) mmol/L BUN 4 L (7-17) mg/dL Creatinine 0.2 L D (0.7-1.2) mg/dL Calcium 8.2 L (8.4-10.2) mg/dL
[2018-09-30] MEDS: DELTASONE PO SCH (15:25)
--- NOTE | 2018-09-30 16:27 | Vascular Lab Report ---
DUPLEX DOPPLER LOWER EXTREMITY VEINS, BILATERAL INDICATION: Bilateral lower extremity swelling/edema. TECHNIQUE: Duplex doppler imaging was performed through the veins of both lower extremities using venous joselito marilee and other maneuvers. COMPARISON: No relevant prior imaging study available. FINDINGS: Right Common femoral vein: Negative. Right Superficial femoral vein: Negative. Right Popliteal vein: Negative. Right Calf veins: Negative. Left Common femoral vein: Negative. Left Superficial femoral vein: Negative. Left Popliteal vein: Negative. Left Calf veins: Negative. Additional findings: None.. IMPRESSION: No sonographic evidence for DVT in either lower extremity. Signer Name: Dean Montez Jr, MD Signed: 09/30/2018 4:23 PM Workstation Name: [id number]
[2018-09-30] MEDS: COUMADIN PO SCH (16:39)
[2018-09-30] MEDS ORDERED: COUMADIN PO SCH (17:00)
[2018-09-30] MEDS: PROTONIX PO SCH (21:31)
[2018-09-30] MEDS: TOPROL XL PO SCH (21:33)
[2018-10-01] MEDS: DILAUDID IV PRN ×5 (05:08→21:37)
[2018-10-01] MEDS: VITAMIN D3 PO SCH (09:22)
[2018-10-01] MEDS: PROTONIX PO SCH ×2 (09:23→21:39)
[2018-10-01] MEDS: DELTASONE PO SCH (09:23)
[2018-10-01] MEDS: VITAMIN C PO SCH (09:23)
[2018-10-01] MEDS: CALCIUM CARBONATE PO SCH (09:23)
[2018-10-01] MEDS: TOPROL XL PO SCH ×2 (09:23→21:39)
[2018-10-01] MEDS: FERGON PO SCH (09:24)
[2018-10-01] MEDS: PROTONIX IV SCH (09:29)
[2018-10-01] MEDS ORDERED: COUMADIN PO SCH (10:00)
[2018-10-01] MEDS ORDERED: NON-FORMULARY (Calcium Carbonate [Calcium 600mg Tab] 600 MG) PO SCH (10:00)
[2018-10-01 10:16] LABS: INR 1.85 (0.87-1.13)
[2018-10-01] MEDS: COLCHICINE PO SCH (13:08)
--- NOTE | 2018-10-01 14:54 | Progress Note ---
Assessment and Plan GI bleed/hematemesis? - Likely due to supratherapeutic INR - Status post vitamin K IV 1 time dose - Symptom now resolved - No plan for EGD by GI - tolerating diet H/o PUD in 2012, cont PPI Epigastric pain, resolved, CT abdomen/pelvis negative H/o gastroparesis, tolerating food H/o esophageal resection 2/2 diverticulum Acute b/l leg/ankle swelling, negative venous doppler and minimally elevated uric acid level - will order ankle xry and arterial doppler h/o SLE, cont prednisone History of DVT, PE s/p IVC filter, supratherapeutic INR on admission, now subtherapeutic - resume coumadin h/o Functional quadriplegia: Patient is wheelchair bound DVT Px, resume coumadin Hospitalist physical; Gen: WDWN, NAD, Awake, Alert, Orientated x 3 HEENT: NCAT, EOMI, PERRL, OP Clear Neck: supple, no adenopathy, no thyromegaly, no JVD CVS/Heart: RRR, normal S1S2, pulses present bilaterally Chest/Lungs: CTA B, Symmetrical chest expansion, good air entry bilaterally GI/Abdomen: soft, guarding RLL, good bowel sounds, nondistended Extermity/Skin: no c/c/e, no obvious rash MSK: does not move LE, b/l ankle tenderness on minimal palpation Neuro: does not move LE Psych: calm Subjective Date of service: 10/01/18 Principal diagnosis: n/v, CGE Interval history: Patient seen and examined. Medical records and medication list reviewed. No acute event overnight noted by the RN. Patient denies any chest pain or difficulty breathing. Patient is tolerating diet. continue to Complaints of bilateral ankle swelling and pain Discussed plan of care at bedside with patient. She states that she is from [place] and she has no way to go back there till someone comes and pick her up Objective - Constitutional Vitals: Vital Signs - 12hr 10/01/18 10/01/18 10/01/18 05:08 05:15 05:38 Temperature 98.2 F Pulse Rate 92 H Respiratory 18 20 18 Rate Blood Pressure 132/75 O2 Sat by Pulse 79 L Oximetry 10/01/18 10/01/18 08:05 11:26 Temperature 98.6 F 98.1 F Pulse Rate 88 79 Respiratory 18 18 Rate Blood Pressure 121/73 122/90 O2 Sat by Pulse 100 98 Oximetry - Labs CBC & Chem 7: 09/30/18 13:15 09/30/18 13:15 Labs: Abnormal lab results 09/30/18 09/30/18 10/01/18 Range/Units 13:15 Unknown 09:51 PT 20.9 H (12.2-14.9) Sec. INR 1.85 H (0.87-1.13) Carbon Dioxide 19 L (22-30) mmol/L BUN 4 L (7-17) mg/dL Creatinine 0.2 L D (0.7-1.2) mg/dL Uric Acid 7.8 H (3.5-7.6) mg/dL Calcium 8.2 L (8.4-10.2) mg/dL
--- NOTE | 2018-10-01 16:36 | XRay Report ---
Right ankle 2 views 1609 INDICATION: Right ankle pain No fractures or dislocations are seen. Prominent subtalar arthritic changes are noted. Mild ankle deg enerative changes are seen. Signer Name: Yash Pacheco MD Signed: 10/01/2018 4:31 PM Workstation Name: [id number]
--- NOTE | 2018-10-01 17:16 | Vascular Lab Report ---
Bilateral duplex arterial Doppler examination of the lower extremities with spectral analysis INDICATION: Bilateral lower extremity pain for several months, history of DVT, on anticoagulant thera py, 6 weeks status post back surgery Flow is seen throughout the arterial systems of both lower extremities to the dorsalis pedis arteries . No significant focal velocity elevation is seen to suggest a hemodynamically significant segmental stenosis. ABIs were not obtained. IMPRESSION: No significant lesions are seen. Signer Name: Yash Pacheco MD Signed: 10/01/2018 5:12 PM Workstation Name: [id number]
[2018-10-01] MEDS: COUMADIN PO SCH (17:26)
[2018-10-01] MEDS: ROCEPHIN/NS 1 GM/50 ML 1 GM/50 ML BAG IV SCH (17:28)
[2018-10-02] MEDS: DILAUDID IV PRN ×3 (01:36→10:24)
[2018-10-02] MEDS: ROCEPHIN/NS 1 GM/50 ML 1 GM/50 ML BAG IV SCH (04:47)
[2018-10-02 04:51] VITALS: BP 121/57
[2018-10-02] MEDS: PROTONIX PO SCH (10:23)
[2018-10-02] MEDS: COLCHICINE PO SCH (10:23)
[2018-10-02] MEDS: VITAMIN C PO SCH (10:23)
[2018-10-02] MEDS: TOPROL XL PO SCH (10:23)
[2018-10-02] MEDS: VITAMIN D3 PO SCH (10:23)
[2018-10-02] MEDS: DELTASONE PO SCH (10:24)
--- NOTE | 2018-10-02 12:45 | Discharge Summary ---
Providers - Providers Date of Admission: 09/29/18 00:57 Date of discharge: 10/02/18 Attending physician: OFE VILCHIS 09/29/18 06:00 Consult to Physician [CONS] Routine Comment: Dr. Markham spoke with Dr. Branham @ 0027 Consulting Provider: LAILA MARIE Physician Instructions: Reason For Exam: HEMATEMESIS Primary care physician: [facility], Hospitalization Condition: Critical Hospital course: Patient is a 57 yo woman from [place] with a history SLE with hypercoaguable state with PE/DVT s/p IVC filter on coumadin, functional quadriplegia? wheelchair bound, esophageal diverticulum s/p resection, who presented to [facility] ED with c/o hematemesis and elevated INR. She received vit k and seen bt GI. Her INR stabilized and no further hematamesis noted. Then she c/o b/l ankle swelling and pain. Venous doppler/arterial doppler and xers were normal findings. Looking back at Ms. Gomez's records, it appears she is Homeless and doesn't walk, has Wheelchair. It appears she may live [place] the [employer] [place]. After asking for more details, she gets defensive. All of her testing have been negative. She claims that her son lives in the [place] and [facility] [place] where she lives too and came to visit her daughter who is sick and [place]. She provided similar stories during last admissions and evaentually gets discharged w/o placement everytime as she doesnot want to give her finance info. Patient was also discharged with wheelchair in stable condition this time, she refused [facility] or further placement as she doesnot want to give up her SSI/disability check. Discharge diagnosis: GI bleed/hematemesis? - Likely due to supratherapeutic INR - Status post vitamin K IV 1 time dose - Symptom now resolved - No plan for EGD by GI - tolerating diet H/o PUD in 2012, cont PPI Epigastric pain, resolved, CT abdomen/pelvis negative H/o gastroparesis, tolerating food H/o esophageal resection 2/2 diverticulum Acute b/l leg/ankle swelling, negative venous doppler and minimally elevated uric acid level - will order ankle xry and arterial doppler h/o SLE, cont prednisone History of DVT, PE s/p IVC filter, supratherapeutic INR on admission, now subtherapeutic - resume coumadin h/o Functional quadriplegia ?: Patient is wheelchair bound DVT Px, resumed coumadin Hospitalist physical; Gen: WDWN, NAD, Awake, Alert, Orientated x 3 HEENT: NCAT, EOMI, PERRL, OP Clear Neck: supple, no adenopathy, no thyromegaly, no JVD CVS/Heart: RRR, normal S1S2, pulses present bilaterally Chest/Lungs: CTA B, Symmetrical chest expansion, good air entry bilaterally GI/Abdomen: soft, guarding RLL, good bowel sounds, nondistended Extermity/Skin: no c/c/e, no obvious rash MSK: does not move LE, b/l ankle tenderness on minimal palpation Neuro: does not move LE Psych: calm Disposition: DC-01 TO HOME OR SELFCARE Time spent for discharge: 34 minutes Core Measure Documentation - Palliative Care Palliative Care/ Comfort Measures: Not Applicable - Core Measures Any of the following diagnoses?: none Exam - Constitutional Vitals: Temp Pulse Resp BP Pulse Ox 98.2 F 67 18 121/57 100 10/02/18 03:40 10/02/18 03:40 10/02/18 05:51 10/02/18 03:40 10/02/18 03:40 Plan Activity: other (on wheel chair) Weight Bearing Status: Non-Weight Bearing Diet: low fat, low salt Follow up with: NATHANAEL BRITO MD [Primary Care Provider] - 3-5 Days Forms: Warfarin Discharge Instruction, Discharge Signature Page Prescriptions: cephALEXin [Keflex] 500 mg PO Q12HR #14 cap
[2018-10-02] MEDS: CALCIUM CARBONATE PO SCH (14:05)
[2018-10-02] MEDS: FERGON PO SCH (14:05)
== END 2018-10-02 16:15 | disposition home or self-care (01) | DRG 377 ==
LOC: ED 19:42 → 4A 09-29 00:57
PROVIDERS: ADMIT Internal Medicine; ATTEND Internal Medicine
DX: K92.0 Hematemesis (principal); R53.2 Functional quadriplegia; K31.84 Gastroparesis; E87.5 Hyperkalemia; M32.9 Systemic lupus erythematosus, unspecified; I10 Essential (primary) hypertension; R79.1 Abnormal coagulation profile; Z86.73 Personal history of transient ischemic attack (TIA), and cerebral infarction without residual deficits; Z86.718 Personal history of other venous thrombosis and embolism; Z86.711 Personal history of pulmonary embolism; Z88.6 Allergy status to analgesic agent; Z88.1 Allergy status to other antibiotic agents; Z88.5 Allergy status to narcotic agent; Z88.8 Allergy status to other drugs, medicaments and biological substances; Z91.041 Radiographic dye allergy status; Z90.49 Acquired absence of other specified parts of digestive tract; Z99.3 Dependence on wheelchair
CPT/HCPCS: 36415; 74176; 80048; 80053; 81001; 82962; 84550; 85014; 85018; 85025; 85027; 85610; 85730; 87040; 87116; 93925; 93970; 96372; 96374; 96375; 99291; G0378; A9270-GY; C9113; J0696; J1170; J1815; J2405; J3430; J7030; J7512

== ENCOUNTER 2019-10-06 15:03 | Observation (INO) | payer OTHER ==
--- NOTE | 2019-10-06 16:48 | Emergency Department Report ---
ED Neuro Deficit HPI - General Chief Complaint: Neuro Symptoms/Deficit Stated Complaint: LUPUS CRISIS Time Seen by Provider: 10/06/19 16:36 Source: patient, RN notes reviewed, old records reviewed Mode of arrival: Wheelchair Limitations: Physical Limitation - History of Present Illness Initial Comments: The patient is a 59-year-old female. Her past medical history includes lupus anticoagulant, diabetes mellitus, stroke, history of DVT, previously on Coumadin therapy, admitted to this hospital June 2019 for acute lower extremity arterial insufficiency in the left lower extremity, status post left lower extremity revascularization, at that time, initiated on heparin, and then restarted on Coumadin. The patient recently discontinued her Coumadin secondary to "being on an antibiotic for pneumonia." The patient states that she lives in a small town in [place], and she was treated there for the aforementioned pneumonia. The patient presents to the ER today with a complaint of right upper and right lower extremity weakness, which she believes started at 12:00 PM today. She describes history of stroke with residual left-sided deficits. The patient was called as a code stroke in the waiting room. She was found to not be a TPA candidate secondary to presentation after onset of symptoms, and concomitant use of Coumadin within the past 24 hours, with INR greater than 1.7. She was seen by stroke neurology, Dr. Smith, who also advised that the patient was not a TPA candidate, but recommended admission for stroke work-up, an emergency CT angiogram head and neck to evaluate for potential large vessel occlusion. Patient presented after hours, therefore, MRI capability not available. The patient did initially reports intolerance to IV contrast, but further indicated that she could tolerate contrast with premedication. Risks, benefits, alternatives of delaying acquisition of CT angiogram for administration of premedication were discussed with the patient's, including the risk of devastating stroke, large vessel occlusion, , disability, paralysis, versus emergent acquisition of CT angiogram with premedication, with the potential consequence of anaphylaxis/anaphylactoid reaction. Patient provided emergency v erbal informed consent for CT angiogram with IV contrast to evaluate for large vessel occlusion; this conversation is witnessed by nurse Mandi Lovett In addition, the patient states that she is a very difficult IV stick, and that she is supposed to have a port placed, but secondary to the current COVID pandemic, she was not able to get the port placed. She reports that she has clots in her bilateral internal jugular veins, and therefore, cannot have central lines there. Patient provided verbal written informed consent for sterile central line placement. A left-sided femoral central line was placed by myself using ultrasound guidance and maximum sterile technique and barrier precautions. The patient tolerated this procedure adequately. Laboratory studies pending, CT angiogram head and neck have been acquired, we are waiting for the results of the scan. The patient also complains of spasms, and chronic back pain. -: Sudden, hour(s) Location: right arm, right leg Presenting Symptoms: Present: Weak/Paralyzed One Side History of same: Yes Place: home Severity: moderate Quality: weak Improves With: none Worsens With: none On Anticoagulants: Yes - Related Data Home Medications: Home Medications Medication Instructions Recorded Confirmed Last Taken Metoprolol Xl [Metoprolol 50 mg PO BID 02/26/18 06/23/19 02/24/18 SUCCINATE ER TAB] Calcium Carbonate [Calcium 600MG 600 mg PO DAILY 09/29/18 06/23/19 Unknown TAB] Cholecalciferol Vit D3 [Vitamin D3 1,000 unit PO QDAY 09/29/18 06/23/19 Unknown 1,000 UNIT TAB] Warfarin [Coumadin] 5 mg PO QDAY 09/29/18 06/23/19 Unknown Previous Rx's Medication Instructions Recorded Last Taken Type Ascorbic Acid [Vitamin C] 500 mg PO QDAY #30 tablet 12/23/17 02/25/18 Rx AtorvaSTATin 10 mg PO QPM #30 tablet 12/23/17 02/24/18 Rx Ferrous Gluconate [Fergon 325 MG 325 mg PO QDAY #30 tablet 12/23/17 02/25/18 Rx tab] Pantoprazole [Protonix TAB] 40 mg PO BID #60 tablet 12/23/17 02/25/18 Rx predniSONE [Deltasone] 10 mg PO QDAY #30 tablet 12/23/17 02/25/18 08:00 Rx Allergies/Adverse Reactions: Allergies Allergy/AdvReac Type Severity Reaction Status Date / Time acetaminophen [From Tylenol] Allergy Hives Verified 06/27/18 16:14 ciprofloxacin [From Cipro] Allergy Hives Verified 06/27/18 16:14 ciprofloxacin HCl Allergy Hives Verified 06/27/18 16:14 [From Cipro] dicyclomine [From Bentyl] Allergy Hives Verified 06/22/19 11:43 dicyclomine HCl [From Bentyl] Allergy Hives Verified 06/27/18 16:14 gabapentin Allergy Hives Verified 06/22/19 11:42 hydrocodone Allergy Hives Verified 06/27/18 16:14 Iodinated Contrast Media Allergy Hives Verified 06/27/18 16:14 [Iodinated Contrast Media - IV Dye] levofloxacin [From Levaquin] Allergy Hives Verified 06/22/19 11:42 meperidine HCl [From Demerol] Allergy Hives Verified 06/27/18 16:14 morphine Allergy Hives Verified 06/27/18 16:14 NSAIDS (Non-Steroidal Allergy Hives Verified 06/27/18 16:14 Anti-Inflamma oxycodone [From OxyContin] Allergy Hives Verified 06/22/19 11:52 oxycodone HCl Allergy Hives Verified 06/27/18 16:14 [From OxyContin] pregabalin [From Lyrica] Allergy Hives Verified 06/22/19 11:43 tramadol Allergy Hives Verified 06/27/18 16:14 fentanyl AdvReac Diarrhea Verified 06/22/19 11:42 ED Review of Systems ROS: Stated complaint: LUPUS CRISIS Other details as noted in HPI Constitutional: denies: fever Eyes: denies: eye discharge Respiratory: denies: cough Cardiovascular: denies: chest pain Gastrointestinal: denies: abdominal pain Musculoskeletal: back pain Neurological: weakness Hematological/Lymphatic: denies: easy bleeding ED Past Medical Hx - Past Medical History Previous Medical History?: Yes Hx Hypertension: Yes Hx CVA: Yes Hx Heart Attack/AMI: No Hx Congestive Heart Failure: No Hx Diabetes: Yes Hx Deep Vein Thrombosis: Yes (Bilateral) Hx Pulmonary Embolism: Yes Hx Liver Disease: No Hx Renal Disease: No Hx Arthritis: Yes (RA) Hx Asthma: No Hx COPD: No Hx HIV: No Additional medical history: SLE. MYOSITIS. PERIPHERAL EOSINOPHILIA. GI BLEED. "CLOTTING DISORDER" - Surgical History Past Surgical History?: Yes Additional Surgical History: IVC FILTER RIGHT GROIN. ULCER CLIPPED AND CLAMPED. RIGHT AND LEFT KNEE SURGERIES. Esophageal surgery to remove growth - Social History Smoking Status: Never Smoker - Medications Home Medications: Home Medications Medication Instructions Recorded Confirmed Last Taken Type Ascorbic Acid [Vitamin C] 500 mg PO QDAY #30 tablet 10/07/0706/23/19 02/25/18 Rx AtorvaSTATin 10 mg PO QPM #30 tablet 12/23/17 06/23/19 02/24/18 Rx Ferrous Gluconate [Fergon 325 MG 325 mg PO QDAY #30 tablet 12/23/17 06/23/19 02/25/18 Rx tab] Pantoprazole [Protonix TAB] 40 mg PO BID #60 tablet 12/23/17 06/23/19 02/25/18 Rx predniSONE [Deltasone] 10 mg PO QDAY #30 tablet 12/23/17 06/23/19 02/25/18 08:00 Rx Metoprolol Xl [Metoprolol 50 mg PO BID 02/26/18 06/23/19 02/24/18 History SUCCINATE ER TAB] Calcium Carbonate [Calcium 600MG 600 mg PO DAILY 09/29/18 06/23/19 Unknown History TAB] Cholecalciferol Vit D3 [Vitamin D3 1,000 unit PO QDAY 09/29/18 06/23/19 Unknown History 1,000 UNIT TAB] Warfarin [Coumadin] 5 mg PO QDAY 09/29/18 06/23/19 Unknown History ED Neuro Physical Exam - General Limitations: Physical Limitation General appearance: alert, in no apparent distress Suspected Stroke: Yes - Head Head exam: Present: atraumatic, normocephalic - Eye Eye exam: Present: normal appearance, EOMI. Absent: nystagmus - ENT ENT exam: Present: normal exam, normal orophraynx, mucous membranes moist, normal external ear exam - Neck Neck exam: Present: normal inspection, full ROM. Absent: tenderness, meningismus - Respiratory Respiratory exam: Present: normal lung sounds bilaterally. Absent: respiratory distress - Cardiovascular Cardiovascular Exam: Present: normal rhythm, tachycardia, normal heart sounds. Absent: bradycardia, systolic murmur, diastolic murmur, rubs, gallop - GI/Abdominal GI/Abdominal exam: Present: soft. Absent: distended, tenderness, guarding, rebound, rigid, pulsatile mass - Extremities Exam Extremities exam: Present: normal inspection, pedal edema, other (2+ pulses noted in the bilateral upper and lower extremities. There is no palpable cord. negative Homans sign. Muscular compartments are soft. The pelvis is stable.). Absent: calf tenderness - Back Exam Back exam: Present: normal inspection, paraspinal tenderness. Absent: tenderness, CVA tenderness (R), CVA tenderness (L), vertebral tenderness - Neurological Exam Neurological exam: Present: alert, oriented X3, other (There is no facial droop. The tongue is midline. The extraocular movements are intact bilaterally. Speaking in complete sentences. Hearing is intact.) - NIHSS Assessment Interval: Baseline 1a. Level of Consciousness: alert/keenly responsive 1b. LOC Questions: answers both correctly 1c. LOC Commands: performs tasks correctly 2. Best Gaze: normal 3. Visual: no visual loss 4. Facial Palsy: normal symmetrical movement 5b. Motor Arm Right: some gravity effort 5a. Motor Arm Left: some gravity effort 6a. Motor Leg Left: some gravity effort 6b. Motor Leg Right: some gravity effort 7. Limb Ataxia: amputation (Unable to test) 8. Sensory: mild/moderate sensory loss 9. Best Language: no aphasia 10. Dysarthria: normal 11. Extinction/Inattention: no abnormality Total Score: 9 Stroke Severity: Moderate Stroke - Psychiatric Psychiatric exam: Present: flat affect - Skin Skin exam: Present: warm, dry, intact, normal color. Absent: rash ED Course Vital Signs 10/06/19 10/06/19 10/06/19 16:17 17:31 17:45 Temperature 98.4 F Pulse Rate 115 H 72 78 Respiratory 20 15 16 Rate Blood Pressure 116/64 Blood Pressure 113/84 [Left] O2 Sat by Pulse 97 Oximetry 10/06/19 10/06/19 10/06/19 18:00 18:15 18:19 Temperature 98.5 F Pulse Rate 86 79 Respiratory 15 14 Rate Blood Pressure 116/68 107/62 Blood Pressure [Left] O2 Sat by Pulse 97 Oximetry 10/06/19 10/06/19 10/06/19 18:30 18:45 19:00 Temperature Pulse Rate 71 79 69 Respiratory 17 13 14 Rate Blood Pressure 127/62 128/61 130/55 Blood Pressure [Left] O2 Sat by Pulse Oximetry - Reevaluation(s) Reevaluation #1: 10/06/19 20:25 Differential diagnosis, including but not limited to: Subacute stroke, chronic stroke, Venkatesh's paralysis, pneumonia, urinary tract infection, chronic back pain, debility, hypercoagulable state, secondary gain Assessment and plan: 59-year-old female with numerous vascular risk factors, who endorses a right upper and right lower extremity weakness, starting at 12:00 PM . Patient not a TPA candidate given that she presented more than 4.5 hours after symptom onset upon my evaluation and neurology evaluation, and she has taken Coumadin recently, and has an INR of greater than 1.7. An emergency CT angiogram was obtained of the head and neck, to evaluate for large vessel occlusion. We will treat the patient's pain supportively, symptomatically and compassionately. We will reassess after CT angiogram head and neck has resolved 10/06/19 20:26 Reevaluation #2: 10/06/19 21:07 CT angiogram head neck negative for large vessel occlusion. Contacted hospital physician, Dr. Rk Asher, who will admit the patient to the medical service. - Central Line Placement Left Femoral Consent Obtained: verbal consent, written consent, emergent situation Time Out Performed: Yes Patient Placed on Monitor/Pulse Ox: Yes MD Prep: mask, gown, gloves Central Line Prep: Povidone-Iodine 1%, Chlorhexidine scrub Local Anesthesia Used: Lidocaine 1%, with Epi Amount of Anesthesia Used (mls): 10 Ultrasound Used for Placement: Yes Central Line Lumen Inserted: triple Bloods Obtained for Lab: Yes Central Line Position: good blood return, all ports aspirated, flus, sutured in place with 2-0 Dressing Applied: Tegaderm Patient Tolerated Procedure: well Complications: none Additional Comments: Using ultrasound at the bedside, I evaluated the patient's bilateral internal jugular system, right internal jugular vein has obvious clot, left internal jugular vein appears to have partial clot, is very small, and poorly visualized. The right femoral vein is then evaluated, it appears to have a small clot. Therefore, left femoral vein was selected for placement of central venous catheter. - Lab Data Result diagrams: 10/06/19 18:15 10/06/19 17:22 Lab Results 10/06/19 10/06/19 10/06/19 Range/Units 17:22 17:22 18:15 WBC 8.0 (4.5-11.0) K/mm3 RBC 3.46 L (3.65-5.03) M/mm3 Hgb 9.7 L (10.1-14.3) gm/dl Hct 30.9 (30.3-42.9) % MCV 89 (79-97) fl MCH 28 (28-32) pg MCHC 31 (30-34) % RDW 19.5 H (13.2-15.2) % Plt Count 236 (140-440) K/mm3 Lymph % (Auto) Basic Acoustic Analyst [place] % (Auto) Basic Acoustic Analyst Eos % (Auto) Basic Acoustic Analyst Baso % (Auto) Basic Acoustic Analyst Lymph # Basic Acoustic Analyst [place] # Basic Acoustic Analyst Eos # Basic Acoustic Analyst Baso # Basic Acoustic Analyst Seg Neutrophils % Basic Acoustic Analyst Seg Neutrophils # Basic Acoustic Analyst PT (12.2-14.9) Sec. INR (0.87-1.13) APTT (24.2-36.6) Sec. Thrombin Time (15.1-19.6) Sec. Sodium 143 (137-145) mmol/L Potassium 4.4 (3.6-5.0) mmol/L Chloride 104.8 (98-107) mmol/L Carbon Dioxide 23 (22-30) mmol/L Anion Gap 20 mmol/L BUN 19 H (7-17) mg/dL Creatinine 0.5 L (0.7-1.2) mg/dL Estimated GFR > 60 ml/min BUN/Creatinine Ratio 38 % Glucose 102 H (65-100) mg/dL Calcium 8.7 (8.4-10.2) mg/dL Magnesium 2.20 (1.7-2.3) mg/dL Total Creatine Kinase 60 (30-135) units/L Troponin T 0.018 (0.00-0.029) ng/mL Urine Color (Yellow) Urine Turbidity (Clear) Urine pH (5.0-7.0) Ur Specific [place] (1.003-1.030) Urine Protein (Negative) mg/dL Urine Glucose (UA) (Negative) mg/dL Urine Ketones (Negative) mg/dL Urine Blood (Negative) Urine Nitrite (Negative) Urine Bilirubin (Negative) Urine Urobilinogen (<2.0) mg/dL Ur Leukocyte Esterase (Negative) Urine WBC (Auto) (0.0-6.0) /HPF Urine RBC (Auto) (0.0-6.0) /HPF U Epithel Cells (Auto) (0-13.0) /HPF Urine Bacteria (Auto) (Negative) /HPF Calcium Oxalate Crystal Urine Mucus /HPF 10/06/19 10/06/19 Range/Units 18:15 19:40 WBC (4.5-11.0) K/mm3 RBC (3.65-5.03) M/mm3 Hgb (10.1-14.3) gm/dl Hct (30.3-42.9) % MCV (79-97) fl MCH (28-32) pg MCHC (30-34) % RDW (13.2-15.2) % Plt Count (140-440) K/mm3 Lymph % (Auto) [place] % (Auto) Eos % (Auto) Baso % (Auto) Lymph # [place] # Eos # Baso # Seg Neutrophils % Seg Neutrophils # PT 20.5 H (12.2-14.9) Sec. INR 1.73 H (0.87-1.13) APTT 23.5 L (24.2-36.6) Sec. Thrombin Time 16.1 (15.1-19.6) Sec. Sodium (137-145) mmol/L Potassium (3.6-5.0) mmol/L Chloride (98-107) mmol/L Carbon Dioxide (22-30) mmol/L Anion Gap mmol/L BUN (7-17) mg/dL Creatinine (0.7-1.2) mg/dL Estimated GFR ml/min BUN/Creatinine Ratio % Glucose (65-100) mg/dL Calcium (8.4-10.2) mg/dL Magnesium (1.7-2.3) mg/dL Total Creatine Kinase (30-135) units/L Troponin T (0.00-0.029) ng/mL Urine Color Yellow (Yellow) Urine Turbidity Slightly-cloudy (Clear) Urine pH 5.0 (5.0-7.0) Ur Specific [place] 1.024 (1.003-1.030) Urine Protein <15 mg/dl (Negative) mg/dL Urine Glucose (UA) Neg (Negative) mg/dL Urine Ketones Neg (Negative) mg/dL Urine Blood Lg (Negative) Urine Nitrite Neg (Negative) Urine Bilirubin Neg (Negative) Urine Urobilinogen < 2.0 (<2.0) mg/dL Ur Leukocyte Esterase Neg (Negative) Urine WBC (Auto) 2.0 (0.0-6.0) /HPF Urine RBC (Auto) 10.0 (0.0-6.0) /HPF U Epithel Cells (Auto) 1.0 (0-13.0) /HPF Urine Bacteria (Auto) 1+ (Negative) /HPF Calcium Oxalate Crystal 1+ Urine Mucus Few /HPF Vital Signs - 24 hr 10/06/19 10/06/19 10/06/19 16:17 17:31 17:45 Temperature 98.4 F Pulse Rate 115 H 72 78 Respiratory 20 15 16 Rate Blood Pressure 116/64 Blood Pressure 113/84 [Left] O2 Sat by Pulse 97 Oximetry 10/06/19 10/06/19 10/06/19 18:00 18:15 18:19 Temperature 98.5 F Pulse Rate 86 79 Respiratory 15 14 Rate Blood Pressure 116/68 107/62 Blood Pressure [Left] O2 Sat by Pulse 97 Oximetry 10/06/19 10/06/19 10/06/19 18:30 18:45 19:00 Temperature Pulse Rate 71 79 69 Respiratory 17 13 14 Rate Blood Pressure 127/62 128/61 130/55 Blood Pressure [Left] O2 Sat by Pulse Oximetry - EKG Data -: EKG Interpreted by Mn EKG shows normal: sinus rhythm Rate: normal 10/06/19 20:19 Sinus rhythm, 66 bpm, normal axis, normal intervals, poor R wave progression, atrial enlargement, borderline left ventricular hypertrophy, abnormal EKG, not a STEMI - Radiology Data Radiology results: report reviewed, image reviewed CT head/brain wo con INDICATION / CLINICAL INFORMATION: 59 years Female; neuro deficits <6hrs or sx present upon awakening. TECHNIQUE: Routine CT head without contrast. All CT scans at this location are performed using CT dose reduction for ALARA by means of automated exposure control. COMPARISON: None. FINDINGS: BRAIN / INTRACRANIAL CONTENTS: There is calcification within the basal ganglia bilaterally. There otherwise appears to be mild cerebral white matter disease most consistent with microvascular angiopathy. There is mild cerebral atrophy. The ventricular system is correspondingly appropriate in size and configuration. There is no CT evidence of acute intracranial hemorrhage or significant mass effect. ORBITS: No significant abnormality of visualized orbits. SINUSES / MASTOIDS: No significant abnormality in the visualized paranasal sinuses or mastoid air cells. CRANIOCERVICAL JUNCTION: No significant abnormality. ADDITIONAL FINDINGS: None. IMPRESSION: 1. There is mild microvascular angiopathy and cerebral atrophy without CT evidence of acute intracranial hemorrhage. The study was specified as code stroke and called emergently to Dr. broderickoracic the ER at 3:58 PM Central standard time. Signer Name: Garry Hilario MD Signed: 10/06/2019 4:00 PM Workstation Name: [id number] Print Report Referring Physician: GARRY DAMON Patient Name: JERICA STERN Date of : 1960 Sex: Female Report Date: 2019-10-06 Report Status: Finalized Findings [facility] [address] [place] [address] XRay Report Signed Patient: JERICA STERN MR#: [id number] : 1960 Acct:[id number] Age/Sex: 59 / F ADM Date: 10/06/19 Loc: ED Attending Dr: Ordering Physician: GARRY DAMON MD Date of Service: 10/06/19 Procedure(s): XR chest 1V ap Accession Number(s): [id number] cc: GARRY DAMON MD Fluoro Time In Minutes: CHEST 1 VIEW INDICATION: MAIN COMPARISON: 06/27/2018 FINDINGS: Support devices: None Heart: Normal heart size. Large hiatal hernia. Lungs/Pleura: Postop change on the left. No acute disease. IMPRESSION: 1. Postop change with large hiatal hernia. No acute disease and no interval change. Signer Name: Ron Lorenz MD Signed: 10/06/2019 7:28 PM Workstation Name: [id number] Transcribed By: TM Dictated By: Ron Lorenz MD Electronically Authenticated By: Ron Lorenz MD Signed Date/Time: 10/06/191927 DD/ 26 - Core Measures Measure Exclusions: not indicated - Thrombolytic Inclusion/Exclusion Thrombolytic Exclusion Criteria: Symptom Onset > 3 Hours Thrombolytic Contraindications: INR > 1.7 seconds Critical care attestation.: If time is entered above; I have spent that time in minutes in the direct care of this critically ill patient, excluding procedure time. ED Disposition Clinical Impression: Stroke, SLE (systemic lupus erythematosus), On continuous oral anticoagulation Disposition: OP ADMIT IP TO THIS HOSP Is pt being admited?: Yes Does the pt Need Aspirin: Yes Condition: Stable
--- NOTE | 2019-10-06 17:04 | Cat Scan Report ---
CT head/brain wo con INDICATION / CLINICAL INFORMATION: 59 years Female; neuro deficits <6hrs or sx present upon awakening. TECHNIQUE: Routine CT head without contrast. All CT scans at this location are performed using CT dos e reduction for ALARA by means of automated exposure control. COMPARISON: None. FINDINGS: BRAIN / INTRACRANIAL CONTENTS: There is calcification within the basal ganglia bilaterally. There oth erwise appears to be mild cerebral white matter disease most consistent with microvascular angiopathy . There is mild cerebral atrophy. The ventricular system is correspondingly appropriate in size and c onfiguration. There is no CT evidence of acute intracranial hemorrhage or significant mass effect. ORBITS: No significant abnormality of visualized orbits. SINUSES / MASTOIDS: No significant abnormality in the visualized paranasal sinuses or mastoid air barbara ls. CRANIOCERVICAL JUNCTION: No significant abnormality. ADDITIONAL FINDINGS: None. IMPRESSION: 1. There is mild microvascular angiopathy and cerebral atrophy without CT evidence of acute intracran ial hemorrhage. The study was specified as code stroke and called emergently to Dr. broderickoracic the ER at 3:58 PM Central standard time. Signer Name: Garry Hilario MD Signed: 10/06/2019 5:00 PM Workstation Name: [id number]
--- NOTE | 2019-10-06 17:20 | Emergency Department Report ---
ED Neuro Deficit HPI - General Chief Complaint: Neuro Symptoms/Deficit Stated Complaint: LUPUS CRISIS Time Seen by Provider: 10/06/19 16:36 Source: patient, RN notes reviewed, old records reviewed Mode of arrival: Wheelchair Limitations: No Limitations - History of Present Illness Initial Comments: [facility] Date of Service: 10/06/2019 16:48:42 Impression: Rule Out Acute Ischemic Stroke Comments/Sign-Out: 59 year old female with a history of antiphospholipid ab syndrome on Coumadin wh o presents with right side weakness. presentation may be due to acute stroke. Mechanism of Stroke: Possible Thromboembolic Metrics: Last Known Well: 10/06/2019 12:00:00 [facility] Notification Time: 10/06/2019 16:48:14 Arrival Time: 10/06/2019 15:03:00 Stamp Time: 10/06/2019 16:48:42 Time First Login Attempt: 10/06/2019 16:56:00 Video Start Time: 10/06/2019 16:56:00 Symptoms: Right side weakness NIHSS Start Assessment Time: 10/06/2019 17:00:00 Patient is not a candidate for tPA. Patient was not deemed candidate for tPA thrombolytics because of Last Well Known Above 4.5 Hours. Video End Time: 10/06/2019 17:12:15 CT head showed no acute hemorrhage or acute core infarct. Lower Likelihood of Large Vessel Occlusion but Following Stat Studies are Recommended CTA Head and Neck. Reviewed, No Indication of Large Vessel Occlusive Thrombus, Patient is not an MARTHA Candidate. ED Physician notified of diagnostic impression and management plan on 10/06/2019 17:12:29 Our recommendations are outlined below. Recommendations: Activate Stroke Protocol Admission/Order Set Stroke/Telemetry Floor Neuro Checks Bedside Swallow Eval DVT Prophylaxis IV Fluids, Normal Saline Head of Bed 30 Degrees Euglycemia and Avoid Hyperthermia (PRN Acetaminophen) Antiplatelet Therapy Recommended Routine Consultation with Inhouse Neurology for Follow up Care Sign Out: Discussed with Emergency Department Provider History of Present Illness: Patient is a 59 year old Female. 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 Patient states she recently had pneumonia and her INR for her coumadin was subtherapeutic a few days ago. Examination: 1A: Level of Consciousness - Alert; keenly responsive + 0 1B: Ask Month and Age - Both Questions Right + 0 1C: Blink Eyes & Squeeze Hands - Performs Both Tasks + 0 2: Test Horizontal Extraocular Movements - Normal + 0 3: Test Visual Camacho - No Visual Loss + 0 4: Test Facial Palsy (Use Grimace if Obtunded) - Normal symmetry + 0 5A: Test Left Arm Motor Drift - Some Effort Against [place] + 2 5B: Test Right Arm Motor Drift - No Effort Against [place] + 3 6A: Test Left Leg Motor Drift - Some Effort Against [place] + 2 6B: Test Right Leg Motor Drift - No Effort Against [place] + 3 7: Test Limb Ataxia (FNF/Heel-[place]) - No Ataxia + 0 8: Test Sensation - Mild-Moderate Loss: Less Sharp/More Dull + 1 9: Test Language/Aphasia - Normal; No aphasia + 0 10: Test Dysarthria - Normal + 0 11: Test Extinction/Inattention - No abnormality + 0 NIHSS Score: 11 Due to the immediate potential for life-threatening deterioration due to underlying acute neurologic illness, I spent 35 minutes providing critical care. This time includes time for face to face visit via telemedicine, review of medical records, imaging studies and discussion of findings with providers, the patient and/or family. Dr Mara Smith [facility] Case [id number] - Related Data Home Medications: Home Medications Medication Instructions Recorded Confirmed Last Taken Metoprolol Xl [Metoprolol 50 mg PO BID 02/26/18 06/23/19 02/24/18 SUCCINATE ER TAB] Calcium Carbonate [Calcium 600MG 600 mg PO DAILY 09/29/18 06/23/19 Unknown TAB] Cholecalciferol Vit D3 [Vitamin D3 1,000 unit PO QDAY 09/29/18 06/23/19 Unknown 1,000 UNIT TAB] Warfarin [Coumadin] 5 mg PO QDAY 09/29/18 06/23/19 Unknown Previous Rx's Medication Instructions Recorded Last Taken Type Ascorbic Acid [Vitamin C] 500 mg PO QDAY #30 tablet 12/23/17 02/25/18 Rx AtorvaSTATin 10 mg PO QPM #30 tablet 12/23/17 02/24/18 Rx Ferrous Gluconate [Fergon 325 MG 325 mg PO QDAY #30 tablet 12/23/17 02/25/18 Rx tab] Pantoprazole [Protonix TAB] 40 mg PO BID #60 tablet 12/23/17 02/25/18 Rx predniSONE [Deltasone] 10 mg PO QDAY #30 tablet 12/23/17 02/25/18 08:00 Rx Allergies/Adverse Reactions: Allergies Allergy/AdvReac Type Severity Reaction Status Date / Time acetaminophen [From Tylenol] Allergy Hives Verified 06/27/18 16:14 ciprofloxacin [From Cipro] Allergy Hives Verified 06/27/18 16:14 ciprofloxacin HCl Allergy Hives Verified 06/27/18 16:14 [From Cipro] dicyclomine [From Bentyl] Allergy Hives Verified 06/22/19 11:43 dicyclomine HCl [From Bentyl] Allergy Hives Verified 06/27/18 16:14 gabapentin Allergy Hives Verified 06/22/19 11:42 hydrocodone Allergy Hives Verified 06/27/18 16:14 Iodinated Contrast Media Allergy Hives Verified 06/27/18 16:14 [Iodinated Contrast Media - IV Dye] levofloxacin [From Levaquin] Allergy Hives Verified 06/22/19 11:42 meperidine HCl [From Demerol] Allergy Hives Verified 06/27/18 16:14 morphine Allergy Hives Verified 06/27/18 16:14 NSAIDS (Non-Steroidal Allergy Hives Verified 06/27/18 16:14 Anti-Inflamma oxycodone [From OxyContin] Allergy Hives Verified 06/22/19 11:52 oxycodone HCl Allergy Hives Verified 06/27/18 16:14 [From OxyContin] pregabalin [From Lyrica] Allergy Hives Verified 06/22/19 11:43 tramadol Allergy Hives Verified 06/27/18 16:14 fentanyl AdvReac Diarrhea Verified 06/22/19 11:42 ED Review of Systems ROS: Stated complaint: LUPUS CRISIS Other details as noted in HPI ED Past Medical Hx - Past Medical History Previous Medical History?: Yes Hx Hypertension: Yes Hx CVA: Yes Hx Heart Attack/AMI: No Hx Congestive Heart Failure: No Hx Diabetes: Yes Hx Deep Vein Thrombosis: Yes (Bilateral) Hx Pulmonary Embolism: Yes Hx Liver Disease: No Hx Renal Disease: No Hx Arthritis: Yes (RA) Hx Asthma: No Hx COPD: No Hx HIV: No Additional medical history: SLE. MYOSITIS. PERIPHERAL EOSINOPHILIA. GI BLEED. "CLOTTING DISORDER" - Surgical History Past Surgical History?: Yes Additional Surgical History: IVC FILTER RIGHT GROIN. ULCER CLIPPED AND CLAMPED. RIGHT AND LEFT KNEE SURGERIES. Esophageal surgery to remove growth - Social History Smoking Status: Never Smoker - Medications Home Medications: Home Medications Medication Instructions Recorded Confirmed Last Taken Type Ascorbic Acid [Vitamin C] 500 mg PO QDAY #30 tablet 12/23/17 06/23/19 02/25/18 Rx AtorvaSTATin 10 mg PO QPM #30 tablet 12/23/17 06/23/19 02/24/18 Rx Ferrous Gluconate [Fergon 325 MG 325 mg PO QDAY #30 tablet 12/23/17 06/23/19 02/25/18 Rx tab] Pantoprazole [Protonix TAB] 40 mg PO BID #60 tablet 12/23/17 06/23/19 02/25/18 Rx predniSONE [Deltasone] 10 mg PO QDAY #30 tablet 12/23/17 06/23/19 02/25/18 08:00 Rx Metoprolol Xl [Metoprolol 50 mg PO BID 02/26/18 06/23/19 02/24/18 History SUCCINATE ER TAB] Calcium Carbonate [Calcium 600MG 600 mg PO DAILY 09/29/18 06/23/19 Unknown History TAB] Cholecalciferol Vit D3 [Vitamin D3 1,000 unit PO QDAY 09/29/18 06/23/19 Unknown History 1,000 UNIT TAB] Warfarin [Coumadin] 5 mg PO QDAY 09/29/18 06/23/19 Unknown History ED Neuro Physical Exam - General Limitations: No Limitations Suspected Stroke: Yes - NIHSS Assessment Interval: Baseline 1a. Level of Consciousness: alert/keenly responsive 1b. LOC Questions: answers both correctly 1c. LOC Commands: performs tasks correctly 2. Best Gaze: normal 3. Visual: no visual loss 4. Facial Palsy: normal symmetrical movement 5b. Motor Arm Right: no gravity effort 5a. Motor Arm Left: some gravity effort 6a. Motor Leg Left: some gravity effort 6b. Motor Leg Right: no gravity effort 7. Limb Ataxia: absent 8. Sensory: mild/moderate sensory loss 9. Best Language: no aphasia 10. Dysarthria: normal 11. Extinction/Inattention: no abnormality Total Score: 11 Stroke Severity: Moderate Stroke ED Course Vital Signs 10/06/19 16:17 Temperature 98.4 F Pulse Rate 115 H Respiratory 20 Rate Blood Pressure 113/84 [Left] O2 Sat by Pulse 97 Oximetry Critical care attestation.: If time is entered above; I have spent that time in minutes in the direct care of this critically ill patient, excluding procedure time. ED Disposition Clinical Impression: Stroke Disposition: -09 OP ADMIT IP TO THIS HOSP Is pt being admited?: Yes Condition: Stable
[2019-10-06] MEDS ORDERED: LIDOCAINE 1%/EPINEPHRINE 1:100,000 VIAL (20 ML) INFILTRATI ONE ×2 (17:45→17:46)
[2019-10-06 17:46] LABS: BUN/Creatinine Ratio 38; Blood Urea Nitrogen 19 mg/dL (7-17); Calcium 8.7 mg/dL (8.4-10.2); Hemolysis Index 40
[2019-10-06] MEDS ORDERED: HYDROmorphone 1 MG/1 ML INJ ONE ×2 (18:04→23:53)
[2019-10-06] MEDS ORDERED: ONDANSETRON 4 MG ODT TAB ONE (18:06)
[2019-10-06] MEDS ORDERED: ONDANSETRON 4 MG ODT TAB PO ONE (18:06)
[2019-10-06] MEDS ORDERED: HYDROmorphone 1 MG/1 ML INJ IM ONE (18:06)
[2019-10-06] MEDS ORDERED: SODIUM CHLORIDE 0.9% 500 ML 500 ML IV ONE (18:19)
[2019-10-06] MEDS ORDERED: FAMOTIDINE 20 MG/2 ML INJ IV ONE (18:19)
[2019-10-06] MEDS ORDERED: diphenhydrAMINE 50 MG/ML VIAL IV ONE ×3 (18:19→20:08)
[2019-10-06] MEDS ORDERED: methylPREDNISolone Sod Succinate 125 MG/2 ML INJ IV ONE (18:19)
[2019-10-06 18:24] LABS: Hematocrit 30.9 % (30.3-42.9); Hemoglobin 9.7 gm/dl (10.1-14.3); Mean Corpuscular HGB Conc 31 % (30-34); Mean Corpuscular Volume 89 fl (79-97); Platelet Count 236 K/mm3 (140-440); Red Blood Count 3.46 M/mm3 (3.65-5.03); Red Cell Distribution Width 19.5 % (13.2-15.2)
[2019-10-06 18:34] LABS: INR 1.73 (0.87-1.13); Thrombin Time 16.1 Sec. (15.1-19.6)
[2019-10-06 18:52] LABS: Partial Thromboplastin Time 23.5 Sec. (24.2-36.6)
--- NOTE | 2019-10-06 19:32 | XRay Report ---
CHEST 1 VIEW INDICATION: MAIN COMPARISON: 06/27/2018 FINDINGS: Support devices: None Heart: Normal heart size. Large hiatal hernia. Lungs/Pleura: Postop change on the left. No acute disease. IMPRESSION: 1. Postop change with large hiatal hernia. No acute disease and no interval change. Signer Name: Ron Lorenz MD Signed: 10/06/2019 7:28 PM Workstation Name: [id number]
[2019-10-06 19:57] LABS: Bacteria,Urine 1+ /HPF (Negative); Bilirubin,Urine NEG (Negative); Blood,Urine LG (Negative); Calcium Oxalate Crystals,Urine 1+; Color,Urine Yellow (Yellow); Mucus,Urine FEW /HPF; Protein,Urine <15 mg/dL mg/dL (Negative); Urobilinogen,Urine < 2.0 mg/dL (<2.0)
[2019-10-06] MEDS ORDERED: HYDROmorphone 1 MG/1 ML INJ IV ONE (20:15)
--- NOTE | 2019-10-06 20:49 | Cat Scan Report ---
CT angio neck INDICATION / CLINICAL INFORMATION: 59 years Female; Stroke. TECHNIQUE: Thin cut axial images obtained through the head during IV bolus contrast administration. S agittal, coronal, and 3 plane MIP reconstructions performed by the technologist. NASCET type criteria used evaluate stenoses. All CT scans at this location are performed using CT dose reduction for ALAR A by means of automated exposure control. COMPARISON: None available. FINDINGS: CAROTID ARTERIES: There is no significant stenosis involving the carotid arteries by NASCET criteria. The carotid bifurcations are widely patent. VERTEBRAL ARTERIES: There is no significant focal narrowing involving the vertebral arteries. ARCH: There is no significant stenosis of the arch vessels. There appears to be developmental common origin of the brachiocephalic and left common carotid arteries. ADDITIONAL FINDINGS: There is notable nodular appearance of the parotid glands bilaterally which is n onspecific though may be seen with Sjogren's syndrome. There is mild gaseous appearance of the mid es ophagus with air-fluid level. This mild compression deformity of the superior T3 vertebral body with associated sclerosis which appears chronic. IMPRESSION: There is no significant stenosis involving the cervical carotid or vertebral arteries by NASCET bridgette ronquillo. Signer Name: Garry Hilario MD Signed: 10/06/2019 8:44 PM Workstation Name: [id number]
--- NOTE | 2019-10-06 20:55 | Cat Scan Report ---
CT angio head INDICATION / CLINICAL INFORMATION: 59 years Female; Stroke. TECHNIQUE: Thin cut axial images obtained through the head during IV bolus contrast administration. S agittal, coronal, and 3 plane MIP reconstructions performed by the technologist. NASCET type criteria used evaluate stenoses. Automated exposure control utilized for radiation reduction purposes. COMPARISON: None available. FINDINGS: INTERNAL CAROTID ARTERIES: There is mild calcification involving distal internal carotid arteries wit hout significant stenosis by NASCET criteria. VERTEBROBASILAR SYSTEM: There is mild developmental hypoplasia of the vertebral basilar system. Howev er, there is no significant focal stenosis. CEREBRAL ARTERIES: There is also mild hypoplasia of the P1 segments bilaterally. Otherwise, the proxi mal cerebral arteries demonstrate appropriate caliber without focal stenosis or evidence of large ves luis armando occlusion. ANEURYSM: None identified. ADDITIONAL FINDINGS: There appears be developmental hypoplasia of the left transverse and sigmoid sin uses. The dural venous sinuses opacify with contrast. IMPRESSION: There is no CTA evidence of significant focal stenosis involving intracranial vessels.. Signer Name: Garry Hilario MD Signed: 10/06/2019 8:50 PM Workstation Name: [id number]
[2019-10-06] MEDS ORDERED: ASPIRIN 81 MG TAB CHEW PO ONE (21:10)
[2019-10-06] MEDS ORDERED: ONDANSETRON 4 MG/2 ML INJ IV PRN (22:43)
[2019-10-06] MEDS: HYDROmorphone 1 MG/1 ML INJ IV PRN (23:57)
[2019-10-07] MEDS ORDERED: diphenhydrAMINE 50 MG/ML VIAL IV ONE
[2019-10-07] MEDS ORDERED: diphenhydrAMINE 50 MG/ML VIAL ONE (00:02)
[2019-10-07] MEDS: HYDROmorphone 1 MG/1 ML INJ IV PRN ×3 (03:06→11:09)
--- NOTE | 2019-10-07 07:06 | History and Physical Report ---
History of Present Illness Date of examination: 10/06/19 Date of admission: 10/06/19 21:11 Chief complaint: Right-sided weakness, other complaint include low back pain History of present illness: History of presenting illness, patient is a 59-year-old female who was traveling from [place] to [place] and says she fell out of her wheelchair and developed pain in the lower back area, also patient noted heaviness on the right side of the body but denied history of numbness or tingling. There is no history of altered mental status, chest pain, shortness of breath, nausea or vomiting, patient also denied history of visual impairment or speech impairment. Past History Past Medical History: arthritis, diabetes, DVT, hypertension, stroke, other (G.I BLEED, MYOSITIS, LUPUS ANTICOAGULANR) Past Surgical History: Other (IVC FILTER IN THE RIGHT GROIN , lumbar 4 through sacral.LEFT KN will give the patientEE SURGERY in the medical history cardiac history) Social history: no significant social history (Thank you penicillin for the morning) Family history: no significant family history Medications and Allergies Allergies Allergy/AdvReac Type Severity Reaction Status Date / Time acetaminophen [From Tylenol] Allergy Hives Verified 06/27/18 16:14 ciprofloxacin [From Cipro] Allergy Hives Verified 06/27/18 16:14 ciprofloxacin HCl Allergy Hives Verified 06/27/18 16:14 [From Cipro] dicyclomine [From Bentyl] Allergy Hives Verified 06/22/19 11:43 dicyclomine HCl [From Bentyl] Allergy Hives Verified 06/27/18 16:14 gabapentin Allergy Hives Verified 06/22/19 11:42 hydrocodone Allergy Hives Verified 06/27/18 16:14 Iodinated Contrast Media Allergy Hives Verified 06/27/18 16:14 [Iodinated Contrast Media - IV Dye] levofloxacin [From Levaquin] Allergy Hives Verified 06/22/19 11:42 meperidine HCl [From Demerol] Allergy Hives Verified 06/27/18 16:14 morphine Allergy Hives Verified 06/27/18 16:14 NSAIDS (Non-Steroidal Allergy Hives Verified 06/27/18 16:14 Anti-Inflamma oxycodone [From OxyContin] Allergy Hives Verified 06/22/19 11:52 oxycodone HCl Allergy Hives Verified 06/27/18 16:14 [From OxyContin] pregabalin [From Lyrica] Allergy Hives Verified 06/22/19 11:43 tramadol Allergy Hives Verified 06/27/18 16:14 fentanyl AdvReac Diarrhea Verified 06/22/19 11:42 Home Medications Medication Instructions Recorded Confirmed Last Taken Type Ascorbic Acid [Vitamin C] 500 mg PO QDAY #30 tablet 12/23/17 06/23/19 02/25/18 Rx AtorvaSTATin 10 mg PO QPM #30 tablet 12/23/17 06/23/19 02/24/18 Rx Ferrous Gluconate [Fergon 325 MG 325 mg PO QDAY #30 tablet 12/23/17 06/23/19 02/25/18 Rx tab] Pantoprazole [Protonix TAB] 40 mg PO BID #60 tablet 12/23/17 06/23/19 02/25/18 Rx predniSONE [Deltasone] 10 mg PO QDAY #30 tablet 12/23/17 06/23/19 02/25/18 08:00 Rx Metoprolol Xl [Metoprolol 50 mg PO BID 02/26/18 06/23/19 02/24/18 History SUCCINATE ER TAB] Calcium Carbonate [Calcium 600MG 600 mg PO DAILY 09/29/18 06/23/19 Unknown History TAB] Cholecalciferol Vit D3 [Vitamin D3 1,000 unit PO QDAY 09/29/18 06/23/19 Unknown History 1,000 UNIT TAB] Warfarin [Coumadin] 5 mg PO QDAY 09/29/18 06/23/19 Unknown History Active Meds: Active Medications Aspirin (Aspirin) 325 mg PO QDAY APPLE Hydromorphone HCl (Dilaudid) 0.5 mg IV Q3H PRN PRN Reason: Pain , Severe (7-10) Last Admin: 10/07/19 06:37 Dose: 0.5 mg Documented by: Ondansetron HCl (Zofran) 4 mg IV Q8H PRN PRN Reason: Nausea And Vomiting Review of Systems Constitutional: weakness, no fever, no chills, no sweats, no night sweats, no fatigue, no malaise Eyes: bilateral: other (NO BILATERAL EYE SYMPTOM) Ears, nose, mouth and throat: no ear pain, no ear discharge, no decreased hearing, no nose pain, no nasal congestion, no dental pain, no dysphagia, no hoarseness, no headache, no vertigo Breasts: deferred Cardiovascular: no chest pain, no orthopnea, no palpitations, no edema, no syncope, no lightheadedness, no shortness of breath, no claudication, no phlebitis Respiratory: no cough, no shortness of breath, no dyspnea on exertion Gastrointestinal: no abdominal pain, no nausea, no vomiting, no diarrhea, no constipation, no hematemesis, no hematochezia, no heartburn Genitourinary Female: no pelvic pain, no flank pain, no urinary frequency, no post void dribbling, no incomplete emptying Rectal: no pain, no itching Musculoskeletal: low back pain, muscle weakness, no neck stiffness, no neck pain, no shooting leg pain, no leg numbness/tingling, no redness of joints Integumentary: no rash, no pruritis, no redness, no sores, no wounds, no jaundice, no lesions, no acne, no dryness Neurological: weakness, gait dysfunction, motor disturbance, no paralysis, no numbness, no tingling, no seizures, no syncope, no sensory deficit Psychiatric: no anxiety, no sleep disturbances, no hypersomnia, no change in appetite, no change in libido, no hopelessness, no confusion Endocrine: no cold intolerance, no heat intolerance, no excessive thirst, no polydipsia, no excessive sweating, no palpatations, no high blood sugars Hematologic/Lymphatic: no easy bruising, no easy bleeding Exam - Constitutional Vitals: Temp Pulse Resp BP Pulse Ox 97.9 F 67 18 120/57 98 10/07/19 05:10 10/07/19 05:10 10/07/19 06:37 10/07/19 05:10 10/07/19 05:10 General appearance: Present: mild distress - EENT Eyes: Present: PERRL ENT: hearing intact - Neck Neck: Present: supple, normal ROM - Respiratory Respiratory effort: normal - Cardiovascular Rhythm: regular Heart Sounds: Present: S1 & S2. Absent: gallop, systolic murmur, diastolic murmur, click - Extremities Extremities: no ischemia, No edema Peripheral Pulses: within normal limits - Abdominal General gastrointestinal: Present: soft, non-tender, non-distended. Absent: tender, distended, rigid, hepatomegaly, splenomegaly Female genitourinary: Present: deferred - Rectal Rectal Exam: deferred - Integumentary Integumentary: Present: clear, warm, dry. Absent: jaundice, clammy - Musculoskeletal Musculoskeletal: strength equal bilaterally - Psychiatric Psychiatric: appropriate mood/affect HEART Score - HEART Score Troponin: Troponin T 0.018 ng/mL (0.00-0.029) 10/06/19 17:22 Results - Labs CBC & Chem 7: 10/06/19 18:15 10/06/19 17:22 Labs: Laboratory Last Values WBC 8.0 K/mm3 (4.5-11.0) 10/06/19 18:15 RBC 3.46 M/mm3 (3.65-5.03) L 10/06/19 18:15 Hgb 9.7 gm/dl (10.1-14.3) L 10/06/19 18:15 Hct 30.9 % (30.3-42.9) 10/06/19 18:15 MCV 89 fl (79-97) 10/06/19 18:15 MCH 28 pg (28-32) 10/06/19 18:15 MCHC 31 % (30-34) 10/06/19 18:15 RDW 19.5 % (13.2-15.2) H 10/06/19 18:15 Plt Count 236 K/mm3 (140-440) 10/06/19 18:15 Lymph % (Auto) Winder Operator 10/06/19 18:15 [place] % (Auto) Winder Operator 10/06/19 18:15 Eos % (Auto) Winder Operator 10/06/19 18:15 Baso % (Auto) Winder Operator 10/06/19 18:15 Lymph # Winder Operator 10/06/19 18:15 [place] # Winder Operator 10/06/19 18:15 Eos # Winder Operator 10/06/19 18:15 Baso # Winder Operator 10/06/19 18:15 Seg Neutrophils % Winder Operator 10/06/19 18:15 Seg Neutrophils # Winder Operator 10/06/19 18:15 PT 20.5 Sec. (12.2-14.9) H 10/06/19 18:15 INR 1.73 (0.87-1.13) H 10/06/19 18:15 APTT 23.5 Sec. (24.2-36.6) L 10/06/19 18:15 Thrombin Time 16.1 Sec. (15.1-19.6) 10/06/19 18:15 Sodium 143 mmol/L (137-145) 10/06/19 17:22 Potassium 4.4 mmol/L (3.6-5.0) 10/06/19 17:22 Chloride 104.8 mmol/L (98-107) 10/06/19 17:22 Carbon Dioxide 23 mmol/L (22-30) 10/06/19 17:22 Anion Gap 20 mmol/L 10/06/19 17:22 BUN 19 mg/dL (7-17) H 10/06/19 17:22 Creatinine 0.5 mg/dL (0.7-1.2) L 10/06/19 17:22 Estimated GFR > 60 ml/min 10/06/19 17:22 BUN/Creatinine Ratio 38 % 10/06/19 17:22 Glucose 102 mg/dL (65-100) H 10/06/19 17:22 Calcium 8.7 mg/dL (8.4-10.2) 10/06/19 17:22 Magnesium 2.20 mg/dL (1.7-2.3) 10/06/19 17:22 Total Creatine Kinase 60 units/L (30-135) 10/06/19 17:22 Troponin T 0.018 ng/mL (0.00-0.029) 10/06/19 17:22 Urine Color Yellow (Yellow) 10/06/19 19:40 Urine Turbidity Slightly-cloudy (Clear) 10/06/19 19:40 Urine pH 5.0 (5.0-7.0) 10/06/19 19:40 Ur Specific [place] 1.024 (1.003-1.030) 10/06/19 19:40 Urine Protein <15 mg/dl mg/dL (Negative) 10/06/19 19:40 Urine Glucose (UA) Neg mg/dL (Negative) 10/06/19 19:40 Urine Ketones Neg mg/dL (Negative) 10/06/19 19:40 Urine Blood Lg (Negative) 10/06/19 19:40 Urine Nitrite Neg (Negative) 10/06/19 19:40 Urine Bilirubin Neg (Negative) 10/06/19 19:40 Urine Urobilinogen < 2.0 mg/dL (<2.0) 10/06/19 19:40 Ur Leukocyte Esterase Neg (Negative) 10/06/19 19:40 Urine WBC (Auto) 2.0 /HPF (0.0-6.0) 10/06/19 19:40 Urine RBC (Auto) 10.0 /HPF (0.0-6.0) 10/06/19 19:40 U Epithel Cells (Auto) 1.0 /HPF (0-13.0) 10/06/19 19:40 Urine Bacteria (Auto) 1+ /HPF (Negative) 10/06/19 19:40 Calcium Oxalate Crystal 1+ 10/06/19 19:40 Urine Mucus Few /HPF 10/06/19 19:40 [place]/IV: Voiding Method Toilet IV Catheter Type [Left Femoral Triple Lumen Cath ] Assessment and Plan - Patient Problems (1) Weakness of right side of body Current Visit: Yes Status: Acute Plan to address problem: 1.MRI OF BRAIN WITHOUT CONTRAST 2. BILATERAL CAROTID DOPPLER 3. 2 DECHO 4 PHYSICAL THERAPY 5. SPEECH THERAPY 6. NPO
[2019-10-07] MEDS ORDERED: ASPIRIN 325 MG TAB PO SCH (10:00)
--- NOTE | 2019-10-07 15:32 | Event Note ---
Date: 10/07/19 59-year-old fell out of wheelchair and complained of back pain. Patient states right side of body was weaker therefore patient was brought and worked up for stroke protocol. Patient had MRI carotid Doppler done was negative no significant stenosis. CT scan unremarkable. No CVA. X-rays unremarkable as well. Patient at present refused MRI secondary to did not feel well. Important to note now patient is asking for Dilaudid all the time and states she cannot take any other medication. When asked what was she had such severe pain she poi nted to the left shoulder. When left throat examined and was not that bad she said right arm and then when that was not bad enough she said it was going down to her right, hip. Patient does not have significant pain there that require hospitalization. No significant pain on physical evaluation. Patient states she would not take MRI plan rule out MRI discharge.
[2019-10-08] MEDS ORDERED: LORazepam 2 MG/ML VIAL IV ONE (00:01)
[2019-10-08] MEDS: HYDROmorphone 1 MG/1 ML INJ IV PRN ×3 (04:24→20:46)
[2019-10-08] MEDS: CHOLECALCIFEROL (VIT D3) 1000 UNIT (25 mcg) TAB PO SCH (12:55)
[2019-10-08] MEDS: METOPROLOL SUCCINATE XL 50 MG TAB PO SCH ×2 (12:55→22:26)
[2019-10-08] MEDS: ASCORBIC ACID 500 MG TAB PO SCH (12:56)
[2019-10-08] MEDS: PANTOPRAZOLE 40 MG TAB PO SCH ×2 (12:56→22:26)
[2019-10-08] MEDS: FERROUS GLUCONATE 324 MG TAB PO SCH (13:19)
[2019-10-08 15:31] LABS: INR 1.35 (0.87-1.13)
--- NOTE | 2019-10-08 15:32 | Discharge Summary ---
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 And then she said she had neck pain as well. Patient admitted really to rule out CVA. Since that time patient has been moving extremity this is nothing new from her standard lupus. Patient stated she had neck pain shoulder pain and hip pain she refused to have x-rays done. Refused treatment MRI. After refusal of MRI patient then stated that she had a stent metal stent may have been placed. Therefore patient no longer a candidate for MRI. Patient does not appear to have had CVA. Safe to discharge home follow-up with neurology in outpatient. 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 Disposition: DC- TO HOME OR SELFCARE - Discharge Diagnoses (1) Weakness of right side of body Status: Acute Comment: The weakness on the left side of body right-sided body has resolved. Patient just complains of neck pain back pain shoulder pain chronic. Refused all x-rays. Stated she is sure she has a pinched nerve. (2) SLE (systemic lupus erythematosus) Status: Chronic Comment: No acute lupus flare. No swelling of any joints. No myalgias or arthralgias. No fever. (3) Acute pain of left lower extremity Status: Acute Comment: Resolved has no left lower extremity pain. (4) Back pain Status: Acute Qualifiers: Back pain location: thoracic back pain Chronicity: acute Back pain laterality: bilateral Qualified Code(s): M54.6 - Pain in thoracic spine Comment: Chronic back pain. Patient wanting Dilaudid. She is not a candidate for Dilaudid by any means. (5) Stroke Status: Acute Comment: No evidence of stroke. Patient can go home and follow- up primary care physician. May be better to get an MRI once we can establish what kind of stent placement has had. Patient is on Coumadin anyway. Blood pressure optimal control continue statin. Core Measure Documentation - Palliative Care Palliative Care/ Comfort Measures: Not Applicable - Core Measures Any of the following diagnoses?: none Exam - Constitutional Vitals: Temp Pulse Resp BP Pulse Ox 97.2 F L 87 20 113/72 97 10/08/19 11:38 10/08/19 12:55 10/08/19 11:38 10/08/19 12:55 10/08/19 11:38 General appearance: Present: no acute distress, well-nourished - EENT Eyes: Present: PERRL ENT: hearing intact, clear oral mucosa - Neck Neck: Present: supple, normal ROM - Respiratory Respiratory effort: normal Respiratory: bilateral: CTA - Cardiovascular Heart Sounds: Present: S1 & S2. Absent: rub, click - Extremities Extremities: pulses symmetrical, No edema Extremity abnormal: other (Chronic right-sided weakness neck pain back pain at baseline.) Peripheral Pulses: within normal limits - Abdominal General gastrointestinal: Present: soft, non-tender, non-distended, normal bowel sounds Female genitourinary: Present: normal - Integumentary Integumentary: Present: clear, warm, dry - Musculoskeletal Musculoskeletal: gait normal, strength equal bilaterally - Psychiatric Psychiatric: appropriate mood/affect, intact judgment & insight - Neurologic Neurologic: CNII-XII intact, moves all extremities Plan Activity: fall precautions, other (Already wheelchair-bound) Follow up with: PRIMARY CARE, [Primary Care Provider] - 3-5 Days Forms: Warfarin Discharge Instruction
[2019-10-08] MEDS: WARFARIN 5 MG TAB PO SCH (17:05)
[2019-10-09] MEDS: HYDROmorphone 1 MG/1 ML INJ IV PRN ×3 (06:17→22:56)
[2019-10-09] MEDS: ASCORBIC ACID 500 MG TAB PO SCH (09:22)
[2019-10-09] MEDS: CHOLECALCIFEROL (VIT D3) 1000 UNIT (25 mcg) TAB PO SCH (09:22)
[2019-10-09] MEDS: METOPROLOL SUCCINATE XL 50 MG TAB PO SCH ×2 (09:22→21:19)
[2019-10-09] MEDS: PANTOPRAZOLE 40 MG TAB PO SCH ×2 (09:22→21:19)
[2019-10-09] MEDS: FERROUS GLUCONATE 324 MG TAB PO SCH (09:23)
[2019-10-09] MEDS ORDERED: predniSONE 10 MG TAB PO SCH (10:00)
[2019-10-09] MEDS ORDERED: LORazepam 2 MG/ML VIAL IV ONE (11:00)
--- NOTE | 2019-10-09 11:05 | Vascular Lab Report ---
BILATERAL CAROTID DOPPLER ULTRASOUND INDICATION : RIGHT SIDED WEAKNESS TECHNIQUE: Grayscale and color Doppler imaging performed through the neck. COMPARISON: None FINDINGS: Right: There is minimal noncalcified plaque in the carotid bulb. Peak systolic velocity in the CCA is 72 cm/s with end-diastolic velocity of 27 cm/s. Peak systolic velocity in the proximal ICA is 109 cm/s with end-diastolic velocity of 41 cm/s. ICA to CCA ratio is less than 2. There is antegrade karen w in the ECA and the vertebral artery. Left: There is no significant atherosclerotic disease. Peak systolic velocity in the CCA is 81 cm/s w ith end-diastolic velocity of 20 cm/s. Peak systolic velocity in the proximal ICA is 99 cm/s with end -diastolic velocity of 42 cm/s. ICA to CCA ratio is less than 2. There is antegrade flow in the ECA and the vertebral artery. IMPRESSION: No hemodynamically significant stenosis by NASCET criteria. Doppler velocities indicate l ess than 50% luminal narrowing bilaterally. Signer Name: Dean Montez Jr, MD Signed: 10/09/2019 11:01 AM Workstation Name: [id number]
[2019-10-09 11:35] LABS: INR 1.18 (0.87-1.13)
[2019-10-09] MEDS: WARFARIN 5 MG TAB PO SCH (17:27)
[2019-10-10] MEDS: HYDROmorphone 1 MG/1 ML INJ IV PRN (08:55)
[2019-10-10 12:53] VITALS: BP 129/66
--- NOTE | 2019-10-10 15:34 | Event Note ---
Date: 10/17/[address] Turcios's note and also personally discussed with Dr. Turcios Patient is a not a candidate for MRI according to her history she has a metallic stent Patient did not want to leave yesterday because she did have a right Transportation arranged by case management today around 4 PM
== END 2019-10-10 17:00 | disposition home or self-care (01) ==
LOC: ED 15:03 → 4A 21:11
PROVIDERS: ADMIT Internal Medicine; ATTEND Internal Medicine
DX: M32.9 Systemic lupus erythematosus, unspecified (principal); I10 Essential (primary) hypertension; I63.9 Cerebral infarction, unspecified; M06.9 Rheumatoid arthritis, unspecified; M19.90 Unspecified osteoarthritis, unspecified site; M79.662 Pain in left lower leg; M54.6 Pain in thoracic spine; E11.9 Type 2 diabetes mellitus without complications; Z86.73 Personal history of transient ischemic attack (TIA), and cerebral infarction without residual deficits; Z79.01 Long term (current) use of anticoagulants; Z86.711 Personal history of pulmonary embolism; Z86.718 Personal history of other venous thrombosis and embolism; Z98.890 Other specified postprocedural states
CPT/HCPCS: 36415; 70450; 70496; 70498; 71045; 80048; 81001; 82550; 83735; 84484; 85025; 85610; 85670; 85730; 93005; 93306; 93880; 96372; 96374; 96375; 96376; 97161; 99285; A9270; G0378; J1170; J1200; J2060; J2930; J7040; J7512; Q9967; Q0162

== ENCOUNTER 2020-04-12 18:50 | Emergency (ER) | payer SELFPAY ==
[2020-04-12] MEDS ORDERED: HYDROmorphone 1 MG/1 ML INJ IM ONE (21:36)
[2020-04-12] MEDS ORDERED: ONDANSETRON 4 MG/2 ML INJ IM ONE (21:36)
--- NOTE | 2020-04-12 21:37 | Emergency Department Report ---
ED Fall HPI - General Chief Complaint: Fall Stated Complaint: BACK PAIN Time Seen by Provider: 04/12/20 21:32 Source: patient Mode of arrival: Ambulatory - History of Present Illness Initial Comments: Patient is a 59-year-old female that presents emergency room for complaint of lower back pain after a fall. Patient states she fell from a standing position onto her lower back. Patient states that the pain is a 10 out of 10. Patient states the pain is severe. Patient states the pain is worse with movement and better with rest. Patient states the pain is so bad she cannot walk. Patient states she went to an urgent care and she had an x-ray done in the urgent care stated that there could be a fracture in the L-spine and she require further imaging. Patient refuses to have an IV. Patient states that she wants all IM medications. 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 denies: headache, neck pain, numbness, weakness, chest paint, shortness of breath, hematuria, lightheaded, vertigo, confusion - Related Data Home Medications Medication Instructions Recorded Confirmed Last Taken Metoprolol Xl [Metoprolol 50 mg PO BID 02/26/18 10/08/19 2 Days Ago SUCCINATE ER TAB] ~10/06/19 Calcium Carbonate [Calcium 600MG 600 mg PO DAILY 09/29/18 10/08/19 2 Days Ago TAB] ~10/06/19 Cholecalciferol Vit D3 [Vitamin D3 1,000 unit PO QDAY 09/29/18 10/08/19 2 Days Ago 1,000 UNIT TAB] ~10/06/19 Warfarin [Coumadin] 5 mg PO QDAY 09/29/18 10/08/19 2 Days Ago ~10/06/19 Previous Rx's Medication Instructions Recorded Last Taken Type Ascorbic Acid [Vitamin C] 500 mg PO QDAY #30 tablet 12/23/17 2 Days Ago Rx ~10/06/19 AtorvaSTATin 10 mg PO QPM #30 tablet 12/23/17 2 Days Ago Rx ~10/06/19 Ferrous Gluconate [Fergon 325 MG 325 mg PO QDAY #30 tablet 12/23/17 2 Days Ago Rx tab] ~10/06/19 Pantoprazole [Protonix TAB] 40 mg PO BID #60 tablet 12/23/17 2 Days Ago Rx ~10/06/19 predniSONE 10 mg PO QDAY #30 tablet 12/23/17 2 Days Ago Rx ~10/06/19 Aspirin 325 mg PO QDAY tablet 10/08/19 Unknown Rx Allergies Allergy/AdvReac Type Severity Reaction Status Date / Time acetaminophen [From Tylenol] Allergy Hives Verified 06/27/18 16:14 ciprofloxacin [From Cipro] Allergy Hives Verified 06/27/18 16:14 ciprofloxacin HCl Allergy Hives Verified 06/27/18 16:14 [From Cipro] dicyclomine [From Bentyl] Allergy Hives Verified 06/22/19 11:43 dicyclomine HCl [From Bentyl] Allergy Hives Verified 06/27/18 16:14 gabapentin Allergy Hives Verified 06/22/19 11:42 hydrocodone Allergy Hives Verified 06/27/18 16:14 Iodinated Contrast Media Allergy Hives Verified 06/27/18 16:14 [Iodinated Contrast Media - IV Dye] levofloxacin [From Levaquin] Allergy Hives Verified 06/22/19 11:42 meperidine HCl [From Demerol] Allergy Hives Verified 06/27/18 16:14 morphine Allergy Hives Verified 06/27/18 16:14 NSAIDS (Non-Steroidal Allergy Hives Verified 06/27/18 16:14 Anti-Inflamma oxycodone [From OxyContin] Allergy Hives Verified 06/22/19 11:52 oxycodone HCl Allergy Hives Verified 06/27/18 16:14 [From OxyContin] pregabalin [From Lyrica] Allergy Hives Verified 06/22/19 11:43 tramadol Allergy Hives Verified 06/27/18 16:14 fentanyl AdvReac Diarrhea Verified 06/22/19 11:42 ED Review of Systems ROS: Stated complaint: BACK PAIN Other details as noted in HPI Constitutional: denies: chills, fever Eyes: denies: eye pain, eye discharge, vision change ENT: denies: ear pain, throat pain Respiratory: denies: cough, shortness of breath, wheezing Cardiovascular: denies: chest pain, palpitations Endocrine: no symptoms reported Gastrointestinal: denies: abdominal pain, nausea, diarrhea Genitourinary: denies: urgency, dysuria, discharge Musculoskeletal: as per HPI, back pain. denies: joint swelling, arthralgia Skin: denies: rash, lesions Neurological: denies: headache, weakness, paresthesias Psychiatric: denies: anxiety, depression Hematological/Lymphatic: denies: easy bleeding, easy bruising ED Past Medical Hx - Past Medical History Previous Medical History?: Yes Hx Hypertension: Yes Hx CVA: Yes Hx Heart Attack/AMI: No Hx Congestive Heart Failure: No Hx Diabetes: Yes Hx Deep Vein Thrombosis: Yes (Bilateral) Hx Pulmonary Embolism: Yes Hx Liver Disease: No Hx Renal Disease: No Hx Arthritis: Yes (RA) Hx Asthma: No Hx COPD: No Hx HIV: No Additional medical history: SLE. MYOSITIS. PERIPHERAL EOSINOPHILIA. GI BLEED. "CLOTTING DISORDER" - Surgical History Past Surgical History?: Yes Additional Surgical History: IVC FILTER RIGHT GROIN. ULCER CLIPPED AND CLAMPED. RIGHT AND LEFT KNEE SURGERIES. Esophageal surgery to remove growth - Family History Family history: no significant - Social History Smoking Status: Never Smoker Substance Use Type: None - Medications Home Medications: Home Medications Medication Instructions Recorded Confirmed Last Taken Type Ascorbic Acid [Vitamin C] 500 mg PO QDAY #30 tablet 12/23/17 10/08/19 2 Days Ago Rx ~10/06/19 AtorvaSTATin 10 mg PO QPM #30 tablet 12/23/17 10/08/19 2 Days Ago Rx ~10/06/19 Ferrous Gluconate [Fergon 325 MG 325 mg PO QDAY #30 tablet 12/23/17 10/08/19 2 Days Ago Rx tab] ~10/06/19 Pantoprazole [Protonix TAB] 40 mg PO BID #60 tablet 12/23/17 10/08/19 2 Days Ago Rx ~10/06/19 predniSONE 10 mg PO QDAY #30 tablet 12/23/17 10/08/19 2 Days Ago Rx ~10/06/19 Metoprolol Xl [Metoprolol 50 mg PO BID 02/26/18 10/08/19 2 Days Ago History SUCCINATE ER TAB] ~10/06/19 Calcium Carbonate [Calcium 600MG 600 mg PO DAILY 09/29/18 10/08/19 2 Days Ago History TAB] ~07/17/20 Cholecalciferol Vit D3 [Vitamin D3 1,000 unit PO QDAY 09/29/18 10/08/19 2 Days Ago History 1,000 UNIT TAB] ~10/06/19 Warfarin [Coumadin] 5 mg PO QDAY 09/29/18 10/08/19 2 Days Ago History ~10/06/19 Aspirin 325 mg PO QDAY tablet 10/08/19 Unknown Rx ED Physical Exam - General Limitations: No Limitations General appearance: alert, in no apparent distress - Head Head exam: Present: atraumatic, normocephalic - Eye Eye exam: Present: normal appearance - ENT ENT exam: Present: mucous membranes moist - Neck Neck exam: Present: normal inspection - Respiratory Respiratory exam: Present: normal lung sounds bilaterally. Absent: respiratory distress - Cardiovascular Cardiovascular Exam: Present: regular rate, normal rhythm. Absent: systolic murmur, diastolic murmur, rubs, gallop - GI/Abdominal GI/Abdominal exam: Present: soft, normal bowel sounds - Extremities Exam Extremities exam: Present: normal inspection - Back Exam Back exam: Present: normal inspection, tenderness, paraspinal tenderness, vertebral tenderness - Neurological Exam Neurological exam: Present: alert, oriented X3 - Psychiatric Psychiatric exam: Present: normal affect, normal mood - Skin Skin exam: Present: warm, dry, intact, normal color. Absent: rash ED Course Vital Signs 04/12/20 18:56 Blood Pressure 138/77 [Left] - Reevaluation(s) Reevaluation #1: Patient CT is pending. Patient states her pain is better after medication. 04/12/20 22:30 Reevaluation #2: I discussed all results and clinical findings with patient. I discussed plan of care with patient. Patient agrees with plan of care. Patient is stable for discharge. Patient will be discharged home. Patient given discharge instructions. Patient voiced understanding of discharge instructions. 04/12/20 23:31 ED Medical Decision Making - Radiology Data Radiology results: report reviewed CT lumbar spine wo con INDICATION: fall back pain.. TECHNIQUE: All CT scans at this location are performed using the following dose modulation technique: Automated exposure control. Helical slices were obtained through the lumbar spine. Coronal and sagittal reformatted images were obtained. COMPARISON: None available. FINDINGS: Lumbar spine is in satisfactory alignment. There is been previous vertebral augmentation of T12, L3, and L4. No acute fracture is seen. There is mild posterior disc protrusion at L2-3 and L3-4. There is subjective osteopenia. Significant portion of the stomach is noted in the lower chest consistent with a gastric pull- through procedure or hiatal hernia. There is an IVC filter. IMPRESSION: 1. No acute fracture is seen. There is been previous vertebral augmentation at several levels. Mild posterior disc protrusions at L2-3 and L3-4. 2. There is subjective osteopenia. - Medical Decision Making Patient is a 59-year-old female that presents emergency room with complaints of lower back pain after a ground-level fall. Patient states she has needed position she felt directly onto her lower back. Patient complains of severe lumbar pain. Patient states she went to a urgent care and they said that she had suspicious findings for a possible lumbar fracture on x-ray and the patient was sent here for evaluation. Patient was given Dilaudid and Zofran and the patient responded well to treatment and her pain decreased. Patient had a CT scan of the lumbar spine and there was no acute fractures. Patient is stable for discharge. Patient be discharged home. - Differential Diagnosis Contusion, fracture, strain, sprain, fall Critical care attestation.: If time is entered above; I have spent that time in minutes in the direct care of this critically ill patient, excluding procedure time. ED Disposition Clinical Impression: Lumbar contusion Qualifiers: Encounter type: initial encounter Qualified Code(s): S30.0XXA - Contusion of lower back and pelvis, initial encounter Lower back pain Qualifiers: Chronicity: acute Back pain laterality: bilateral Sciatica presence: without sciatica Qualified Code(s): M54.5 - Low back pain Fall Qualifiers: Encounter type: initial encounter Qualified Code(s): W19.XXXA - Unspecified fall, initial encounter Disposition: TO HOME OR SELFCARE Is pt being admited?: No Does the pt Need Aspirin: No Condition: Stable Instructions: Back Injury Prevention, [id number], Contusion, [id number], Acute Back Pain, Adult Additional Instructions: Patient to follow-up with primary care in 2 to 3 days. Patient to follow-up with orthopedist in 2 to 3 days. Patient to rest. Patient to increase water. Patient to avoid strenuous exercise or heavy lifting until cleared by orthopedist and primary care. Patient to return to the ER if condition worsens, changes or new symptoms arise. Referrals: NATHANAEL BRITO MD [Primary Care Provider] - 2-3 Days FERNIE MATTHEWS MD [Staff Physician] - 2-3 Days Time of Disposition: 23:34
--- NOTE | 2020-04-12 22:43 | Cat Scan Report ---
CT lumbar spine wo con INDICATION: fall back pain.. TECHNIQUE: All CT scans at this location are performed using the following dose modulation technique: Automated exposure control. Helical slices were obtained through the lumbar spine. Coronal and sagittal reforma tted images were obtained. COMPARISON: None available. FINDINGS: Lumbar spine is in satisfactory alignment. There is been previous vertebral augmentation of T12, L3, and L4. No acute fracture is seen. There is mild posterior disc protrusion at L2-3 and L3-4. There is subjective osteopenia. Significant portion of the stomach is noted in the lower chest consistent with a gastric pull-through procedure or hiatal hernia. There is an IVC filter. IMPRESSION: 1. No acute fracture is seen. There is been previous vertebral augmentation at several levels. Mild p osterior disc protrusions at L2-3 and L3-4. 2. There is subjective osteopenia. Signer Name: Jeancarlos Mccann MD Signed: 04/12/2020 10:38 PM Workstation Name: [id number]
[2020-04-12] MEDS: HYDROmorphone 2 MG/1 ML INJ IM ONE ×2 (23:30)
[2020-04-13 07:50] VITALS: BP 132/78
[2020-04-19] MEDS ORDERED: HYDROmorphone 1 MG/1 ML INJ IV ONE (22:05)
== END 2020-04-13 10:58 | disposition home or self-care (01) ==
LOC: ED 18:50
DX: S30.0XXA Contusion of lower back and pelvis, initial encounter (principal); I10 Essential (primary) hypertension; E11.9 Type 2 diabetes mellitus without complications; M19.90 Unspecified osteoarthritis, unspecified site; Z86.73 Personal history of transient ischemic attack (TIA), and cerebral infarction without residual deficits; Z98.890 Other specified postprocedural states; Z79.82 Long term (current) use of aspirin; Z79.899 Other long term (current) drug therapy; Z88.8 Allergy status to other drugs, medicaments and biological substances; W18.30XA Fall on same level, unspecified, initial encounter; Y93.89 Activity, other specified; Y92.89 Other specified places as the place of occurrence of the external cause; Y99.8 Other external cause status
CPT/HCPCS: 72131; 96372; 99283; J1170; J2405

== ENCOUNTER 2021-01-19 13:13 | Observation (INO) | payer SELFPAY ==
--- NOTE | 2021-01-19 14:40 | Event Note ---
ED Screening Note ED Screening Note: Patient presents with left sided worsening symptoms of weakness. Last known time was 9:30/10 AM. Stated due to worsening symptoms hjad a fall right right side. HX of stroke. This initial assessment/diagnostic orders/clinical plan/treatment(s) is/are subject to change based on patients health status, clinical progression and re- assessment by fellow clinical providers in the ED. Further treatment and workup at subsequent clinical providers discretion. Patient/guardian urged not to elope from the ED as their condition may be serious if not clinically assessed and managed. Initial orders include: stroke protocol
[2021-01-19] MEDS ORDERED: ONDANSETRON 4 MG ODT TAB PO ONE (15:24)
[2021-01-19 15:41] LABS: Creatine Kinase MB 2.1 ng/mL (0.0-4.0)
[2021-01-19 15:43] LABS: Alanine Aminotransferase 22 units/L (7-56); Blood Urea Nitrogen 14 mg/dL (7-17); Calcium 9.3 mg/dL (8.4-10.2); Hemolysis Index 15
[2021-01-19 15:47] LABS: BUN/Creatinine Ratio 47
[2021-01-19 15:49] LABS: Mean Corpuscular HGB Conc 31 % (30-34); Mean Corpuscular Volume 91 fl (79-97); Red Blood Count 3.85 M/mm3 (3.65-5.03)
[2021-01-19 15:50] LABS: Platelet Count 236 K/mm3 (140-440); Red Cell Distribution Width 25.6 % (13.2-15.2)
[2021-01-19 15:53] LABS: INR 1.91 (0.87-1.13); Thrombin Time 15.9 Sec. (15.1-19.6)
[2021-01-19 15:54] LABS: Partial Thromboplastin Time 30.7 Sec. (24.2-36.6)
[2021-01-19] MEDS ORDERED: HYDROmorphone 1 MG/1 ML INJ IV ONE ×2 (16:27→20:32)
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
[2021-01-19] MEDS ORDERED: ONDANSETRON 4 MG/2 ML INJ IV ONE (16:28)
[2021-01-19 16:34] LABS: Total Cells Counted 100
[2021-01-19 16:35] LABS: Platelet Estimate Consistent w Auto; RBC Morphology Normal
[2021-01-19] MEDS ORDERED: SODIUM CHLORIDE 0.9% 1000 ML 1,000 ML IV ONE (17:19)
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
[2021-01-19] MEDS ORDERED: HYDROmorphone 1 MG/1 ML INJ IM ONE (21:47)
[2021-01-19] MEDS ORDERED: SODIUM CHLORIDE 0.9% 1000 ML 1,000 ML ONE (23:59)
--- NOTE | 2021-01-20 00:33 | Emergency Department Report ---
Blank Doc - Documentation Documentation: [facility] Consult Note # Demographics Consult Type: Acute Stroke Level 2 (4.5-24 hrs) Patient Location: Emergency Room First Name: Pat Last Name: Patricia Date of : 1960 Age: 60 Gender: Female Facility: [facility] Time of Initial Page ( Time): 01/19/2021, 16:29 Time of Return Call ( Time): 01/19/2021, 16:31 # HPI History: 60 year old woman with complex medical history including hypertension, coronary artery disease, history of PE on warfarin, Ranjit, GI bleed in the past, presents with increased left sided weakness and right facial weakness. INR 1.91 on arrival. # Scores Time of exam and NIHSS ( Time): 01/19/2021, 16:34 Level of Consciousness 1a: [0] = Alert; keenly responsive LOC Questions 1b: [0] = Answers both questions correctly LOC Commands 1c: [0] = Performs both tasks correctly Best Gaze 2: [0] = Normal Visual 3: [0] = No visual loss Facial Palsy 4: [2] = Partial paralysis Motor Arm Left 5a: [3] = No effort against gravity Motor Arm Right 5b: [0] = No drift Motor Leg Left 6a: [3] = No effort against gravity Motor Leg Right 6b: [1] = Drift Limb Ataxia 7: [0] = Absent Sensory 8: [1] = [id number] sensory loss Best Language 9: [0] = No aphasia Dysarthria 10: [0] = Normal Extinction and Inattention 11: [0] = No abnormality NIHSS Total: 10 # Assessment Impression: right face weakness, left sided weakness. patient has had problems obtaining imaging exam is suggestive of stroke. # Plan Thrombolytic/Intervention: NOT IV Thrombolysis or IA Intervention candidate Thrombolytic Exclusion: > 4.5 hours Intraarterial Exclusion: no large vessel occlusion (LVO) Target Blood Pressure: SBP < 220 Labs: CBC comprehensive metabolic panel lipid panel TSH ua Imaging: (urgency: STAT): CT Angiogram Head and CT Angiogram Neck AND call back with results if abnormal Imaging: (urgency: routine): MRI Brain without contrast Diagnostic Test: echo with bubble study Therapy/Evaluation: speech/swallow consultation Medication: aspirin 325 mg daily DVT Prophylaxis: heparin 5000 units subcutaneously q 12 hours Other: consult on-site neurology service for full work-up and evaluation recommendations If patient has any neurological deterioration please call me back immediately I have discussed my recommendations with the referring provider Additional Recommendations: Admit for stroke work up obtain imaging and if concerning findings call me back. Disposition: admit # Logistics Telemedicine: Interactive 2 way audio and visual telecommunication technology was utilized during this visit
[2021-01-20 01:14] LABS: Amphetamine Screen,Urine PRESUMPTIVE NEGATIVE; Benzodiazepines Screen,Urine PRESUMPTIVE NEGATIVE; Cannabinoid Screen,Urine PRESUMPTIVE NEGATIVE; Cocaine Screen,Urine PRESUMPTIVE NEGATIVE; Methadone Screen,Urine PRESUMPTIVE NEGATIVE; Opiate Screen,Urine PRESUMPTIVE NEGATIVE
[2021-01-20 01:24] LABS: Bilirubin,Urine NEG (Negative); Blood,Urine NEG (Negative); Calcium Oxalate Crystals,Urine 3+; Color,Urine Yellow (Yellow); Mucus,Urine FEW /HPF; Protein,Urine <15 mg/dL mg/dL (Negative); Urobilinogen,Urine < 2.0 mg/dL (<2.0)
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
--- NOTE | 2021-01-20 01:58 | Cat Scan Report ---
CT head/brain wo con INDICATION / CLINICAL INFORMATION: 60 years Female; Stroke symptoms. TECHNIQUE: Routine CT head without contrast. All CT scans at this location are performed using CT dos e reduction for ALARA by means of automated exposure control. Motion artifact present. COMPARISON: 10/06/2019 FINDINGS: BRAIN / INTRACRANIAL CONTENTS: There may be a small lacunar infarct in the neeraj leftward of midline, which is not seen on prior exam. Otherwise, no acute hemorrhage, mass effect, midline shift, hydrocephalus, or acute, large territori al infarct. Mild, diffuse cerebral and cerebellar atrophy. There are mild areas of decreased attenuation in the white matter of the cerebral hemispheres. These are nonspecific findings and may be related to microangiopathy (hypertension, diabetes, atheroscleros is), given the patient's age. It might be difficult to evaluate for small areas of ischemia without d iffusion imaging by MRI. CRANIOCERVICAL JUNCTION: No significant abnormality. ORBITS: No significant abnormality of visualized orbits. SINUSES / MASTOIDS: Prior sinus surgery noted. ADDITIONAL FINDINGS: Atherosclerotic disease is seen in the anterior circulation. IMPRESSION: 1. No focal mass, hemorrhage, hydrocephalus, or acute, large territorial infarct. Follow-up with diff usion imaging by MRI, as clinically warranted. Signer Name: Aamir Bolivar MD, III Signed: 01/20/2021 1:54 AM Workstation Name: [id number]
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
[2021-01-20] MEDS ORDERED: SODIUM CHLORIDE 0.9% 1000 ML 1,000 ML IV ONE (02:50)
[2021-01-20] MEDS ORDERED: HYDROmorphone 1 MG/1 ML INJ IV ONE (03:02)
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
[2021-01-20] MEDS ORDERED: PROMETHAZINE 25 MG RECT SUPP PR PRN (05:15)
[2021-01-20] MEDS ORDERED: ONDANSETRON 4 MG/2 ML INJ IV PRN ×2 (05:15)
[2021-01-20] MEDS ORDERED: MORPHINE 4 MG/1 ML INJ IV PRN (05:15)
[2021-01-20] MEDS ORDERED: DEXTROSE 50% IN WATER (25GM) 50 ML SYRINGE IV PRN (05:15)
[2021-01-20] MEDS ORDERED: MAGNESIUM HYDROXIDE (MOM) ORAL LIQD UDC PO PRN ×2 (05:15)
[2021-01-20] MEDS ORDERED: MORPHINE 2 MG/1 ML INJ IV PRN (05:15)
[2021-01-20] MEDS ORDERED: METOCLOPRAMIDE 10 MG TAB PO PRN (05:15)
[2021-01-20] MEDS: INSULIN LISPRO 100 UNIT/ML SUB-Q SCH ×4 (07:56→23:25)
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
[2021-01-20] MEDS ORDERED: HYDROmorphone 1 MG/1 ML INJ IV NR (08:30)
[2021-01-20] MEDS: PANTOPRAZOLE 40 MG TAB PO SCH ×2 (09:13→16:29)
[2021-01-20] MEDS: predniSONE 10 MG TAB PO SCH (09:13)
[2021-01-20] MEDS: ASPIRIN 325 MG TAB PO SCH (09:13)
[2021-01-20] MEDS: METOPROLOL SUCCINATE XL 50 MG TAB PO SCH ×2 (09:13→23:33)
--- NOTE | 2021-01-20 13:16 | Magnetic Resonance Report ---
MRI BRAIN WITHOUT CONTRAST, MRA HEAD WITHOUT CONTRAST INDICATION / CLINICAL INFORMATION: confusion, WEAKNESS CHANTAL. LEGS. TECHNIQUE: Multiplanar, multi sequential MRI images of the brain. Routine MRA of the head is performed. 3-D/MIP reformats postprocessed. Percentage stenosis is determined by direct quantitative measurements of di stal internal carotid artery diameter compared with normal reference segments or by criteria similar to NASCET where applicable. COMPARISON: Head CT on 01/19/2021 FINDINGS: MR BRAIN: BRAIN / INTRACRANIAL CONTENTS: No acute ischemia, acute hemorrhage, mass effect, midline shift, or hy drocephalus. Stable mild global atrophy and mild chronic small vessel ischemic change of the cerebra l white matter. CRANIOCERVICAL JUNCTION: No significant abnormality. VASCULAR FLOW-VOIDS: No significant abnormality. ORBITS: No significant abnormality of visualized orbits. SINUSES / MASTOIDS: No significant abnormality of visualized sinuses and mastoid air cells. ADDITIONAL FINDINGS: None. MRA HEAD: Intracranial vertebral arteries: No significant abnormality. Basilar artery: No significant abnormality. Posterior cerebral arteries: No significant abnormality. Intracranial internal carotid arteries: No significant abnormality. Anterior cerebral arteries: No significant abnormality. Middle cerebral arteries: No significant abnormality. Additional findings: None. IMPRESSION: 1. No acute findings or findings to explain patient's symptoms. Signer Name: Filiberto Millan MD Signed: 01/20/2021 1:11 PM Workstation Name: [id number]
--- NOTE | 2021-01-20 13:50 | Vascular Lab Report ---
DUPLEX DOPPLER ULTRASOUND CAROTID, BILATERAL INDICATION / CLINICAL INFORMATION: stroke. COMPARISON: None available. FINDINGS: RIGHT CAROTID: - PLAQUE ESTIMATE (%): No significant plaque - CCA velocity: 77 cm/sec. - ICA peak systolic velocity: 150 cm/sec. - ICA/CCA PSV Ratio: 1.5 Right Vertebral Artery: Antegrade flow. LEFT CAROTID: - PLAQUE ESTIMATE (%): No significant plaque - CCA velocity: 76 cm/sec. - ICA peak systolic velocity: 122 cm/sec. - ICA/CCA PSV Ratio: 1.6 Left Vertebral Artery: Antegrade flow. IMPRESSION: 1. Right Internal Carotid Artery: Less than 50% diameter stenosis. 2. Left Internal Carotid Artery: Less than 50% diameter stenosis. Velocity criteria are extrapolated from diameter data as defined by the Society of Radiologists in Ul trasound Consensus Conference, Radiology 2003; 229;340-346. NO STENOSIS (NORMAL) - Plaque = none; ICA PSV < 125 cm/sec; ICA/CCA PSV Ratio < 2.0 <50% STENOSIS - Plaque < 50%; ICA PSV < 125 cm/sec; ICA/CCA PSV Ratio < 2.0 50-69% STENOSIS - Plaque > 50%; ICA PSV = 125-230 cm/sec; ICA/CCA PSV Ratio = 2.0-4.0 >70% BUT <100% STENOSIS - Plaque > 50%; ICA PSV > 230 cm/sec; ICA/CCA PSV Ratio > 4.0 NEAR OCCLUSION - Plaque = visible lumen; ICA PSV = high/low/none; ICA/CCA PSV Ratio = variable TOTAL OCCLUSION - Plaque = no lumen; ICA PSV = none; ICA/CCA PSV Ratio = N/A Signer Name: Robby Apodaca MD Signed: 01/20/2021 1:46 PM Workstation Name: [email or web address] [id number]
--- NOTE | 2021-01-20 13:52 | Vascular Lab Report ---
DUPLEX DOPPLER LOWER EXTREMITY VEINS, BILATERAL INDICATION / CLINICAL INFORMATION: History of DVT and clotting disorder. TECHNIQUE: Duplex doppler imaging was performed through the veins of both lower extremities using bay ous compression and other maneuvers. COMPARISON: None available. FINDINGS: RIGHT COMMON FEMORAL VEIN: Negative. RIGHT FEMORAL VEIN: Negative. RIGHT POPLITEAL VEIN: Negative. RIGHT CALF VEINS: Negative. LEFT COMMON FEMORAL VEIN: Negative. LEFT FEMORAL VEIN: Negative. LEFT POPLITEAL VEIN: Negative. LEFT CALF VEINS: Negative. ADDITIONAL FINDINGS: None. IMPRESSION: 1. No sonographic evidence for DVT in either lower extremity. Signer Name: Robby Apodaca MD Signed: 01/20/2021 1:47 PM Workstation Name: [email or web address] [id number]
--- NOTE | 2021-01-20 16:13 | Discharge Summary ---
Providers - Providers Date of Admission: 01/20/21 02:44 Date of discharge: 01/20/21 Attending physician: OFE VILCHIS 01/20/21 05:15 Consult to Dietitian/Nutrition [CONS] Routine Physician Instructions: Reason For Exam: Reason for Consult: Diet education Consult to Physician [CONS] Routine Comment: Consulting Provider: LEANDER ACEVES Physician Instructions: Reason For Exam: Left sided weakness. R/O CVA Occupational Therapy Evaluate and Treat [CONS] Routine Comment: Reason For Exam: Neuro deficits Physical Therapy Evaluation and Treat [CONS] Routine Comment: Reason For Exam: Neuro deficits Primary care physician: STAFF AUDITOR Hospitalization Condition: Serious Hospital course: 60-year-old -Japanese female with known history of coronary artery disease, diabetes mellitus, hypertension, history of CVA with left-sided weakness, history of pulmonary embolism on Coumadin, SLE and history of GI bleed who is also wheelchair-bound brought into the emergency room after having a fall from wheel chair. Patient is known to our service due to her prior admission with similar issues. 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 Patient indicates that a couple of hours after for she noticed that she could not open the right eye secondary to swelling. Work-up in the emergency room, CT scan of the head, chest x-ray, CT of the cervical spine, lumbar spine, thoracic spine were unremarkable. CT of the face shows some degree of proptosis in the right eye. No evidence of acute bony facial trauma. Shoulder x-ray and pelvic x-ray were also unremarkable. Labs were within normal limits. MRI brain w/o any acute findings LE doppler study negative Patient will be discharge home with outpt f/u Disposition: 01 HOME / SELF CARE / HOMELESS Final Discharge Diagnosis (Prints w/discharge instructions): --wheel chair bound. --physical debility, chronic. --noncompliance Time spent for discharge: 34 minutes Core Measure Documentation - Palliative Care Palliative Care/ Comfort Measures: Not Applicable - Core Measures Any of the following diagnoses?: none Exam - Physical Exam Narrative exam: General appearance: Present: no acute distress, well-nourished - EENT Eyes: Present: PERRL, EOM intact, exopthalmos (Slightly swollen and prominent right eye). Absent: scleral icterus ENT: hearing intact, clear oral mucosa, dentition normal - Neck Neck: Present: supple, normal ROM - Respiratory Respiratory effort: normal Respiratory: bilateral: CTA - Cardiovascular Rhythm: regular Heart Sounds: Present: S1 & S2. Absent: gallop, systolic murmur, diastolic murmur, rub, click - Extremities Extremities: no ischemia, pulses intact, pulses symmetrical, No edema, normal temperature, normal color, Full ROM Peripheral Pulses: within normal limits - Abdominal General gastrointestinal: Present: soft, non-tender, non-distended, normal bowel sounds. Absent: mass - Integumentary Integumentary: Present: clear, warm, dry. Absent: rash - Musculoskeletal Musculoskeletal: strength equal bilaterally - Psychiatric Psychiatric: appropriate mood/affect, intact judgment & insight, memory intact, cooperative - Neurologic Neurologic: CNII-XII intact, no focal deficits, moves all extremities - Constitutional Vitals: Temp Pulse Resp BP Pulse Ox 98.9 F 70 20 143/63 98 01/20/21 08:15 01/20/21 08:15 01/20/21 08:15 01/20/21 08:15 01/20/21 10:00 Plan Activity: fall precautions Weight Bearing Status: Non-Weight Bearing Diet: low fat, low salt Follow up with: PRIMARY CARE, [Primary Care Provider] - 3-5 Days Forms: Warfarin Discharge Instruction
[2021-01-20] MEDS ORDERED: WARFARIN 5 MG TAB PO SCH (17:00)
--- NOTE | 2021-01-21 09:26 | Progress Note ---
Assessment and Plan Assessment and Plan - Patient Problems # Left-sided weakness remote according to pt. she felt off her wheel chair with notable increase weakness left side as well as proptosis right eye with lag of trauma !!! -she is with hx of Lupus anticoagulant since 2010 on Coumadin ,INR#1.95 -hx of left side weakness according to her is worse she is wheel chair bound -- today she is moving both side with no clear weakness is appreciated -Hx of rhematoid arthritis as per pt. not on treatment ? -Patient placed on statin and daily aspirin in addition to coumadin 5 mg daily -CT brain is unremarkable -MRI and MRA brain are unremarkable -echo is pending -PT therapy evaluate -ESR#40, JONN and RF are pending # Proptosis -Etiology unclear.? intermittent -TSH#7 -MRI,MRA are unremarkable , no MRV is done #Hx of rheumatoid arthritis -on no medication -check ESR,JONN,RF ? pending # Diabetes mellitus -We will place on sliding scale insulin and monitor Accu-Cheks closely. # DVT prophylaxis -Patient currently on anticoagulation. -she is warmer in right leg > left and with slight swelling ? DVT can not be excluded with send for US LES bilateral. # Full code status -Patient is full code. will sign off Subjective Date of service: 01/21/21 Principal diagnosis: left side weakness and right eye proptosis Interval history: pt. is on the phone today moving both arms and eyes are opens both side with intact EOM and no asymmetry when i started examine the pt. she started complaining of legs weakness and arm weakness I explained to her that work up is unrevealing including LEs US Objective - Vital Sign Vital Signs - 12hr 01/20/21 01/20/21 01/21/21 23:32 23:33 01:07 Temperature 98.3 F Pulse Rate 86 Respiratory 18 Rate Blood Pressure 113/61 113/61 O2 Sat by Pulse 97 Oximetry 01/21/21 01/21/21 03:47 07:59 Temperature 98.1 F 98.7 F Pulse Rate 83 90 Respiratory 20 18 Rate Blood Pressure 123/70 127/55 O2 Sat by Pulse 97 98 Oximetry - General Apperance Constitutional: comfortable - EENT EENT: PERRL, mucous membranes moist - Respiratory Respiratory: chest non-tender, lungs clear - Cardiovascular Cardiovascular: regular rate, normal S1, normal S2 Extremities: no peripheral edema bilat, no clubbing, cyanosis - Gastrointestinal Gastrointestinal: normoactive bowel sounds - Integumentary Integumentary: normal - Neurologic Cranial nerve examination: PERRL, EOMI, intact Speech examination: intact Detailed motor examination: grossly full strength in, other (with MPJ slight swelling , and weakness in hand jar filler and LEs 3-4-/5 with suppressed reflexes Bilateral) - Laboratory Findings CBC and BMP: 01/19/21 14:50 01/19/21 14:50 Abnormal Lab Findings: Abnormal Labs 01/19/21 01/19/21 01/19/21 14:50 14:50 14:50 RDW 25.6 H Seg Neuts % (Manual) 82.0 H Lymphocytes % (Manual) 9.0 L Monocytes % (Manual) 8.0 H Lymphocytes # (Manual) 0.6 L PT 23.6 H INR 1.91 H Carbon Dioxide 19 L Creatinine 0.3 L Glucose 128 H POC Glucose CK-MB (CK-2) Rel Index 6.3 H TSH Rheumatoid Factor 01/19/21 01/20/21 01/20/21 23:29 10:32 16:47 RDW Seg Neuts % (Manual) Lymphocytes % (Manual) Monocytes % (Manual) Lymphocytes # (Manual) PT INR Carbon Dioxide Creatinine Glucose POC Glucose 145 H CK-MB (CK-2) Rel Index TSH 7.010 H Rheumatoid Factor 23 H 01/20/21 21:51 RDW Seg Neuts % (Manual) Lymphocytes % (Manual) Monocytes % (Manual) Lymphocytes # (Manual) PT INR Carbon Dioxide Creatinine Glucose POC Glucose 114 H CK-MB (CK-2) Rel Index TSH Rheumatoid Factor
[2021-01-21] MEDS: predniSONE 10 MG TAB PO SCH (09:52)
[2021-01-21] MEDS: ASPIRIN 325 MG TAB PO SCH (09:52)
[2021-01-21] MEDS: PANTOPRAZOLE 40 MG TAB PO SCH ×2 (09:52→17:17)
[2021-01-21] MEDS: METOPROLOL SUCCINATE XL 50 MG TAB PO SCH ×3 (09:52→21:08)
[2021-01-21] MEDS: INSULIN LISPRO 100 UNIT/ML SUB-Q SCH ×5 (09:53→21:04)
[2021-01-21 14:41] LABS: Hematocrit 36.1 % (30.3-42.9); Hemoglobin 11.1 gm/dl (10.1-14.3); Mean Corpuscular HGB Conc 31 % (30-34); Mean Corpuscular Volume 91 fl (79-97); Red Blood Count 3.98 M/mm3 (3.65-5.03)
[2021-01-21 14:42] LABS: Red Cell Distribution Width 26.2 % (13.2-15.2)
[2021-01-21 14:51] LABS: Chol/HDL Ratio 2.28 %; HDL Cholesterol 75 mg/dL (40-59); INR 1.54 (0.87-1.13); LDL Cholesterol,Direct 88 mg/dL (50-130)
[2021-01-21 15:35] LABS: Blood Urea Nitrogen 11 mg/dL (7-17); Calcium 8.7 mg/dL (8.4-10.2); Hemolysis Index 122
[2021-01-21 15:40] LABS: BUN/Creatinine Ratio 28
[2021-01-21 15:50] LABS: Anisocytosis 2+; Poikilocytosis 1+; Total Cells Counted 100
[2021-01-21 15:51] LABS: Ovalocytes Few; Platelet Count 86 K/mm3 (140-440); Platelet Estimate Consistent w Auto; Tear Drop Cells Few
[2021-01-21] MEDS ORDERED: WARFARIN 7.5 MG TAB PO SCH (17:00)
--- NOTE | 2021-01-21 18:15 | Progress Note ---
Assessment and Plan Assessment and plan: 60-year-old -[place] female with known history of coronary artery disease, diabetes mellitus, hypertension, history of CVA with left-sided weakness, history of pulmonary embolism on Coumadin, SLE and history of GI bleed who is also wheelchair-bound brought into the emergency room after having a fall from wheel chair. Patient is known to our service due to her prior admission with similar issues. 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 Patient indicates that a couple of hours after for she noticed that she could not open the right eye secondary to swelling. Work-up in the emergency room, CT scan of the head, chest x-ray, CT of the cervical spine, lumbar spine, thoracic spine were unremarkable. CT of the face shows some degree of proptosis in the right eye. No evidence of acute bony facial trauma. Shoulder x-ray and pelvic x-ray were also unremarkable. Labs were within normal limits. MRI brain w/o any acute findings LE doppler study negative History of SLE History of DVT, PE and multiple strokes with left hemiparesis from lupus antigen on Coumadin History of vertebral fractures and kyphoplasty Wheelchair-bound and wears extensive complex back braces Fell off wheelchair with patient complaining of new weakness Stroke work-up including MRI negative, neurology consulted and evaluating Trauma work-up including CT entire spine and face negative. No new vertebral fractures reported. History of rheumatoid arthritis according to patient Diabetes mellitus Hypertension Patient is allergic to almost all pain medications including narcotics, NSAIDs, Tylenol, tramadol Patient is currently comfortable lying in bed. INR is subtherapeutic, 1.5 Lovenox bridge initiated Pharmacy is managing warfarin dosing Patient is to discharge deferred today due to lack of transportation financial accounting manager is coordinating transportation and limits Patient plans to visit her daughter and [id number] who are physicians Per patient, her anticoagulation will be managed by her daughter She is knowledgeable with the Lovenox injections. DVT prophylaxis: Warfarin/Lovenox bridge CODE STATUS: Full code Discussed with the patient, nursing staff and high risk case manager History Interval history: Patient is resting comfortably in bed he did not get any pain medications. Patient reports back pain with movement. She is allergic to almost all pain m edications including narcotics, NSAIDs and tramadol. Stroke work-up is negative. Patient reports that she had multiple strokes due to lupus and tissue for which she is on warfarin. INR is 1.5 today and started Lovenox bridge. Patient has history of vertebral fractures, kyphoplasty invasive extensive lysis and wheelchair-bound. Her discharge today is deferred due to lack of transport arrangements. Hospitalist Physical - Constitutional Vitals: Temp Pulse Resp BP Pulse Ox 98.7 F 90 18 127/55 97 01/21/21 07:59 01/21/21 07:59 01/21/21 07:59 01/21/21 07:59 01/21/21 13:00 General appearance: Present: no acute distress, well-nourished - EENT Eyes: Present: PERRL, EOM intact ENT: hearing intact - Neck Neck: Present: supple - Respiratory Respiratory effort: normal Respiratory: bilateral: CTA - Cardiovascular Rhythm: regular - Extremities Extremities: No edema - Abdominal General gastrointestinal: soft, non-tender, non-distended, normal bowel sounds - Integumentary Integumentary: Absent: rash - Psychiatric Psychiatric: cooperative - Neurologic Neurologic: other (Alert and oriented, normal speech, chronic left hemiparesis, 2/5 in upper extremity and 0/5 lower extremity.) HEART Score - HEART Score Troponin: Troponin T 0.025 ng/mL (0.00-0.029) 01/19/21 23:29 Results - Labs CBC & Chem 7: 01/21/21 14:29 01/21/21 14:29 Labs: Laboratory Last Values WBC 5.6 K/mm3 (4.5-11.0) 01/21/21 14:29 RBC 3.98 M/mm3 (3.65-5.03) 01/21/21 14:29 Hgb 11.1 gm/dl (10.1-14.3) 01/21/21 14:29 Hct 36.1 % (30.3-42.9) 01/21/21 14: MCV 91 fl (79-97) 01/21/21 14:29 MCH 28 pg (28-32) 01/21/21 14:29 MCHC 31 % (30-34) 01/21/21 14:29 RDW 26.2 % (13.2-15.2) H 01/21/21 14:29 Plt Count 86 K/mm3 (140-440) L 01/21/21 14:29 Add Manual Diff Complete 01/21/21 14:29 Total Counted 100 01/21/21 14: Seg Neuts % (Manual) 91.0 % (40.0-70.0) H 01/21/21 14:29 Lymphocytes % (Manual) 5.0 % (13.4-35.0) L 01/21/21 14:29 Reactive Lymphs % (Man) 1.0 % 01/19/21 14:50 Monocytes % (Manual) 4.0 % (0.0-7.3) 01/21/21 14: Nucleated RBC % Not Reportable 01/21/21 14: Seg Neutrophils # Man 5.1 K/mm3 (1.8-7.7) 01/21/21 14: Band Neutrophils # 0.0 K/mm3 01/21/21 14: Lymphocytes # (Manual) 0.3 K/mm3 (1.2-5.4) L 01/21/21 14:29 Abs React Lymphs (Man) 0.0 K/mm3 01/21/21 14: Monocytes # (Manual) 0.2 K/mm3 (0.0-0.8) 01/21/21 14:29 Eosinophils # (Manual) 0.0 K/mm3 (0.0-0.4) 01/21/21 14: Basophils # (Manual) 0.0 K/mm3 (0.0-0.1) 01/21/21 14: Metamyelocytes # 0.0 K/mm3 01/21/21 14: Myelocytes # 0.0 K/mm3 01/21/21 14: Promyelocytes # 0.0 K/mm3 01/21/21 14:29 Blast Cells # 0.0 K/mm3 01/21/21 14:29 WBC Morphology Not Reportable 01/21/21 14:29 Hypersegmented Neuts Not Reportable 01/21/21 14: Hyposegmented Neuts Not Reportable 01/21/21 14: Hypogranular Neuts Not Reportable 01/21/21 14: Smudge Cells Not Reportable 01/21/21 14:29 Toxic Granulation Not Reportable 01/21/21 14: Toxic Vacuolation Not Reportable 01/21/21 14:29 Dohle Bodies Not Reportable 01/21/21 14:29 Pelger-Huet Anomaly Not Reportable 01/21/21 14:29 Gonzalo Rods Not Reportable 01/21/21 14:29 Platelet Estimate Consistent w auto 01/21/21 14:29 Clumped Platelets Not Reportable 01/21/21 14:29 Plt Clumps, EDTA Not Reportable 01/21/21 14:29 Large Platelets Not Reportable 01/21/21 14:29 Giant Platelets Not Reportable 01/21/21 14:29 Platelet Satelliting Not Reportable 01/21/21 14:29 Plt Morphology Comment Not Reportable 01/21/21 14:29 RBC Morphology Not Reportable 01/21/21 14:29 Dimorphic RBCs Not Reportable 01/21/21 14:29 Polychromasia Not Reportable 01/21/21 14:29 Hypochromasia Not Reportable 01/21/21 14:29 Poikilocytosis 1+ 01/21/21 14:29 Anisocytosis 2+ 01/21/21 14:29 Microcytosis Not Reportable 01/21/21 14:29 Macrocytosis Not Reportable 01/21/21 14:29 Spherocytes Not Reportable 01/21/21 14:29 Pappenheimer Bodies Not Reportable 01/21/21 14:29 Sickle Cells Not Reportable 01/21/21 14:29 Target Cells Not Reportable 01/21/21 14:29 Tear Drop Cells Few 01/21/21 14:29 Ovalocytes Few 01/21/21 14:29 Helmet Cells Not Reportable 01/21/21 14:29 [place] Bodies Not Reportable 01/21/21 14:29 [place] Rings Not Reportable 01/21/21 14:29 [place] Cells Not Reportable 01/21/21 14:29 Bite Cells Not Reportable 01/21/21 14:29 Crenated Cell Not Reportable 01/21/21 14:29 Elliptocytes Few 01/21/21 14:29 Acanthocytes (Spur) Not Reportable 01/21/21 14:29 Rouleaux Not Reportable 01/21/21 14:29 Hemoglobin C Crystals Not Reportable 01/21/21 14:29 Schistocytes Not Reportable 01/21/21 14:29 Malaria parasites Not Reportable 01/21/21 14:29 ESR 40 mm/Hr (0-20) 01/20/21 10:32 Jean Marie Bodies Not Reportable 01/21/21 14:29 Hem Pathologist Commnt No 01/21/21 14:29 PT 20.0 Sec. (12.2-14.9) H 01/21/21 14:29 INR 1.54 (0.87-1.13) H 01/21/21 14:29 APTT 30.7 Sec. (24.2-36.6) 01/19/21 14:50 Thrombin Time 15.9 Sec. (15.1-19.6) 01/19/21 14:50 Sodium 131 mmol/L (137-145) L D 01/21/21 14:29 Potassium 5.7 mmol/L (3.6-5.0) H D 01/21/21 14:29 Chloride 99.3 mmol/L (98-107) 01/21/21 14:29 Carbon Dioxide 17 mmol/L (22-30) L 01/21/21 14:29 Anion Gap 20 mmol/L 01/21/21 14:29 BUN 11 mg/dL (7-17) 01/21/21 14:29 Creatinine 0.4 mg/dL (0.6-1.2) L 01/21/21 14:29 Estimated GFR > 60 ml/min 01/21/21 14:29 BUN/Creatinine Ratio 28 % 01/21/21 14:29 Glucose 160 mg/dL (65-100) H 01/21/21 14:29 POC Glucose 101 mg/dL (70-105) 01/21/21 10:02 Calcium 8.7 mg/dL (8.4-10.2) 01/21/21 14:29 Total Bilirubin 0.20 mg/dL (0.1-1.2) 01/19/21 14:50 AST 14 units/L (5-40) 01/19/21 14:50 ALT 22 units/L (7-56) 01/19/21 14:50 Alkaline Phosphatase 90 units/L (35-129) 01/19/21 14:50 Total Creatine Kinase 33 units/L (30-135) 01/19/21 14:50 CK-MB (CK-2) 2.1 ng/mL (0.0-4.0) 01/19/21 14:50 CK-MB (CK-2) Rel Index 6.3 (0-4) H 01/19/21 14:50 Troponin T 0.025 ng/mL (0.00-0.029) 01/19/21 23:29 Total Protein 7.1 g/dL (6.3-8.2) 01/19/21 14:50 Albumin 4.0 g/dL (3.9-5) 01/19/21 14:50 Albumin/Globulin Ratio 1.3 % 01/19/21 14:50 Triglycerides 96 mg/dL (2-149) 01/21/21 14:29 Cholesterol 171 mg/dL (50-199) 01/21/21 14:29 LDL Cholesterol Direct 88 mg/dL (50-130) 01/21/21 14:29 HDL Cholesterol 75 mg/dL (40-59) H 01/21/21 14:29 Cholesterol/HDL Ratio 2.28 % 01/21/21 14:29 TSH 7.010 mlU/mL (0.270-4.200) H 01/19/21 23:29 Thyroxine (T4) 8.2 ug/dL (4.0-12.0) 01/20/21 10:32 Urine Color Yellow (Yellow) 01/20/21 00:39 Urine Turbidity Slightly-cloudy (Clear) 01/20/21 00:39 Urine pH 5.0 (5.0-7.0) 01/20/21 00:39 Ur Specific [place] 1.021 (1.003-1.030) 01/20/21 00:39 Urine Protein <15 mg/dl mg/dL (Negative) 01/20/21 00:39 Urine Glucose (UA) Neg mg/dL (Negative) 01/20/21 00:39 Urine Ketones Neg mg/dL (Negative) 01/20/21 00:39 Urine Blood Neg (Negative) 01/20/21 00:39 Urine Nitrite Neg (Negative) 01/20/21 00:39 Urine Bilirubin Neg (Negative) 01/20/21 00:39 Urine Urobilinogen < 2.0 mg/dL (<2.0) 11 00:39 Ur Leukocyte Esterase Tr (Negative) 01/20/21 00:39 Urine WBC (Auto) 3.0 /HPF (0.0-6.0) 01/20/21 00:39 Urine RBC (Auto) 4.0 /HPF (0.0-6.0) 01/20/21 00:39 U Epithel Cells (Auto) 13.0 /HPF (0-13.0) 01/20/21 00:39 Calcium Oxalate Crystal 3+ 01/20/21 00:39 Urine Mucus Few /HPF 01/20/21 00:39 Urine Opiates Screen Presumptive negative 01/20/21 00:39 Urine Methadone Screen Presumptive negative 01/20/21 00:39 Ur Barbiturates Screen Presumptive negative 01/20/21 00:39 Ur Phencyclidine Scrn Presumptive negative 01/20/21 00:39 Ur Amphetamines Screen Presumptive negative 01/20/21 00:39 U Benzodiazepines Scrn Presumptive negative 01/20/21 00:39 Urine Cocaine Screen Presumptive negative 01/20/21 00:39 U Marijuana (THC) Screen Presumptive negative 01/20/21 00:39 Drugs of Abuse Note Disclamer 01/20/21 00:39 Plasma/Serum Alcohol < 0.01 % (0-0.07) 01/19/21 18:52 Rheumatoid Factor 23 IU/ml (0-13) H 01/20/21 10:32 [place]/IV: Voiding Method Toilet Active Medications - Current Medications Current Medications: Generic Name Dose Route Start Last Admin Trade Name Freq PRN Reason Stop Dose Admin Aspirin 325 mg 01/20/21 10:00 01/21/21 09:52 Aspirin 325 Mg Tab PO 325 mg QDAY APPLE Administration Atorvastatin Calcium 40 mg 01/20/21 22:00 01/20/21 23:31 Atorvastatin 40 Mg Tab PO 40 mg QHS APPLE Administration Bisacodyl 10 mg 01/20/21 05:15 Bisacodyl 10 Mg Rect Supp [place] QDAY PRN Constipation Dextrose 0 ml 01/20/21 05:15 Dextrose 50% In Water (25gm) 50 Ml Syringe IV Q30MIN PRN Hypoglycemia Protocol Insulin Human Lispro 0 unit 01/20/21 07:30 01/21/21 17:18 Insulin Lispro 100 Unit/Ml SUB-Q Not Given ACHS APPLE Protocol Magnesium Hydroxide 30 ml 01/20/21 05:15 Magnesium Hydroxide (Mom) Oral Liqd Udc PO Q4H PRN Constipation Metoclopramide HCl 10 mg 01/20/21 05:15 Metoclopramide 10 Mg Tab PO Q6H PRN Nausea And Vomiting Metoprolol Succinate 50 mg 01/20/21 10:00 01/21/21 09:52 Metoprolol Succinate Xl 50 Mg Tab PO 50 mg BID APPLE Administration Ondansetron HCl 4 mg 01/20/21 05:15 Ondansetron 4 Mg/2 Ml Inj IV Q8H PRN Nausea And Vomiting Pantoprazole Sodium 40 mg 01/20/21 07:30 01/21/21 17:17 Pantoprazole 40 Mg Tab PO 40 mg BIDAC APPLE Administration Prednisone 10 mg 01/20/21 10:00 01/21/21 09:52 Prednisone 10 Mg Tab PO 10 mg QDAY APPLE Administration Promethazine HCl 25 mg 01/20/21 05:15 Promethazine 25 Mg Rect Supp [place] Q6H PRN Nausea And Vomiting Sodium Chloride 10 ml 01/20/21 10:00 01/21/21 09:53 Sodium Chloride 0.9% 10 Ml Flush Syringe IV 10 ml BID APPLE Administration Sodium Chloride 10 ml 01/20/21 05:15 01/21/21 09:53 Sodium Chloride 0.9% 10 Ml Flush Syringe IV 10 ml PRN PRN Administration LINE FLUSH Warfarin Sodium 7.5 mg 01/21/21 17:00 01/21/21 16:46 Warfarin 7.5 Mg Tab PO 7.5 mg DAILY@1700 APPLE Administration Nutrition/Malnutrition Assess - Dietary Evaluation Nutrition/Malnutrition Findings: Nutrition Notes Start: 01/20/21 11:55 Freq: Status: Active Protocol: Document 01/20/21 11:55 SHYAM (Rec: 01/20/21 12:18 SHYAM [id number]) Nutrition Notes Need for Assessment generated from: MD Order,Education Initial or Follow up Assessment Current Diagnosis Coronary Artery Disease, Diabetes,Hypertension,Heart Failure Other Pertinent Diagnosis Left side weakness, proptoses. Current Diet Cardiac/Consistent carbohydrates Diet (since B ). Labs/Tests 01/20: CO2 19, Cr 0.3, Glu 128 . Pertinent Medications 01/20: D50w, Insulin, Warfarine (since 2010). Height 5 ft 6 in Weight 67 kg [place] Body Weight (kg) 59.09 BMI 23.8 Weight Status Appropriate Subjective/Other Information RD consult for Diet education on Warfarine. Percent of energy/protein needs met: Prescribed C/CC Diet provides for energy/protein needs (1, 977 Kcal/86 g) during LOS. Burn Absent Trauma Absent GI Symptoms None Food Allergy No Skin Integrity/Comment Clear, warm, dry. #1 Nutrition Diagnosis No nutrition diagnosis at this time Comments: Pt has been using Warfarin for 10 years. Is patient on ventilator? No Is Patient Ambulatory and/or Out of Bed Yes REE-([place]-St. Jeor-ambulatory/OOB) [ 1640.275 [id number]] Kcal/Kg value to use for calculation 27 Approximate Energy Requirements Using 1809 kcal/Kg Calculation Used for Recommendations Kcal/kg Additional Notes Protein: 0.8-1 g/Kg/day; 47-59 g/day; 188-236 Kcal/day (from IBW). Fluids: 1 ml/Kcal/day, or as per MD. Nutrition Intervention Change Diet Order: Continue Cardiac/Consistent carbohydrates Diet. Goal #1 Maintain body weight within +/ -3% Of current BWt during LOS. Goal #2 Reach and maintain acceptable chemistry lab values during LOS. Follow-Up By: 01/27/21 Additional Comments Continue monitoring food tolerance, %PO intake of meals , Hydration, and BM.
--- NOTE | 2021-01-21 19:05 | Electrocardiograph Report ---
[facility] Test Date: 2021-01-19 Test Time: 23:08:33 Pat Name: JERICA STERN Department: Room: A468 1 Gender: F Low Emission [employer]er: MUMTAZ : 1960 Requested By: DANIEL العلي Order Number: [id number] Reading MD: Heber Humphreys Measurements Intervals [place] Rate: 137 P: 81 NM: 102 QRS: 70 QRSD: 75 T: 30 QT: 295 QTc: 447 Interpretive Statements Sinus tachycardia No previous ECG available for comparison Electronically Signed On 01-21-2021 19:05:07 EDT by Heber Humphreys
[2021-01-21] MEDS ORDERED: ENOXAPARIN 100 MG/1 ML INJ SUB-Q SCH (22:00)
[2021-01-22] MEDS: INSULIN LISPRO 100 UNIT/ML SUB-Q SCH (08:00)
[2021-01-22] MEDS ORDERED: ENOXAPARIN 80 MG/0.8 ML INJ SUB-Q SCH (10:00)
[2021-01-22] MEDS: ASPIRIN 325 MG TAB PO SCH (10:04)
[2021-01-22] MEDS: METOPROLOL SUCCINATE XL 50 MG TAB PO SCH (10:06)
[2021-01-22 10:07] VITALS: BP 124/76
[2021-01-22] MEDS: predniSONE 10 MG TAB PO SCH (10:17)
[2021-01-22] MEDS: PANTOPRAZOLE 40 MG TAB PO SCH (10:25)
--- NOTE | 2021-01-22 12:19 | Discharge Summary ---
Providers - Providers Date of Admission: 01/20/21 02:44 Attending physician: ELKIN DURANT MD 01/20/21 05:15 Consult to Dietitian/Nutrition [CONS] Routine Physician Instructions: Reason For Exam: Reason for Consult: Diet education Consult to Physician [CONS] Routine Comment: Consulting Provider: LEANDER ACEVES Physician Instructions: Reason For Exam: Left sided weakness. R/O CVA Occupational Therapy Evaluate and Treat [CONS] Routine Comment: Reason For Exam: Neuro deficits Physical Therapy Evaluation and Treat [CONS] Routine Comment: Reason For Exam: Neuro deficits Primary care physician: MECHANICAL ADJUSTER Hospitalization Condition: Serious Hospital course: 60-year-old -Chinese female with known history of coronary artery disease, diabetes mellitus, hypertension, history of CVA with left-sided weakness, history of pulmonary embolism on Coumadin, SLE and history of GI bleed who is also wheelchair-bound brought into the emergency room after having a fall from wheel chair. Patient is known to our service due to her prior admission with similar issues. 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 Patient indicates that a couple of hours after for she noticed that she could not open the right eye secondary to swelling. Work-up in the emergency room, CT scan of the head, chest x-ray, CT of the cervical spine, lumbar spine, thoracic spine were unremarkable. CT of the face shows some degree of proptosis in the right eye. No evidence of acute bony facial trauma. Shoulder x-ray and pelvic x-ray were also unremarkable. Labs were within normal limits. MRI brain w/o any acute findings LE doppler study negative History of SLE History of DVT, PE and multiple strokes with left hemiparesis from lupus antigen on Coumadin History of vertebral fractures and kyphoplasty Wheelchair-bound and wears extensive complex back braces Fell off wheelchair with patient complaining of new weakness Stroke work-up including MRI negative, neurology consulted and evaluating Trauma work-up including CT entire spine and face negative. No new vertebral fractures reported. History of rheumatoid arthritis on prednisone and methotrexate chronically Diabetes mellitus Hypertension Patient is allergic to almost all pain medications including narcotics, NSAIDs, Tylenol, tramadol Patient is currently comfortable lying in bed. INR is subtherapeutic, 1.5 Lovenox bridge initiated Pharmacy is managing warfarin dosing Patient plans to visit her daughter and [id number] who are physicians Per patient, her anticoagulation will be managed by her daughter She is knowledgeable with the Lovenox injections. CODE STATUS: Full code Discharge disposition: Patient has been stable for more than 48 hours since admitted. Stroke and trauma work-up essentially negative. She is not requiring any pain medications. She states comfortable in her bed. Her discharge was delayed due to patient having a transportation problems. Today, patient is discharged in stable condition. She will have her INR followed by her primary care provider. Disposition: HOME / SELF CARE / HOMELESS Core Measure Documentation - Palliative Care Palliative Care/ Comfort Measures: Not Applicable Exam - Constitutional Vitals: Temp Pulse Resp BP Pulse Ox 97.5 F L 78 18 124/76 99 01/22/21 08:55 01/22/21 10:06 01/22/21 08:55 01/22/21 10:06 01/22/21 08:55 General appearance: Present: no acute distress - EENT Eyes: Present: PERRL, EOM intact ENT: hearing intact, clear oral mucosa - Neck Neck: Present: supple - Respiratory Respiratory effort: normal Respiratory: bilateral: CTA - Cardiovascular Rhythm: regular - Extremities Extremities: No edema - Abdominal General gastrointestinal: Present: soft, non-tender, non-distended, normal bowel sounds - Integumentary Integumentary: Absent: rash - Musculoskeletal Musculoskeletal: left sided weakness - Neurologic Neurologic: other (Alert and oriented without acute distress. Speech normal. Strength in the left arm is fairly good today report 4/5. She does not move her left leg well due to severe DJD knee joint.) Plan Activity: advance as tolerated Diet: regular Additional Instructions: Have your INR regulated by your primary care provider. Get your INR checked in 1 to 2 days. Follow up with: FABI GLOVER MD [Primary Care Provider] - 3-5 Days
[2021-01-24 06:19] LABS: ANA Screen, IFA Negative (Negative)
== END 2021-01-22 13:10 | disposition home or self-care (01) ==
LOC: ED 13:13 → 4A 01-20 02:44
PROVIDERS: ADMIT Internal Medicine Geriatric Medicine; ATTEND Internal Medicine
DX: I63.9 Cerebral infarction, unspecified (principal); M62.81 Muscle weakness (generalized); H05.20 Unspecified exophthalmos; E11.9 Type 2 diabetes mellitus without complications; S00.93XA Contusion of unspecified part of head, initial encounter; R79.1 Abnormal coagulation profile; I11.0 Hypertensive heart disease with heart failure; I50.9 Heart failure, unspecified; M19.90 Unspecified osteoarthritis, unspecified site; M06.9 Rheumatoid arthritis, unspecified; I25.10 Atherosclerotic heart disease of native coronary artery without angina pectoris; R29.710 NIHSS score 10; Z86.711 Personal history of pulmonary embolism; Z86.718 Personal history of other venous thrombosis and embolism; Z86.73 Personal history of transient ischemic attack (TIA), and cerebral infarction without residual deficits; Z79.899 Other long term (current) drug therapy; Z98.890 Other specified postprocedural states; Z79.01 Long term (current) use of anticoagulants; Z79.4 Long term (current) use of insulin; Z79.82 Long term (current) use of aspirin; V00.811A Fall from moving wheelchair (powered), initial encounter; Y93.89 Activity, other specified; Y92.89 Other specified places as the place of occurrence of the external cause; Y99.8 Other external cause status
CPT/HCPCS: 36415; 70450; 70486; 70544; 70551; 71045; 72125; 72128; 72131; 72170; 73030; 80048; 80053; 80061; 80307; 81001; 82550; 82553; 82962; 84436; 84443; 84484; 85025; 85610; 85652; 85670; 85730; 86038; 86431; 93005; 93880; 93970; 96361; 96372; 96374; 96375; 96376; 99291; A9270; G0378; J1170; J1650; J7030; J7512; 80320; 85007; G0480; J2405; Q0162